=== PATIENT | male | born 1945 | race Caucasian/White ===

== ENCOUNTER 2016-05-09 10:42 | Emergency (ER) | payer MEDICARE, OTHER ==
[~2016-05-09] VITALS: Ht 170.2 cm; Wt 56.0 kg
[~2016-05-09 10:42] MED LIST: ALBU1AER INH; ASPI81TA82 PO; DUONI NEB; LORTA5 PO; PACE200T4 PO; PROT40TA PO; SEVEL800 PO; TAZT360C2 PO
[2016-05-09 10:47] VITALS: BP 144/70; PULSE 64; RESP 20; TEMP 97.9; O2SAT 99
[2016-05-09] MEDS ORDERED: ALBU0.08 NEB (10:58)
[2016-05-09] MEDS ORDERED: PANT40TA3 PO (10:58)
[2016-05-09] MEDS ORDERED: ASPI81CH CHEW (10:58)
[2016-05-09] MEDS ORDERED: AMIO200T PO (10:58)
[2016-05-09] MEDS ORDERED: DILT120T PO (10:58)
[2016-05-09] MEDS ORDERED: SEVEL800 PO (10:58)
--- NOTE | 2016-05-09 11:50 | PD ---
HPI Chief Complaint: Neuro Symptoms/ Deficits Time Seen by Provider: 11:49 Travel History International Travel<30 days: No Contact w/Intl Traveler<30days: No Traveled to known affect area: No History of Present Illness HPI 70 year old male with PMH of COPD, ESRD on dialysis Saturday, , Saturday , A. joceline presents to the ED via EMS for evaluation of episodic tremors with accompanying shortness of breath and palpitations. Patient states that these tend to happen during times of higher anxiety and social contact. Symptoms onset gradually and resolve spontaneously. He states that he has used his pulse oximeter during these episodes with no dip in his oxygen saturation. The patient denies headaches, fevers, chills, chest pain, abdominal pain, nausea, vomiting, changes in bowel habits, melena, hematochezia, dysuria, back pain, weakness of the extremities. States that he rides his bike to the grocery store a few times a week. He estimates the total distance to be just over a mile. Patient was at a psychiatrist this morning who was concerned about his symptoms, called EMS. He endorses compliance with his medications. States that he makes very little urine. PFSH Past Medical History Hx Anticoagulant Therapy: Yes (asa 81mg) Arthritis: No Asthma: No Atrial Fibrillation: Yes Autoimmune Disease: No Anxiety: Yes Depression: No Heart Rhythm Problems: Yes (A FIB) Cancer: No Cardiovascular Problems: Yes High Cholesterol: Yes Chemotherapy: No Chest Pain: No Congestive Heart Failure: Yes COPD: Yes Cerebrovascular Accident: No Diabetes: No Dialysis: Yes (, , SAT) Diminished Hearing: Yes (BILAT HEARING AIDS) Endocrine: No Gastrointestinal Disorders: Yes (GERD, GI BLEEDING) GERD: Yes Genitourinary: Yes (RENAL FAILURE, DIALYSIS ) Headaches: Yes (FROM KIDNEY FAILURE) Hepatitis: Yes (TEENAGE) Hiatal Hernia: Yes Hypertension: Yes Immune Disorder: No Implanted Vascular Access Dvce: Yes (left arm fistula) Kidney Stones: No Medical other: Yes (PSEODOMONAS 2005) Musculoskeletal: No Neurologic: Yes (INNER EAR ISSUES) Psychiatric: Yes (CLAUSTRAPHOBIA, ANXIETY) Reproductive: No Respiratory: Yes (copd) Immunizations Current: Yes Migraines: No Pneumonia: Yes Renal Failure: Yes (ESRD) Seizures: No Sleep Apnea: No Thyroid Disease: No Ulcer: No Past Surgical History Abdominal Surgery: Yes (HERNIA X 6) AICD: No Body Medical Devices: MAY BE WIRES IN CHEST FROM HEART SURGERY,CENTRAL VENAS CATH Cardiac Surgery: Yes (SEPTAL DEFECT REPAIR 1965) Ear Surgery: No Endocrine Surgery: No Eye Surgery: No Genitourinary Surgery: Yes (PLASTIC REPAIR SCROTUM URETHRAPLASTY) Gynecologic Surgery: No Insulin Pump: No Joint Replacement: No Neurologic Surgery: No Oral Surgery: Yes (TONSILLECTOMY) Pacemaker: No Thoracic Surgery: Yes (LUNG BIOPSY) Tonsillectomy: Yes Other Surgery: Yes (A/V FISTULA LEFT ARM) Social History Alcohol Use: No (QUIT 1989) Tobacco Use: No (QUIT 1989) Substance Use: No Allergies-Medications (Allergen,Severity, Reaction): Coded Allergies: Sulfa (Verified Allergy, Severe, "difficulty breathing", 05/09/16) Penicillin (Verified Adverse Reaction, Severe, "acid taste in mouth, problems with vision", 05/09/16) DIFFICULTY BREATHING Reported Meds & Prescriptions Reported Meds & Active Scripts Active Doxycycline Hyclate 100 Mg Cap 100 Mg PO BID Vistaril (Hydroxyzine Pamoate) 25 Mg Cap 25 Mg PO Q6H PRN Reported Renvela (Sevelamer Carbonate) 800 Mg Tab 800 Mg PO DAILY Pantoprazole (Pantoprazole Sodium) 40 Mg Tab 40 Mg PO DAILY Amiodarone (Amiodarone HCl) 200 Mg Tab 200 Mg PO EVERY OTHER DAY Diltiazem (Diltiazem HCl) 120 Mg Tab 240 Mg PO DIRECTED Albuterol Neb (Albuterol Sulfate) 2.5 Mg/3 Ml Neb 2.5 Mg NEB Q6HR Aspirin 81 Mg Chew 81 Mg CHEW DAILY Review of Systems Except as stated in HPI: all other systems reviewed are Neg Physical Exam Narrative GENERAL: Well-nourished, well-developed thin, hard of hearing white male in no acute distress. SKIN: Warm and dry. Visual well-healed surgical scar transversing the chest with no signs of infection. HEAD: Normocephalic. EYES: No scleral icterus. No injection or drainage. PERRLA. EOMI. NECK: Supple, trachea midline. No JVD or lymphadenopathy. CARDIOVASCULAR: Regular rate and rhythm without murmurs, gallops, or rubs. 2+ DP and radial pulses bilaterally. RESPIRATORY: Breath sounds equal bilaterally. Rare end expiratory wheezing. No accessory muscle use. GASTROINTESTINAL: Abdomen soft, non-tender, nondistended. Active bowel sounds. MUSCULOSKELETAL: No cyanosis, or edema. Lower extremities are in constant motion during the course of the exam. Tremor of the right hand, improved by strength testing. NEUROLOGICAL: Awake and alert. Cranial nerves II through XII intact. Motor and sensory grossly within normal limits. Five out of 5 muscle strength in all muscle groups. Normal speech. BACK: Nontender without obvious deformity. No CVA tenderness. Data Data Last Documented VS Vital Signs Date Time Temp Pulse Resp B/P Pulse Ox O2 Delivery O2 Flow Rate FiO2 05/09/16 12:00 98 Room Air 05/09/16 11:50 69 20 05/09/16 10:47 97.9 144/70 Orders Electrocardiogram (05/09/16 12:06) Complete Blood Count With Diff (05/09/16 12:06) Comprehensive Metabolic Panel (05/09/16 12:06) Magnesium (Mg) (05/09/16 12:06) Ckmb (Isoenzyme) Profile (05/09/16 12:06) Troponin I (05/09/16 12:06) Act Partial Throm Time (Ptt) (05/09/16 12:06) Prothrombin Time / Inr (Pt) (05/09/16 12:06) Urinalysis - C+S If Indicated (05/09/16 12:06) Chest, Single Ap (05/09/16 12:06) Ecg Monitoring (05/09/16 12:06) Iv Access Insert/Monitor (05/09/16 12:06) Oximetry (05/09/16 12:06) Sodium Chloride 0.9% Flush (Ns Flush) (05/09/16 12:15) Ct Brain W/O Iv Contrast(Rout) (05/09/16 12:10) Lorazepam Inj (Ativan Inj) (05/09/16 13:15) Doxycycline (Vibramycin) (05/09/16 15:00) Labs Laboratory Tests Test 05/09/16 12:30 White Blood Count 3.3 TH/MM3 Red Blood Count 2.94 MIL/MM3 Hemoglobin 9.3 GM/DL Hematocrit 28.1 % Mean Corpuscular Volume 95.7 FL Mean Corpuscular Hemoglobin 31.6 PG Mean Corpuscular Hemoglobin 33.1 % Concent Red Cell Distribution Width 15.0 % Platelet Count 161 TH/MM3 Mean Platelet Volume 7.8 FL Neutrophils (%) (Auto) 67.2 % Lymphocytes (%) (Auto) 19.1 % Monocytes (%) (Auto) 10.6 % Eosinophils (%) (Auto) 2.3 % Basophils (%) (Auto) 0.8 % Neutrophils # (Auto) 2.2 TH/MM3 Lymphocytes # (Auto) 0.6 TH/MM3 Monocytes # (Auto) 0.3 TH/MM3 Eosinophils # (Auto) 0.1 TH/MM3 Basophils # (Auto) 0.0 TH/MM3 CBC Comment DIFF FINAL Differential Comment Prothrombin Time 12.3 SEC Prothromb Time International 1.1 RATIO Ratio Activated Partial 30.3 SEC Thromboplast Time Sodium Level 138 MEQ/L Potassium Level 5.0 MEQ/L Chloride Level 102 MEQ/L Carbon Dioxide Level 28.1 MEQ/L Anion Gap 8 MEQ/L Blood Urea Nitrogen 32 MG/DL Creatinine 4.48 MG/DL Estimat Glomerular Filtration 13 ML/MIN Rate Random Glucose 82 MG/DL Calcium Level 8.4 MG/DL Magnesium Level 1.9 MG/DL Total Bilirubin 0.5 MG/DL Aspartate Amino Transf 14 U/L (AST/SGOT) Alanine Aminotransferase 19 U/L (ALT/SGPT) Alkaline Phosphatase 132 U/L Total Creatine Kinase 47 U/L Troponin I LESS THAN 0.02 NG/ML Total Protein 6.9 GM/DL Albumin 3.4 GM/DL MDM Medical Decision Making Medical Screen Exam Complete: Yes Emergency Medical Condition: Yes Differential Diagnosis Anxiety versus electrolyte abnormality versus dehydration versus less likely ICH versus like likely ACS versus other Narrative Course 70 year old male with PMH of COPD, ESRD on dialysis Saturday, , Saturday , A. fib presents to the ED via EMS for evaluation of episodic tremors with accompanying shortness of breath and palpitations. Patient states that these tend to happen during times of higher anxiety and social contact. Symptoms onset gradually and resolve spontaneously. He has a pulse oximeter at home and states that his O2 stats do not decrease during these episodes. The patient denies headaches, fevers, chills, chest pain, abdominal pain, nausea, vomiting, changes in bowel habits, melena, hematochezia, dysuria, back pain, weakness of the extremities. States that he rides his bike to the grocery store (1mile +) a few times a week. He was with his psychiatrist this morning who called EMS. Vitals reviewed. Physical exam reveals a pleasant, hard of hearing, nontoxic- appearing white male in no acute distress. There is rare end expiratory wheeze of the chest. Abdomen soft nontender. Equal pulses in the extremities, no edema in the lower extremities. IV was established. Patient was administered 1 mg Ativan. CBC: WBC 3.3. Hemoglobin 9.3. CMP: BUN 32, creatinine 4.48. Calcium 8.4 INR: 1.1. Cardiac enzymes negative EKG: Rate 59, first-degree AV block, LAD, nonspecific ST abnormalities, similar to previous EKGs. Reviewed by Dr. Kohli. Chest x-ray: Cardiomegaly. Small bilateral effusions. There is bibasilar patchiness consistent with atelectasis or infiltrates. 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 CT of the brain: Mild ventriculomegaly, central cerebral atrophy versus hydrocephalus. No acute infarct, hemorrhage, mass effect, extra-axial fluid collection per radiology read. The patient, workup, plan of care was discussed with Dr. Kohli who is agreeable. On recheck the patient is sitting calmly in bed, no motion of the arms and legs. I discussed the results of the workup with the patient. I informed him that he had an early, patchy pneumonia. Prescribed azithromycin, first dose administered in the ED. I also provided a prescription for #10 25 mg Vistaril. I instructed the patient to take antibiotics as prescribed, follow up with his primary care provider. I explained to him the Vistaril could cause drowsiness, take with caution. Recommended that he take a dose 20-30 minutes prior to anxiety causing situations. The patient indicated understanding of the instructions. He is amenable with the plan of care. He is stable and discharged home. Diagnosis Primary Impression: Anxiety Additional Impressions: Tremor of left hand Pneumonia Qualified Code: J18.9 - Pneumonia of both lungs due to infectious organism, unspecified part of lung Referrals: Primary Care Physician Psychiatrist Patient Instructions: Anxiety (ED), Community Acquired Pneumonia (ED), General Instructions, Tremors (ED) Additional Instructions: Rest, hydrate. Resume all home medications. Take antibiotics as prescribed. Take Vistaril as needed for anxiety, as discussed. Follow up with your primary care provider and psychiatrist this week. Return to the ED for any urgent or emergent medical condition. Med/Other Pt SpecificInfo: Prescription(s) given Scripts Doxycycline Hyclate 100 Mg [id number] Mg PO BID #20 CAP Ref 0 Prov:Dilma Kohli DO 05/09/16 Hydroxyzine Pamoate (Vistaril)25 Mg Cap25 Mg PO Q6H PRN (ANXIETY AND/OR AGITATION) #10 CAP Ref 0 Prov:Dilma Kohli DO 05/09/16 Disposition: 01 DISCHARGE HOME Condition: Stable Lynn Bryant May 09, 2016 11:49
[2016-05-09 12:00] VITALS: O2SAT 98
[2016-05-09] MEDS ORDERED: SODIUM CHLORIDE 0.9% FLUSH 5 ML FLUSH IVF PRN (12:15)
[2016-05-09] MEDS ORDERED: LORazepam 2 MG/ML VIAL IM ONE (12:15)
[2016-05-09 12:47] LABS: AUTOMATED NEUTROPHIL # 2.2 TH/MM3 (1.8-7.7); BASOPHIL % 0.8 % (0.0-2.0); EOSINOPHIL # 0.1 TH/MM3 (0-0.4); EOSINOPHIL % 2.3 % (0.0-4.0); HEMATOCRIT 28.1 % (39.0-51.0); HEMO FLAGS DIFF FINAL; LYMPH % 19.1 % (9.0-44.0); LYMPHOCYTE # 0.6 TH/MM3 (1.0-4.8); MEAN CELL VOLUME 95.7 FL (80.0-100.0); MEAN CORPUSCULAR HEMOGLOBIN 31.6 PG (27.0-34.0); MEAN CORPUSCULAR HGB CONC 33.1 % (32.0-36.0); MONO % 10.6 % (0.0-8.0); NEUT % 67.2 % (16.0-70.0); PLATELET COUNT 161 TH/MM3 (150-450); RED BLOOD COUNT 2.94 MIL/MM3 (4.50-5.90); WHITE BLOOD COUNT 3.3 TH/MM3 (4.0-11.0)
[2016-05-09 12:56] LABS: APTT (PATIENT) 30.3 SEC (24.3-30.1); INTERNATIONAL NORMALIZED RATIO 1.1 RATIO; PROTHROMBIN TIME - PATIENT 12.3 SEC (9.8-11.6)
[2016-05-09] MEDS ORDERED: LORazepam 2 MG/ML VIAL IV PUSH ONE (13:15)
--- NOTE | 2016-05-09 13:18 | RADRPT ---
EXAM DATE/TIME: 05/09/2016 12:59 [facility] COMPARISON: No previous studies available for comparison. INDICATIONS : General weakness, right side. RADIATION DOSE: 38.54 CTDIvol (mGy) MEDICAL HISTORY : Cardiovascular disease. Gastroesophageal reflux disease. Renal failure, chronic .Dialysis SURGICAL HISTORY : None. ENCOUNTER: Initial ACUITY: 1 day PAIN SCALE: 5/10 LOCATION: cranial TECHNIQUE: Multiple contiguous axial images were obtained of the head. Using automated exposure control and adjustment of the mA and/or kV according to patient size, radiation dose was kept as low as reasonably achievable to obtain optimal diagnostic quality images. FINDINGS: CEREBRUM: There is mild ventriculomegaly suggesting central cerebral atrophy versus hydrocephalus . Clinical correlation is recommended. No evidence of midline shift, mass lesion, hemorrhage or acute infarction. No extra-axial fluid collections are seen. POSTERIOR FOSSA: The cerebellum and brainstem are intact. The 4th ventricle is midline. The cer ebellopontine angle is unremarkable. EXTRACRANIAL: The visualized portion of the orbits is intact. SKULL: The calvaria is intact. No evidence of skull fracture. CONCLUSION: 1. Mild ventriculomegaly suggesting central cerebral atrophy versus hydrocephalus. Clinical correlati on is recommended. 2. No acute infarct, acute hemorrhage, mass effect or extra-axial fluid collections. Claude Oneill MD on May 09, 2016 at 13:14 Board Certified Radiologist. This report was verified electronically.
[2016-05-09 13:34] LABS: ALKALINE PHOSPHATASE 132 U/L (45-117); BLOOD UREA NITROGEN 32 MG/DL (7-18); GLOMERULAR FILTRATION RATE 13 ML/MIN (>89); MAGNESIUM 1.9 MG/DL (1.5-2.5)
[2016-05-09 13:35] LABS: ALT (GPT) 19 U/L (12-78); ANION GAP 8 MEQ/L (5-15); AST (GOT) 14 U/L (15-37); BICARBONATE 28.1 MEQ/L (21.0-32.0); CHLORIDE 102 MEQ/L (98-107); CREATINE KINASE 47 U/L (39-308); SODIUM (NA) 138 MEQ/L (136-145); TOTAL BILIRUBIN ADULT 0.5 MG/DL (0.2-1.0)
--- NOTE | 2016-05-09 14:32 | RADRPT ---
EXAM DATE/TIME: 05/09/2016 12:13 [facility] COMPARISON: CHEST SINGLE AP, October 05, 2015, 12:50. INDICATIONS : Short of breath. MEDICAL HISTORY : Cardiovascular disease. SURGICAL HISTORY : Stents placed in s ENCOUNTER: Initial ACUITY: 1 day PAIN SCORE: 4/10 LOCATION: Bilateral chest FINDINGS: The heart is enlarged. Small bilateral pleural effusions are noted. Calcified pleural plaques are n oted on the right and are stable. Superimposed scattered bibasilar patchiness is noted consistent wi th atelectasis and/or infiltrates. CONCLUSION: 1. Cardiomegaly. 2. Small bilateral pleural effusions. 3. Bibasilar patchiness consistent with atelectasis and/or infiltrates. 4. 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 Claude Oneill MD on May 09, 2016 at 14:12 Board Certified Radiologist. This report was verified electronically.
[2016-05-09] MEDS ORDERED: VIST25CA PO (14:49)
[2016-05-09] MEDS ORDERED: DOXY100C PO (14:54)
[2016-05-09] MEDS ORDERED: DOXYCYCLINE HYCLATE 100 MG CAP PO ONE (15:00)
[2016-05-09] MEDS ORDERED: AZITHROMYCIN 250 MG TAB PO ONE (15:00)
--- NOTE | 2016-05-09 17:50 | EKG ---
Date Performed: 05/09/2016 Time Performed: 14:57:56 PTAGE: 70 years EKG: BASELINE ARTIFACT PRESENT. SINUS BRADYCARDIA WITH FIRST DEGREE AV BLOCK MARKED LEFT AXIS DE VIATION LOW QRS VOLTAGE IN EXTREMITY LEADS MODERATE INTRAVENTRICULAR CONDUCTION DELAY NONSPECIFIC ST & T-WAVE ABNORMALITY ABNORMAL ECG NO SIGNIFICANT CHANGE FROM PRIOR ELECTROCARDIOGRAM. PREVIOUS TRACING : 10/05/2015 12.33 DOCTOR: Erick Wren Interpretating Date/Time 05/09/2016 17:49:01
== END 2016-05-09 15:47 | disposition home or self-care (01) ==
LOC: NEPE 10:42
DX: F41.9 Anxiety disorder, unspecified (principal); R25.1 Tremor, unspecified; J18.9 Pneumonia, unspecified organism; R94.31 Abnormal electrocardiogram [ECG] [EKG]; I12.0 Hypertensive chronic kidney disease with stage 5 chronic kidney disease or end stage renal disease; I48.91 Unspecified atrial fibrillation; H91.93 Unspecified hearing loss, bilateral; N18.6 End stage renal disease; E78.00 Pure hypercholesterolemia, unspecified; Z99.2 Dependence on renal dialysis; Z86.79 Personal history of other diseases of the circulatory system; Z79.82 Long term (current) use of aspirin; Z87.09 Personal history of other diseases of the respiratory system; Z87.19 Personal history of other diseases of the digestive system; Z86.69 Personal history of other diseases of the nervous system and sense organs; Z86.59 Personal history of other mental and behavioral disorders
CPT/HCPCS: 70450; 71010; 80053; 82550; 83735; 84484; 85025; 85610; 85730; 93005; 96374; 99285; J2060

== ENCOUNTER 2016-05-12 16:15 | Inpatient (IN) | payer MEDICARE, OTHER ==
[~2016-05-12] VITALS: Ht 170.2 cm; Wt 57.9 kg
[~2016-05-12 16:15] MED LIST changes: +ALBU0.08 NEB; -ALBU1AER INH; +AMIO200T PO; +ASPI81CH CHEW; -ASPI81TA82 PO; +DILT120T PO; +DOXY100C PO; -DUONI NEB; -LORTA5 PO; -PACE200T4 PO; +PANT40TA3 PO; -PROT40TA PO; -TAZT360C2 PO; +VIST25CA PO
[2016-05-12 16:24] VITALS: BP 140/70; PULSE 123; RESP 22; O2SAT 93
[2016-05-12 16:34] VITALS: TEMP 101.2
[2016-05-12] MEDS ORDERED: AZITHROMYCIN INJ 500 MG in SODIUM CHLOR 0.9% 250 ML INJ 250 ML IV STA (16:48)
[2016-05-12] MEDS ORDERED: AZTREONAM INJ 2,000 MG in SODIUM CHLORIDE 0.9% INJ 100 ML IV STA (16:48)
[2016-05-12] MEDS ORDERED: DILTIAZEM HCL 25 MG/5 ML VIAL IV ONE ×2 (17:00→18:30)
[2016-05-12] MEDS ORDERED: methylPREDNISolone SOD SUCC 40 MG/1 ML VIAL IV ONE (17:00)
[2016-05-12] MEDS ORDERED: ACETAMINOPHEN 325 MG TAB PO ONE (17:00)
--- NOTE | 2016-05-12 17:05 | PD ---
HPI Chief Complaint: generalized weakness Time Seen by Provider: 16:32 Travel History International Travel<30 days: No (unknown) Contact w/Intl Traveler<30days: No (unknown) History of Present Illness HPI 70yo M with PMH of COPD, ESRD on HD /, Afib on diltiazem and amiodarone presents to the ED with c/o generalized weakness after hemodialysis today. Pt states he was trying to get up from his chair after hemodialysis but felt too weak. He had bilateral buttocks pain at the time but denies any pain right now. Pt complains of increasing productive cough. +Chills. Denies any fever at home, chest pain, n/v, abdominal pain. Pt was seen at [facility] on 05/09/16 and CXR at the time showed bibasilar patching atelectasis or infiltrate and pt was discharged with doxycycline and vistaril because he also had anxiety. PFSH Past Medical History Hx Anticoagulant Therapy: Yes (asa 81mg) Arthritis: No Asthma: No Atrial Fibrillation: Yes Autoimmune Disease: No Anxiety: Yes Depression: No Heart Rhythm Problems: Yes (A FIB) Cancer: No Cardiovascular Problems: Yes High Cholesterol: Yes Chemotherapy: No Chest Pain: No Congestive Heart Failure: Yes COPD: Yes Cerebrovascular Accident: No Diabetes: No Dialysis: Yes (, , SAT) Diminished Hearing: Yes (BILAT HEARING AIDS) Endocrine: No Gastrointestinal Disorders: Yes (GERD, GI BLEEDING) GERD: Yes Genitourinary: Yes (RENAL FAILURE, DIALYSIS -) Headaches: Yes (FROM KIDNEY FAILURE) Hepatitis: Yes (TEENAGE) Hiatal Hernia: Yes Hypertension: Yes Immune Disorder: No Implanted Vascular Access Dvce: Yes (left arm fistula) Kidney Stones: No Musculoskeletal: No Neurologic: Yes (INNER EAR ISSUES) Psychiatric: Yes (CLAUSTRAPHOBIA, ANXIETY) Reproductive: No Respiratory: Yes (copd) Immunizations Current: Yes Migraines: No Pneumonia: Yes Renal Failure: Yes (ESRD) Seizures: No Sleep Apnea: No Thyroid Disease: No Ulcer: No Past Surgical History Abdominal Surgery: Yes (HERNIA X 6) AICD: No Body Medical Devices: MAY BE WIRES IN CHEST FROM HEART SURGERY,CENTRAL VENAS CATH Cardiac Surgery: Yes (SEPTAL DEFECT REPAIR 1965) Ear Surgery: No Endocrine Surgery: No Eye Surgery: No Genitourinary Surgery: Yes (PLASTIC REPAIR SCROTUM URETHRAPLASTY) Gynecologic Surgery: No Insulin Pump: No Joint Replacement: No Neurologic Surgery: No Oral Surgery: Yes (TONSILLECTOMY) Pacemaker: No Thoracic Surgery: Yes (LUNG BIOPSY) Tonsillectomy: Yes Other Surgery: Yes (A/V FISTULA LEFT ARM) Social History Alcohol Use: No (QUIT 1989) Tobacco Use: No (QUIT 1989) Substance Use: No Allergies-Medications (Allergen,Severity, Reaction): Coded Allergies: Sulfa (Verified Allergy, Severe, "difficulty breathing", 05/12/16) Penicillin (Verified Adverse Reaction, Severe, "acid taste in mouth, problems with vision", 05/12/16) DIFFICULTY BREATHING Reported Meds & Prescriptions Reported Meds & Active Scripts Active Doxycycline Hyclate 100 Mg Cap 100 Mg PO BID Vistaril (Hydroxyzine Pamoate) 25 Mg Cap 25 Mg PO Q6H PRN Reported Renvela (Sevelamer Carbonate) 800 Mg Tab 800 Mg PO DAILY Pantoprazole (Pantoprazole Sodium) 40 Mg Tab 40 Mg PO DAILY Amiodarone (Amiodarone HCl) 200 Mg Tab 200 Mg PO EVERY OTHER DAY Diltiazem (Diltiazem HCl) 120 Mg Tab 240 Mg PO DIRECTED Albuterol Neb (Albuterol Sulfate) 2.5 Mg/3 Ml Neb 2.5 Mg NEB Q6HR Aspirin 81 Mg Chew 81 Mg CHEW DAILY Review of Systems Except as stated in HPI: all other systems reviewed are Neg Physical Exam Narrative GENERAL: 70yo M not in distress. SKIN: Warm and dry. HEAD: Atraumatic. Normocephalic. EYES: Pupils equal and round. No scleral icterus. No injection or drainage. ENT: No nasal bleeding or discharge. Mucous membranes pink and moist. NECK: Trachea midline. No JVD. CARDIOVASCULAR: Irregular heart rate [id number]. RESPIRATORY: Decreased breath sound right lower lobe. +Crackle left lower lobe. GASTROINTESTINAL: Abdomen soft, non-tender, nondistended. No rebound tenderness or guarding. : No ulcer or wound in bilateral ischium. Not ttp on my exam. MUSCULOSKELETAL: No obvious deformities. No clubbing. No cyanosis. No edema. NEUROLOGICAL: Awake and alert. No obvious cranial nerve deficits. Motor grossly within normal limits. Normal speech. Involuntary movement of jaw, appears to be extrapyrimidal. PSYCHIATRIC: Appropriate mood and affect; insight and judgment normal. Data Data Last Documented VS Vital Signs Date Time Temp Pulse Resp B/P Pulse Ox O2 Delivery O2 Flow Rate FiO2 05/12/16 16:34 101.2 05/12/16 16:24 123 22 140/70 93 Room Air Orders Complete Blood Count With Diff (05/12/16 16:48) Comprehensive Metabolic Panel (05/12/16 16:48) Prothrombin Time / Inr (Pt) (05/12/16 16:48) Act Partial Throm Time (Ptt) (05/12/16 16:48) Lactic Acid Sepsis Protocol (05/12/16 16:48) Magnesium (Mg) (05/12/16 16:48) Ckmb (Isoenzyme) Profile (05/12/16 16:48) Troponin I (05/12/16 16:48) Urinalysis - C+S If Indicated (05/12/16 16:48) Blood Culture (05/12/16 16:48) Chest, Single Ap (05/12/16 16:48) Blood Glucose (05/12/16 16:48) Ecg Monitoring (05/12/16 16:48) Iv Access Insert/Monitor (05/12/16 16:48) Oximetry (05/12/16 16:48) Oxygen Administration (05/12/16 16:48) Aztreonam Inj (Azactam Inj) (05/12/16 16:48) Azithromycin Inj (Zithromax Inj) (05/12/16 16:48) Albuterol-Ipratropium Neb (Duoneb Neb) (05/12/16 17:00) Methylprednisolone So Succ Inj (Solumedr (05/12/16 17:00) Acetaminophen (Tylenol) (05/12/16 17:00) Diltiazem Inj (Cardizem Inj) (05/12/16 17:00) Diltiazem Inj (Cardizem Inj) (05/12/16 18:30) Admit Order (Ed Use Only) (05/12/16 18:40) Labs Laboratory Tests Test 05/12/16 05/12/16 05/12/16 16:50 17:10 18:35 White Blood Count 2.9 TH/MM3 Red Blood Count 3.30 MIL/MM3 Hemoglobin 10.7 GM/DL Hematocrit 31.3 % Mean Corpuscular Volume 94.9 FL Mean Corpuscular Hemoglobin 32.6 PG Mean Corpuscular Hemoglobin 34.3 % Concent Red Cell Distribution Width 14.7 % Platelet Count 175 TH/MM3 Mean Platelet Volume 8.2 FL Neutrophils (%) (Auto) 75.3 % Lymphocytes (%) (Auto) 8.0 % Monocytes (%) (Auto) 14.7 % Eosinophils (%) (Auto) 1.0 % Basophils (%) (Auto) 1.0 % Neutrophils # (Auto) 2.2 TH/MM3 Lymphocytes # (Auto) 0.2 TH/MM3 Monocytes # (Auto) 0.4 TH/MM3 Eosinophils # (Auto) 0.0 TH/MM3 Basophils # (Auto) 0.0 TH/MM3 CBC Comment DIFF FINAL Differential Comment Prothrombin Time 12.2 SEC Prothromb Time International 1.1 RATIO Ratio Activated Partial 29.0 SEC Thromboplast Time Sodium Level 135 MEQ/L Potassium Level 4.6 MEQ/L Chloride Level 98 MEQ/L Carbon Dioxide Level 29.7 MEQ/L Anion Gap 7 MEQ/L Blood Urea Nitrogen 14 MG/DL Creatinine 2.33 MG/DL Estimat Glomerular Filtration 28 ML/MIN Rate Random Glucose 96 MG/DL Calcium Level 9.0 MG/DL Magnesium Level 1.8 MG/DL Total Bilirubin 0.6 MG/DL Aspartate Amino Transf 33 U/L (AST/SGOT) Alanine Aminotransferase 34 U/L (ALT/SGPT) Alkaline Phosphatase 150 U/L Total Creatine Kinase 56 U/L Troponin I 0.03 NG/ML Total Protein 7.3 GM/DL Albumin 3.5 GM/DL Lactic Acid Level 1.0 mmol/L Urine Color YELLOW Urine Turbidity HAZY Urine pH 8.5 Urine Specific [place] 1.010 Urine Protein 100 mg/dL Urine Glucose (UA) NEG mg/dL Urine Ketones NEG mg/dL Urine Occult Blood NEG Urine Nitrite NEG Urine Bilirubin NEG Urine Urobilinogen LESS THAN 2.0 MG/DL Urine Leukocyte Esterase SMALL Urine RBC 1 /hpf Urine WBC 9 /hpf Urine Squamous Epithelial 5 /hpf Cells Urine Bacteria RARE /hpf Microscopic Urinalysis Comment CATH-CULTURE IND MDM Medical Decision Making Medical Screen Exam Complete: Yes Emergency Medical Condition: Yes Interpretation(s) EKG: Afib at 117. LBBB. LAD. New from prior. Differential Diagnosis Sepsis secondary to pneumonia vs. UTI vs. electrolyte abnormality Narrative Course 70yo M with productive cough, fever, and sob. Impression is HCAP. Labs reviewed, WBC low at 2.9. H/H at baseline. Creatinine 2.33, better than baseline. Lactic acid 1.0. Troponin 0.03. K: 4.6. Pt is febrile with temp of 101.2, tachycardic and tachypneic here. Pt given aztreonam and azithromycin empirically. Since pt has COPD, given duonebs x3 and methylprednisolone. Pt states he does feel better. CXR showed stable basilar airspace disease with chronic pleural thickening and fluid and pleural calcifications. 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 Pt has new EKG changes but no chest pain. Pt is afib RVR in the low 120s. Pt given cardizem 15mg IV initially but HR did not improved. Pt given cardizem 20mg IV and HR improved to 100bpm. HR has been in the low 100s up to 110, will place pt on cardizem drip and titrate as needed. BP stable. Pt initially admitted to resident physician but later found out that his PCP admits to [facility]. Pt is now admitted to Dr. Alas after speaking to Chuck HERNANDEZ. Critical Care Narrative Aggregate critical care time was 50 minutes. Time to perform other separately billable procedures was not included in the critical care time. My time did not include minutes spent treating any other patients simultaneously or on activities that did not directly contribute to the patient's treatment. The services I provided to this patient were to treat and/or prevent clinically significant deterioration that could result in: cardiovascular collapse or . I provided critical care services requiring my management, as noted below: Chart data review, documentation time, medication orders and management, vital sign assessments/reviewing monitor data, ordering and reviewing lab tests, ordering and interpreting/reviewing x-rays and diagnostic studies, care of the patient and discussion of the patient with the admitting physicians. Diagnosis Primary Impression: Atrial fibrillation with rapid ventricular response Additional Impression: Sepsis Qualified Code: A41.9 - Sepsis, due to unspecified organism Admitting Information Admitting Physician Requests: Fariha Raymundo DO May 12, 2016 17:05
[2016-05-12] MEDS: RESP: ALBUTEROL 2.5 MG/IPRATROPIUM 0.5 MG NEB (SCH) INH ×2 (17:25→17:26)
[2016-05-12 17:31] LABS: AUTOMATED NEUTROPHIL # 2.2 TH/MM3 (1.8-7.7); HEMATOCRIT 31.3 % (39.0-51.0); HEMO FLAGS DIFF FINAL; LYMPHOCYTE # 0.2 TH/MM3 (1.0-4.8); MEAN CELL VOLUME 94.9 FL (80.0-100.0); MEAN CORPUSCULAR HEMOGLOBIN 32.6 PG (27.0-34.0); MEAN CORPUSCULAR HGB CONC 34.3 % (32.0-36.0); MONO % 14.7 % (0.0-8.0); NEUT % 75.3 % (16.0-70.0); PLATELET COUNT 175 TH/MM3 (150-450); RED CELL DISTRIBUTION WIDTH 14.7 % (11.6-17.2); WHITE BLOOD COUNT 2.9 TH/MM3 (4.0-11.0)
[2016-05-12 17:43] LABS: INTERNATIONAL NORMALIZED RATIO 1.1 RATIO; PROTHROMBIN TIME - PATIENT 12.2 SEC (9.8-11.6)
--- NOTE | 2016-05-12 17:47 | RADRPT ---
EXAM DATE/TIME: 05/12/2016 17:00 [place] COMPARISON: CHEST SINGLE AP, May 09, 2016, 12:13. CT THORAX W/O CONTRAST, April 22, 2015, 20:19. INDICATIONS : Short of breath. MEDICAL HISTORY : None. SURGICAL HISTORY : None. ENCOUNTER: Initial ACUITY: 1 day PAIN SCORE: 6/10 LOCATION: Bilateral chest FINDINGS: Cardiomegaly present with basilar airspace disease and small effusion similar to May 09. Pleural calcifications noted on the right. No pneumothorax. CONCLUSION: 1. Stable basilar airspace disease with chronic pleural thickening and fluid and pleural calcificatio ns. Rashel Aguilera MD on May 12, 2016 at 17:44 Board Certified Radiologist. This report was verified electronically.
[2016-05-12 18:04] LABS: ANION GAP 7 MEQ/L (5-15); AST (GOT) 33 U/L (15-37); BICARBONATE 29.7 MEQ/L (21.0-32.0); BLOOD UREA NITROGEN 14 MG/DL (7-18); CHLORIDE 98 MEQ/L (98-107); GLOMERULAR FILTRATION RATE 28 ML/MIN (>89); MAGNESIUM 1.8 MG/DL (1.5-2.5); POTASSIUM 4.6 MEQ/L (3.5-5.1); SODIUM (NA) 135 MEQ/L (136-145)
[2016-05-12 18:09] LABS: ALKALINE PHOSPHATASE 150 U/L (45-117); ALT (GPT) 34 U/L (12-78); TOTAL BILIRUBIN ADULT 0.6 MG/DL (0.2-1.0)
[2016-05-12 18:14] LABS: CREATINE KINASE 56 U/L (39-308)
[2016-05-12 18:45] VITALS: BP 119/56; PULSE 124; RESP 24; O2SAT 100
[2016-05-12 18:54] LABS: BACTERIA, URINE RARE /hpf; BLOOD, URINE NEG (NEG); GLUCOSE,URINE NEG (NEG); KETONE, URINE NEG (NEG); NITRITE,URINE NEG (NEG); PH, URINE 8.5 (5.0-8.5); SQUAMOUS EPITHELIAL CELL URINE 5 /hpf (0-5); URINE COLOR YELLOW (YELLW/STRAW)
[2016-05-12 18:56] LABS: COMMENT (UR) CATH-CULTURE IND; CULTURE IF INDICATED CATH CULTURE IND
[2016-05-12 19:52] VITALS: BP_SYST 118; BP_SYST 18; BP_DIAS 58; PULSE 100; RESP 26; O2SAT 96
[2016-05-12] MEDS ORDERED: ACETAMINOPHEN 325 MG TAB PO PRN (20:00)
[2016-05-12] MEDS ORDERED: NALOXONE HCL 0.4 MG/ML AMP IV PRN (20:00)
[2016-05-12] MEDS ORDERED: DILTIAZEM INJ 125 MG in SODIUM CHLORIDE 0.9% INJ 100 ML IV SCH ×4 (20:00)
[2016-05-12] MEDS ORDERED: ONDANSETRON HCL 4 MG/2 ML VIAL IVP PRN (20:00)
[2016-05-12] MEDS: SODIUM CHLORIDE 0.9% FLUSH 5 ML FLUSH FLUSH PRN (21:24)
[2016-05-12] MEDS: HEPARIN SODIUM - SQ 10,000 UNITS/ML VIAL SQ SCH (21:24)
[2016-05-12] MEDS: SODIUM CHLORIDE 0.9% FLUSH 5 ML FLUSH FLUSH SCH (21:24)
[2016-05-12 22:00] VITALS: BP 141/63; PULSE 62; RESP 20; O2SAT 100
[2016-05-12 23:00] VITALS: BP 144/65; PULSE 64; RESP 18; O2SAT 99
[2016-05-13] VITALS (29 sets, daily range): BP systolic 109–153; BP diastolic 58–76; PULSE 60–98; RESP 16–20; TEMP 96.6–98.5; O2SAT 96–100
[2016-05-13] MEDS: PANTOPRAZOLE SOD 40 MG DELAYED RELEASE TAB PO SCH ×2 (01:15→09:27)
[2016-05-13] MEDS: methylPREDNISolone SOD SUCC 125 MG/2 ML VIAL IVP SCH ×4 (01:15→18:15)
--- NOTE | 2016-05-13 06:30 | MH ---
cc: CRISTINA KAISER M.D.EMELYN,CELINE DATE OF ADMISSION: 05/12/[address] Kaiser. CHIEF COMPLAINT Weakness, fever. HISTORY OF PRESENT ILLNESS This is a pleasant 70-year-old male who was in his normal state of health today after his dialysis session which he does three times a week. He became very cold during his dialysis session. He became weak. He had some discomfort in his hips when he tried to stand. He developed palpitations. He developed a cough with clear mucous. He felt very cold and clammy and ended up coming to the hospital because he became so weak that he could not even stand up. He was seen in the emergency room. He was found to be febrile, being in A-fib with RVR. He was started on Cardizem drip. His heart rate was brought under control. He was given nebulizer, steroids and antibiotics. He is feeling much better with his heart rate under control. He is breathing easier and he feels much stronger at this point. He had no nausea, vomiting or diarrhea. He was not having any chest pain or pressure. He did have the palpitations, though. MEDICATIONS ON ADMISSION: Please see chart. ALLERGIES: PENICILLIN SULFA PAST MEDICAL HISTORY: 1. A-fib. 2. Hypercholesterolemia. 3. Congestive heart failure. 4. End-stage renal disease on hemodialysis. 5. Hypertension. 6. Hiatal hernia 7. COPD. Currently not on oxygen. 8. Gout. 9. Hyperparathyroidism. 10. Anxiety. 11. History of DVT. 12. GI bleed secondary to Coumadin for which he is currently not taking any anticoagulants because of the GI bleed history. PAST SURGICAL HISTORY: 1. Several hernia repairs. 2. Septal defect of the heart repaired. 3. Scrotum surgery. 4. Tonsillectomy. 5. Lung biopsy. 6. Left brachial A-V fistula. SOCIAL HISTORY: He is not , lives alone. Tobacco, quit 1989. Alcohol quite 1989. FAMILY HISTORY: Noncontributory REVIEW OF SYSTEMS: The patient states over the last several weeks he developed what he feels is like a restless leg type syndrome mainly with dialysis. His doctors ordered him Vistaril for which he took the first dose today and it did not seem to help the tremors in his legs. Weight has been stable over the last couple of weeks though he has lost some weight over the last several years since starting dialysis about three years ago. It has leveled off recently. He was short of breath about a week ago and came to the emergency room. He was not admitted and states his breathing has been okay until today. A 12 points review of systems noted, no other pertinent findings. PHYSICAL EXAMINATION: VITAL SIGNS: T-max is 101.2, heart rate currently is 69, maximum heart rate was 124. Blood pressure is 118/58. GENERAL: This is a 70 year-old male who was resting comfortably in the emergency room in no acute distress. HEENT: Mucous membranes are moist. No jaundice. NECK: Supple. CARDIOVASCULAR: Regular rate and rhythm. Grade 3/6 systolic ejection murmur is heard. LUNGS: Few expiratory wheezes. Few basilar crackles. GASTROINTESTINAL: Bowel sounds present. No tenderness, no rebound. GENITOURINARY: No CVA tenderness. No suprapubic tenderness. MUSCULOSKELETAL: No edema. Homans' sign negative. NEUROLOGIC: Awake, alert, oriented x4. EXTREMITIES: Moving all extremities symmetrically and freely. INVESTIGATIONS: White count is 2.9, hemoglobin 10.7, platelet count 175, INR is 1.1. Sodium 135, potassium 4.6, BUN 14, creatinine 2.23, lactic acid is 1, magnesium is 1.8, LFTs are normal other than an alk phos of 150. CPK is normal. Troponin-I is 0.03. Albumin is 3.5. Urinalysis hazy, protein 100, leukocyte esterase small. WBC 9, culture indicated. Chest x-ray shows stable basilar air space disease with chronic pleural thickening and fluid, and pleural calcifications. IMPRESSION: 1. A-fib with RVR. 2. Sepsis on admission. 3. End-stage renal disease on hemodialysis. 4. Hyponatremia. 5. Leukopenia. 6. Anemia. 7. Questionable urinary tract infection. 8. COPD. 9. Pleural thickening and calcifications. 10. Anxiety. 11. History of GI bleed secondary to Coumadin. DISCUSSION: The patient is admitted to Dr. Alas's service. The patient meets inpatient criteria due to the severity of his multiple medical problems including sepsis on admission as well as the lazara with RVR without which hospitalization he would be at a high-risk of developing multiorgan system failure, strokes, etc. During his hospital stay he will be seen in consultation by cardiology. He has been started on IV antibiotics including Zithromax and aztreonam. He is currently in sinus rhythm with a rate of about 70. He is being given oxygen and steroids for his COPD. Serial cardiac enzymes will be monitored. 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 This may need to be repeated during his hospital stay. We will provide him with DVT prophylaxis as well as GI prophylaxis. Will make further recommendations as his case progresses. Anticipated length of stay is three days. Anticipated discharge is home. Dictated by: Constantine Dean PA-C Celine Alas MD JP/MORGAN /12:01 AM /5:33 AM Pt seen and examined as above on day of admission ( face to face time spent with pt ) chart was reviewd labs and rad data reviewed meds reviewed notes reviewed dw pt rain rn TRAVIS
[2016-05-13] MEDS: HEPARIN SODIUM - SQ 10,000 UNITS/ML VIAL SQ SCH ×2 (08:25→20:00)
[2016-05-13] MEDS: AZTREONAM INJ 1,000 MG in SODIUM CHLORIDE 0.9% INJ 100 ML IV SCH ×2 (08:26→21:07)
[2016-05-13] MEDS: RESP: ALBUTEROL 2.5 MG/IPRATROPIUM 0.5 MG NEB (SCH) INH ×3 (08:53→21:20)
--- NOTE | 2016-05-13 09:00 | MB ---
cc: THEO CORLEY MD DATE OF CONSULTATION: 05/13/2016 REASON FOR CONSULTATION: Atrial fibrillation. HISTORY OF PRESENT ILLNESS The patient is a pleasant 70-year-old gentleman with a history of paroxysmal atrial fibrillation but not on Coumadin due to a GI bleed, as well as congestive heart failure, end-stage renal disease on hemodialysis who was at hemodialysis and following his treatment was very weak, could not ambulate and thus was brought to the emergency department. There he was apparently in atrial fibrillation to the 130s, was started a Cardizem drip and admitted. Sometime between starting the Cardizem drip and being transferred to [facility], he apparently converted to sinus rhythm where he remains currently. He is coughing and says that he has pneumonia but denies any chest pain, shortness of breath, lightheadedness or dizziness at this point. PAST MEDICAL HISTORY: 1. Paroxysmal atrial fibrillation, no longer on Coumadin due to GI bleeding. 2. Hypercholesterolemia. 3. Congestive heart failure. 4. ESRD on hemodialysis. 5. Hypertension. 6. Hyperlipidemia. 7. COPD. 8. Gout. 9. Anxiety. 10. Hyperparathyroidism. 11. Tremors. CURRENT MEDICATIONS: 1. Azithromycin. 2. Albuterol nebulizer. 3. Aztreonam. 4. Solu-Medrol 5. Protonix. 6. Cardizem drip. (Discontinued). ALLERGIES PENICILLIN. SULFA. PHYSICAL EXAMINATION: Afebrile, pulse 54, respiratory rate 16, BP 117/69 sating 100%. GENERAL: A pleasant thin gentleman with significant tremor in no distress. Neck: No JVD. Lungs: Clear auscultation bilaterally. Cardiovascular: Regular rate and rhythm. No murmurs appreciated. Abdomen is benign. Extremities: No edema. LABORATORY DATA White count 2.9, hematocrit 31.3, platelets 175. Sodium 135, potassium 4.6, chloride 98, bicarb 29.5, BUN 14, creatinine 2.33, glucose 96, troponin 0.03, 0.38. EKG showed probable atrial fibrillation at a rate of 117, with left bundle-branch block, though the rate is fairly regular and he has a known long first-degree AV block, so sinus rhythm with ectopy is not out of the question, however, the chart does indicate that he was in atrial fibrillation in the emergency department. Current telemetry shows sinus rhythm with a long first-degree AV block. Chest x-ray shows stable basilar air space disease, chronic pleural thickening, fluid and pleural calcifications. IMPRESSION A-fib. The patient has known paroxysmal atrial fibrillation. It is currently being treated for pneumonia. If he does have a pneumonia, certainly this could trigger an episode of atrial fibrillation. He tells me he is not a Coumadin candidate due to prior GI bleeding. This could be reevaluated with his primary buffing machine operator semiautomatic as an outpatient. Elevated troponin. The patient likely has this mildly elevation troponin due to his rapid atrial fibrillation, perhaps mild congestive heart failure and his renal dysfunction. My notes from last year when I saw the patient indicated that he had a cardiac catheterization at [facility] which showed stable coronary artery disease. It may be reasonable to have him undergo a nuclear stress test tomorrow, once his clinical condition stabilizes to ensure no progression of his coronary artery disease. Generalized weakness. This likely was due to hemodynamic changes during dialysis. I will have physical therapy see him today. Thank you again for the opportunity to participate in this patient's care. MD YADIRA Cherry/MORGAN /8:26 AM /8:44 AM
[2016-05-13] MEDS: SODIUM CHLORIDE 0.9% FLUSH 5 ML FLUSH FLUSH SCH ×2 (09:27→21:07)
[2016-05-13] MEDS ORDERED: PANTOPRAZOLE SOD 40 MG DELAYED RELEASE TAB PO SCH (10:45)
[2016-05-13 11:01] LABS: AUTOMATED NEUTROPHIL # 1.8 TH/MM3 (1.8-7.7); BASOPHIL % 0.1 % (0.0-2.0); HEMATOCRIT 27.8 % (39.0-51.0); HEMO FLAGS DIFF FINAL; LYMPH % 6.4 % (9.0-44.0); LYMPHOCYTE # 0.1 TH/MM3 (1.0-4.8); MEAN CELL VOLUME 95.3 FL (80.0-100.0); MEAN CORPUSCULAR HGB CONC 33.6 % (32.0-36.0); MONO % 1.6 % (0.0-8.0); NEUT % 91.9 % (16.0-70.0); PLATELET COUNT 143 TH/MM3 (150-450); RED BLOOD COUNT 2.92 MIL/MM3 (4.50-5.90)
[2016-05-13] MEDS: DILTIAZEM-CD 240 MG CAP ER PO SCH (11:42)
[2016-05-13] MEDS: SEVELAMER CARBONATE 800 MG TAB PO SCH (11:42)
--- NOTE | 2016-05-13 13:10 | EKG ---
Date Performed: 05/12/2016 Time Performed: 16:30:49 PTAGE: 70 years EKG: ATRIAL FIBRILLATION WITH RAPID VENTRICULAR RESPONSE MARKED LEFT AXIS DEVIATION LEFT BUNDLE BRANCH BLOCK Compared to previous tracing, Left bundle branch block is new, there appears to be atria l fibrillation, although he has a known first degree AV block seen on his prior EKGs, so Sinus rhythm with ectopy and also reccommend a repeat EKG when his heart rate is slower. Clinical correlation is recommended for new Left bundle branch block ABNORMAL ECG PREVIOUS TRACING : 05/09/2016 14.57 DOCTOR: hCavez Alexis Interpretating Date/Time 05/13/2016 13:08:16
[2016-05-13] MEDS: AZITHROMYCIN INJ 500 MG in SODIUM CHLOR 0.9% 250 ML INJ 250 ML IV SCH (18:16)
[2016-05-14] VITALS (25 sets, daily range): BP systolic 124–146; BP diastolic 53–77; PULSE 53–86; RESP 16–20; TEMP 97.4–98.2; O2SAT 95–97
[2016-05-14] MEDS: methylPREDNISolone SOD SUCC 125 MG/2 ML VIAL IVP SCH ×5 (03:34→23:57)
[2016-05-14 07:11] LABS: HEMATOCRIT 27.5 % (39.0-51.0); MEAN CELL VOLUME 95.6 FL (80.0-100.0); MEAN CORPUSCULAR HEMOGLOBIN 31.6 PG (27.0-34.0); PLATELET COUNT 167 TH/MM3 (150-450); RED BLOOD COUNT 2.87 MIL/MM3 (4.50-5.90); RED CELL DISTRIBUTION WIDTH 15.2 % (11.6-17.2); REVIEW FLAG FINAL
[2016-05-14 07:26] LABS: POTASSIUM 5.3 MEQ/L (3.5-5.1)
[2016-05-14] MEDS: RESP: ALBUTEROL 2.5 MG/IPRATROPIUM 0.5 MG NEB (SCH) INH ×3 (07:47→20:33)
[2016-05-14] MEDS: hydrOXYzine PAMOATE 25 MG CAP PO PRN (07:50)
[2016-05-14] MEDS: AZTREONAM INJ 1,000 MG in SODIUM CHLORIDE 0.9% INJ 100 ML IV SCH ×2 (08:00→20:22)
[2016-05-14] MEDS: SODIUM CHLORIDE 0.9% FLUSH 5 ML FLUSH FLUSH SCH ×2 (09:00→20:23)
[2016-05-14] MEDS: ASPIRIN 81 MG CHEW TAB CHEW SCH (09:00)
--- NOTE | 2016-05-14 09:15 | PD.CARD.PN ---
Subjective Subjective Remarks No chest pain Objective Medications Administered Medications Medications (Trade) Dose Ordered Sig/Bharti Route PRN Reason Start Time Stop Time Status Last Admin Dose Admin Diltiazem HCl/ Sodium Chloride (Cardizem Inj/NS Inj) 125 ml @ 0 mls/hr TITRATE IV 05/12/16 20:00 05/12/16 21:23 IV Flush (NS Flush) 2 ml UNSCH PRN FLUSH FLUSH AFTER USING IV ACCESS 05/12/16 20:00 05/12/16 21:24 IV Flush (NS Flush) 2 ml BID FLUSH 05/12/16 21:00 05/13/16 21:07 Heparin Sodium (Porcine) 5000 units 5,000 units Q12H SQ 05/12/16 20:00 05/13/16 08:25 Azithromycin 500 mg/Sodium Chloride 250 ml @ 250 mls/hr Q24H IV 05/13/16 18:00 05/13/16 18:16 Aztreonam/Sodium Chloride (Azactam Inj/NS Inj) 100 ml @ 200 mls/hr Q12H IV 05/13/16 08:00 05/13/16 21:07 Methylprednisolone Sodium Succinate (SoluMEDROL INJ) 40 mg Q6HR IVP 05/13/16 00:00 05/14/16 07:50 Pantoprazole Sodium (Protonix) 40 mg DAILY PO 05/13/16 00:00 05/13/16 09:27 Hydroxyzine Pamoate (Vistaril) 25 mg Q6H PRN PO ANXIETY AND/OR AGITATION 05/13/16 10:45 05/14/16 07:50 Sevelamer Carbonate (Renvela) 800 mg DAILY PO 05/13/16 11:00 05/13/16 11:42 Diltiazem HCl (Cardizem Cd) 240 mg DAILY PO 05/13/16 12:00 05/13/16 11:42 Vital Signs / I&O Vital Signs Date Time Temp Pulse Resp B/P Pulse Ox O2 Delivery O2 Flow Rate FiO2 05/14/16 07:49 95 Nasal Cannula 21 05/14/16 04:01 98.1 84 16 146/77 97 05/14/16 04:00 68 05/14/16 03:00 68 05/14/16 02:00 66 05/14/16 01:00 70 05/14/16 00:00 72 05/13/16 23:00 70 05/13/16 23:00 96.7 70 16 147/76 96 05/13/16 22:00 76 05/13/16 21:00 70 05/13/16 20:00 68 05/13/16 20:00 96.7 98 16 109/64 96 05/13/16 19:00 70 05/13/16 18:00 66 05/13/16 17:00 68 05/13/16 16:04 74 05/13/16 16:00 98.2 63 16 138/63 96 05/13/16 15:00 76 05/13/16 14:00 80 05/13/16 13:00 80 05/13/16 12:00 98.2 73 16 140/63 96 05/13/16 12:00 72 05/13/16 11:00 72 05/13/16 10:00 72 05/13/16 09:14 96 21 I/O 05/13/16 05/13/16 05/13/16 05/14/16 05/14/16 05/14/16 07:00 15:00 23:00 07:00 15:00 23:00 Intake Total 600 ml 240 ml Balance 600 ml 240 ml Intake Oral 400 ml 240 ml IV Total 200 ml # Voids 1 2 # Bowel Movements 1 1 Physical Exam GENERAL: This is a well-nourished, well-developed patient, in no apparent distress. CARDIOVASCULAR: Regular rate and rhythm without murmurs, gallops, or rubs. RESPIRATORY: Clear to auscultation. Breath sounds equal bilaterally. No wheezes , rales, or rhonchi. GASTROINTESTINAL: Abdomen soft, non-tender, nondistended. Normal active bowel sounds MUSCULOSKELETAL: Extremities without clubbing, cyanosis, or edema. NEURO: Alert & Oriented x4 to person, place, time, situation. Moves all ext x4 Laboratory Laboratory Tests Test 05/13/16 05/14/16 09:51 06:28 White Blood Count 2.0 TH/MM3 6.0 TH/MM3 Red Blood Count 2.92 MIL/MM3 2.87 MIL/MM3 Hemoglobin 9.3 GM/DL 9.1 GM/DL Hematocrit 27.8 % 27.5 % Mean Corpuscular Volume 95.3 FL 95.6 FL Mean Corpuscular Hemoglobin 32.0 PG 31.6 PG Mean Corpuscular Hemoglobin 33.6 % 33.0 % Concent Red Cell Distribution Width 15.0 % 15.2 % Platelet Count 143 TH/MM3 167 TH/MM3 Mean Platelet Volume 8.2 FL 8.3 FL Neutrophils (%) (Auto) 91.9 % Lymphocytes (%) (Auto) 6.4 % Monocytes (%) (Auto) 1.6 % Eosinophils (%) (Auto) 0.0 % Basophils (%) (Auto) 0.1 % Neutrophils # (Auto) 1.8 TH/MM3 Lymphocytes # (Auto) 0.1 TH/MM3 Monocytes # (Auto) 0.0 TH/MM3 Eosinophils # (Auto) 0.0 TH/MM3 Basophils # (Auto) 0.0 TH/MM3 CBC Comment DIFF FINAL Differential Comment Troponin I 0.64 NG/ML Sodium Level 135 MEQ/L Potassium Level 5.3 MEQ/L Chloride Level 99 MEQ/L Carbon Dioxide Level 24.0 MEQ/L Anion Gap 12 MEQ/L Blood Urea Nitrogen 60 MG/DL Creatinine 5.02 MG/DL Estimat Glomerular Filtration 12 ML/MIN Rate Random Glucose 129 MG/DL Calcium Level 8.6 MG/DL Imaging Last Impressions Chest X-Ray 05/12/16 1648 Signed Impressions: Service Date/Time: Thursday, May 12, 2016 17:00 - CONCLUSION: 1. Stable basilar airspace disease with chronic pleural thickening and fluid and pleural calcifications. Rashel Aguilera MD Assessment and Plan Problem List: (1) Elevated troponin Assessment and Plan: Likely due to RVR but w/ CAD will plan for a nuclear stress ; will opt to wait until after HD so his K+ is back WNL. (2) Atrial fibrillation with rapid ventricular response Assessment and Plan: currently NSR; pt says not an anticoagulation candidate due to GI bleeding; can be re-evaluated by his primary military equipment specialist as outpatient. (3) CAD (coronary artery disease) (4) ESRD (end stage renal disease) Chavez Alexis MD May 14, 2016 09:14
[2016-05-14] MEDS: PANTOPRAZOLE SOD 40 MG DELAYED RELEASE TAB PO SCH (10:02)
[2016-05-14] MEDS: DILTIAZEM-CD 240 MG CAP ER PO SCH (10:02)
[2016-05-14] MEDS: SEVELAMER CARBONATE 800 MG TAB PO SCH (10:03)
[2016-05-14] MEDS: HEPARIN SODIUM - SQ 10,000 UNITS/ML VIAL SQ SCH ×2 (10:03→20:22)
[2016-05-14] MEDS ORDERED: SODIUM POLYSTYRENE SULFONATE SUSP 15 GM/60 ML CUP PO ONE (10:15)
[2016-05-14] MEDS ORDERED: SODIUM CHLOR 0.9% 1000 ML INJ 1,000 ML IV PRN ×3 (10:27)
--- NOTE | 2016-05-14 10:27 | PD.CONS ---
HPI Service Nephrology Consult Requested By Dr. Alas Reason for Consult End-stage renal disease management Primary Care Physician Chuck Kaiser MD History of Present Illness 70-year-old male with a history of end-stage renal disease, COPD, history of obstructive uropathy, who presented to with the atrial fibrillation and rapid ventricular response, he was admitted the patient is a hemodialysis patient and goes to hemodialysis on Saturday, and Saturday, his last dialysis was on Saturday. He states his heart rate is better. Review of Systems Constitutional: COMPLAINS OF: Fatigue Cardiovascular: COMPLAINS OF: Palpitations, Dyspnea on Exertion Psychiatric: COMPLAINS OF: Anxiety Past Family Social History Allergies: Coded Allergies: Sulfa (Verified Allergy, Severe, "difficulty breathing", 05/12/16) Penicillin (Verified Adverse Reaction, Severe, "acid taste in mouth, problems with vision", 05/12/16) DIFFICULTY BREATHING Past Medical History End-stage renal disease Hypertension Atrial fibrillation Anemia Secondary Hyperparathyroidism History of obstructive uropathy GERD History of GI bleed Past Surgical History Septal defect repair in 1966 History of surgery Suprapubic catheter Hernia repairs 6 AV fistula left Reported Medications Reported Meds & Active Scripts Active Doxycycline Hyclate 100 Mg Cap 100 Mg PO BID Vistaril (Hydroxyzine Pamoate) 25 Mg Cap 25 Mg PO Q6H PRN Reported Renvela (Sevelamer Carbonate) 800 Mg Tab 800 Mg PO DAILY Pantoprazole (Pantoprazole Sodium) 40 Mg Tab 40 Mg PO DAILY Amiodarone (Amiodarone HCl) 200 Mg Tab 200 Mg PO EVERY OTHER DAY Diltiazem (Diltiazem HCl) 120 Mg Tab 240 Mg PO DIRECTED Albuterol Neb (Albuterol Sulfate) 2.5 Mg/3 Ml Neb 2.5 Mg NEB Q6HR Aspirin 81 Mg Chew 81 Mg CHEW DAILY Active Ordered Medications Current Medications Medications (Trade) Dose Ordered Sig/Bharti Route Start Time Stop Time Status Last Admin (Cardizem Inj/NS Inj) 125 ml @ 0 mls/hr TITRATE IV 05/12/16 20:00 05/12/16 21:23 (NS Flush) 2 ml UNSCH PRN FLUSH 05/12/16 20:00 05/12/16 21:24 (NS Flush) 2 ml BID FLUSH 05/12/16 21:00 05/13/16 21:07 (Tylenol) 650 mg Q4H PRN PO 05/12/16 20:00 (Zofran Inj) 4 mg Q6H PRN IVP 05/12/16 20:00 (Senokot) 17.2 mg Q12H PRN PO 05/12/16 20:00 (Heparin Inj) 5,000 units Q12H SQ 05/12/16 20:00 05/14/16 10:03 Naloxone HCl 0.4 mg 0.4 mg UNSCH PRN IV 05/12/16 20:00 Azithromycin 500 mg/Sodium Chloride 250 ml @ 250 mls/hr Q24H IV 05/13/16 18:00 05/13/16 18:16 (Azactam Inj/NS Inj) 100 ml @ 200 mls/hr Q12H IV 05/13/16 08:00 05/13/16 21:07 (SoluMEDROL INJ) 40 mg Q6HR IVP 05/13/16 00:00 05/14/16 07:50 (Protonix) 40 mg DAILY PO 05/13/16 00:00 05/14/16 10:02 (Aspirin Chew) 81 mg DAILY CHEW 05/14/16 09:00 05/14/16 09:00 (Vistaril) 25 mg Q6H PRN PO 05/13/16 10:45 05/14/16 07:50 (Renvela) 800 mg DAILY PO 05/13/16 11:00 05/14/16 10:03 (Cardizem Cd) 240 mg DAILY PO 05/13/16 12:00 05/14/16 10:02 Family History Noncontributory Social History There is history of smoking and alcohol use in the past Physical Exam Vital Signs Vital Signs Date Time Temp Pulse Resp B/P Pulse Ox O2 Delivery O2 Flow Rate FiO2 05/14/16 09:00 98.1 72 16 124/74 96 05/14/16 07:49 95 Nasal Cannula 21 05/14/16 04:01 98.1 84 16 146/77 97 05/14/16 04:00 68 05/14/16 03:00 68 05/14/16 02:00 66 05/14/16 01:00 70 05/14/16 00:00 72 05/13/16 23:00 70 05/13/16 23:00 96.7 70 16 147/76 96 05/13/16 22:00 76 05/13/16 21:00 70 05/13/16 20:00 68 05/13/16 20:00 96.7 98 16 109/64 96 05/13/16 19:00 70 05/13/16 18:00 66 05/13/16 17:00 68 05/13/16 16:04 74 05/13/16 16:00 98.2 63 16 138/63 96 05/13/16 15:00 76 05/13/16 14:00 80 05/13/16 13:00 80 05/13/16 12:00 98.2 73 16 140/63 96 05/13/16 12:00 72 05/13/16 11:00 72 Physical Exam GENERAL: Well-nourished, well-developed patient. SKIN: Warm and dry. HEAD: Normocephalic. Hard of hearing use hearing aid EYES: No scleral icterus. No injection or drainage. NECK: Supple, trachea midline. No JVD or lymphadenopathy. CARDIOVASCULAR: Regular rate and rhythm without murmurs, gallops, or rubs. RESPIRATORY: Breath sounds diminished at bases GASTROINTESTINAL: Abdomen soft, non-tender, nondistended. EXTREMITIES: No cyanosis, or edema. NEUROLOGICAL: Awake, alert, and oriented x 3. Non-focal. Laboratory Laboratory Tests Test 05/14/16 06:28 White Blood Count 6.0 Red Blood Count 2.87 Hemoglobin 9.1 Hematocrit 27.5 Mean Corpuscular Volume 95.6 Mean Corpuscular Hemoglobin 31.6 Mean Corpuscular Hemoglobin 33.0 Concent Red Cell Distribution Width 15.2 Platelet Count 167 Mean Platelet Volume 8.3 Sodium Level 135 Potassium Level 5.3 Chloride Level 99 Carbon Dioxide Level 24.0 Anion Gap 12 Blood Urea Nitrogen 60 Creatinine 5.02 Estimat Glomerular Filtration 12 Rate Random Glucose 129 Calcium Level 8.6 Date/Time Procedure Status Source Growth 05/12/16 18:35 Urine Culture - Preliminary Resulted Urine Catheterized Urine IMMATURE GROWTH - REINCUBATE 05/12/16 17:10 Aerobic Blood Culture - Preliminary Resulted Blood Peripheral NO GROWTH IN 1 DAY 05/12/16 17:10 Anaerobic Blood Culture - Preliminary Resulted Blood Peripheral NO GROWTH IN 1 DAY Result Diagram: 05/14/1662705/14/16 0628 Imaging Last Impressions Chest X-Ray 05/12/16 1648 Signed Impressions: Service Date/Time: Thursday, May 12, 2016 17:00 - CONCLUSION: 1. Stable basilar airspace disease with chronic pleural thickening and fluid and pleural calcifications. Rashel Aguilera MD Assessment and Plan Problem List: (1) ESRD (end stage renal disease) Plan: Patient is a Saturday and Saturday dialysis patient he has mild hyperkalemia and this can be treated with Kayexalate and continue to monitor potassium He can have his stress tests as potassium levels are mildly elevated and treated with Kayexalate (2) Atrial fibrillation with rapid ventricular response Plan: Patient is being followed by cardiology (3) Elevated troponin Plan: Stress test scheduled (4) CAD (coronary artery disease) Plan: Continue to monitor (5) Pneumonia Plan: Treated with Zithromax and Azactam Marta Rivera MD May 14, 2016 10:27
[2016-05-14] MEDS ORDERED: NITROGLYCERIN 0.4 MG SL 25 TABS/BTL SL PRN (10:30)
[2016-05-14] MEDS ORDERED: ACETAMINOPHEN 325 MG TAB PO PRN (10:30)
[2016-05-14] MEDS ORDERED: ALBUMIN HUMAN 25% 25 GM/100 ML BAGP IV PRN (10:30)
[2016-05-14] MEDS ORDERED: ONDANSETRON HCL 4 MG/2 ML VIAL IV PRN (10:30)
[2016-05-14] MEDS ORDERED: GENTAMICIN SULFATE (DIALYSIS USE ONLY) 20 MG/2 ML VIAL IV PRN (10:30)
[2016-05-14] MEDS ORDERED: HEPARIN SODIUM - IV 10,000 UNITS/10 ML VIAL PRN (10:30)
[2016-05-14] MEDS ORDERED: diphenhydrAMINE HCL 25 MG CAP PO PRN (10:30)
[2016-05-14] MEDS ORDERED: MANNITOL 12.5 GM/50 ML VIAL IV PRN (10:30)
[2016-05-14] MEDS ORDERED: SODIUM CHLORIDE 0.9% FLUSH 5 ML FLUSH IVF PRN (10:30)
[2016-05-14] MEDS ORDERED: HEPARIN SODIUM - IV 10,000 UNITS/10 ML VIAL IVF PRN (10:30)
[2016-05-14] MEDS ORDERED: cloNIDine HCL 0.1 MG TAB PO PRN (10:30)
--- NOTE | 2016-05-14 11:14 | HHI.PR ---
Subjective Remarks She still has some shortness of breath with wheezing Single has some cough with yellowish sputum No chest pain today No abdominal pain No nausea vomiting Appetite is okay Review of system for 10 point system otherwise unremarkable Objective Objective Results - Vital Signs Date Time Temp Pulse Resp B/P Pulse Ox O2 Delivery O2 Flow Rate FiO2 05/14/16 09:00 98.1 72 16 124/74 96 05/14/16 07:49 95 Nasal Cannula 21 05/14/16 04:01 98.1 84 16 146/77 97 05/14/16 04:00 68 05/14/16 03:00 68 05/14/16 02:00 66 05/14/16 01:00 70 05/14/16 00:00 72 05/13/16 23:00 70 05/13/16 23:00 96.7 70 16 147/76 96 05/13/16 22:00 76 05/13/16 21:00 70 05/13/16 20:00 68 05/13/16 20:00 96.7 98 16 109/64 96 05/13/16 19:00 70 05/13/16 18:00 66 05/13/16 17:00 68 05/13/16 16:04 74 05/13/16 16:00 98.2 63 16 138/63 96 05/13/16 15:00 76 05/13/16 14:00 80 05/13/16 13:00 80 05/13/16 12:00 98.2 73 16 140/63 96 05/13/16 12:00 72 I/O 05/13/16 05/13/16 05/13/16 05/14/16 05/14/16 05/14/16 07:00 15:00 23:00 07:00 15:00 23:00 Intake Total 600 ml 240 ml Balance 600 ml 240 ml Intake Oral 400 ml 240 ml IV Total 200 ml # Voids 1 2 # Bowel Movements 1 1 Result Diagram: 05/14/1662705/14/16627 Other Results Laboratory Tests Test 05/14/16 06:28 White Blood Count 6.0 Red Blood Count 2.87 Hemoglobin 9.1 Hematocrit 27.5 Mean Corpuscular Volume 95.6 Mean Corpuscular Hemoglobin 31.6 Mean Corpuscular Hemoglobin 33.0 Concent Red Cell Distribution Width 15.2 Platelet Count 167 Mean Platelet Volume 8.3 Sodium Level 135 Potassium Level 5.3 Chloride Level 99 Carbon Dioxide Level 24.0 Anion Gap 12 Blood Urea Nitrogen 60 Creatinine 5.02 Estimat Glomerular Filtration 12 Rate Random Glucose 129 Calcium Level 8.6 Date/Time Procedure Status Source Growth 05/12/16 18:35 Urine Culture - Preliminary Resulted Urine Catheterized Urine IMMATURE GROWTH - REINCUBATE 05/12/16 17:10 Aerobic Blood Culture - Preliminary Resulted Blood Peripheral NO GROWTH IN 1 DAY 05/12/16 17:10 Anaerobic Blood Culture - Preliminary Resulted Blood Peripheral NO GROWTH IN 1 DAY Physical Exam Physical Exam VITAL SIGNS: Reviewed GENERAL: This is a 70 year-old male who was resting comfortably in the emergency room in no acute distress. HEENT: Mucous membranes are moist. No jaundice. NECK: Supple. CARDIOVASCULAR: Regular rate and rhythm. Grade 3/6 systolic ejection murmur is heard. LUNGS: Few expiratory wheezes. Few basilar crackles. Coarse breathing GASTROINTESTINAL: Bowel sounds present. No tenderness, no rebound. GENITOURINARY: No CVA tenderness. No suprapubic tenderness. MUSCULOSKELETAL: No edema. Homans' sign negative. NEUROLOGIC: Awake, alert, oriented x4. EXTREMITIES: Moving all extremities symmetrically and freely. A/P Assessment and Plan 1. A-fib with RVR. 2. Sepsis on admission. 3. End-stage renal disease on hemodialysis. 4. Hyponatremia. 5. Leukopenia. 6. Anemia. 7. Questionable urinary tract infection. 8. COPD. 9. Pleural thickening and calcifications. 10. Anxiety. 11. History of GI bleed secondary to Coumadin. DISCUSSION: Appreciate consultation by cardiology. For a stress test tomorrow, secondary to increase troponin Appreciate nephrology input Labs reviewed Kayexalate for high potassium Dialysis per axle polisher Stable H&H Better WBC count Continue IV antibiotic for sepsis questionable source likely urine/lungs Monitor heart rate controlled now Continue oxygen on a when necessary basis The patient had an echocardiogram in July 2014 which showed an EF of 40 to 45%, unclear if he has had another one with his employee development specialist. Heparin DVT prophylaxis and Protonix for GI prophylaxis. further to follow recommendations as as per patient progresse. Discussed with patient Discussed with Kt Harrison MD May 14, 2016 11:14
[2016-05-14] MEDS: AZITHROMYCIN INJ 500 MG in SODIUM CHLOR 0.9% 250 ML INJ 250 ML IV SCH (17:45)
[2016-05-15] VITALS (16 sets, daily range): BP systolic 114–152; BP diastolic 48–78; PULSE 74–88; RESP 18–22; TEMP 98–98.4; O2SAT 79–98
[2016-05-15] MEDS: RESP: ALBUTEROL 2.5 MG/3 ML NEB (PRN) INH (03:10)
[2016-05-15] MEDS: methylPREDNISolone SOD SUCC 125 MG/2 ML VIAL IVP SCH ×3 (04:36→23:50)
[2016-05-15 05:53] LABS: HEMATOCRIT 24.1 % (39.0-51.0); MEAN CELL VOLUME 94.6 FL (80.0-100.0); MEAN CORPUSCULAR HEMOGLOBIN 31.9 PG (27.0-34.0); MEAN CORPUSCULAR HGB CONC 33.7 % (32.0-36.0); PLATELET COUNT 171 TH/MM3 (150-450); RED BLOOD COUNT 2.54 MIL/MM3 (4.50-5.90); REVIEW FLAG FINAL; WHITE BLOOD COUNT 4.9 TH/MM3 (4.0-11.0)
[2016-05-15 06:23] LABS: BICARBONATE 23.5 MEQ/L (21.0-32.0); POTASSIUM 4.8 MEQ/L (3.5-5.1)
[2016-05-15] MEDS: RESP: ALBUTEROL 2.5 MG/IPRATROPIUM 0.5 MG NEB (SCH) INH ×3 (07:42→19:08)
[2016-05-15] MEDS: ASPIRIN 81 MG CHEW TAB CHEW SCH (09:00)
[2016-05-15] MEDS: SEVELAMER CARBONATE 800 MG TAB PO SCH (09:00)
--- NOTE | 2016-05-15 09:00 | HHI.NPPN ---
Subjective History of Present Illness 70 year old male with ESRD A fib Review of Systems Respiratory Lungs: SOB Objective Data Data 05/14/16 05/15/16 19:00 07:00 Intake Total 940 ml 240 ml Output Total 400 ml Balance 940 ml -160 ml Intake Oral 940 ml 240 ml Output Urine Total 400 ml # Voids 4 # Bowel Movements 2 Vital Signs Date Time Temp Pulse Resp B/P Pulse Ox O2 Delivery O2 Flow Rate FiO2 05/15/16 07:44 97 21 05/15/16 06:00 76 05/15/16 05:00 80 05/15/16 04:00 85 05/15/16 04:00 98.2 83 18 152/78 96 05/15/16 03:00 83 05/15/16 02:00 77 05/15/16 01:00 78 05/15/16 00:00 98.0 79 18 150/68 96 05/15/16 00:00 82 05/14/16 23:00 78 05/14/16 22:00 82 05/14/16 21:00 86 05/14/16 20:34 95 05/14/16 20:00 75 05/14/16 20:00 98.2 84 18 136/72 95 05/14/16 19:00 74 05/14/16 18:00 72 05/14/16 17:00 74 05/14/16 16:00 72 05/14/16 15:45 97.4 75 20 131/59 95 05/14/16 15:00 73 05/14/16 13:00 72 05/14/16 12:00 74 05/14/16 12:00 98.2 74 16 142/53 97 05/14/16 11:00 72 05/14/16 10:00 70 05/14/16 09:00 68 05/14/16 09:00 98.1 72 16 124/74 96 -: 05/15/16 0509 05/15/16 0509 Physical Exam General Appearance: Well Developed Neck Neck Exam: Neck Supple Pulmonary Resp Exam: Decreased Bases Cardiology CV Exam: Arrhythmia Gastrointestinal/Abdomen GI Exam: Soft, Non-Tender, Bowel Sounds Present Extremeties Extremities Exam: No Edema Neurologic Neuro Exam: Alert, Awake Assessment/Plan Problem List: (1) ESRD (end stage renal disease) Plan: Patient is a Saturday and Saturday dialysis patient he is seen during hemodialysis tolerating it well UF 2.5 L continue with stress test post dialysis (2) Atrial fibrillation with rapid ventricular response Plan: Patient is being followed by cardiology (3) Elevated troponin Plan: Stress test scheduled (4) CAD (coronary artery disease) Plan: Continue to monitor (5) Pneumonia Plan: Treated with Zithromax and Azactam Marta Rivera MD May 15, 2016 09:00
[2016-05-15] MEDS: EPOETIN ALFA 10,000 UNITS/ML VIAL IV PRN (11:25)
[2016-05-15] MEDS ORDERED: REGADENOSON INJ 0.4 MG/5 ML SYR ONE (13:35)
--- NOTE | 2016-05-15 14:53 | HHI.PR ---
Subjective Remarks No chest pain SOB with activity coarse rhonchi, some wheezing Up in rm. Appetite good. Objective Objective Results - Vital Signs Date Time Temp Pulse Resp B/P Pulse Ox O2 Delivery O2 Flow Rate FiO2 05/15/16 08:00 98.4 79 20 145/73 79 05/15/16 07:44 97 21 05/15/16 06:00 76 05/15/16 05:00 80 05/15/16 04:00 85 05/15/16 04:00 98.2 83 18 152/78 96 05/15/16 03:00 83 05/15/16 02:00 77 05/15/16 01:00 78 05/15/16 00:00 98.0 79 18 150/68 96 05/15/16 00:00 82 05/14/16 23:00 78 05/14/16 22:00 82 05/14/16 21:00 86 05/14/16 20:34 95 05/14/16 20:00 75 05/14/16 20:00 98.2 84 18 136/72 95 05/14/16 19:00 74 05/14/16 18:00 72 05/14/16 17:00 74 05/14/16 16:00 72 05/14/16 15:45 97.4 75 20 131/59 95 05/14/16 15:00 73 I/O 05/14/16 05/14/16 05/14/16 05/15/16 05/15/16 05/15/16 07:00 15:00 23:00 07:00 15:00 23:00 Intake Total 240 ml 700 ml 240 ml Output Total 400 ml 2500 ml Balance 240 ml 700 ml -160 ml -2500 ml Intake Oral 240 ml 700 ml 240 ml Output Urine Total 400 ml Hemodialysis 2500 ml # Voids 2 2 # Bowel Movements 1 1 Result Diagram: 05/15/16 0509 05/15/16 0509 ROS General: Weakness (generalized), Other (10 Pt. ROS done, Positives noted, otherwise unremarkable) Pulmonary: Cough, SOB, Wheezing (continues) /INDUSTRIAL INSULATOR: Other (dialysis today) Neuro/MS: Other (anxiety disorder) Physical Exam Physical Exam PHYSICAL EXAMINATION GENERAL: This is a thin, male who appears to be in no acute distress at rest . He is alert and awake, . HEAD: Normocephalic without any lesion or mass noted. Facial features appear symmetric., facial tick noted,. OROPHARYNGEAL: Oropharynx without erythema or edema. NECK: Supple. No nuchal rigidity or lymphadenopathy. Trachea midline without deviation. CARDIAC: Regular rhythm, regular rate, S1 and S2 are heard. No Murmur ; no gallops or rubs. LUNGS: . Few wheezes anterior, positive rhonchi, cant cough up. Mild use of accessory muscles on inspiration or expiration. ABDOMEN: Soft, nontender, no organomegaly or masses. Bowel sounds are heard in all four quadrants. No rebound. No guarding. EXTREMITIES: No edema. Pulses equal bilateral. No cyanosis. NEUROLOGICAL: Patient mood and affect appropriate. Facial and hand tick noted. SKIN:Warm and moist,dry Objective Remarks I get anxious sometimes, but ok for now. A/P Assessment and Plan 1. A-fib with RVR. 2. Sepsis on admission. 3. End-stage renal disease on hemodialysis., Dialysis today 4. Hyponatremia. 5. Leukopenia. 6. Anemia. 7. Questionable urinary tract infection. 8. COPD. 9. Pleural thickening and calcifications. 10. Anxiety. 11. History of GI bleed secondary to Coumadin. DISCUSSION Appreciate nephrology input Dialysis per water project engineer, done today Stable H&H Better WBC count, stable Continue IV antibiotic for sepsis questionable source likely urine/lungs, urine culture pending Monitor heart rate, on telemetry, HR 80s Continue oxygen on a when necessary basis Echo on July 2014 which showed an EF of 40 to 45%,now EF shows 46% Stress test today appreciate cardiology input, , nuclear stress, No reversible defect. Old [place] . Heparin DVT prophylaxis and Protonix for GI prophylaxis. Will eval will pulm. needs Discussed With: Family (patient), Other (Dr. Alas, pt. seen on his behalf.) Vee Rosales May 15, 2016 14:53
[2016-05-15] MEDS: PANTOPRAZOLE SOD 40 MG DELAYED RELEASE TAB PO SCH (14:54)
--- NOTE | 2016-05-15 14:54 | RADRPT ---
EXAM DATE/TIME: 05/15/2016 12:40 [facility] COMPARISON: No previous studies available for comparison. INDICATIONS : Elevated troponins. Atrial fibrillation. Congestive heart failure. DOSE: 26.1 mCi Tc99m Myoview at stress. 8.1 mCi Tc99m Myoview at rest. 0.4 mg Lexiscan STRESS SYMPTOMS: Dyspnea. EJECTION FRACTION: 46% MEDICAL HISTORY : Hypertension. Hypercholesterolemia. Renal disease, end stage. COPD. SURGICAL HISTORY : Inguinal hernia repair. A/V fistula in left arm. ENCOUNTER: Initial ACUITY: 1 day PAIN SCALE: 3/10 LOCATION: Bilateral chest TECHNIQUE: The patient underwent pharmacologic stress with infusion of prescribed dose. Continuous ECG tracing was monitored during stress. Gated SPECT imaging was performed after stress and conventional SPECT i maging was performed at rest. The examination was performed on a SPECT/CT scanner, both attenuation and non-corrected datasets were reviewed. FINDINGS: DISTRIBUTION: The maximum perfused segment at stress is in the anterolateral wall. PERFUSION STUDY: There is a large in size, severe, fixed perfusion defect involving the inferior wall. No reversible p erfusion defect is identified. GATED STUDY: There is intact wall motion and thickening without hypokinetic or dyskinetic segments. CONCLUSION: 1. 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 2. Ejection fraction is somewhat low at 46%. 3. No reversible perfusion defect is identified. RISK CATEGORY: Intermediate (1-3% Annual Mortality Rate) Alex Tolbert MD on May 15, 2016 at 14:50 Board Certified Radiologist. This report was verified electronically.
[2016-05-15] MEDS: AMIODARONE 200 MG TAB PO SCH (14:55)
[2016-05-15] MEDS: HEPARIN SODIUM - SQ 10,000 UNITS/ML VIAL SQ SCH ×2 (14:55→21:00)
[2016-05-15] MEDS: DILTIAZEM-CD 240 MG CAP ER PO SCH (14:55)
[2016-05-15] MEDS: SODIUM CHLORIDE 0.9% FLUSH 5 ML FLUSH FLUSH SCH ×2 (14:58→20:56)
[2016-05-15] MEDS: AZTREONAM INJ 1,000 MG in SODIUM CHLORIDE 0.9% INJ 100 ML IV SCH (16:04)
[2016-05-15] MEDS: AZITHROMYCIN INJ 500 MG in SODIUM CHLOR 0.9% 250 ML INJ 250 ML IV SCH (17:02)
[2016-05-16] VITALS (30 sets, daily range): BP systolic 113–150; BP diastolic 60–85; PULSE 67–106; RESP 19–26; TEMP 97.3–98.9; O2SAT 92–99
[2016-05-16] MEDS: CIPROFLOXACIN 400 MG PREMIX 200 ML IV SCH ×2 (01:33→23:47)
[2016-05-16] MEDS: AZTREONAM INJ 1,000 MG in SODIUM CHLORIDE 0.9% INJ 100 ML IV SCH ×2 (01:33→17:04)
[2016-05-16] MEDS: methylPREDNISolone SOD SUCC 125 MG/2 ML VIAL IVP SCH ×4 (04:37→20:48)
[2016-05-16] MEDS: RESP: ALBUTEROL 2.5 MG/IPRATROPIUM 0.5 MG NEB (SCH) INH ×3 (07:28→19:39)
[2016-05-16] MEDS: PANTOPRAZOLE SOD 40 MG DELAYED RELEASE TAB PO SCH (09:10)
[2016-05-16] MEDS: SEVELAMER CARBONATE 800 MG TAB PO SCH (09:10)
[2016-05-16] MEDS: DILTIAZEM-CD 240 MG CAP ER PO SCH (09:11)
[2016-05-16] MEDS: ASPIRIN 81 MG CHEW TAB CHEW SCH (09:11)
[2016-05-16] MEDS: HEPARIN SODIUM - SQ 10,000 UNITS/ML VIAL SQ SCH ×2 (09:12→20:48)
[2016-05-16] MEDS: SODIUM CHLORIDE 0.9% FLUSH 5 ML FLUSH FLUSH SCH ×2 (09:13→20:48)
[2016-05-16] MEDS: SODIUM CHLORIDE 0.9% FLUSH 5 ML FLUSH FLUSH PRN (09:13)
--- NOTE | 2016-05-16 12:19 | HHI.NPPN ---
Subjective History of Present Illness 70 year old male with ESRD A fib Review of Systems Respiratory Lungs: SOB Objective Data Data 05/15/16 05/16/16 19:00 07:00 Intake Total 440 ml Output Total 2500 ml Balance -2500 ml 440 ml Intake Oral 240 ml IV Total 200 ml Hemodialysis 2500 ml # Voids 2 # Bowel Movements 0 Vital Signs Date Time Temp Pulse Resp B/P Pulse Ox O2 Delivery O2 Flow Rate FiO2 05/16/16 10:06 72 05/16/16 09:26 75 05/16/16 08:00 78 05/16/16 07:28 94 21 05/16/16 07:25 74 05/16/16 07:25 98.1 74 19 150/85 97 05/16/16 07:00 74 05/16/16 06:00 67 05/16/16 05:00 69 05/16/16 03:49 98.3 67 24 135/72 97 05/16/16 03:00 67 05/16/16 02:00 70 05/16/16 01:00 74 05/16/16 00:00 80 05/15/16 23:48 98.4 74 22 114/48 97 05/15/16 23:00 80 05/15/16 22:00 88 05/15/16 21:00 78 05/15/16 20:00 98.2 82 22 131/68 98 05/15/16 20:00 80 05/15/16 15:00 82 05/15/16 14:52 98.1 85 20 147/66 96 -: 05/15/16 0509 05/15/16 0509 Physical Exam General Appearance: Well Developed Neck Neck Exam: Neck Supple Pulmonary Resp Exam: Decreased Bases Cardiology CV Exam: Arrhythmia Gastrointestinal/Abdomen GI Exam: Soft, Non-Tender, Bowel Sounds Present Extremeties Extremities Exam: No Edema Neurologic Neuro Exam: Alert, Awake Assessment/Plan Problem List: (1) ESRD (end stage renal disease) Plan: Patient is a Saturday and Saturday dialysis patient HD done yesterday doing well stress test EF 46% Fixed defect (2) Atrial fibrillation with rapid ventricular response Plan: Patient is being followed by cardiology (3) Elevated troponin Plan: Stress test as above (4) CAD (coronary artery disease) Plan: Continue to monitor (5) Pneumonia Plan: Treated with cipro and Azactam (6) Urinary tract infection Plan: on Marta Culver MD May 16, 2016 12:19
--- NOTE | 2016-05-16 13:44 | HHI.PR ---
Subjective Remarks No chest pain SOB with activity coarse rhonchi, productive cough Up in rm. Appetite good. (Vee Rosales) Objective Objective Results - Vital Signs Date Time Temp Pulse Resp B/P Pulse Ox O2 Delivery O2 Flow Rate FiO2 05/16/16 11:17 76 05/16/16 10:06 72 05/16/16 10:06 73 05/16/16 09:26 75 05/16/16 09:11 75 05/16/16 08:47 78 05/16/16 08:00 78 05/16/16 07:28 94 21 05/16/16 07:25 74 05/16/16 07:25 98.1 74 19 150/85 97 05/16/16 07:00 74 05/16/16 06:00 67 05/16/16 05:00 69 05/16/16 03:49 98.3 67 24 135/72 97 05/16/16 03:00 67 05/16/16 02:00 70 05/16/16 01:00 74 05/16/16 00:00 80 05/15/16 23:48 98.4 74 22 114/48 97 05/15/16 23:00 80 05/15/16 22:00 88 05/15/16 21:00 78 05/15/16 20:00 98.2 82 22 131/68 98 05/15/16 20:00 80 05/15/16 15:00 82 05/15/16 14:52 98.1 85 20 147/66 96 I/O 05/15/16 05/15/16 05/15/16 05/16/16 05/16/16 05/16/16 07:00 15:00 23:00 07:00 15:00 23:00 Intake Total 240 ml 440 ml Output Total 400 ml 2500 ml Balance -160 ml -2500 ml 440 ml Intake Oral 240 ml 240 ml IV Total 200 ml Output Urine Total 400 ml Hemodialysis 2500 ml # Voids 2 # Bowel Movements 0 (Vee Rosales) Result Diagram: 05/15/16 0509 05/15/16 0509 ROS General: Fatigue (mild), Other (10 point ROS. Positives include productive cough thick white sputum, muchoid, exertional SOB other systems negative are unremarkable) Pulmonary: Cough, SOB, Other (dual neb treatments) (Vee Rosales) Physical Exam Physical Exam PHYSICAL EXAMINATION GENERAL: This is a thin, male who appears to be mild distress. He is alert and awake, currently getting DuoNeb treatment. HEAD: Normocephalic without any lesion or mass noted. Facial features appear symmetric. OROPHARYNGEAL: Oropharynx without erythema or edema. NECK: Supple. No nuchal rigidity or lymphadenopathy. Trachea midline without deviation. CARDIAC: Regular rhythm, regular rate, S1 and S2 are heard. Murmur ; no gallops or rubs. LUNGS: Decreased to auscultation bilaterally. expiratory wheeze, positive for rhonchi . Mild use of accessory muscles on inspiration or expiration. ABDOMEN: Soft, nontender, no organomegaly or masses. Bowel sounds are heard in all four quadrants. No rebound. No guarding. EXTREMITIES: No edema. Pulses equal bilateral. NEUROLOGICAL: Patient mood and affect appropriate. No focal deficit SKIN:Warm and moist, dry Objective Remarks I'm coughing and getting that fixed sputum up. Dual nebs helped (Vee Rosales) A/P Assessment and Plan 1. A-fib with RVR. 2. Sepsis on admission. 3. End-stage renal disease on hemodialysis., 4. Hyponatremia. 5. Leukopenia. 6. Anemia. 7. Questionable urinary tract infection. 8. COPD. 9. Pleural thickening and calcifications. 10. Anxiety. 11. History of GI bleed secondary to Coumadin. DISCUSSION Appreciate nephrology input Dialysis per file conversion operator, done today Stable H&H Better WBC count, stable Into new dialysis. No acute issues seen Continue IV antibiotic , astreonam, Cipro, Gentamycin Monitor heart rate, on telemetry, HR stable 70s and 80s Continue oxygen on a when necessary basis, prn Echo on July 2014 which showed an EF of 40 to 45%,now EF shows 46% Stress test today appreciate cardiology input, , nuclear stress, No reversible defect. Old [place] . Explained to patient per cardiology Heparin DVT prophylaxis and Protonix for GI prophylaxis. Will eval rhonchi, pulm. needs , dual nebs every 4. Spoke to respiratory therapist recommended AYAKA varma for use. Planned discharge for a.m. respiratory status improved, and continue dual nebs and treatment plan Discharge Planning Probable home in a.m. Discussed With: Family (patient), Other (Dr. Alas, pt. seen on his behalf.) ( Vee Rosales) Assessment and Plan Patient seen and examined visible Discussed with patient Labs reviewed Medications reviewed Plan of care discussed with EDUCATION REP (Kt Alas MD) Vee Rosales May 16, 2016 13:44 Kt Alas MD May 16, 2016 15:57
[2016-05-16] MEDS: AZITHROMYCIN INJ 500 MG in SODIUM CHLOR 0.9% 250 ML INJ 250 ML IV SCH (18:30)
[2016-05-16] MEDS: hydrOXYzine PAMOATE 25 MG CAP PO PRN (20:49)
[2016-05-17] VITALS (28 sets, daily range): BP systolic 126–154; BP diastolic 58–75; PULSE 69–97; RESP 20–25; TEMP 97.1–98.8; O2SAT 93–99
[2016-05-17] MEDS: RESP: ALBUTEROL 2.5 MG/3 ML NEB (PRN) INH ×4 (02:39→20:40)
[2016-05-17] MEDS: methylPREDNISolone SOD SUCC 125 MG/2 ML VIAL IVP SCH ×4 (03:16→22:59)
[2016-05-17] MEDS: AZTREONAM INJ 1,000 MG in SODIUM CHLORIDE 0.9% INJ 100 ML IV SCH (03:16)
[2016-05-17] MEDS: RESP: ALBUTEROL 2.5 MG/IPRATROPIUM 0.5 MG NEB (SCH) INH (07:20)
[2016-05-17] MEDS: EPOETIN ALFA 10,000 UNITS/ML VIAL IV PRN (08:56)
[2016-05-17] MEDS: GELATIN 12 MM/7 MM FOAM TOP PRN (08:57)
--- NOTE | 2016-05-17 08:59 | HHI.NPPN ---
Subjective History of Present Illness 70 year old male with ESRD A fib Review of Systems Respiratory Lungs: SOB Objective Data Data 05/16/16 05/17/16 19:00 07:00 Intake Total 700 ml 780 ml Output Total 300 ml 200 ml Balance 400 ml 580 ml Intake Oral 600 ml 480 ml IV Total 100 ml 300 ml Output Urine Total 300 ml 200 ml Vital Signs Date Time Temp Pulse Resp B/P Pulse Ox O2 Delivery O2 Flow Rate FiO2 05/17/16 08:47 74 05/17/16 07:47 98.0 81 20 153/75 95 05/17/16 07:36 79 05/17/16 07:20 98 Nasal Cannula 2.50 05/17/16 06:00 72 05/17/16 05:00 71 05/17/16 04:00 78 05/17/16 03:00 97.7 75 25 134/58 99 05/17/16 03:00 72 05/17/16 02:42 96 Nasal Cannula 3.00 05/17/16 02:00 69 05/17/16 01:00 70 05/17/16 00:00 72 05/16/16 23:00 98.9 75 23 139/71 99 05/16/16 23:00 75 05/16/16 22:00 77 05/16/16 21:00 80 05/16/16 20:00 82 05/16/16 19:40 92 05/16/16 19:00 77 05/16/16 19:00 98.3 82 26 139/60 98 05/16/16 18:00 78 05/16/16 17:00 76 05/16/16 16:00 78 05/16/16 15:00 97.3 82 24 116/71 96 05/16/16 15:00 79 05/16/16 14:00 106 05/16/16 13:00 76 05/16/16 12:00 74 05/16/16 11:17 76 05/16/16 11:00 74 05/16/16 10:06 72 05/16/16 10:06 73 05/16/16 09:26 75 05/16/16 09:11 75 -: 05/15/16 0509 05/15/16 0509 Physical Exam General Appearance: Well Developed Neck Neck Exam: Neck Supple Pulmonary Resp Exam: Decreased Bases Cardiology CV Exam: Arrhythmia Gastrointestinal/Abdomen GI Exam: Soft, Non-Tender, Bowel Sounds Present Extremeties Extremities Exam: No Edema Neurologic Neuro Exam: Alert, Awake Assessment/Plan Problem List: (1) ESRD (end stage renal disease) Plan: Patient is a Saturday and Saturday dialysis patient HD progress noted UF 3 L as tolerated UTI/pneumonia treated stress test EF 46% Fixed defect (2) Atrial fibrillation with rapid ventricular response Plan: Patient is being followed by cardiology (3) Elevated troponin Plan: Stress test as above (4) CAD (coronary artery disease) Plan: Continue to monitor (5) Pneumonia Plan: Treated with cipro and Azactam (6) Urinary tract infection Plan: on nahedro Marta Rivera MD May 17, 2016 08:59
[2016-05-17] MEDS: SEVELAMER CARBONATE 800 MG TAB PO SCH (12:41)
[2016-05-17] MEDS: DILTIAZEM-CD 240 MG CAP ER PO SCH (12:42)
[2016-05-17] MEDS: AMIODARONE 200 MG TAB PO SCH (12:42)
[2016-05-17] MEDS: PANTOPRAZOLE SOD 40 MG DELAYED RELEASE TAB PO SCH (12:42)
[2016-05-17] MEDS: SODIUM CHLORIDE 0.9% FLUSH 5 ML FLUSH FLUSH SCH ×2 (12:43→20:29)
[2016-05-17] MEDS: HEPARIN SODIUM - SQ 10,000 UNITS/ML VIAL SQ SCH ×2 (12:45→20:29)
[2016-05-17] MEDS: ASPIRIN 81 MG CHEW TAB CHEW SCH (12:45)
--- NOTE | 2016-05-17 14:27 | HHI.PR ---
Subjective Interval History No chest pain SOB is significantly better Still some cough Up in rm. Walking around Appetite good. As the patient he has a nebulizer at home he will use it. As per RN oxygen saturation is good on room air. Review of system for 10 point system otherwise unremarkable Vitals/Results Intake & Output 05/16/16 05/16/16 05/17/16 15:00 23:00 07:00 Intake Total 700 ml 780 ml Output Total 300 ml 200 ml Balance 400 ml 580 ml Intake Oral 600 ml 480 ml IV Total 100 ml 300 ml Output Urine Total 300 ml 200 ml Vital Signs Vital Signs Date Time Temp Pulse Resp B/P Pulse Ox O2 Delivery O2 Flow Rate FiO2 05/17/16 14:09 85 05/17/16 13:42 79 05/17/16 12:31 79 05/17/16 11:47 97.1 79 20 126/62 95 05/17/16 10:00 70 05/17/16 09:00 72 05/17/16 08:47 74 05/17/16 07:47 98.0 81 20 153/75 95 05/17/16 07:36 79 05/17/16 07:20 98 Nasal Cannula 2.50 05/17/16 06:00 72 05/17/16 05:00 71 05/17/16 04:00 78 05/17/16 03:00 97.7 75 25 134/58 99 05/17/16 03:00 72 05/17/16 02:42 96 Nasal Cannula 3.00 05/17/16 02:00 69 05/17/16 01:00 70 05/17/16 00:00 72 05/16/16 23:00 98.9 75 23 139/71 99 05/16/16 23:00 75 05/16/16 22:00 77 05/16/16 21:00 80 05/16/16 20:00 82 05/16/16 19:40 92 05/16/16 19:00 77 05/16/16 19:00 98.3 82 26 139/60 98 05/16/16 18:00 78 05/16/16 17:00 76 05/16/16 16:00 78 05/16/16 15:00 97.3 82 24 116/71 96 05/16/16 15:00 79 CBC/BMP: 05/15/16 0509 05/15/16 0509 Physical Exam General General Appearance: Well Developed Neck Neck Exam: Neck Supple Pulmonary Resp Exam: Decreased Bases Resp Remarks Decrease breath sounds bibasally. With occasional wheezing bibasally Cardiology CV Exam: Arrhythmia Gastrointestinal/Abdomen GI Exam: Soft, Non-Tender, Bowel Sounds Present Extremeties Extremities Exam: No Edema Neurologic Neuro Exam: Alert, Awake, Oriented, Moving All Extremities Assessment/Plan Assessment/Plan 1. A-fib with RVR. 2. Sepsis on admission. 3. End-stage renal disease on hemodialysis., 4. Hyponatremia. 5. Leukopenia. 6. Anemia. 7. Questionable urinary tract infection. 8. COPD. 9. Pleural thickening and calcifications. 10. Anxiety. 11. History of GI bleed secondary to Coumadin. DISCUSSION Appreciate nephrology input Dialysis per shading painter Stable H&H Better WBC count, stable antibiotic Is stable heart rate in sinus rhythm Continue oxygen on a when necessary basis, prn Echo on July 2014 which showed an EF of 40 to 45%,now EF shows 46% Stress test today appreciate cardiology input, , nuclear stress, No reversible defect. Old [place] . Explained to patient per cardiology Heparin DVT prophylaxis and Protonix for GI prophylaxis. Patient wants to go home. The plan to discharge him home to be followed by his primary care doctor and cartilages outpatient.Overall in stable condition for discharge. Discussed with drywall contractor Planning Probable home in Kt Negro MD May 17, 2016 14:27
[2016-05-17] MEDS ORDERED: DOXY100C PO (14:35)
[2016-05-17] MEDS ORDERED: PRED10PA2 PO (14:35)
[2016-05-17] MEDS: hydrOXYzine PAMOATE 25 MG CAP PO PRN (17:04)
[2016-05-17] MEDS: SODIUM CHLORIDE 0.9% FLUSH 5 ML FLUSH FLUSH PRN (17:05)
[2016-05-17] MEDS: LINEZOLID 600 MG PREMIX 300 ML IV SCH (18:44)
[2016-05-17] MEDS: DOXYCYCLINE INJ 100 MG in SODIUM CHLORIDE 0.9% INJ 100 ML IV SCH (20:29)
[2016-05-17] MEDS: SENNOSIDES 8.6 MG TAB PO PRN (20:30)
[2016-05-18] VITALS (28 sets, daily range): BP systolic 134–151; BP diastolic 72–81; PULSE 70–115; RESP 18–23; TEMP 97.4–98.6; O2SAT 93–96
[2016-05-18] MEDS: methylPREDNISolone SOD SUCC 125 MG/2 ML VIAL IVP SCH ×4 (04:00→21:14)
[2016-05-18] MEDS: LINEZOLID 600 MG PREMIX 300 ML IV SCH ×2 (04:01→16:42)
[2016-05-18] MEDS: RESP: ALBUTEROL 2.5 MG/3 ML NEB (PRN) INH ×2 (04:02→22:35)
[2016-05-18] MEDS: DOXYCYCLINE INJ 100 MG in SODIUM CHLORIDE 0.9% INJ 100 ML IV SCH ×2 (06:44→16:42)
[2016-05-18] MEDS: SEVELAMER CARBONATE 800 MG TAB PO SCH (08:36)
[2016-05-18] MEDS: ASPIRIN 81 MG CHEW TAB CHEW SCH (08:36)
[2016-05-18] MEDS: DILTIAZEM-CD 240 MG CAP ER PO SCH (08:36)
[2016-05-18] MEDS: HEPARIN SODIUM - SQ 10,000 UNITS/ML VIAL SQ SCH ×2 (08:37→21:14)
[2016-05-18] MEDS: PANTOPRAZOLE SOD 40 MG DELAYED RELEASE TAB PO SCH (08:37)
[2016-05-18] MEDS: SODIUM CHLORIDE 0.9% FLUSH 5 ML FLUSH FLUSH SCH ×2 (08:37→21:14)
--- NOTE | 2016-05-18 11:00 | HHI.NPPN ---
Subjective History of Present Illness 70 year old male with ESRD A fib Review of Systems Respiratory Lungs: SOB Objective Data Data 05/17/16 05/18/16 19:00 07:00 Intake Total 690 ml 670 ml Output Total 3120 ml 150 ml Balance -2430 ml 520 ml Intake Oral 690 ml 480 ml IV Total 190 ml Output Urine Total 120 ml 150 ml Hemodialysis 3000 ml # Bowel Movements 1 Vital Signs Date Time Temp Pulse Resp B/P Pulse Ox O2 Delivery O2 Flow Rate FiO2 05/18/16 10:08 74 05/18/16 09:44 74 05/18/16 08:45 97.5 115 20 143/79 93 05/18/16 08:45 78 05/18/16 08:15 Nasal Cannula 05/18/16 06:00 75 05/18/16 05:00 74 05/18/16 04:03 93 Nasal Cannula 05/18/16 04:00 72 05/18/16 03:00 70 05/18/16 03:00 98.4 76 23 137/72 93 05/18/16 02:00 71 05/18/16 01:00 74 05/18/16 00:00 74 05/17/16 23:00 78 05/17/16 23:00 98.2 77 25 137/66 94 05/17/16 22:00 78 05/17/16 21:00 80 05/17/16 20:00 78 05/17/16 19:00 84 05/17/16 19:00 98.0 80 22 148/72 95 05/17/16 18:16 82 05/17/16 17:06 82 05/17/16 16:54 98.8 97 20 154/70 93 05/17/16 16:17 82 05/17/16 15:38 82 05/17/16 14:09 85 05/17/16 13:42 79 05/17/16 12:31 79 05/17/16 11:47 97.1 79 20 126/62 95 -: 05/15/16 0509 05/15/16 0509 Physical Exam General Appearance: Well Developed Neck Neck Exam: Neck Supple Pulmonary Resp Exam: Decreased Bases Cardiology CV Exam: Arrhythmia Gastrointestinal/Abdomen GI Exam: Soft, Non-Tender, Bowel Sounds Present Extremeties Extremities Exam: No Edema Neurologic Neuro Exam: Alert, Awake, Oriented, Moving All Extremities Assessment/Plan Problem List: (1) ESRD (end stage renal disease) Plan: Patient is a Saturday and Saturday dialysis patient HD done yesterday 3 L UF UTI/pneumonia treated on Doxycycline/Zyvox stress test EF 46% Fixed defect (2) Atrial fibrillation with rapid ventricular response Plan: Patient is being followed by cardiology (3) Elevated troponin Plan: Stress test as above (4) CAD (coronary artery disease) Plan: Continue to monitor (5) Pneumonia Plan: Treated with Doxycycline/Zyvox (6) Urinary tract infection Plan: on Zyvox/Doxy Staph Warneri/Enterococcus Avium Marta Rivera MD May 18, 2016 11:00
--- NOTE | 2016-05-18 12:59 | HHI.PR ---
Subjective Interval History Patient breathing is improving less wheezing Less coughing but bringing out some phlegm no known the color of phlegm No fever or chills No other complaint Review of system for 10 point system unremarkable Vitals/Results Intake & Output 05/17/16 05/17/16 05/18/16 15:00 23:00 07:00 Intake Total 690 ml 670 ml Output Total 3000 ml 120 ml 150 ml Balance -3000 ml 570 ml 520 ml Intake Oral 690 ml 480 ml IV Total 190 ml Output Urine Total 120 ml 150 ml Hemodialysis 3000 ml # Bowel Movements 1 Vital Signs Vital Signs Date Time Temp Pulse Resp B/P Pulse Ox O2 Delivery O2 Flow Rate FiO2 05/18/16 12:01 72 05/18/16 11:32 97.7 74 20 137/74 94 05/18/16 11:32 76 05/18/16 10:08 74 05/18/16 09:44 74 05/18/16 08:45 97.5 115 20 143/79 93 05/18/16 08:45 78 05/18/16 08:15 94 Nasal Cannula 21 05/18/16 06:00 75 05/18/16 05:00 74 05/18/16 04:03 93 Nasal Cannula 05/18/16 04:00 72 05/18/16 03:00 70 05/18/16 03:00 98.4 76 23 137/72 93 05/18/16 02:00 71 05/18/16 01:00 74 05/18/16 00:00 74 05/17/16 23:00 78 05/17/16 23:00 98.2 77 25 137/66 94 05/17/16 22:00 78 05/17/16 21:00 80 05/17/16 20:00 78 05/17/16 19:00 84 05/17/16 19:00 98.0 80 22 148/72 95 05/17/16 18:16 82 05/17/16 17:06 82 05/17/16 16:54 98.8 97 20 154/70 93 05/17/16 16:17 82 05/17/16 15:38 82 05/17/16 14:09 85 05/17/16 13:42 79 CBC/BMP: 05/15/16 0509 05/15/16 0509 Physical Exam General General Appearance: Well Developed Neck Neck Exam: Neck Supple Pulmonary Resp Exam: Decreased Bases Resp Remarks Decrease breath sounds bibasally. With occasional wheezing bibasally. Occasional crackling in the bases Cardiology CV Exam: Arrhythmia Gastrointestinal/Abdomen GI Exam: Soft, Non-Tender, Bowel Sounds Present Extremeties Extremities Exam: No Edema Neurologic Neuro Exam: Alert, Awake, Oriented, Moving All Extremities Assessment/Plan Assessment/Plan 1. A-fib with RVR. 2. Sepsis on admission. 3. End-stage renal disease on hemodialysis., 4. Hyponatremia. 5. Leukopenia. 6. Anemia. 7. Questionable urinary tract infection. 8. COPD. 9. Pleural thickening and calcifications. 10. Anxiety. 11. History of GI bleed secondary to Coumadin. DISCUSSION Appreciate nephrology input Dialysis per funeral home assistant Stable H&H Better WBC count antibiotic change according to culture report. Awaiting ID consult Is stable heart rate in sinus rhythm Continue oxygen on a when necessary basis, prn Echo on July 2014 which showed an EF of 40 to 45%,now EF shows 46% Stress test showing, No reversible defect. Old [place] . Explained to patient per cardiology Heparin DVT prophylaxis and Protonix for GI prophylaxis. Discussed with patient Discharge Planning [place]able [email or web address] Kt Alas MD May 18, 2016 12:59
--- NOTE | 2016-05-18 20:22 | PD.ID.CON ---
History of Present Illness Service ID Consult Requested By Dr Alas Reason for Consult positive cultures, blood and urine Primary Care Physician Chuck Kaiser MD Diagnoses: History of Present Illness 70 yo male with multiple med problems including COPD, ESRD on HD T//Sat, Afib on diltiazem and amiodarone presented 2 days ago with after hemodialysis today with generalyzed weak, SOB and productive cough. He has Chills. No fever at home, chest pain, n/v, abdominal pain. Denies urinary complaints, he still makes reduced amount of urine Pt was seen at [facility] on 05/09/16 and CXR at the time showed bibasilar patching atelectasis or infiltrate and pt was discharged with doxycycline and vistaril because he also had anxiety. One of his blood clx was positive for coag negative stgaph (Staph epi) and urine has 9 WNC and clx grew <10K of Staph warnerii and Enterococcus avium He is still coughing He was found to have RVR Afib and is followed by ice seller Review of Systems Except as stated in HPI: all other systems reviewed are Neg Past Family Social History Allergies: Coded Allergies: Sulfa (Verified Allergy, Severe, "difficulty breathing", 05/12/16) Penicillin (Verified Adverse Reaction, Severe, "acid taste in mouth, problems with vision", 05/12/16) DIFFICULTY BREATHING Past Medical History 1. A-fib. 2. Hypercholesterolemia. 3. Congestive heart failure. 4. End-stage renal disease on hemodialysis. 5. Hypertension. 6. Hiatal hernia 7. COPD. Currently not on oxygen. 8. Gout. 9. Hyperparathyroidism. 10. Anxiety. 11. History of DVT. 12. GI bleed secondary to Coumadin for which he is currently not taking any anticoagulants because of the GI bleed history. Past Surgical History 1. Several hernia repairs. 2. Septal defect of the heart repaired. 3. Scrotum surgery. 4. Tonsillectomy. 5. Lung biopsy. 6. Left brachial A-V fistula. Active Ordered Medications Medications where reviewed in EMR Antibiotics Include: zyvox doxycyline Family History Noncontributory Social History He is not , lives alone. Tobacco, quit 1989. Alcohol quite 1989. Physical Exam Vital Signs Vital Signs Date Time Temp Pulse Resp B/P Pulse Ox O2 Delivery O2 Flow Rate FiO2 05/18/16 18:24 72 05/18/16 17:07 74 05/18/16 16:02 72 05/18/16 15:41 95 21 05/18/16 15:35 97.6 77 22 134/77 94 05/18/16 15:35 75 05/18/16 14:32 71 05/18/16 13:03 74 05/18/16 12:01 72 05/18/16 11:32 97.7 74 20 137/74 94 05/18/16 11:32 76 05/18/16 10:08 74 05/18/16 09:44 74 05/18/16 08:45 97.5 115 20 143/79 93 05/18/16 08:45 78 05/18/16 08:15 94 Nasal Cannula 21 05/18/16 06:00 75 05/18/16 05:00 74 05/18/16 04:03 93 Nasal Cannula 05/18/16 04:00 72 05/18/16 03:00 70 05/18/16 03:00 98.4 76 23 137/72 93 05/18/16 02:00 71 05/18/16 01:00 74 05/18/16 00:00 74 05/17/16 23:00 78 05/17/16 23:00 98.2 77 25 137/66 94 05/17/16 22:00 78 05/17/16 21:00 80 Physical Exam CONSTITUTIONAL/GENERAL: This is a thin elderly male patient, in mild resp distress. + tremor TUBES/LINES/DRAINS: SKIN: No jaundice, rashes, or lesions. Ecchymoses on upper extremities. No wounds seen anteriorly. Skin temperature appropriate. Not diaphoretic. HEAD: Atraumatic. Normocephalic. EYES: Pupils equal and round and reactive. Extraocular motions intact. No scleral icterus. No injection or drainage. Fundi not examined. ENT: Hearing markedly decresed at b/l. Nose without bleeding or purulent drainage. Throat without visible erythema, exudates, masses, or lesions. Edentulous NECK: Trachea midline. Supple, nontender. No palpable thyroid enlargement or nodularity. CARDIOVASCULAR: irregular rate and rhythm without murmurs, gallops, or rubs. No JVD. Peripheral pulses symmetric. RESPIRATORY/CHEST: Symmetric, unlabored respirations. Breath sounds equal bilaterally. Diffuse rhonchi and scattered wheezes GASTROINTESTINAL: Abdomen soft, non-tender, nondistended. No hepato-splenomegaly , or palpable masses. No guarding. Bowel sounds present. GENITOURINARY: Without palpable bladder distension. MUSCULOSKELETAL: Extremities without clubbing, cyanosis, or edema. No joint tenderness or effusion noted. No calf tenderness. No mottling or clubbing. LYMPHATICS: No palpable cervical or supraclavicular adenopathy. NEUROLOGICAL: Awake and alert. Motor and sensory grossly within normal limits. Follows commands. Normal speech . Moves all extremities. PSYCHIATRIC: somewhat anxous Result Diagram: 05/15/16 0509 05/15/16 0509 Imaging Last Impressions Myocardial Perfusion Scan Nuc Med 05/15/16 1500 Signed Impressions: Service Date/Time: Sunday, May 15, 2016 12:40 - CONCLUSION: 1. 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 2. Ejection fraction is somewhat low at 46%%. 3. No reversible perfusion defect is identified. RISK CATEGORY: Intermediate (1-3%% Annual Mortality Rate) Alex Tolbert MD Chest X-Ray 05/12/16 1648 Signed Impressions: Service Date/Time: Thursday, May 12, 2016 17:00 - CONCLUSION: 1. Stable basilar airspace disease with chronic pleural thickening and fluid and pleural calcifications. Rashel Aguilera MD Assessment and Plan Assessment and Plan PNA Low grade St epi bacteremia, doubt clin significance Bacteriuria , Staph warneri (skin contam) and evnterococcus avium with < 10 K CFU, UTI is unlikely ESRD High grade PCN and sulfa allergoies (anaphilaxis, angioedema) and contraindication for levaquine (amiodarone) - obtain sputum clx - cont currnet abx for now - monitor clinically - repeat CXR Daniela Mcintyre MD May 18, 2016 20:22
[2016-05-18] MEDS: hydrOXYzine PAMOATE 25 MG CAP PO PRN (21:14)
[2016-05-19] VITALS (25 sets, daily range): BP systolic 128–158; BP diastolic 63–84; PULSE 68–81; RESP 20–24; TEMP 97.1–98.2; O2SAT 94–96
[2016-05-19] MEDS: methylPREDNISolone SOD SUCC 125 MG/2 ML VIAL IVP SCH ×4 (03:20→22:29)
[2016-05-19] MEDS: SENNOSIDES 8.6 MG TAB PO PRN (03:24)
--- NOTE | 2016-05-19 04:22 | RADRPT ---
EXAM DATE/TIME: 05/19/2016 03:30 [facility] COMPARISON: CHEST PA & LAT, April 22, 2015, 18:04. CHEST SINGLE AP, May 12, 2016, 17:00. INDICATIONS : Shortness of breath, possible pulmonary disease. MEDICAL HISTORY : None. SURGICAL HISTORY : None. ENCOUNTER: Subsequent ACUITY: 2 days PAIN SCORE: 5/10 LOCATION: Bilateral chest FINDINGS: The cardiac silhouette is enlarged in transverse diameter. There is improving left basilar atelectasi s. Extensive pleural disease in the right hemithorax is unchanged. A small left sided effusion is pre sent. CONCLUSION: 1. Cardiomegaly. Resolving left basilar atelectasis versus pneumonia 2. Small left effusion Christiano Babin MD on May 19, 2016 at 4:19 Board Certified Radiologist. This report was verified electronically.
[2016-05-19] MEDS: LINEZOLID 600 MG PREMIX 300 ML IV SCH (04:34)
[2016-05-19] MEDS: RESP: ALBUTEROL 2.5 MG/3 ML NEB (PRN) INH (05:06)
[2016-05-19] MEDS: DOXYCYCLINE INJ 100 MG in SODIUM CHLORIDE 0.9% INJ 100 ML IV SCH (06:02)
[2016-05-19] MEDS: GELATIN 12 MM/7 MM FOAM TOP PRN (10:19)
[2016-05-19] MEDS: EPOETIN ALFA 10,000 UNITS/ML VIAL IV PRN (10:19)
--- NOTE | 2016-05-19 10:38 | HHI.PR ---
Subjective Interval History Patient has some shortness of breath and occasional wheezing. He still has some cough No other complaint Review of systems a 10 point system otherwise unremarkable Vitals/Results Intake & Output 05/18/16 05/18/16 05/19/16 15:00 23:00 07:00 Intake Total 640 ml 540 ml Output Total 300 ml 625 ml Balance 340 ml -85 ml Intake Oral 240 ml 240 ml IV Total 400 ml 300 ml Output Urine Total 300 ml 625 ml # Bowel Movements 0 2 Vital Signs Vital Signs Date Time Temp Pulse Resp B/P Pulse Ox O2 Delivery O2 Flow Rate FiO2 05/19/16 07:30 97.8 79 22 155/84 96 05/19/16 07:00 79 05/19/16 06:00 76 05/19/16 05:00 74 05/19/16 04:00 76 05/19/16 03:00 97.9 68 22 140/78 95 05/19/16 03:00 68 05/19/16 02:52 69 05/19/16 02:00 70 05/19/16 01:00 70 05/19/16 00:00 72 05/18/16 23:00 97.4 76 22 144/73 95 05/18/16 22:38 76 05/18/16 22:36 96 Nasal Cannula 2.00 05/18/16 22:01 21 05/18/16 22:00 72 05/18/16 21:00 74 05/18/16 20:00 78 05/18/16 19:00 98.6 77 18 151/81 93 05/18/16 19:00 72 05/18/16 18:24 72 05/18/16 17:07 74 05/18/16 16:02 72 05/18/16 15:41 95 21 05/18/16 15:35 97.6 77 22 134/77 94 05/18/16 15:35 75 05/18/16 14:32 71 05/18/16 13:03 74 05/18/16 12:01 72 05/18/16 11:32 97.7 74 20 137/74 94 05/18/16 11:32 76 CBC/BMP: 05/15/16 0509 05/15/16 0509 Microbiology Microbiology Physical Exam General General Appearance: Well Developed Neck Neck Exam: Neck Supple Pulmonary Resp Exam: Decreased Bases Resp Remarks Decrease breath sounds bibasally. With occasional wheezing bibasally. Occasional crackling in the bases Cardiology CV Exam: Arrhythmia Gastrointestinal/Abdomen GI Exam: Soft, Non-Tender, Bowel Sounds Present Extremeties Extremities Exam: No Edema Neurologic Neuro Exam: Alert, Awake, Oriented, Moving All Extremities Assessment/Plan Assessment/Plan 1. A-fib with RVR. 2. Sepsis on admission. 3. End-stage renal disease on hemodialysis., 4. Hyponatremia. 5. Leukopenia. 6. Anemia. 7. Questionable urinary tract infection. 8. COPD. 9. Pleural thickening and calcifications. 10. Anxiety. 11. History of GI bleed secondary to Coumadin. DISCUSSION Appreciate nephrology input Dialysis per integration technician Stable H&H Better WBC count antibiotic change according to culture report. Appreciate ID consult Will follow sputum culture Chest x-ray report reviewed Is stable heart rate in sinus rhythm Continue oxygen on a when necessary basis, prn Echo on July 2014 which showed an EF of 40 to 45%,now EF shows 46% Stress test showing, No reversible defect. Old [place] . Explained to patient per cardiology Heparin DVT prophylaxis and Protonix for GI prophylaxis. Discussed with patient Kt Alas MD May 19, 2016 10:38
--- NOTE | 2016-05-19 11:07 | HHI.NPPN ---
Subjective History of Present Illness 70 year old male with ESRD A fib Review of Systems Respiratory Lungs: SOB Objective Data Data 05/18/16 05/19/16 19:00 07:00 Intake Total 640 ml 540 ml Output Total 300 ml 625 ml Balance 340 ml -85 ml Intake Oral 240 ml 240 ml IV Total 400 ml 300 ml Output Urine Total 300 ml 625 ml # Bowel Movements 0 2 Vital Signs Date Time Temp Pulse Resp B/P Pulse Ox O2 Delivery O2 Flow Rate FiO2 05/19/16 07:30 97.8 79 22 155/84 96 05/19/16 07:00 79 05/19/16 06:00 76 05/19/16 05:00 74 05/19/16 04:00 76 05/19/16 03:00 97.9 68 22 140/78 95 05/19/16 03:00 68 05/19/16 02:52 69 05/19/16 02:00 70 05/19/16 01:00 70 05/19/16 00:00 72 05/18/16 23:00 97.4 76 22 144/73 95 05/18/16 22:38 76 05/18/16 22:36 96 Nasal Cannula 2.00 05/18/16 22:01 21 05/18/16 22:00 72 05/18/16 21:00 74 05/18/16 20:00 78 05/18/16 19:00 98.6 77 18 151/81 93 05/18/16 19:00 72 05/18/16 18:24 72 05/18/16 17:07 74 05/18/16 16:02 72 05/18/16 15:41 95 21 05/18/16 15:35 97.6 77 22 134/77 94 05/18/16 15:35 75 05/18/16 14:32 71 05/18/16 13:03 74 05/18/16 12:01 72 05/18/16 11:32 97.7 74 20 137/74 94 05/18/16 11:32 76 -: 05/15/16 0509 05/15/16 0509 Microbiology Physical Exam General Appearance: Well Developed Neck Neck Exam: Neck Supple Pulmonary Resp Exam: Decreased Bases Cardiology CV Exam: Arrhythmia Gastrointestinal/Abdomen GI Exam: Soft, Non-Tender, Bowel Sounds Present Extremeties Extremities Exam: No Edema Neurologic Neuro Exam: Alert, Awake, Oriented, Moving All Extremities Assessment/Plan Problem List: (1) ESRD (end stage renal disease) Plan: Patient is a Saturday and Saturday dialysis patient HD done Seen 3 L UF UTI/pneumonia treated on Doxycycline/Zyvox stress test EF 46% Fixed defect (2) Atrial fibrillation with rapid ventricular response Plan: Patient is being followed by cardiology (3) Elevated troponin Plan: Stress test as above (4) CAD (coronary artery disease) Plan: Continue to monitor (5) Pneumonia Plan: Treated with Doxycycline/Zyvox (6) Urinary tract infection Plan: on Zyvox/Doxy Staph Warneri/Enterococcus Avium Marta Rivera MD May 19, 2016 11:07
[2016-05-19] MEDS: DILTIAZEM-CD 240 MG CAP ER PO SCH (11:19)
[2016-05-19] MEDS: AMIODARONE 200 MG TAB PO SCH (11:19)
[2016-05-19] MEDS: HEPARIN SODIUM - SQ 10,000 UNITS/ML VIAL SQ SCH ×2 (11:19→20:12)
[2016-05-19] MEDS: SODIUM CHLORIDE 0.9% FLUSH 5 ML FLUSH FLUSH SCH ×2 (11:19→20:11)
[2016-05-19] MEDS: ASPIRIN 81 MG CHEW TAB CHEW SCH (11:19)
[2016-05-19] MEDS: PANTOPRAZOLE SOD 40 MG DELAYED RELEASE TAB PO SCH (11:19)
[2016-05-19] MEDS: SEVELAMER CARBONATE 800 MG TAB PO SCH (11:20)
--- NOTE | 2016-05-19 15:55 | HHI.PR ---
Addendum to Inpatient Note Addendum Reason: Additional Documentation Additional Information Upon review of pt's past med records it was noted that pt received uneventfully cefepime in July 2015 for 4-5 days No adverse reactions were documented related to the Rx Therefore will change zyvox to clindamycin, ceftin 500 mg q 48 and azithromycin for PNA meanwhile will change the Rx to azithro and rocephine Rx can be siplified if sputum clx obtained repeat UA, C+S dw Daniela Jack MD May 19, 2016 15:55
[2016-05-19] MEDS ORDERED: AZITHROMYCIN INJ 500 MG in SODIUM CHLOR 0.9% 250 ML INJ 250 ML IV SCH (16:00)
[2016-05-19] MEDS ORDERED: cefTRIAXone INJ 2,000 MG in SODIUM CHLORIDE 0.9% INJ 100 ML IV SCH (17:00)
[2016-05-20] VITALS (19 sets, daily range): BP systolic 124–143; BP diastolic 69–85; PULSE 68–78; RESP 20–26; TEMP 97.5–98.4; O2SAT 97–98
[2016-05-20] MEDS: methylPREDNISolone SOD SUCC 125 MG/2 ML VIAL IVP SCH ×2 (04:00→10:14)
[2016-05-20 07:11] LABS: HEMATOCRIT 32.6 % (39.0-51.0); MEAN CELL VOLUME 95.5 FL (80.0-100.0); MEAN CORPUSCULAR HEMOGLOBIN 31.8 PG (27.0-34.0); MEAN CORPUSCULAR HGB CONC 33.3 % (32.0-36.0); PLATELET COUNT 188 TH/MM3 (150-450); RED BLOOD COUNT 3.41 MIL/MM3 (4.50-5.90); RED CELL DISTRIBUTION WIDTH 15.5 % (11.6-17.2); WHITE BLOOD COUNT 6.3 TH/MM3 (4.0-11.0)
[2016-05-20 07:12] LABS: REVIEW FLAG FINAL
[2016-05-20 07:16] LABS: BICARBONATE 27.5 MEQ/L (21.0-32.0); POTASSIUM 4.6 MEQ/L (3.5-5.1)
[2016-05-20] MEDS: RESP: ALBUTEROL 2.5 MG/3 ML NEB (PRN) INH (07:53)
[2016-05-20] MEDS: ASPIRIN 81 MG CHEW TAB CHEW SCH (10:13)
[2016-05-20] MEDS: SEVELAMER CARBONATE 800 MG TAB PO SCH (10:13)
[2016-05-20] MEDS: DILTIAZEM-CD 240 MG CAP ER PO SCH (10:13)
[2016-05-20] MEDS: PANTOPRAZOLE SOD 40 MG DELAYED RELEASE TAB PO SCH (10:13)
[2016-05-20] MEDS: SODIUM CHLORIDE 0.9% FLUSH 5 ML FLUSH FLUSH SCH (10:14)
[2016-05-20] MEDS: HEPARIN SODIUM - SQ 10,000 UNITS/ML VIAL SQ SCH (10:15)
--- NOTE | 2016-05-20 14:47 | HHI.PR ---
Subjective Subjective Remarks Weakness fatigue, increased over last few days Appetite fair Alert, responds to verbal stimuli Exertional SOB (Vee Rosales) Review of Systems Constitutional Constitutional: Fatigue, Weakness (generalized, increasing per patient) Constitutional Remarks 10 point ROS done. Positives noted fatigue weakness, decreased coughing and sputum. Other systems negative or unremarkable (Vee Rosales) Pulmonary Respiratory: Coughing, Shortness of Breath (exertional and at rest, acute on chronic) (Vee Rosales) Psychiatric Psychiatric: Normal Mood, Anxiety (mild) (Vee Rosales) Vitals/Results Intake & Output 05/19/16 05/19/16 05/20/16 15:00 23:00 07:00 Intake Total 734 ml 240 ml Output Total 3000 ml 250 ml 900 ml Balance -3000 ml 484 ml -660 ml Intake Oral 480 ml 240 ml IV Total 254 ml Output Urine Total 250 ml 900 ml Hemodialysis 3000 ml # Voids 2 # Bowel Movements 1 1 Vital Signs Vital Signs Date Time Temp Pulse Resp B/P Pulse Ox O2 Delivery O2 Flow Rate FiO2 05/20/16 14:13 77 05/20/16 13:11 75 05/20/16 12:15 73 05/20/16 11:51 98.4 74 20 124/69 98 05/20/16 11:51 98 Nasal Cannula 2.00 05/20/16 11:21 76 05/20/16 10:21 75 05/20/16 10:06 97 Nasal Cannula 3.00 05/20/16 09:37 72 05/20/16 08:21 74 05/20/16 07:57 98 Nasal Cannula 3.00 05/20/16 07:54 97.9 74 26 143/85 98 05/20/16 07:24 72 05/20/16 06:01 71 05/20/16 05:01 68 05/20/16 04:01 70 05/20/16 03:01 72 05/20/16 03:01 97.5 70 20 129/73 98 05/20/16 02:01 70 05/20/16 01:00 72 05/20/16 00:00 72 05/19/16 23:01 97.7 74 20 143/77 96 05/19/16 23:01 72 05/19/16 22:01 72 05/19/16 21:01 74 05/19/16 20:30 98.2 74 24 140/77 94 05/19/16 20:00 74 05/19/16 19:00 77 05/19/16 18:04 79 05/19/16 17:00 78 05/19/16 16:02 77 05/19/16 15:33 98.2 72 22 128/63 95 05/19/16 15:03 77 (Vee Rosales) CBC/BMP: 05/20/16 0637 05/20/16 0637 Lab Results Laboratory Tests Test 05/20/16 06:37 White Blood Count 6.3 TH/MM3 Red Blood Count 3.41 MIL/MM3 Hemoglobin 10.9 GM/DL Hematocrit 32.6 % Mean Corpuscular Volume 95.5 FL Mean Corpuscular Hemoglobin 31.8 PG Mean Corpuscular Hemoglobin 33.3 % Concent Red Cell Distribution Width 15.5 % Platelet Count 188 TH/MM3 Mean Platelet Volume 8.2 FL Hematology Comments Sodium Level 140 MEQ/L Potassium Level 4.6 MEQ/L Chloride Level 100 MEQ/L Carbon Dioxide Level 27.5 MEQ/L Anion Gap 13 MEQ/L Blood Urea Nitrogen 69 MG/DL Creatinine 3.84 MG/DL Estimat Glomerular Filtration 16 ML/MIN Rate Random Glucose 135 MG/DL Calcium Level 7.9 MG/DL Imaging Remarks Last Impressions Chest X-Ray 05/19/16 0600 Signed Impressions: Service Date/Time: Thursday, May 19, 2016 03:30 - CONCLUSION: 1. Cardiomegaly. Resolving left basilar atelectasis versus pneumonia 2. Small left effusion Christiano Babin MD Myocardial Perfusion Scan Nuc Med 05/15/16 1500 Signed Impressions: Service Date/Time: Sunday, May 15, 2016 12:40 - CONCLUSION: 1. 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 2. Ejection fraction is somewhat low at 46%%. 3. No reversible perfusion defect is identified. RISK CATEGORY: Intermediate (1-3%% Annual Mortality Rate) Alex Tolbert MD Current Medications Active Medications Azithromycin/ Sodium Chloride (Zithromax Inj/ NS 250 ml Inj) 250 ml @ 250 mls/ hr Q24H IV Last administered on 05/19/16 16:12; Admin Dose 250 MLS/HR; Start at 16:00 Ceftriaxone Sodium 2000 mg/ Sodium Chloride 100 ml @ 200 mls/hr Q24H IV Last administered on 05/19/16 17:11; Admin Dose 200 MLS/HR; Start 05/19/16 at 17:00 (Vee Rosales. [employer]) Physical Exam General General Appearance: Well Developed, Pale Appearance Remarks Slim (Vee Rosales. [employer]) Eyes Eye Exam: Pupils Equal, Pupils Reactive (Vee Rosales M. [employer]) Ears & Nose Ears & Nose Exam: Tympanic Membranes Normal, Auditory Canals Normal, Nasal Mucosa [place] (pale mucous membranes) ([place],Susan M. [employer]LECT[employer]IAN [employer]) Throat Throat Exam: Oral Mucosa [place] & Moist (Bobby,Susan M. [employer]) Neck Neck Exam: Neck Supple, Trachea Midline ([place],Vee M. [employer]) Pulmonary Resp Exam: Rhonchi (clears with cough), Sputum (thick), Decreased Bases, Diminished Breath Sounds, Poor Inspiratory Effort (Lady Rosalesan M. [employer]) Cardiology CV Exam: Regular, Arrhythmia (Bobby,Vee M. [employer]) Gastrointestinal/Abdomen GI Exam: Soft, Non-Tender, Bowel Sounds Present (Vee Rosales M. [employer]) Musculoskeletal MS Exam: Joints Intact MS Remarks ,thin muscular wasting (BobbyLady warrenan M. [employer]) Integumentary Skin Exam: Clear, Warm, Dry, Intact (thin turgor) (Vee Rosales M. [employer]) Extremeties Extremities Exam: No Edema (Lady Rosalesan M. [employer]) Neurologic Neuro Exam: Alert, Awake, Oriented, Moving All Extremities ([place],Vee M. [employer]) VTE Prophylaxis VTE Prophylaxis Meds: Heparin ([place],Vee M. [employer]) Assessment/Plan Assessment/Plan 1. A-fib with RVR. 2. Sepsis on admission. 3. End-stage renal disease on hemodialysis., 4. Hyponatremia. 5. Leukopenia. 6. Anemia. 7. Questionable urinary tract infection. 8. COPD. 9. Pleural thickening and calcifications. 10. Anxiety. 11. History of GI bleed secondary to Coumadin. DISCUSSION Appreciate nephrology input Dialysis per cable tender Stable H&H, 10.9 No leukocytosis, labs monitored antibiotic change according to culture report., Appreciate ID input Appreciate ID consult, antibiotic changes reviewed with Dr. Alas, 2-18, currently on Rocephin and azithromycin Will follow sputum not completed. Pt. has not been able to get a good sample yet Is stable heart rate in sinus rhythm Continue oxygen on a when necessary basis, prn Echo on July 2014 which showed an EF of 40 to 45%,now EF shows 46% Stress test showing, No reversible defect. Old [place] . Explained to patient per cardiology Heparin DVT prophylaxis and Protonix for GI prophylaxis. Discharge pending, medical management needs. Patient seen for Dr. Alas, reviewing discharge options Discussed Condition with: Patient (Vee Rosales) Assessment/Plan Patient seen and examined as above [id number] time spent with patient discussed with ID yesterday in detail will discharge patient on by mouth Keflex and doxycycline Labs reviewed Medications reviewed Discussed with patient in detail about discharge planning Plan of care discussed with [employer] Total time spent more than 45 minutes and DC planning on this patient. (Kt Alas MD) Vee Rosales May 20, 2016 14:47 Kt Alas MD May 20, 2016 15:07
--- NOTE | 2016-05-20 14:55 | HHI.NPPN ---
Subjective History of Present Illness 70 year old male with ESRD A fib Review of Systems Respiratory Lungs: SOB Objective Data Data 05/19/16 05/20/16 19:00 07:00 Intake Total 734 ml 240 ml Output Total 3250 ml 900 ml Balance -2516 ml -660 ml Intake Oral 480 ml 240 ml IV Total 254 ml Output Urine Total 250 ml 900 ml Hemodialysis 3000 ml # Voids 2 # Bowel Movements 1 1 Vital Signs Date Time Temp Pulse Resp B/P Pulse Ox O2 Delivery O2 Flow Rate FiO2 05/20/16 14:13 77 05/20/16 13:11 75 05/20/16 12:15 73 05/20/16 11:51 98.4 74 20 124/69 98 05/20/16 11:51 98 Nasal Cannula 2.00 05/20/16 11:21 76 05/20/16 10:21 75 05/20/16 10:06 97 Nasal Cannula 3.00 05/20/16 09:37 72 05/20/16 08:21 74 05/20/16 07:57 98 Nasal Cannula 3.00 05/20/16 07:54 97.9 74 26 143/85 98 05/20/16 07:24 72 05/20/16 06:01 71 05/20/16 05:01 68 05/20/16 04:01 70 05/20/16 03:01 72 05/20/16 03:01 97.5 70 20 129/73 98 05/20/16 02:01 70 05/20/16 01:00 72 05/20/16 00:00 72 05/19/16 23:01 97.7 74 20 143/77 96 05/19/16 23:01 72 05/19/16 22:01 72 05/19/16 21:01 74 05/19/16 20:30 98.2 74 24 140/77 94 05/19/16 20:00 74 05/19/16 19:00 77 05/19/16 18:04 79 05/19/16 17:00 78 05/19/16 16:02 77 05/19/16 15:33 98.2 72 22 128/63 95 05/19/16 15:03 77 -: 05/20/16 0637 05/20/16 0637 Physical Exam General Appearance: Well Developed, Pale Eyes Eye Exam: Pupils Equal, Pupils Reactive Ears & Nose Ears & Nose Exam: Tympanic Membranes Normal, Auditory Canals Normal, Nasal Mucosa [place] (pale mucous membranes) Throat Throat Exam: Oral Mucosa [place] & Moist Neck Neck Exam: Neck Supple, Trachea Midline Pulmonary Resp Exam: Rhonchi (clears with cough), Sputum (thick), Decreased Bases, Diminished Breath Sounds, Poor Inspiratory Effort Cardiology CV Exam: Regular, Arrhythmia Gastrointestinal/Abdomen GI Exam: Soft, Non-Tender, Bowel Sounds Present Musculoskeletal MS Exam: Joints Intact Integumentary Skin Exam: Clear, Warm, Dry, Intact (thin turgor) Extremeties Extremities Exam: No Edema Neurologic Neuro Exam: Alert, Awake, Oriented, Moving All Extremities Assessment/Plan Problem List: (1) ESRD (end stage renal disease) Plan: Patient is a Saturday and Saturday dialysis patient HD yesterday 3 L UF UTI/pneumonia treated stress test EF 46% Fixed defect (2) Atrial fibrillation with rapid ventricular response Plan: Patient is being followed by cardiology (3) Elevated troponin Plan: Stress test as above (4) CAD (coronary artery disease) Plan: Continue to monitor (5) Pneumonia Plan: Treated with Azithromycin/Ceftriaxone (6) Urinary tract infection Plan: on Azithromycin/Ceftriaxone Staph Warneri/Enterococcus Avium Marta Rivera MD May 20, 2016 14:55
[2016-05-20] MEDS ORDERED: CEFT500T3 PO (15:08)
--- NOTE | 2016-05-20 18:02 | HHI.DS ---
Discharge Summary Admission Date May 12, 2016 at 18:42 Discharge Date: May 20, 2016 Admitting Diagnosis Afib RVR, sepsis Brief History This was a pleasant 70-year-old male who was in his normal state of health day of admission, after his dialysis session which he does three times a week. He became very cold during his dialysis session. He became weak. He had some discomfort in his hips when he tried to stand. He developed palpitations. He developed a cough with clear mucous. He felt very cold and clammy and ended up coming to the hospital because he became so weak that he could not even stand up. CBC/BMP: 05/20/16 0637 05/20/16 0637 Significant Findings Laboratory Tests Test 05/20/16 06:37 Red Blood Count 3.41 MIL/MM3 (4.50-5.90) Hemoglobin 10.9 GM/DL (13.0-17.0) Hematocrit 32.6 % (39.0-51.0) Blood Urea Nitrogen 69 MG/DL (7-18) Creatinine 3.84 MG/DL (0.60-1.30) Estimat Glomerular Filtration 16 ML/MIN (>89) Rate Random Glucose 135 MG/DL (74-106) Calcium Level 7.9 MG/DL (8.5-10.1) Imaging Last Impressions Chest X-Ray 05/19/16 0600 Signed Impressions: Service Date/Time: Thursday, May 19, 2016 03:30 - CONCLUSION: 1. Cardiomegaly. Resolving left basilar atelectasis versus pneumonia 2. Small left effusion Christiano Babin MD Myocardial Perfusion Scan Nuc Med 05/15/16 1500 Signed Impressions: Service Date/Time: Sunday, May 15, 2016 12:40 - CONCLUSION: 1. 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 2. Ejection fraction is somewhat low at 46%%. 3. No reversible perfusion defect is identified. RISK CATEGORY: Intermediate (1-3%% Annual Mortality Rate) Alex Tolbert MD PE at Discharge General Appearance: Well Developed, Pale Slim Eye Exam: Pupils Equal, Pupils Reactive Ears & Nose Exam: Tympanic Membranes Normal, Auditory Canals Normal, Nasal Mucosa Emerald (pale mucous membranes) Throat Exam: Oral Mucosa Emerald & Moist Neck Exam: Neck Supple, Trachea Midline Resp Exam: Rhonchi (clears with cough), Sputum (thick), Decreased Bases, Diminished Breath Sounds, Poor Inspiratory Effort CV Exam: Regular, Arrhythmia GI Exam: Soft, Non-Tender, Bowel Sounds Present MS Exam: Joints Intact MS Remarks ,thin muscular wastin Skin Exam: Clear, Warm, Dry, Intact (thin turgor) Extremities Exam: No Edema Neuro Exam: Alert, Awake, Oriented, Moving All Extremities Hospital Course He was seen in the emergency room. He was also found to be febrile. Rhythm was A-fib with RVR. and symptomatic. He was started on Cardizem drip which brought his HR and BP under control. He was given nebulizer, steroids and antibiotics which helped him to feel better. He was then breathing easier and he felt much stronger at this point. He had no nausea, vomiting or diarrhea. He was not having any chest pain or pressure. He did have the palpitations. These diagnosis were made from the symptoms of the patient. Plan of care was initiated. 1. A-fib with RVR. 2. Sepsis on admission. 3. End-stage renal disease on hemodialysis., 4. Hyponatremia. 5. Leukopenia. 6. Anemia. 7. Questionable urinary tract infection. 8. COPD. 9. Pleural thickening and calcifications. 10. Anxiety. 11. History of GI bleed secondary to Coumadin. 12. Pneumonia DISCUSSION, Plan of care Appreciate nephrology input and consult. Managed dialysis and assisted in monitoring labs. Stable H&H, 10.9 No leukocytosis, labs monitored Appreciate the ID consult, antibiotic changes reviewed with Dr. Alas, 2-18, currently on Rocephin and azithromycin day of discharge. sinus rhythm, stable. Monitored. No dysrhythmias treated. oxygen was used throughout hospital stay. Echo on July 2014 which showed an EF of 40 to 45%,repeated this stay, now EF shows 46%, currently stable. Cardiology consult done due to adnormal labs. Stress test showing, No reversible defect. Old NE , but no new damage. Explained to patient per cardiology. Currently will need no further cardiac testing. Medical management. Heparin DVT prophylaxis and Protonix for GI prophylaxis during hospital stay. Patient required extensive antibiotics through complete stay, and further treatment for SOB. CXR showed possible pneumonia, treated with IV antibiotics. Patient seen and examined as above per Dr. Alas day of discharge. [id number] time spent with patient discussed with ID yesterday in detail will discharge patient on by mouth Keflex and doxycycline Labs reviewed Medications reviewed Discussed with patient in detail about discharge planning Plan of care discussed with Vee PHAN, Total time spent more than 45 minutes and DC planning on this patient. Patient was stable at time of pm discharge. Pt Condition on Discharge: Fair Discharge Disposition: Discharge Home Discharge Instructions DIET: Follow Instructions for: Heart Healthy Diet Activities you can perform: Weight Bearing as Angie Follow up Referrals: PCP Follow-up - 1 Week Pulmonology - 1 Week New Medications: Cefuroxime (Ceftin) 500 Mg Tab 500 MG PO BID Infection #14 Ref 0 TAB Prednisone (48) 10 mg tab Dose Pack (Prednisone (48) 10 mg tab Dose Pack) 10 Mg Dspk 10 MG PO DIRECTED Inflammation #1 Ref 0 DSPK Continued Medications: Albuterol Neb (Albuterol Neb) 2.5 Mg/3 Ml Neb 2.5 MG NEB Q6HR Shortness Of Breath Ref 0 NEBULE Amiodarone (Amiodarone) 200 Mg Tab 200 MG PO EVERY OTHER DAY Regulate Heart Beat Ref 0 TAB Aspirin (Aspirin) 81 Mg Chew 81 MG CHEW DAILY Ref 0 TAB Diltiazem (Diltiazem) 120 Mg Tab 240 MG PO DIRECTED Ref 0 TAB Doxycycline Hyclate (Doxycycline Hyclate) 100 Mg Cap 100 MG PO BID Infection #15 Ref 0 CAP (This prescription has been renewed) Hydroxyzine Pamoate (Vistaril) 25 Mg Cap 25 MG PO Q6H PRN ANXIETY AND/OR AGITATION #10 Ref 0 CAP Pantoprazole (Pantoprazole) 40 Mg Tab 40 MG PO DAILY Reflux Ref 0 TAB Sevelamer Carbonate (Renvela) 800 Mg Tab 800 MG PO DAILY Control phosphorous levels Ref 0 TAB Vee Rosales May 20, 2016 18:02
== END 2016-05-20 17:05 | disposition home or self-care (01) | DRG 871 ==
LOC: NEPA 16:15 → NEDA 18:42 → NEDH 05-13 00:06 → HCIN 05-13 01:37
PROVIDERS: ADMIT Specialist; ATTEND Specialist
DX: A41.9 Sepsis, unspecified organism (principal); J18.9 Pneumonia, unspecified organism; I13.2 Hypertensive heart and chronic kidney disease with heart failure and with stage 5 chronic kidney disease, or end stage renal disease; N18.6 End stage renal disease; J44.0 Chronic obstructive pulmonary disease with (acute) lower respiratory infection; K92.2 Gastrointestinal hemorrhage, unspecified; I48.0 Paroxysmal atrial fibrillation; I50.9 Heart failure, unspecified; E87.1 Hypo-osmolality and hyponatremia; N39.0 Urinary tract infection, site not specified; Z99.2 Dependence on renal dialysis; D72.819 Decreased white blood cell count, unspecified; D64.9 Anemia, unspecified; T45.515A Adverse effect of anticoagulants, initial encounter; I25.2 Old myocardial infarction; E78.5 Hyperlipidemia, unspecified; K44.9 Diaphragmatic hernia without obstruction or gangrene; M10.9 Gout, unspecified; Z86.718 Personal history of other venous thrombosis and embolism; F41.9 Anxiety disorder, unspecified; Z87.891 Personal history of nicotine dependence; I25.10 Atherosclerotic heart disease of native coronary artery without angina pectoris; E87.5 Hyperkalemia; K21.9 Gastro-esophageal reflux disease without esophagitis; Y95 Nosocomial condition; H91.90 Unspecified hearing loss, unspecified ear; Z79.82 Long term (current) use of aspirin; R25.1 Tremor, unspecified; E78.00 Pure hypercholesterolemia, unspecified; H91.93 Unspecified hearing loss, bilateral
CPT/HCPCS: 70450; 71010; 76937; 78452; 80048; 80053; 81001; 82550; 83605; 83735; 84132; 84484; 85025; 85027; 85610; 85730; 87040; 87077; 87086; 87186; 87205; 90935; 93005; 93017; 94640; 94664; 94667; 94668; 96374; 96375; A9502; J0456; J0696; J0744; J1644; J2020; J2060; J2785; J2920; J2930; J7030; J7050; J7613; Q0177; Q4081

== ENCOUNTER 2016-05-28 18:39 | Inpatient (IN) | payer MEDICARE, OTHER ==
[~2016-05-28] VITALS: Ht 170.2 cm; Wt 56.0 kg
[~2016-05-28 18:39] MED LIST changes: +CEFT500T3 PO; +PRED10PA2 PO
[2016-05-28 18:44] VITALS: BP 175/77; PULSE 91; RESP 18; TEMP 98.3; O2SAT 97
--- NOTE | 2016-05-28 19:27 | PD ---
HPI Chief Complaint: Respiratory Distress Time Seen by Provider: 18:57 Travel History International Travel<30 days: No Contact w/Intl Traveler<30days: No Traveled to known affect area: No History of Present Illness HPI 70-year-old male with history of ESRD on HD, last dialyzed 2 days ago, [facility], recent admission on 05/12/16 for [facility] car with RVR, pneumonia, discharged on , lives alone, brought in by ambulance for evaluation of generalized weakness and shortness of breath. Patient reports that he has not felt better since he was discharged home. He has a cough productive of greenish sputum. He has not noted any fevers. No chest pain. Jaundice of breath is at rest. He is unable to exert himself because of shortness of breath, and states that he is unable to get out of his chair at home even go to the restroom because of his weakness. PFSH Past Medical History Hx Anticoagulant Therapy: Yes (asa 81mg) Arthritis: No Asthma: No Atrial Fibrillation: Yes Autoimmune Disease: No Anxiety: Yes Depression: No Heart Rhythm Problems: Yes (Tavia FIB) Cancer: No Cardiovascular Problems: Yes High Cholesterol: Yes Chemotherapy: No Chest Pain: No Congestive Heart Failure: Yes COPD: Yes Cerebrovascular Accident: No Diabetes: No Dialysis: Yes (, , SAT) Diminished Hearing: Yes (BILAT HEARING AIDS) Endocrine: No Gastrointestinal Disorders: Yes (GERD, GI BLEEDING) GERD: Yes Genitourinary: Yes (RENAL FAILURE, DIALYSIS -) Headaches: Yes (FROM KIDNEY FAILURE) Hepatitis: Yes (TEENAGE) Hiatal Hernia: Yes Hypertension: Yes Immune Disorder: No Implanted Vascular Access Dvce: Yes (left arm fistula) Kidney Stones: No Medical other: No Musculoskeletal: No Neurologic: Yes (INNER EAR ISSUES) Psychiatric: Yes (CLAUSTRAPHOBIA, ANXIETY) Reproductive: No Respiratory: Yes (copd) Immunizations Current: Yes Migraines: No Pneumonia: Yes Renal Failure: Yes (ESRD) Seizures: No Sleep Apnea: No Thyroid Disease: No Ulcer: No ?: Not Past Surgical History Abdominal Surgery: Yes (HERNIA X 6) AICD: No Body Medical Devices: MAY BE WIRES IN CHEST FROM HEART SURGERY,CENTRAL VENAS CATH Cardiac Surgery: Yes (SEPTAL DEFECT REPAIR 1965) Ear Surgery: No Endocrine Surgery: No Eye Surgery: No Genitourinary Surgery: Yes (PLASTIC REPAIR SCROTUM URETHRAPLASTY) Gynecologic Surgery: No Insulin Pump: No Joint Replacement: No Neurologic Surgery: No Oral Surgery: Yes (TONSILLECTOMY) Pacemaker: No Thoracic Surgery: Yes (LUNG BIOPSY) Tonsillectomy: Yes Other Surgery: Yes (A/V FISTULA LEFT ARM) Social History Alcohol Use: No (QUIT 1989) Tobacco Use: No (QUIT 1989) Substance Use: No Allergies-Medications (Allergen,Severity, Reaction): Coded Allergies: Sulfa (Verified Allergy, Severe, "difficulty breathing", 05/28/16) Penicillin (Verified Adverse Reaction, Severe, "acid taste in mouth, problems with vision", 05/28/16) DIFFICULTY BREATHING Reported Meds & Prescriptions Reported Meds & Active Scripts Active Vistaril (Hydroxyzine Pamoate) 25 Mg Cap 25 Mg PO Q6H PRN Reported Renvela (Sevelamer Carbonate) 800 Mg Tab 800 Mg PO DAILY Pantoprazole (Pantoprazole Sodium) 40 Mg Tab 40 Mg PO DAILY Amiodarone (Amiodarone HCl) 200 Mg Tab 200 Mg PO EVERY OTHER DAY Diltiazem (Diltiazem HCl) 120 Mg Tab 240 Mg PO DIRECTED Albuterol Neb (Albuterol Sulfate) 2.5 Mg/3 Ml Neb 2.5 Mg NEB Q6HR Aspirin 81 Mg Chew 81 Mg CHEW DAILY Review of Systems Except as stated in HPI: all other systems reviewed are Neg Physical Exam Narrative GENERAL: Well-developed, thin, elderly-appearing male, moderate respiratory distress, speaking a few words at a time. SKIN: Warm and dry. HEAD: Atraumatic. Normocephalic. EYES: Pupils equal and round. No scleral icterus. No injection or drainage. ENT: Mucous membranes pink and moist. NECK: Trachea midline. No JVD. CARDIOVASCULAR: Irregularly irregular. Left arm dialysis fistula with thrill. RESPIRATORY: Moderate respiratory distress. Speaking a few words at a time. Coarse breath sounds bilaterally. GASTROINTESTINAL: Abdomen soft, nondistended. Small umbilical hernia that is easily reducible. Nontender. Lower abdominal ecchymosis from heparin injections from previous admission. MUSCULOSKELETAL: No obvious deformities. No clubbing. No cyanosis. No edema. NEUROLOGICAL: Awake and alert. No obvious cranial nerve deficits. Motor grossly within normal limits. Normal speech. PSYCHIATRIC: Appropriate mood and affect; insight and judgment normal. Data Data Last Documented VS Vital Signs Date Time Temp Pulse Resp B/P Pulse Ox O2 Delivery O2 Flow Rate FiO2 05/28/16 19:31 98 Nasal Cannula 2 05/28/16 18:47 79 25 05/28/16 18:44 98.3 175/77 Orders Complete Blood Count With Diff (05/28/16 19:21) Comprehensive Metabolic Panel (05/28/16 19:21) B-Type Natriuretic Peptide (05/28/16 19:21) Act Partial Throm Time (Ptt) (05/28/16 19:21) Prothrombin Time / Inr (Pt) (05/28/16 19:21) Ckmb (Isoenzyme) Profile (05/28/16 19:21) Troponin I (05/28/16 19:21) Influenzae A/B Antigen (05/28/16 19:21) Blood Culture (05/28/16 19:21) Iv Access Insert/Monitor (05/28/16 19:21) Electrocardiogram (05/28/16 19:21) Ecg Monitoring (05/28/16 19:21) Oximetry (05/28/16 19:21) Oxygen Administration (05/28/16 19:21) Chest, Single Ap (05/28/16 19:21) Sodium Chloride 0.9% Flush (Ns Flush) (05/28/16 19:30) Methylprednisolone So Succ Inj (Solumedr (05/28/16 19:30) Albuterol-Ipratropium Neb (Duoneb Neb) (05/28/16 19:30) Oseltamivir (Tamiflu) (05/28/16 20:30) Labs Laboratory Tests Test 05/28/16 19:40 White Blood Count 6.8 TH/MM3 Red Blood Count 3.18 MIL/MM3 Hemoglobin 10.4 GM/DL Hematocrit 31.0 % Mean Corpuscular Volume 97.5 FL Mean Corpuscular Hemoglobin 32.6 PG Mean Corpuscular Hemoglobin 33.5 % Concent Red Cell Distribution Width 19.2 % Platelet Count 125 TH/MM3 Mean Platelet Volume 8.7 FL Neutrophils (%) (Auto) 94.6 % Lymphocytes (%) (Auto) 2.9 % Monocytes (%) (Auto) 1.9 % Eosinophils (%) (Auto) 0.3 % Basophils (%) (Auto) 0.3 % Neutrophils # (Auto) 6.4 TH/MM3 Lymphocytes # (Auto) 0.2 TH/MM3 Monocytes # (Auto) 0.1 TH/MM3 Eosinophils # (Auto) 0.0 TH/MM3 Basophils # (Auto) 0.0 TH/MM3 CBC Comment DIFF FINAL Differential Comment Prothrombin Time 12.7 SEC Prothromb Time International 1.1 RATIO Ratio Activated Partial 30.6 SEC Thromboplast Time Sodium Level 141 MEQ/L Potassium Level 4.4 MEQ/L Chloride Level 105 MEQ/L Carbon Dioxide Level 24.4 MEQ/L Anion Gap 12 MEQ/L Blood Urea Nitrogen 60 MG/DL Creatinine 4.64 MG/DL Estimat Glomerular Filtration 13 ML/MIN Rate Random Glucose 110 MG/DL Calcium Level 7.1 MG/DL Protein Corrected Calcium 7.8 MG/DL Total Bilirubin 0.4 MG/DL Aspartate Amino Transf 19 U/L (AST/SGOT) Alanine Aminotransferase 24 U/L (ALT/SGPT) Alkaline Phosphatase 77 U/L Total Creatine Kinase 61 U/L Troponin I 0.05 NG/ML B-Type Natriuretic Peptide 518 PG/ML Total Protein 5.8 GM/DL Albumin 2.5 GM/DL [facility] Medical Decision Making Medical Screen Exam Complete: Yes Emergency Medical Condition: Yes Medical Record Reviewed: Yes Differential Diagnosis Pneumonia, pulmonary edema, pulmonary effusion, ACS, pneumothorax, metabolic abnormality, failure to thrive Narrative Course Initial vital signs show heart rate 91, blood pressure 175/77, pulse ox 97% on 2 L nasal cannula, oral temp of 98.3F. CBC shows WBC 6.8, hemoglobin 10.4, hematocrit 31, platelets 125, neutrophils 94.6%. CMP is remarkable for BUN 60, creatinine 4.64, GFR 13, protein cracked a calcium 7.8 Cardiac enzymes show troponin of 0.05. Influenza A+. The patient was started on Tamiflu. Chest x-ray: CONCLUSION: Chronic pleural parenchymal disease with moderate cardiomegaly. Acute underlying pulmonary congestion may be present. The patient was made aware of all findings. His respiratory status has significantly improved after receiving 3 DuoNeb treatments and IV Solu-Medrol. Given his significant comorbidities, generalized weakness, and inability to care for himself at home, he will be admitted for further treatment and evaluation of influenza A. Case discussed with [facility] hospitalist DAVID Dean. The patient will be admitted to their service under Dr. Brown. Diagnosis Primary Impression: Influenza A Additional Impressions: Generalized weakness Dyspnea Qualified Code: R06.02 - Shortness of breath Admitting Information Admitting Physician Requests: Admit Josafat Alexandra MD May 28, 2016 19:27
[2016-05-28] MEDS ORDERED: SODIUM CHLORIDE 0.9% FLUSH 5 ML FLUSH IVF PRN (19:30)
[2016-05-28] MEDS ORDERED: methylPREDNISolone SOD SUCC 125 MG/2 ML VIAL IVP ONE (19:30)
[2016-05-28 19:31] VITALS: O2SAT 98
[2016-05-28] MEDS: RESP: ALBUTEROL 2.5 MG/IPRATROPIUM 0.5 MG NEB (SCH) INH ×2 (19:37→19:38)
--- NOTE | 2016-05-28 19:58 | RADRPT ---
EXAM DATE/TIME: 05/28/2016 19:33 [facility] COMPARISON: CHEST SINGLE AP, May 19, 2016, 3:30. INDICATIONS : Shortness of breath. MEDICAL HISTORY : Hypertension. Hypercholesterolemia. Renal disease, end stage. COPD. SURGICAL HISTORY : Inguinal hernia repair. A/V fistula in left arm. ENCOUNTER: Initial ACUITY: 1 day PAIN SCORE: 0/10 LOCATI A: Bilateral chest FINDINGS: Moderate cardiomegaly is again noted. Significant pleural-parenchymal disease is again identified. There are calcified pleural plaques on t he right and coarse interstitial disease in both lung bases. Small effusions are noted. CONCLUSION: Chronic pleural parenchymal disease with moderate cardiomegaly. Acute underlying pulmonary congestion may be present. David Mcdaniel MD on May 28, 2016 at 19:55 Board Certified Radiologist. This report was verified electronically.
[2016-05-28 20:08] LABS: AUTOMATED NEUTROPHIL # 6.4 TH/MM3 (1.8-7.7); BASOPHIL % 0.3 % (0.0-2.0); EOSINOPHIL % 0.3 % (0.0-4.0); HEMO FLAGS DIFF FINAL; LYMPH % 2.9 % (9.0-44.0); LYMPHOCYTE # 0.2 TH/MM3 (1.0-4.8); MEAN CELL VOLUME 97.5 FL (80.0-100.0); MEAN CORPUSCULAR HEMOGLOBIN 32.6 PG (27.0-34.0); MEAN CORPUSCULAR HGB CONC 33.5 % (32.0-36.0); MONO % 1.9 % (0.0-8.0); NEUT % 94.6 % (16.0-70.0); PLATELET COUNT 125 TH/MM3 (150-450); RED BLOOD COUNT 3.18 MIL/MM3 (4.50-5.90); RED CELL DISTRIBUTION WIDTH 19.2 % (11.6-17.2); WHITE BLOOD COUNT 6.8 TH/MM3 (4.0-11.0)
[2016-05-28 20:14] LABS: APTT (PATIENT) 30.6 SEC (24.3-30.1); INTERNATIONAL NORMALIZED RATIO 1.1 RATIO; PROTHROMBIN TIME - PATIENT 12.7 SEC (9.8-11.6)
[2016-05-28 20:28] LABS: BICARBONATE 24.4 MEQ/L (21.0-32.0); CALCIUM-PROTEIN CORRECTED 7.8 MG/DL (8.5-10.1); POTASSIUM 4.4 MEQ/L (3.5-5.1); TOTAL BILIRUBIN ADULT 0.4 MG/DL (0.2-1.0)
[2016-05-28] MEDS ORDERED: OSELTAMIVIR PHOSPHATE 75 MG CAP PO ONE (20:30)
[2016-05-29] VITALS (8 sets, daily range): BP systolic 115–182; BP diastolic 53–87; PULSE 84–93; RESP 17–36; TEMP 97.4–98.1; O2SAT 94–99
[2016-05-29] MEDS ORDERED: SENNOSIDES 8.6 MG TAB PO PRN (00:15)
[2016-05-29] MEDS ORDERED: ONDANSETRON HCL 4 MG/2 ML VIAL IVP PRN (00:15)
[2016-05-29] MEDS ORDERED: NALOXONE HCL 0.4 MG/ML AMP IV PRN (00:15)
[2016-05-29] MEDS ORDERED: SODIUM CHLORIDE 0.9% FLUSH 5 ML FLUSH FLUSH PRN (00:15)
[2016-05-29] MEDS ORDERED: ACETAMINOPHEN 325 MG TAB PO PRN ×2 (00:15→10:15)
[2016-05-29] MEDS: RESP: ALBUTEROL 2.5 MG/IPRATROPIUM 0.5 MG NEB (PRN) NEB ×3 (01:15→11:54)
[2016-05-29] MEDS: cefTRIAXone INJ 1,000 MG in SODIUM CHLORIDE 0.9% INJ 100 ML IV SCH (09:59)
[2016-05-29] MEDS: ASPIRIN 81 MG CHEW TAB CHEW SCH (10:00)
[2016-05-29] MEDS: SODIUM CHLORIDE 0.9% FLUSH 5 ML FLUSH FLUSH SCH ×2 (10:00→21:22)
[2016-05-29] MEDS: PANTOPRAZOLE SOD 40 MG DELAYED RELEASE TAB PO SCH (10:00)
[2016-05-29] MEDS: AMIODARONE 200 MG TAB PO SCH (10:01)
[2016-05-29] MEDS: SEVELAMER CARBONATE 800 MG TAB PO SCH (10:01)
[2016-05-29] MEDS: OSELTAMIVIR PHOSPHATE 75 MG CAP PO SCH ×2 (10:01→21:22)
[2016-05-29] MEDS: DILTIAZEM-CD 240 MG CAP ER PO SCH (10:01)
[2016-05-29] MEDS: HEPARIN SODIUM - SQ 10,000 UNITS/ML VIAL SQ SCH ×2 (10:03→21:23)
[2016-05-29] MEDS: methylPREDNISolone SOD SUCC 40 MG/1 ML VIAL IV PUSH SCH ×2 (10:03→21:22)
[2016-05-29] MEDS: hydrOXYzine PAMOATE 25 MG CAP PO PRN ×2 (10:05→21:44)
[2016-05-29] MEDS: AZITHROMYCIN INJ 500 MG in SODIUM CHLOR 0.9% 250 ML INJ 250 ML IV SCH (10:07)
[2016-05-29] MEDS ORDERED: SODIUM CHLOR 0.9% 1000 ML INJ 1,000 ML IV PRN ×3 (10:13)
--- NOTE | 2016-05-29 10:13 | PD.CONS ---
HPI Service Nephrology Consult Requested By Dr. Brown Reason for Consult ESRD Primary Care Physician Chuck Kaiser MD History of Present Illness Patient is a 70-year-old white male with history of end-stage renal disease, COPD, pneumonia with recent discharge from the hospital he came back with increasing shortness of breath requiring screening for flu and he is influenza A positive, he described with shortness of breath increased cough congestion and is feeling tired with increasing dyspnea. He goes to dialysis on Saturday, and Saturdays. Review of Systems Constitutional: COMPLAINS OF: Fatigue Respiratory: COMPLAINS OF: Cough, Wheezing, Shortness of breath Cardiovascular: COMPLAINS OF: Dyspnea on Exertion, PND Psychiatric: COMPLAINS OF: Anxiety Past Family Social History Allergies: Coded Allergies: Sulfa (Verified Allergy, Severe, "difficulty breathing", 05/28/16) Penicillin (Verified Adverse Reaction, Severe, "acid taste in mouth, problems with vision", 05/28/16) DIFFICULTY BREATHING Past Medical History Atrial fibrillation Congestive heart failure Hypertension UTIs Suprapubic catheter. COPD GERD GI bleed Past Surgical History Suprapubic catheter and removal Urethra and scrotal repair Hernia surgeries multiple Tonsillectomy Cardiac valve repair Endoscopy AV fistula Reported Medications Reported Meds & Active Scripts Active Vistaril (Hydroxyzine Pamoate) 25 Mg Cap 25 Mg PO Q6H PRN Reported Renvela (Sevelamer Carbonate) 800 Mg Tab 800 Mg PO DAILY Pantoprazole (Pantoprazole Sodium) 40 Mg Tab 40 Mg PO DAILY Amiodarone (Amiodarone HCl) 200 Mg Tab 200 Mg PO EVERY OTHER DAY Diltiazem (Diltiazem HCl) 120 Mg Tab 240 Mg PO DIRECTED Aspirin 81 Mg Chew 81 Mg CHEW DAILY Active Ordered Medications Current Medications Medications (Trade) Dose Ordered Sig/Bharti Route Start Time Stop Time Status Last Admin (NS Flush) 2 ml UNSCH PRN IVF 05/28/16 19:30 05/28/16 21:38 (NS Flush) 2 ml UNSCH PRN FLUSH 05/29/16 00:15 (NS Flush) 2 ml BID FLUSH 05/29/16 09:00 (Tylenol) 650 mg Q4H PRN PO 05/29/16 00:15 (Zofran Inj) 4 mg Q6H PRN IVP 05/29/16 00:15 (Senokot) 17.2 mg Q12H PRN PO 05/29/16 00:15 (Heparin Inj) 5,000 units Q12HR SQ 05/29/16 09:00 (Narcan Inj) 0.4 mg UNSCH PRN IV 05/29/16 00:15 (Tamiflu) 75 mg BID PO 05/29/16 09:00 Methylprednisolone Sodium Succinate 40 mg 40 mg Q8H IV PUSH 05/29/16 09:00 Azithromycin 500 mg/Sodium Chloride 250 ml @ 250 mls/hr Q24H IV 05/29/16 10:00 (Rocephin Inj/NS Inj) 100 ml @ 200 mls/hr Q24H IV 05/29/16 09:00 (Aspirin Chew) 81 mg DAILY CHEW 05/29/16 09:00 (Vistaril) 25 mg Q6H PRN PO 05/29/16 08:30 (Protonix) 40 mg DAILY PO 05/29/16 09:00 (Renvela) 800 mg DAILY PO 05/29/16 09:00 (Cardizem Cd) 240 mg DAILY PO 05/29/16 09:00 Family History Noncontributory Social History He used to smoke in the past and denies alcohol use Physical Exam Vital Signs Vital Signs Date Time Temp Pulse Resp B/P Pulse Ox O2 Delivery O2 Flow Rate FiO2 05/29/16 07:50 97.4 88 17 182/87 98 05/29/16 07:42 94 Nasal Cannula 4.00 05/29/16 02:44 98.1 85 18 166/71 95 05/29/16 02:04 86 18 150/67 95 Nasal Cannula 3 05/28/16 19:31 98 Nasal Cannula 2.00 05/28/16 19:31 98 Nasal Cannula 2 05/28/16 18:47 79 25 97 Nasal Cannula 2 05/28/16 18:44 98.3 91 18 175/77 97 Physical Exam GENERAL: Well-nourished, well-developed patient. SKIN: Warm and dry. HEAD: Normocephalic. EYES: No scleral icterus. No injection or drainage. NECK: Supple, trachea midline. No JVD or lymphadenopathy. CARDIOVASCULAR: Irregularly irregular tachycardic RESPIRATORY: Breath sounds diminished and bilateral rhonchi and Rales present GASTROINTESTINAL: Abdomen soft, non-tender, nondistended. EXTREMITIES: No cyanosis, or edema. AV fistula left upper arm NEUROLOGICAL: Awake, alert, and oriented x 3. Non-focal. Laboratory Laboratory Tests Test 05/28/16 19:40 White Blood Count 6.8 Red Blood Count 3.18 Hemoglobin 10.4 Hematocrit 31.0 Mean Corpuscular Volume 97.5 Mean Corpuscular Hemoglobin 32.6 Mean Corpuscular Hemoglobin 33.5 Concent Red Cell Distribution Width 19.2 Platelet Count 125 Mean Platelet Volume 8.7 Neutrophils (%) (Auto) 94.6 Lymphocytes (%) (Auto) 2.9 Monocytes (%) (Auto) 1.9 Eosinophils (%) (Auto) 0.3 Basophils (%) (Auto) 0.3 Neutrophils # (Auto) 6.4 Lymphocytes # (Auto) 0.2 Monocytes # (Auto) 0.1 Eosinophils # (Auto) 0.0 Basophils # (Auto) 0.0 CBC Comment DIFF FINAL Differential Comment Prothrombin Time 12.7 Prothromb Time International 1.1 Ratio Activated Partial 30.6 Thromboplast Time Sodium Level 141 Potassium Level 4.4 Chloride Level 105 Carbon Dioxide Level 24.4 Anion Gap 12 Blood Urea Nitrogen 60 Creatinine 4.64 Estimat Glomerular Filtration 13 Rate Random Glucose 110 Calcium Level 7.1 Protein Corrected Calcium 7.8 Total Bilirubin 0.4 Aspartate Amino Transf 19 (AST/SGOT) Alanine Aminotransferase 24 (ALT/SGPT) Alkaline Phosphatase 77 Total Creatine Kinase 61 Troponin I 0.05 B-Type Natriuretic Peptide 518 Total Protein 5.8 Albumin 2.5 Date/Time Procedure Status Source Growth 05/28/16 19:45 Influenza Types A,B Antigen (FREDO) - Final Complete Nasal Washing Positive For Flu A Antigen 05/28/16 19:45 Aerobic Blood Culture Received Blood Peripheral Pending 05/28/16 19:45 Anaerobic Blood Culture Received Blood Peripheral Pending Result Diagram: 05/28/16193905/28/161939 Imaging Last Impressions Chest X-Ray 05/28/161920 Signed Impressions: Service Date/Time: Saturday, May 28, 2016 19:33 - CONCLUSION: Chronic pleural parenchymal disease with moderate cardiomegaly. Acute underlying pulmonary congestion may be present. David Mcdaniel MD Assessment and Plan Problem List: (1) ESRD (end stage renal disease) Plan: Hemodialysis will be arranged for today in the afternoon continue supportive care he will be on Saturday, and Saturday shift monitor labs periodically (2) Atrial fibrillation with rapid ventricular response Plan: Patient is on amiodarone (3) Pneumonia Plan: Has been treated recently with antibiotics (4) Influenza A Plan: Patient may need Tamiflu Marta Rivera MD May 29, 2016 10:13
[2016-05-29] MEDS ORDERED: ONDANSETRON HCL 4 MG/2 ML VIAL IV PRN (10:15)
[2016-05-29] MEDS ORDERED: HEPARIN SODIUM - IV 10,000 UNITS/10 ML VIAL IVF PRN (10:15)
[2016-05-29] MEDS ORDERED: GELATIN 12 MM/7 MM FOAM TOP PRN (10:15)
[2016-05-29] MEDS ORDERED: ALBUMIN HUMAN 25% 25 GM/100 ML BAGP IV PRN (10:15)
[2016-05-29] MEDS ORDERED: MANNITOL 12.5 GM/50 ML VIAL IV PRN (10:15)
[2016-05-29] MEDS ORDERED: cloNIDine HCL 0.1 MG TAB PO PRN (10:15)
[2016-05-29] MEDS ORDERED: NITROGLYCERIN 0.4 MG SL 25 TABS/BTL SL PRN (10:15)
[2016-05-29] MEDS ORDERED: diphenhydrAMINE HCL 25 MG CAP PO PRN (10:15)
[2016-05-29] MEDS ORDERED: SODIUM CHLORIDE 0.9% FLUSH 5 ML FLUSH IVF PRN (10:15)
--- NOTE | 2016-05-29 10:54 | MH ---
cc: RICHMOND MARTINS MD DATE OF ADMISSION: 05/28/2016 DATE OF 1945 CHIEF COMPLAINT Shortness of breath. Debility. Decreased appetite. TRAVEL IN THE LAST 30 DAYS None. HISTORY OF PRESENT ILLNESS This is a pleasant 70-year-old white male with a significant history of end-stage renal disease, atrial fib, cardiovascular disease and COPD. The patient was just discharged from the hospital approximately a week ago from a episode of pneumonia with COPD exacerbation. He was stabilized for discharge but due to his multiple medical comorbidities and his debility he states that he has been struggling for the past week. This admission he has also tested positive for flu A. The patient denies any chest pain. He is actively short of breath with wheezes, moderately anxious. He does state he has a productive sputum which is thick and greenish in color. He denies any fever, denies any headache. He is positive for decreased appetite and some weight loss, unknown amount. The patient was brought into the emergency room per EMS and was given a dose of IV steroids and given gentle hydration. The patient is a dialysis patient and his usual schedule is Saturday, and Saturday. PAST MEDICAL HISTORY 1. COPD. 2. Anxiety disorder. 3. Atrial fib. 4. Cardiovascular problems with A-fib. 5. Congestive heart failure. 6. Bilateral hearing aids. The patient is hard of hearing. 7. Gastroesophageal reflux disease. 8. GI bleeding. 9. Hepatitis as a teenager. 10. Hiatal hernia. 11. Hypertension. 12. Inner ear issues. 13. Claustrophobia. 14. Recent pneumonia. PAST SURGICAL HISTORY This information is according to the record. The patient is short of breath and unable to give a lot of this information again. 1. Hernia x 6. 2. Scrotal repair. 3. Urethroplasty. 4. Tonsillectomy. 5. Lung biopsy. 6. A-V fistula in the left arm. 7. Septal defect repair in 1965. ALLERGIES PENICILLIN. SULFA. MEDICATIONS REPORTED 1. Vistaril. 2. Renvela. 3. Pantoprazole. 4. Amiodarone. 5. Diltiazem. 6. Albuterol nebs. 7. Aspirin. SOCIAL HISTORY The patient lives alone. He is not . He stopped smoking and quit alcohol in 1989; no illicit drugs. FAMILY HISTORY Noncontributory. REVIEW OF SYSTEMS A 12-point review was obtained. Positives noted in the H&P which include shortness of breath, wheezing, increased anxiety, decreased appetite and he is positive for flu A. All other systems are negative or unremarkable. PHYSICAL EXAMINATION VITAL SIGNS: The temperature is 97.4, has been as high as 98.1 axillary, pulse 88, respirations 18-25. I have observed respirations up in the 30s, blood pressure 182/87, has been as low as 150/67. O2 sat 94-98, 02 on 4 liters nasal cannula. GENERAL: This is a thin, frail, 70-year-old male, looks older than his stated age, actively short of breath, in mild to moderate distress. SKIN: Pale, warm and dry, thin turgor. HEENT: Atraumatic, normocephalic. PERRLA at 2. Mucous membranes are pale and dry. NECK: Thin but supple. Trachea is midline. CARDIOVASCULAR: S1, S2. Distant heart sounds secondary to the wheezing and rhonchi. He has no edema. His pulses are intact. He does have a systolic murmur grade 3/6 at the lower left sternal border. PULMONARY: Rhonchi and wheezing throughout his anterior and posterior lung cullen, decreased breath sounds at his bases. ABDOMEN: Flat, soft, nontender, nondistended. Active bowel sounds. : Deferred. MUSCULOSKELETAL: He can move his extremities with purpose. No edema. NEUROLOGIC: He is alert, awake and very hard of hearing, mild to moderate anxiety. DIAGNOSTIC DATA WBC count 6.8, RBC 3.18, hemoglobin 10.4, hematocrit 31, platelet count 125, neutrophil percentage auto 94.6, lymphocyte 2.9. PT/INR 1.1. Chemistry - Sodium 141, potassium 4.4, chloride 105, carbon dioxide 24.4, amnion gap 12, BUN 60, creatinine 4.64, GFR 13, random glucose 110, calcium 7.8, bilirubin 0.4, AST 19, ALT 24, alkaline phos 77. Troponin 0.05. BNP 518, albumin 2.5, total protein 5.8. IMAGING STUDIES Chest x-ray shows chronic pleural disease with moderate cardiomegaly, acute underlying pulmonary congestion may be present. ASSESSMENT 1. COPD exacerbation. 2. Influenza A. 3. Dyspnea, acute on chronic. 4. Hypertension. 5. History of A-fib. 6. Anxiety disorder. 7. Hyperlipidemia. 8. End-stage renal disease. PLAN 1. Monitor his vital signs q. 4 and more often if need be. 2. Start him on Tamiflu as well as DuoNebs continuous. 3. He will also be started on azithromycin IV secondary to his pulmonary status. 4. We will also rule out any type of infectious event with pneumonia. 5. Aspirin and heparin subcu for DVT prophylaxis with caution secondary to history of GI bleed. 6. Reconcile the patient's medications. 7. Place him on Protonix for PUD prophylaxis. 8. Due to the patient's comorbidities of COPD exacerbation, kidney failure, asthma, recent pneumonia, we will go ahead and do an inpatient admit status. I anticipate this patient will need greater than two days of hospital stay. 9. We will consult Nephrology to manage his end-stage renal disease. 10. Currently the patient is on bedrest but can get out of bed for bathroom privileges if he has some assistance. 11. Renal/heart healthy diet. 12. Gentle hydration. 13. Bowel regimen. 14. We will consult PT to evaluate and treat for patient's debility. 15. Lab work will be reviewed. 16. We will monitor for any fever, changes in heart rate, closely monitor his respiratory status and blood pressure. This information has been discussed with Dr. Martins and we will follow. Dictated by: EMILIE Lopez MD ANNALISA Taylor/LUIS DANIEL /8:38 AM /10:54 AM
[2016-05-29] MEDS: RESP: ALBUTEROL 2.5 MG/IPRATROPIUM 0.5 MG NEB (SCH) NEB ×2 (11:54→20:15)
[2016-05-29] MEDS: ALPRAZolam 0.5 MG TAB PO PRN (12:28)
[2016-05-29] MEDS ORDERED: FUROSEMIDE 40 MG/4 ML VIAL IV PUSH ONE (12:30)
--- NOTE | 2016-05-29 18:39 | MB ---
cc: SUSIE RICHARDS DATE OF CONSULTATION 05/29/16 REASON FOR CONSULTATION COPD exacerbation. HISTORY OF PRESENT ILLNESS Mr. Downey is a 70-year-old male with known history of end-stage renal disease on maintenance hemodialysis, atrial fibrillation, COPD, recently discharged with COPD exacerbation, pneumonia. Comes to the emergency room complaining of increasing shortness of breath. Chest x-ray with congestive change. Presently receiving dialysis at time of interview. He has a cough expectoration of yellowish greenish mucoid sputum. Denies history of fever, chills, hemoptysis, TB or previous industrial exposure. PAST MEDICAL HISTORY 1. His past medical history is that of end-stage renal disease on maintenance hemodialysis. 2. COPD. 3. Atrial fibrillation. 4. Congestive heart failure. 5. Acid reflux disease. 6. Hypertension. 7. Had a lung biopsy in the past. 8. T&A as a child. 9. Hernia repair. 10. Has an AV fistula in his left upper extremity. ALLERGIES SULFA DRUGS, PENICILLIN. MEDICATIONS Medications at home include: 1. Albuterol nebulizer. 2. Pantoprazole. 3. Vistaril. 4. Renvela. 5. Diltiazem. 6. Aspirin. Dialysis three times a week. SOCIAL HISTORY Long smoking history, however, has not smoked since 1989. Does not use drugs. Does not drink alcohol. FAMILY HISTORY Noncontributory. REVIEW OF SYSTEMS A 12-point review of systems as per HPI and past history, otherwise negative. PHYSICAL EXAMINATION VITAL SIGNS: On exam temperature 98 degrees Fahrenheit, pulse 90, respirations 18, blood pressure 150/80. HEENT: Exam unremarkable. Eyes without icterus. NECK: Without adenopathy. Thyroid enlargement. Central trachea. CHEST: Few rales at both lung bases. CARDIAC: Cardiac exam PMI distant. S1-S2 audible. 2/6 ejection systolic murmur left sternal border. ABDOMEN: Lax, bowel sounds audible. EXTREMITIES: Trace edema. LABORATORY DATA White count 6.8, hemoglobin 10, hematocrit 31, platelets 125,000, sodium 141, potassium 4.4, BUN 60, creatinine 4.6, BNP 518. IMAGING STUDIES Chest x-ray congestive change, cardiomegaly. IMPRESSION 1. COPD exacerbation. 2. Congestive heart failure, fluid overload. 3. End-stage renal disease on maintenance hemodialysis. 4. Atrial fibrillation. 5. Hyperlipidemia. PLAN The patient will be maintained on oxygen therapy as needed. Bronchodilator therapy has been started and appropriately so as well as antibiotic therapy. Dialysis has been initiated. We will follow the patient's course along with you and depending on progress proceed further. I do thank you for asking me to partake in Mr. Downey's care. Susie Richards MD WWW/EO /6:21 PM /6:30 PM
[2016-05-29] MEDS: EPOETIN ALFA 10,000 UNITS/ML VIAL IV PRN (19:17)
[2016-05-30 03:15] VITALS: BP 132/63; PULSE 86; RESP 20; TEMP 98.1; O2SAT 98
[2016-05-30] MEDS: methylPREDNISolone SOD SUCC 40 MG/1 ML VIAL IV PUSH SCH ×3 (03:41→17:35)
[2016-05-30] MEDS: RESP: ALBUTEROL 2.5 MG/IPRATROPIUM 0.5 MG NEB (SCH) NEB ×3 (07:37→19:33)
[2016-05-30 08:05] VITALS: BP 147/78; PULSE 82; RESP 20; TEMP 95.2; O2SAT 91
--- NOTE | 2016-05-30 08:46 | HHI.PR ---
Subjective Interval History awake alert and oriented feeling better breathing improved complaining of back pain had HD yesterday Vitals/Results Intake & Output 05/29/16 05/29/16 05/30/16 15:00 23:00 07:00 Intake Total 240 ml Output Total 300 ml 2000 ml Balance -60 ml -2000 ml Intake Oral 240 ml Output Urine Total 300 ml Hemodialysis 2000 ml Vital Signs Vital Signs Date Time Temp Pulse Resp B/P Pulse Ox O2 Delivery O2 Flow Rate FiO2 05/30/16 07:40 Nasal Cannula 3.00 05/30/16 03:15 98.1 86 20 132/63 98 05/29/16 23:37 97.9 84 18 115/53 94 05/29/16 20:20 98 Nasal Cannula 3.00 05/29/16 19:55 97.9 93 18 133/62 98 05/29/16 12:08 90 36 123/75 99 CBC/BMP: 05/28/16193905/28/161939 Physical Exam General General Appearance: Comfortable, Malnourished Eyes Eye Exam: Pupils Equal, Pupils Reactive Throat Throat Exam: Oral Mucosa [place] & Moist Pulmonary Resp Remarks b/l wheezing Cardiology CV Exam: Irregular Gastrointestinal/Abdomen GI Exam: Soft, Non-Tender, Bowel Sounds Present Genitourinary Exam: Clear Urine Musculoskeletal MS Exam: Joints Intact Integumentary Skin Exam: Clear, Warm, Dry, Intact Extremeties Extremities Exam: No Edema Neurologic Neuro Exam: Alert, Awake, Moving All Extremities Psychiatric Psych Exam: Appropriate Responses Assessment/Plan Assessment/Plan ASSESSMENT 1. COPD exacerbation. 2. Influenza A. 3. Dyspnea, acute on chronic. 4. Hypertension. 5. History of A-fib. 6. Anxiety disorder. 7. Hyperlipidemia. 8. End-stage renal disease. PLAN On tamilflu continue Azithromycin, rocephin, methylprednisolone and duonebs appreciate Pulm input appreciate Nephrology input HD per schedule, received treatment yesterday resume home meds DVT prophylaxis GI prophylaxis PT eval labs noted discussed with patient Cailin Brown MD May 30, 2016 08:46
[2016-05-30] MEDS: DILTIAZEM-CD 240 MG CAP ER PO SCH (09:20)
[2016-05-30] MEDS: ASPIRIN 81 MG CHEW TAB CHEW SCH (09:20)
[2016-05-30] MEDS: PANTOPRAZOLE SOD 40 MG DELAYED RELEASE TAB PO SCH (09:20)
[2016-05-30] MEDS: OSELTAMIVIR PHOSPHATE 75 MG CAP PO SCH ×2 (09:20→23:13)
[2016-05-30] MEDS: SEVELAMER CARBONATE 800 MG TAB PO SCH (09:20)
[2016-05-30] MEDS: cefTRIAXone INJ 1,000 MG in SODIUM CHLORIDE 0.9% INJ 100 ML IV SCH (09:22)
[2016-05-30] MEDS: SODIUM CHLORIDE 0.9% FLUSH 5 ML FLUSH FLUSH SCH ×2 (09:22→23:13)
[2016-05-30] MEDS: oxyCODONE/ACETAMINOPHEN 5 MG/325 MG TAB PO PRN (09:22)
[2016-05-30] MEDS: HEPARIN SODIUM - SQ 10,000 UNITS/ML VIAL SQ SCH ×2 (09:22→23:13)
[2016-05-30] MEDS: AZITHROMYCIN INJ 500 MG in SODIUM CHLOR 0.9% 250 ML INJ 250 ML IV SCH (10:20)
--- NOTE | 2016-05-30 11:07 | HHI.NPPN ---
Review of Systems General Constitutional: Fatigue Objective Data Data 05/29/16 05/30/16 19:00 07:00 Intake Total 240 ml Output Total 300 ml 2000 ml Balance -60 ml -2000 ml Intake Oral 240 ml Output Urine Total 300 ml Hemodialysis 2000 ml Vital Signs Date Time Temp Pulse Resp B/P Pulse Ox O2 Delivery O2 Flow Rate FiO2 05/30/16 08:05 95.2 82 20 147/78 91 05/30/16 07:40 Nasal Cannula 3.00 05/30/16 03:15 98.1 86 20 132/63 98 05/29/16 23:37 97.9 84 18 115/53 94 05/29/16 20:20 98 Nasal Cannula 3.00 05/29/16 19:55 97.9 93 18 133/62 98 05/29/16 12:08 90 36 123/75 99 -: 05/28/16193905/28/161939 Physical Exam General Appearance: Comfortable, Malnourished Eyes Eye Exam: Pupils Equal, Pupils Reactive Throat Throat Exam: Oral Mucosa [place] & Moist Cardiology CV Exam: Irregular Gastrointestinal/Abdomen GI Exam: Soft, Non-Tender, Bowel Sounds Present Genitourinary Exam: Clear Urine Musculoskeletal MS Exam: Joints Intact Integumentary Skin Exam: Clear, Warm, Dry, Intact Extremeties Extremities Exam: No Edema Neurologic Neuro Exam: Alert, Awake, Moving All Extremities Psychiatric Psych Exam: Appropriate Responses Assessment/Plan Problem List: (1) ESRD (end stage renal disease) Plan: Hemodialysis Saturday, and Saturday shift done yesterday UF 2 L (2) Atrial fibrillation with rapid ventricular response Plan: Patient is on amiodarone (3) Pneumonia Plan: Has been treated recently with antibiotics (4) Influenza A Plan: Patient on Tamiflu Marta Rivera MD May 30, 2016 11:07
--- NOTE | 2016-05-30 11:48 | EKG ---
Date Performed: 05/28/2016 Time Performed: 19:37:43 PTAGE: 70 years EKG: Sinus rhythm FIRST DEGREE AV BLOCK MARKED LEFT AXIS DEVIATION MODERATE INTRAVENTRICULAR CONDUCTION DELAY MODERATE VOLTAGE CRITERIA FOR LVH, CONSIDER NORMAL VARIANT NONSPECIFIC ST & T-WAVE ABNORMALITY ABNORMAL ECG PREVIOUS TRACING : 05/12/2016 16.30 DOCTOR: Davis Haskins Interpretating Date/Time 05/30/2016 11:47:40
[2016-05-30 12:02] VITALS: BP 111/72; PULSE 76; RESP 20; TEMP 96.6; O2SAT 92
[2016-05-30 15:52] VITALS: BP 125/70; PULSE 78; RESP 20; TEMP 97.1; O2SAT 92
--- NOTE | 2016-05-30 17:16 | HHI.PR ---
Subjective Remarks Alert , less sob post dialysis no fever occ cough no expectoration Objective Vital Signs Date Time Temp Pulse Resp B/P Pulse Ox O2 Delivery O2 Flow Rate FiO2 05/30/16 15:52 97.1 78 20 125/70 92 05/30/16 12:02 96.6 76 20 111/72 92 05/30/16 08:05 95.2 82 20 147/78 91 05/30/16 07:40 Nasal Cannula 3.00 05/30/16 03:15 98.1 86 20 132/63 98 05/29/16 23:37 97.9 84 18 115/53 94 05/29/16 20:20 98 Nasal Cannula 3.00 05/29/16 19:55 97.9 93 18 133/62 98 I/O 05/29/16 05/29/16 05/29/16 05/30/16 05/30/16 05/30/16 07:00 15:00 23:00 07:00 15:00 23:00 Intake Total 240 ml Output Total 300 ml 2000 ml Balance -60 ml -2000 ml Intake Oral 240 ml Output Urine Total 300 ml Hemodialysis 2000 ml # Voids 2 Result Diagram: 05/28/16193905/28/161939 Medications and IVs GENERAL: SKIN: Warm and dry. HEAD: Atraumatic. Normocephalic. EYES: Pupils equal and round. No scleral icterus. No injection or drainage. ENT: No nasal bleeding or discharge. Mucous membranes pink and moist. NECK: Trachea midline. No JVD. CARDIOVASCULAR: Regular rate and rhythm. RESPIRATORY: No accessory muscle use. Clear to auscultation. Breath sounds equal bilaterally. GASTROINTESTINAL: Abdomen soft, non-tender, nondistended. Hepatic and splenic margins not palpable. MUSCULOSKELETAL: Extremities without clubbing, cyanosis, or edema. No obvious deformities. NEUROLOGICAL: Awake and alert. No obvious cranial nerve deficits. Motor grossly within normal limits. Five out of 5 muscle strength in the arms and legs. Normal speech. PSYCHIATRIC: Appropriate mood and affect; insight and judgment normal. Assessment and Plan Assessment and Plan copd, improved fluid overload , bettert post dialysis FLEX 02 NEEDED BRONCHODILATOR THERAPY INCREASE ACTIVITY Discharge Planning Last Impressions Chest X-Ray 05/28/161920 Signed Impressions: Service Date/Time: Saturday, May 28, 2016 19:33 - CONCLUSION: Chronic pleural parenchymal disease with moderate cardiomegaly. Acute underlying pulmonary congestion may be present. MD Susie Pizano,Susie Olson MD May 30, 2016 17:16
[2016-05-30 19:33] VITALS: O2SAT 92
[2016-05-30 20:36] VITALS: BP 124/72; PULSE 68; RESP 18; TEMP 98.4; O2SAT 98
[2016-05-31] VITALS (7 sets, daily range): BP systolic 119–137; BP diastolic 60–72; PULSE 69–104; RESP 18–22; TEMP 97.8–98.3; O2SAT 90–96
[2016-05-31] MEDS: methylPREDNISolone SOD SUCC 40 MG/1 ML VIAL IV PUSH SCH ×3 (00:53→18:52)
[2016-05-31] MEDS: RESP: ALBUTEROL 2.5 MG/IPRATROPIUM 0.5 MG NEB (SCH) NEB ×3 (07:21→19:05)
[2016-05-31 07:37] LABS: BASOPHIL % 0.2 % (0.0-2.0); HEMATOCRIT 32.5 % (39.0-51.0); LYMPH % 0.6 % (9.0-44.0); MEAN CELL VOLUME 99.4 FL (80.0-100.0); MEAN CORPUSCULAR HGB CONC 32.2 % (32.0-36.0); MONO % 1.3 % (0.0-8.0); NEUT % 97.9 % (16.0-70.0); PLATELET COUNT 77 TH/MM3 (150-450); RED BLOOD COUNT 3.27 MIL/MM3 (4.50-5.90); WHITE BLOOD COUNT 8.2 TH/MM3 (4.0-11.0)
[2016-05-31 07:49] LABS: BICARBONATE 26.6 MEQ/L (21.0-32.0); POTASSIUM 5.7 MEQ/L (3.5-5.1)
[2016-05-31] MEDS: PANTOPRAZOLE SOD 40 MG DELAYED RELEASE TAB PO SCH (08:01)
[2016-05-31] MEDS: HEPARIN SODIUM - SQ 10,000 UNITS/ML VIAL SQ SCH ×2 (08:01→22:47)
[2016-05-31] MEDS: DILTIAZEM-CD 240 MG CAP ER PO SCH (08:01)
[2016-05-31] MEDS: AMIODARONE 200 MG TAB PO SCH (08:01)
[2016-05-31] MEDS: OSELTAMIVIR PHOSPHATE 75 MG CAP PO SCH ×2 (08:01→22:41)
[2016-05-31] MEDS: SEVELAMER CARBONATE 800 MG TAB PO SCH (08:01)
[2016-05-31] MEDS: ASPIRIN 81 MG CHEW TAB CHEW SCH (08:01)
[2016-05-31] MEDS: hydrOXYzine PAMOATE 25 MG CAP PO PRN ×2 (08:01→22:40)
[2016-05-31] MEDS: SODIUM CHLORIDE 0.9% FLUSH 5 ML FLUSH FLUSH SCH ×2 (08:02→21:00)
--- NOTE | 2016-05-31 08:17 | HHI.PR ---
Subjective Subjective Remarks Less shortness of breath at rest Alert Anxious mild, Appetite fair No chest pain Pain management, chronic Review of Systems Constitutional Constitutional: Fatigue, Weakness (generalized) Constitutional Remarks 10 point ROS done positives noted are generalized general weakness, exertional SOB, mild anxiety. Other systems unremarkable Pulmonary Respiratory: Coughing (course), Shortness of Breath Psychiatric Psychiatric: Normal Mood, Anxiety Vitals/Results Vital Signs Vital Signs Date Time Temp Pulse Resp B/P Pulse Ox O2 Delivery O2 Flow Rate FiO2 05/31/16 07:22 96 Nasal Cannula 3.00 05/31/16 04:00 98.0 77 21 121/66 95 05/31/16 00:00 97.8 84 20 119/68 95 05/30/16 20:36 98.4 68 18 124/72 98 05/30/16 19:33 92 Nasal Cannula 3.00 05/30/16 15:52 97.1 78 20 125/70 92 05/30/16 12:02 96.6 76 20 111/72 92 CBC/BMP: 05/28/16 1940 05/31/16 0609 Lab Results Laboratory Tests Test 05/31/16 06:09 Sodium Level 138 MEQ/L Potassium Level 5.7 MEQ/L Chloride Level 99 MEQ/L Carbon Dioxide Level 26.6 MEQ/L Anion Gap 12 MEQ/L Blood Urea Nitrogen 91 MG/DL Creatinine 5.46 MG/DL Estimat Glomerular Filtration 10 ML/MIN Rate Random Glucose 133 MG/DL Calcium Level 6.7 MG/DL Current Medications Active Medications Oxycodone/ Acetaminophen (Percocet 5-325 Mg) 1 tab Q6H PRN PO Last administered on 05/30/16t 09:22; Admin Dose 1 TAB; Start 05/30/16 at 08:30 Physical Exam General General Appearance: Comfortable, Malnourished Eyes Eye Exam: Pupils Equal, Pupils Reactive Throat Throat Exam: Oral Mucosa [place] & Moist Neck Neck Exam: Neck Supple Cardiology CV Exam: Irregular, Dyspnea on Exertion Gastrointestinal/Abdomen GI Exam: Soft, Non-Tender, Bowel Sounds Present Genitourinary Exam: Clear Urine Musculoskeletal MS Exam: Joints Intact, Atrophy (muscular) Integumentary Skin Exam: Clear, Warm, Dry, Intact Extremeties Extremities Exam: No Edema Neurologic Neuro Exam: Alert, Awake, Moving All Extremities Psychiatric Psych Exam: Appropriate Responses Assessment/Plan Assessment/Plan ASSESSMENT 1. COPD exacerbation. 2. Influenza A. 3. Dyspnea, acute on chronic. 4. Hypertension. 5. History of A-fib. 6. Anxiety disorder. 7. Hyperlipidemia. 8. End-stage renal disease. PLAN On tamilflu continue Azithromycin, rocephin, methylprednisolone and duonebs appreciate Pulm input ECG monitor appreciate Nephrology input Less shortness of breath, patient is resting better, medical management resumed home meds DVT prophylaxis GI prophylaxis PT eval, needs increased activity for evaluation of tolerance of his COPD and shortness of breath labs pending and vital signs reviewed Dialysis today. Mild chronic anxiety noted. Meds when necessary discussed with patient, requesting to go to a significant rehabilitation if possible Discussed with Dr. Pedro, she was seen on his behalf Discussed with nurse Vee Rosales May 31, 2016 08:17
[2016-05-31 08:26] LABS: CALCIUM-PROTEIN CORRECTED 7.4 MG/DL (8.5-10.1)
[2016-05-31] MEDS: EPOETIN ALFA 10,000 UNITS/ML VIAL IV PRN (08:36)
[2016-05-31 08:45] LABS: HEMO FLAGS AUTO DIFF
--- NOTE | 2016-05-31 08:48 | HHI.NPPN ---
Subjective History of Present Illness 70 Year old with flu/Pneumonia Review of Systems General Constitutional: Fatigue Respiratory Lungs: Cough Objective Data Data Vital Signs Date Time Temp Pulse Resp B/P Pulse Ox O2 Delivery O2 Flow Rate FiO2 05/31/16 08:11 97.8 72 18 137/60 95 05/31/16 07:22 96 Nasal Cannula 3.00 05/31/16 04:00 98.0 77 21 121/66 95 05/31/16 00:00 97.8 84 20 119/68 95 05/30/16 20:36 98.4 68 18 124/72 98 05/30/16 19:33 92 Nasal Cannula 3.00 05/30/16 15:52 97.1 78 20 125/70 92 05/30/16 12:02 96.6 76 20 111/72 92 -: 05/31/16 0609 05/31/16 0609 Physical Exam General Appearance: Comfortable, Malnourished Eyes Eye Exam: Pupils Equal, Pupils Reactive Throat Throat Exam: Oral Mucosa [place] & Moist Neck Neck Exam: Neck Supple Pulmonary Resp Exam: Decreased Bases Cardiology CV Exam: Irregular, Dyspnea on Exertion Gastrointestinal/Abdomen GI Exam: Soft, Non-Tender, Bowel Sounds Present Genitourinary Exam: Clear Urine Musculoskeletal MS Exam: Joints Intact, Atrophy (muscular) Integumentary Skin Exam: Clear, Warm, Dry, Intact Extremeties Extremities Exam: No Edema Neurologic Neuro Exam: Alert, Awake, Moving All Extremities Psychiatric Psych Exam: Appropriate Responses Assessment/Plan Problem List: (1) ESRD (end stage renal disease) Plan: Hemodialysis Saturday, and Saturday shift proceedings noted UF 2 L on 1` K/HCO3 Limit K in diet (2) Atrial fibrillation with rapid ventricular response Plan: Patient is on amiodarone (3) Pneumonia Plan: Has been treated recently with antibiotics (4) Influenza A Plan: Patient on Tamiflu Marta Rivera MD May 31, 2016 08:48
[2016-05-31 08:49] LABS: OVALOCYTES 1+ (NORMAL); PLATELET ESTIMATE SMEAR LOW (NORMAL); PLATELET MORPHOLOGY NORMAL (NORMAL); SCAN/DIFF AUTO DIFF CONFIRMED
[2016-05-31] MEDS: AZITHROMYCIN INJ 500 MG in SODIUM CHLOR 0.9% 250 ML INJ 250 ML IV SCH (12:30)
[2016-05-31] MEDS: cefTRIAXone INJ 1,000 MG in SODIUM CHLORIDE 0.9% INJ 100 ML IV SCH (12:30)
--- NOTE | 2016-05-31 17:04 | HHI.PR ---
Subjective Remarks Alert , less sob post dialysis no fever occ cough no expectoration Objective Vital Signs Date Time Temp Pulse Resp B/P Pulse Ox O2 Delivery O2 Flow Rate FiO2 05/31/16 16:00 97.9 69 22 90 05/31/16 11:44 98.3 104 18 125/72 94 05/31/16 08:11 97.8 72 18 137/60 95 05/31/16 07:22 96 Nasal Cannula 3.00 05/31/16 04:00 98.0 77 21 121/66 95 05/31/16 00:00 97.8 84 20 119/68 95 05/30/16 20:36 98.4 68 18 124/72 98 05/30/16 19:33 92 Nasal Cannula 3.00 I/O 05/30/16 05/30/16 05/30/16 05/31/16 05/31/16 05/31/16 07:00 15:00 23:00 07:00 15:00 23:00 Intake Total 360 ml Output Total 2000 ml Balance -1640 ml Intake Oral 360 ml Hemodialysis 2000 ml Result Diagram: 05/31/16 0609 05/31/16 0609 Objective Remarks GENERAL: SKIN: Warm and dry. HEAD: Atraumatic. Normocephalic. EYES: Pupils equal and round. No scleral icterus. No injection or drainage. ENT: No nasal bleeding or discharge. Mucous membranes pink and moist. NECK: Trachea midline. No JVD. CARDIOVASCULAR: Regular rate and rhythm. RESPIRATORY: No accessory muscle use.scattered ronchi to auscultation. Breath sounds equal bilaterally. GASTROINTESTINAL: Abdomen soft, non-tender, nondistended. Hepatic and splenic margins not palpable. MUSCULOSKELETAL: Extremities without clubbing, cyanosis, or edema. No obvious deformities. NEUROLOGICAL: Awake and alert. No obvious cranial nerve deficits. Motor grossly within normal limits. Five out of 5 muscle strength in the arms and legs. Normal speech. PSYCHIATRIC: Appropriate mood and affect; insight and judgment normal. Assessment and Plan Assessment and Plan copd, improved fluid overload , bettert post dialysis FLEX 02 NEEDED BRONCHODILATOR THERAPY INCREASE ACTIVITY f/u Susie Villegas MD May 31, 2016 17:04
--- NOTE | 2016-05-31 19:17 | RADRPT ---
EXAM DATE/TIME: 05/31/2016 18:29 [facility] COMPARISON: CHEST SINGLE AP, May 28, 2016, 19:33. INDICATIONS : Chest congestion. MEDICAL HISTORY : Hypertension. Hypercholesterolemia. Renal disease, end stage. COPD. SURGICAL HISTORY : Inguinal hernia repair. A/V fistula in left arm. ENCOUNTER: Initial ACUITY: 3 weeks PAIN SCORE: 0/10 LOCATION: Bilateral chest FINDINGS: Small bilateral pleural effusions and cardiomegaly have not changed. Interstitial process is present representing pulmonary edema. CONCLUSION: Volume overload not significantly changed. Javier Son MD on May 31, 2016 at 19:15 Board Certified Radiologist. This report was verified electronically.
[2016-06-01 01:25] VITALS: BP 104/61; PULSE 82; RESP 16; TEMP 98.8; O2SAT 91
[2016-06-01] MEDS: methylPREDNISolone SOD SUCC 40 MG/1 ML VIAL IV PUSH SCH ×3 (01:45→16:54)
[2016-06-01 06:10] VITALS: BP 101/58; PULSE 68; RESP 18; TEMP 98; O2SAT 92
[2016-06-01] MEDS: RESP: ALBUTEROL 2.5 MG/IPRATROPIUM 0.5 MG NEB (SCH) NEB ×2 (07:53→13:13)
[2016-06-01 07:54] VITALS: O2SAT 96
--- NOTE | 2016-06-01 08:05 | HHI.PR ---
Subjective Subjective Remarks Less shortness of breath at rest in the early a.m. Alert, very hard of hearing Anxious mild to moderate Appetite fair No chest pain Pain management, chronic Review of Systems Constitutional Constitutional: Fatigue, Weakness (generalized) Constitutional Remarks 10 point ROS done positives noted are generalized general weakness, exertional SOB, mild anxiety. Other systems unremarkable Pulmonary Respiratory: Coughing (course), Shortness of Breath Psychiatric Psychiatric: Normal Mood, Anxiety Vitals/Results Intake & Output 05/31/16 05/31/16 06/01/16 15:00 23:00 07:00 Intake Total 360 ml 240 ml 0 ml Output Total 2000 ml Balance -1640 ml 240 ml 0 ml Intake Oral 360 ml 240 ml 0 ml Hemodialysis 2000 ml # Voids 1 0 # Bowel Movements 0 0 Vital Signs Vital Signs Date Time Temp Pulse Resp B/P Pulse Ox O2 Delivery O2 Flow Rate FiO2 06/01/16 07:54 96 Nasal Cannula 4.00 06/01/16 06:10 98.0 68 18 101/58 92 06/01/16 01:25 98.8 82 16 104/61 91 05/31/16 19:05 93 Nasal Cannula 4.00 05/31/16 16:00 97.9 69 22 90 05/31/16 11:44 98.3 104 18 125/72 94 05/31/16 08:11 97.8 72 18 137/60 95 CBC/BMP: 05/31/16 0609 05/31/16 0609 Physical Exam General General Appearance: Comfortable, Anxious, Malnourished Eyes Eye Exam: Pupils Equal, Pupils Reactive Ears & Nose Ears & Nose Exam: Nasal Mucosa Regan Throat Throat Remarks Pale Neck Neck Exam: Neck Supple Pulmonary Resp Exam: Rhonchi, Decreased Bases, Diminished Breath Sounds, Poor Inspiratory Effort Cardiology CV Exam: Irregular, Dyspnea on Exertion Gastrointestinal/Abdomen GI Exam: Soft, Non-Tender, Bowel Sounds Present Genitourinary Exam: Clear Urine Musculoskeletal MS Exam: Joints Intact, Atrophy (muscular) Integumentary Skin Exam: Clear, Warm, Dry, Intact Extremeties Extremities Exam: No Edema Neurologic Neuro Exam: Alert, Awake, Moving All Extremities Psychiatric Psych Exam: Appropriate Responses Assessment/Plan Assessment/Plan ASSESSMENT 1. COPD exacerbation. 2. Influenza A. 3. Dyspnea, acute on chronic. 4. Hypertension. 5. History of A-fib. 6. Anxiety disorder. 7. Hyperlipidemia. 8. End-stage renal disease. PLAN On tamilflu continue Azithromycin, rocephin, methylprednisolone and duonebs appreciate Pulm input, to continue bronchodilators, O2 ECG monitor appreciate Nephrology input, dialysis Saturday. Decreased potassium in diet today per nephrology note. Less shortness of breath this a.m. but does tend to have episodes of increased shortness of breath, medical management resumed home meds DVT prophylaxis GI prophylaxis PT chaitanya, needs increased activity for evaluation of tolerance of his COPD and shortness of breath. Encouraged to continue to try to sit up even in bed. Generalized weakness and shortness of breath with exertion tends to affect his activity. labs and vital signs reviewed, no acute changes Mild chronic anxiety noted. Meds when necessary discussed with patient, requesting to go to a significant rehabilitation if possible. Looking at [place] with nurses and respiratory Patient discussed with nurse last night and myself his wishes for goals of care. Patient does not want ventilator support, wants medication for comfort, and does not want to struggle to breathe. We'll discuss this with Dr. Pedro., Bed available for [facility]. Ok'd for discharge with Dr. Pedro Discussed with Dr. Pedro, she was seen on his behalf Discussed with nurse Vee Rosales Jun 01, 2016 08:05
[2016-06-01] MEDS: ASPIRIN 81 MG CHEW TAB CHEW SCH (08:29)
[2016-06-01] MEDS: DILTIAZEM-CD 240 MG CAP ER PO SCH (08:29)
[2016-06-01] MEDS: OSELTAMIVIR PHOSPHATE 75 MG CAP PO SCH (08:29)
[2016-06-01] MEDS: PANTOPRAZOLE SOD 40 MG DELAYED RELEASE TAB PO SCH (08:29)
[2016-06-01] MEDS: HEPARIN SODIUM - SQ 10,000 UNITS/ML VIAL SQ SCH (08:30)
[2016-06-01] MEDS: SEVELAMER CARBONATE 800 MG TAB PO SCH (08:30)
[2016-06-01] MEDS: ALPRAZolam 0.5 MG TAB PO PRN (08:30)
[2016-06-01] MEDS: oxyCODONE/ACETAMINOPHEN 5 MG/325 MG TAB PO PRN ×2 (08:30→16:55)
[2016-06-01] MEDS: SODIUM CHLORIDE 0.9% FLUSH 5 ML FLUSH FLUSH SCH (08:31)
[2016-06-01] MEDS: cefTRIAXone INJ 1,000 MG in SODIUM CHLORIDE 0.9% INJ 100 ML IV SCH (08:31)
[2016-06-01 08:47] VITALS: BP 128/64; PULSE 80; RESP 18; TEMP 97.6; O2SAT 91
[2016-06-01] MEDS: AZITHROMYCIN INJ 500 MG in SODIUM CHLOR 0.9% 250 ML INJ 250 ML IV SCH (11:23)
[2016-06-01 11:29] LABS: AUTOMATED NEUTROPHIL # 7.5 TH/MM3 (1.8-7.7); BASOPHIL % 0.3 % (0.0-2.0); HEMATOCRIT 32.4 % (39.0-51.0); LYMPH % 0.5 % (9.0-44.0); MEAN CELL VOLUME 97.5 FL (80.0-100.0); MEAN CORPUSCULAR HEMOGLOBIN 32.3 PG (27.0-34.0); MEAN CORPUSCULAR HGB CONC 33.1 % (32.0-36.0); MONO % 0.8 % (0.0-8.0); NEUT % 98.4 % (16.0-70.0); PLATELET COUNT 71 TH/MM3 (150-450); RED BLOOD COUNT 3.33 MIL/MM3 (4.50-5.90); RED CELL DISTRIBUTION WIDTH 18.8 % (11.6-17.2); WHITE BLOOD COUNT 7.6 TH/MM3 (4.0-11.0)
[2016-06-01 11:31] LABS: HEMO FLAGS AUTO DIFF
[2016-06-01 11:52] LABS: BICARBONATE 28.6 MEQ/L (21.0-32.0); MAGNESIUM 1.9 MG/DL (1.5-2.5); POTASSIUM 4.8 MEQ/L (3.5-5.1)
[2016-06-01 12:16] LABS: CALCIUM-PROTEIN CORRECTED 7.4 MG/DL (8.5-10.1)
[2016-06-01 12:18] VITALS: BP 103/61; PULSE 77; RESP 22; TEMP 97.4; O2SAT 91
[2016-06-01 12:39] LABS: OVALOCYTES 1+ (NORMAL); PLATELET ESTIMATE SMEAR LOW (NORMAL); PLATELET MORPHOLOGY NORMAL (NORMAL); SCAN/DIFF AUTO DIFF CONFIRMED
[2016-06-01 15:37] VITALS: BP 137/61; PULSE 71; RESP 22; TEMP 97.6; O2SAT 91
--- NOTE | 2016-08-12 16:39 | HHI.DS ---
Discharge Summary Admission Date May 29, 2016 at 08:34 Discharge Date: Jun 01, 2016 Admitting Diagnosis influenza A, dyspnea, generalized weakness, ESRD (1) COPD exacerbation (2) Shortness of breath dyspnea (3) Fluid overload (4) CHF (congestive heart failure) (5) Atrial fibrillation (6) Influenza A (7) ESRD (end stage renal disease) Imaging Last Impressions Chest X-Ray 05/31/16 0000 Signed Impressions: Service Date/Time: May 18:29 - CONCLUSION: Volume overload not significantly changed. Javier Son MD Hospital Course This is a pleasant 70-year-old white male with a significant history of end-stage renal disease, atrial fib, cardiovascular disease and COPD. The patient was just discharged from the hospital approximately a week ago from a episode of pneumonia with COPD exacerbation. He was stabilized for discharge but due to his multiple medical comorbidities and his debility he stated that he had been struggling for the past week. The patient denied any chest pain. He was actively short of breath with wheezes, moderately anxious. He did state he hasd a productive sputum which was thick and greenish in color. He denied any fever, denied any headache. He was positive for decreased appetite and some weight loss, unknown amount. The patient was brought into the emergency room per EMS and was given a dose of IV steroids and given gentle hydration. The patient is a dialysis patient and his usual schedule is Saturday, and Saturday. DIAGNOSTIC DATA WBC count 6.8, RBC 3.18, hemoglobin 10.4, hematocrit 31, platelet count 125, neutrophil percentage auto 94.6, lymphocyte 2.9. PT/INR 1.1. Chemistry - Sodium 141, potassium 4.4, chloride 105, carbon dioxide 24.4, amnion gap 12, BUN 60, creatinine 4.64, GFR 13, random glucose 110, calcium 7.8, bilirubin 0.4, AST 19, ALT 24, alkaline phos 77. Troponin 0.05. BNP 518, albumin 2.5, total protein 5.8. Tested positive for Influenza A IMAGING STUDIES Chest x-ray shows chronic pleural disease with moderate cardiomegaly, acute underlying pulmonary congestion may be present. Pt was admitted for: 1. COPD exacerbation. 2. Influenza A. 3. Dyspnea, acute on chronic. 4. Hypertension. 5. History of A-fib. 6. Anxiety disorder. 7. Hyperlipidemia. 8. End-stage renal disease. During the course of the hospitalization, the following took place: Put on monitoring manager, pulm and nephrology consulted. Abx continued, put on Tamiflu as well as DuoNebs. Solumedrol was also given. Cultures followed. Heparin subcu for DVT prophylaxis with caution secondary to history of GI bleed. Reconcile the patient's medications. Placed him on Protonix for PUD prophylaxis. PT eval and treatment ordered. Pt. weaned down off IV steroids. Pt. remained weak, likely to need rehab, he was agreeable. He continued to have HD per schedule. Labs were monitored. Pt. stabilized, cleared for dc Pt. discharged to SNF in stable condition. Pt Condition on Discharge: Stable Discharge Disposition: Discharge to SNF Discharge Instructions DIET: Follow Instructions for: Soft Diet Activities you can perform: Regular-No Restrictions Continued Medications: Amiodarone (Amiodarone) 200 Mg Tab 200 MG PO EVERY OTHER DAY Regulate Heart Beat Ref 0 TAB Aspirin (Aspirin) 81 Mg Chew 81 MG CHEW DAILY Ref 0 TAB Diltiazem (Diltiazem) 120 Mg Tab 240 MG PO DIRECTED Ref 0 TAB Hydroxyzine Pamoate (Vistaril) 25 Mg Cap 25 MG PO Q6H PRN ANXIETY AND/OR AGITATION #10 Ref 0 CAP Pantoprazole (Pantoprazole) 40 Mg Tab 40 MG PO DAILY Reflux Ref 0 TAB Sevelamer Carbonate (Renvela) 800 Mg Tab 800 MG PO DAILY Control phosphorous levels Ref 0 TAB Becki Tavarez August 12, 2016 16:39
== END 2016-06-01 18:08 | disposition home or self-care (01) | DRG 193 ==
LOC: NEPE 18:39 → NEDA 21:45 → NEPHCDU 05-29 02:23 → OBSVTOIN 05-29 08:34
PROVIDERS: ADMIT Internal Medicine; ATTEND Internal Medicine
PROC: 5A1D60Z (ICD-10-PCS; principal; 2016-05-29)
DX: J10.1 Influenza due to other identified influenza virus with other respiratory manifestations (principal); N18.6 End stage renal disease; I13.2 Hypertensive heart and chronic kidney disease with heart failure and with stage 5 chronic kidney disease, or end stage renal disease; I48.91 Unspecified atrial fibrillation; J44.1 Chronic obstructive pulmonary disease with (acute) exacerbation; E78.5 Hyperlipidemia, unspecified; K21.9 Gastro-esophageal reflux disease without esophagitis; F41.9 Anxiety disorder, unspecified; H91.90 Unspecified hearing loss, unspecified ear; I50.9 Heart failure, unspecified; Z99.2 Dependence on renal dialysis; Z87.891 Personal history of nicotine dependence
CPT/HCPCS: 71010; 71020; 76937; 80048; 80053; 82550; 83735; 83880; 84100; 84155; 84484; 85025; 85610; 85730; 87040; 87804; 90935; 93005; 94640; 94664; 96374; G0378; J0456; J0696; J1644; J1940; J2920; J2930; J7030; J7050; Q0177; Q4081

== ENCOUNTER 2016-06-02 11:24 | Inpatient (IN) | payer MEDICARE, OTHER ==
[~2016-06-02] VITALS: Ht 170.2 cm; Wt 56.1 kg
[2016-06-02] VITALS (17 sets, daily range): BP systolic 99–151; BP diastolic 52–71; PULSE 58–97; RESP 12–20; TEMP 94–98.9; O2SAT 94–100
[~2016-06-02 11:24] MED LIST changes: -ALBU0.08 NEB; -CEFT500T3 PO; -DOXY100C PO; -PRED10PA2 PO
[2016-06-02] MEDS ORDERED: ETOMIDATE 20 MG/10 ML VIAL ONE (11:30)
[2016-06-02] MEDS ORDERED: CALCIUM CHLORIDE 10% SOLN 1 GRAM/10 ML SYR ONE (11:34)
[2016-06-02] MEDS ORDERED: ETOMIDATE 20 MG/10 ML VIAL IVP ONE (11:45)
[2016-06-02] MEDS ORDERED: SODIUM CHLORIDE 0.9% FLUSH 5 ML FLUSH IVF PRN ×2 (11:45→15:45)
[2016-06-02] MEDS ORDERED: CALCIUM CHLORIDE INJ 2 GM in DEXTROSE 5% IN WATER 100ML INJ 100 ML IV ONE ×2 (12:00)
[2016-06-02] MEDS ORDERED: CALCIUM CHLORIDE 10% SOLN 1 GRAM/10 ML SYR IV PUSH ONE (12:00)
[2016-06-02] MEDS ORDERED: ROCURONIUM INJ 50 MG/5 ML VIAL ONE (12:04)
--- NOTE | 2016-06-02 12:11 | PD ---
HPI Chief Complaint: Respiratory Distress Time Seen by Provider: 11:40 Travel History International Travel<30 days: No Contact w/Intl Traveler<30days: No Traveled to known affect area: No History of Present Illness HPI This 70 year-old man, multiple chronic medical conditions including end-stage renal disease on HD, A. fib, COPD, recent admission for COPD exacerbation with influenza A positive, discharge from the hospital yesterday to [facility]. He apparently presented to the [facility] nursing tests for dialysis, and then slumped over and was minimally responsive. EMS describes agonal, and affect show respirations requiring bag valve mask assist. No other history is readily available. History Past Medical History Narrative Medical End-stage renal disease on hemodialysis Saturday, AV fistula left upper extremity COPD A. fib CHF Acid reflux Hypertension History of lung biopsy Suprapubic catheter History of GI bleed Social History Alcohol Use: No (QUIT 1989) Tobacco Use: No (QUIT 1989) Allergies-Medications (Allergen,Severity, Reaction): Coded Allergies: Sulfa (Verified Allergy, Severe, "difficulty breathing", 06/02/16) Penicillin (Verified Adverse Reaction, Severe, "acid taste in mouth, problems with vision", 06/02/16) DIFFICULTY BREATHING Reported Meds & Prescriptions Reported Meds & Active Scripts Active Vistaril (Hydroxyzine Pamoate) 25 Mg Cap 25 Mg PO Q6H PRN Reported Renvela (Sevelamer Carbonate) 800 Mg Tab 800 Mg PO DAILY Pantoprazole (Pantoprazole Sodium) 40 Mg Tab 40 Mg PO DAILY Amiodarone (Amiodarone HCl) 200 Mg Tab 200 Mg PO EVERY OTHER DAY Diltiazem (Diltiazem HCl) 120 Mg Tab 240 Mg PO DIRECTED Aspirin 81 Mg Chew 81 Mg CHEW DAILY Review of Systems ROS Limitations: Clinical Condition Physical Exam Narrative GENERAL: Thin 70 year-old man, chronically ill-appearing, gasping/agonal breathing. Being actively assisted with a bag valve mask. SKIN: Warm and dry. HEAD: Atraumatic. Normocephalic. EYES: Pupils equal and round. No scleral icterus. No injection or drainage. ENT: No nasal bleeding or discharge. Mucous membranes pink and moist. NECK: Trachea midline. No JVD. CARDIOVASCULAR: Regular rate and rhythm. No murmur appreciated. Right AV fistula palpable thrill. RESPIRATORY: Decreased breath sounds bilaterally with some coarse breath sounds in the posterior/lateral lung cullen. GASTROINTESTINAL: Abdomen scaphoid and flat. Soft. MUSCULOSKELETAL: No obvious deformities. No edema. NEUROLOGICAL: Obtunded. No response to noxious stimuli. Data Data Last Documented VS Vital Signs Date Time Temp Pulse Resp B/P Pulse Ox O2 Delivery O2 Flow Rate FiO2 06/02/16 14:00 100 50 06/02/16 13:42 58 16 140/70 Ventilator 06/02/16 11:28 94.0 Orders Etomidate Inj (Amidate Inj) (06/02/16 11:30) Calcium Chloride Inj (Calcium Chloride I (06/02/16 11:34) Complete Blood Count With Diff (06/02/16 11:39) Comprehensive Metabolic Panel (06/02/16 11:39) B-Type Natriuretic Peptide (06/02/16 11:39) Act Partial Throm Time (Ptt) (06/02/16 11:39) Prothrombin Time / Inr (Pt) (06/02/16 11:39) Magnesium (Mg) (06/02/16 11:39) Ckmb (Isoenzyme) Profile (06/02/16 11:39) Troponin I (06/02/16 11:39) Blood Culture (06/02/16 11:39) Iv Access Insert/Monitor (06/02/16 11:39) Ecg Monitoring (06/02/16 11:39) Oximetry (06/02/16 11:39) Chest, Single Ap (06/02/16 11:39) Sodium Chloride 0.9% Flush (Ns Flush) (06/02/16 11:45) Arterial Blood Gas (Abg) (06/02/16 11:41) Ng Gastric Tube Insert/Monitor (06/02/16 11:41) Urinary Catheter Insert/Apply (06/02/16 11:41) Etomidate Inj (Amidate Inj) (06/02/16 11:45) Restraints Non-Violent SOUTH.Q3H (06/02/16 11:41) Calcium Chloride Inj (Calcium Chloride I (06/02/16 12:00) Calcium Chloride Inj (Calcium Chloride I (06/02/16 12:00) Rocuronium Inj (Zemuron Inj) (06/02/16 12:04) Vancomycin Inj (Vancomycin Inj) (06/02/16 12:15) Cefepime Inj (Maxipime Inj) (06/02/16 12:15) Lorazepam Inj (Ativan Inj) (06/02/16 13:00) Admit Order (Ed Use Only) (06/02/16 ) Labs Laboratory Tests Test 06/02/16 06/02/16 12:18 12:57 Blood Gas Puncture Site LT BRACHIAL Blood Gas Patient Temperature 98.6 Blood Gas HCO3 24 mmol/L Blood Gas Base Excess -2.9 mmol/L Blood Gas Oxygen Saturation 97 % Arterial Blood pH 7.23 Arterial Blood Partial 59 mmHg Pressure CO2 Arterial Blood Partial 378 mmHG Pressure O2 Arterial Blood Oxygen Content 16.3 Vol % Arterial Blood 1.8 % Carboxyhemoglobin Arterial Blood Methemoglobin 1.5 % Blood Gas Hemoglobin 11.3 G/DL Oxygen Delivery Device VENTILATOR Blood Gas Ventilator Setting AC/16/500/+5 Blood Gas Inspired Oxygen 100 % White Blood Count 7.7 TH/MM3 Red Blood Count 3.40 MIL/MM3 Hemoglobin 11.1 GM/DL Hematocrit 33.5 % Mean Corpuscular Volume 98.4 FL Mean Corpuscular Hemoglobin 32.7 PG Mean Corpuscular Hemoglobin 33.2 % Concent Red Cell Distribution Width 18.0 % Platelet Count 72 TH/MM3 Mean Platelet Volume 10.8 FL Neutrophils (%) (Auto) 98.6 % Lymphocytes (%) (Auto) 0.5 % Monocytes (%) (Auto) 0.2 % Eosinophils (%) (Auto) 0.0 % Basophils (%) (Auto) 0.7 % Neutrophils # (Auto) 7.6 TH/MM3 Lymphocytes # (Auto) 0.0 TH/MM3 Monocytes # (Auto) 0.0 TH/MM3 Eosinophils # (Auto) 0.0 TH/MM3 Basophils # (Auto) 0.1 TH/MM3 CBC Comment AUTO DIFF Differential Comment AUTO DIFF CONFIRMED Platelet Estimate LOW Platelet Morphology Comment NORMAL Ovalocytes 1+ Helmet Cells OCC Acanthocytes OCC Keratocytes OCC Prothrombin Time 11.9 SEC Prothromb Time International 1.1 RATIO Ratio Activated Partial 23.6 SEC Thromboplast Time Sodium Level 138 MEQ/L Potassium Level 6.1 MEQ/L Chloride Level 96 MEQ/L Carbon Dioxide Level 25.7 MEQ/L Anion Gap 16 MEQ/L Blood Urea Nitrogen 108 MG/DL Creatinine 6.53 MG/DL Estimat Glomerular Filtration 8 ML/MIN Rate Random Glucose 142 MG/DL Calcium Level 8.1 MG/DL Magnesium Level 2.2 MG/DL Total Bilirubin 0.4 MG/DL Aspartate Amino Transf 14 U/L (AST/SGOT) Alanine Aminotransferase 40 U/L (ALT/SGPT) Alkaline Phosphatase 122 U/L Total Creatine Kinase 79 U/L Troponin I 0.04 NG/ML B-Type Natriuretic Peptide 402 PG/ML Total Protein 5.6 GM/DL Albumin 2.3 GM/DL MDM Medical Decision Making Medical Screen Exam Complete: Yes Emergency Medical Condition: Yes Interpretation(s) Review of EKG: A. fib, rate of 84, wide complex nearly sine wave wave pattern a rate of 84, possible left bundle block versus hyperkalemia, patient has history of left bundle-branch block. Markedly large anterior precordial T waves. LABS: CBC remarkable for anemia. Also remarkable for nearly absent lymphocyte count. CMP remarkable for elevated BUN and creatinine BNP 402 ABG 7.23/59/378/24, base excess -2.9 Chest x-ray: Endotracheal tube tip 6.8 cm from the jean. NG tube terminates in the distal esophagus and should be advanced. Stable pleural calcification the right hemithorax and stable airspace consolidation bilaterally with small effusions. Differential Diagnosis Pneumonia, COPD, volume overload, hyperkalemia, other Narrative Course Medical decision making 70-year-old man presents emergent department in respiratory failure with near respiratory arrest, being actively assisted by [id number]. Is on dialysis. Per to been dialyzed in the hospital. EKG shows left bundle branch block with a very wide QRS complexes large T waves, possible hyperkalemia. He is empirically treated with 2 g of calcium chloride. He was intubated with rock year-old woman succinylcholine. We'll obtain labs, x-ray, reassess. Critical Care Narrative Aggregate critical care time was 40 minutes. Time to perform other separately billable procedures was not included in the critical care time. My time did not include minutes spent treating any other patients simultaneously or on activities that did not directly contribute to the patient's treatment. The services I provided to this patient were to treat and/or prevent clinically significant deterioration that could result in: , disability, unrecognized infection, worsening respiratory decompensation. I provided critical care services requiring my management, as noted below: Chart data review, documentation time, medication orders and management, vital sign assessments/reviewing monitor data, ordering and reviewing lab tests, ordering and interpreting/reviewing x-rays and diagnostic studies, care of the patient and discussion of the patient with the admitting physicians. Procedures Procedure Narrative Peripheral IV: Nursing staff unable to establish IV access with emergent need for intubation. I placed a 20-gauge IV in his left EJ. 2 attempts were required. Patient tolerated well. INTUBATION: The patient was put in optimal position for the procedure. Rapid sequence intubation was initiated by me using 20 milligrams of etomidate IV and 70 milligrams of rocuronium IV. The patient was intubated with a 8.0 cuffed endotracheal tube. Tube placement was confirmed by visualization of the tube and balloon passing through the cords, capnometry and subsequent chest x-ray. Breath sounds were equal and well aerated bilaterally postintubation. No breath sounds over stomach. Patient tolerated procedure well. Diagnosis Primary Impression: Respiratory failure Qualified Code: J96.01 - Acute respiratory failure with hypoxia Additional Impressions: Pneumonia Qualified Code: J18.9 - Pneumonia due to infectious organism, unspecified laterality, unspecified part of lung Lymphopenia Admitting Information Admitting Physician Requests: Admit Davis Cardenas MD Jun 02, 2016 12:11
[2016-06-02] MEDS ORDERED: CEFEPIME INJ 2,000 MG in SODIUM CHLORIDE 0.9% INJ 100 ML IV ONE (12:15)
[2016-06-02] MEDS ORDERED: VANCOMYCIN INJ 1,000 MG in SODIUM CHLOR 0.9% 250 ML INJ 250 ML IV ONE (12:15)
[2016-06-02 12:17] LABS: APTT (PATIENT) 23.6 SEC (24.3-30.1); INTERNATIONAL NORMALIZED RATIO 1.1 RATIO; PROTHROMBIN TIME - PATIENT 11.9 SEC (9.8-11.6)
--- NOTE | 2016-06-02 12:24 | RADRPT ---
EXAM DATE/TIME: 06/02/2016 12:08 [place] COMPARISON: CHEST PA & LAT, May 31, 2016, 18:29. CHEST SINGLE AP, May 28, 2016, 19:33. INDICATIONS : Post intubation MEDICAL HISTORY : Hypertension. Hypercholesterolemia. Renal disease, end stage. COPD. SURGICAL HISTORY : Inguinal hernia repair. A/V fistula in left arm. ENCOUNTER: Initial ACUITY: 1 day PAIN SCORE: Non-responsive. LOCATION: Bilateral chest FINDINGS: 2 AP views of the chest demonstrate stable enlargement of the cardiac silhouette. Endotracheal tube t ip is at the clavicular head level measuring 6.8 cm and the jean. Nasogastric tube distal tip is in the distal esophagus. No pneumothorax is visualized. There is pleural-based calcification on the rig ht with stable bilateral airspace opacity and small pleural-based opacities bilaterally. CONCLUSION: 1. Endotracheal tube tip measures 6.8 cm from the jean. 2. Nasogastric tube tip terminates in the distal esophagus and should be advanced into the stomach. 3. Stable pleural calcification in the right hemithorax and stable airspace consolidation bilaterally with small pleural effusions. Chuck Cadet MD on June 02, 2016 at 12:21 Board Certified Radiologist. This report was verified electronically.
[2016-06-02 12:30] LABS: BLOOD GAS BASE EXCESS -2.9 mmol/L (-2-2); BLOOD GAS CARBOXYHEMOGLOBIN 1.8 % (0-4); BLOOD GAS HCO3 24 mmol/L (22-26); BLOOD GAS METHEMOGLOBIN 1.5 % (0-2); BLOOD GAS O2 HGB SATURATION 97 % (90-100); BLOOD GAS OXYGEN CONTENT 16.3 Vol % (12.0-20.0); BLOOD GAS PCO2 59 mmHg (38-42); BLOOD GAS PO2 378 mmHG (61-120); BLOOD GAS TOTAL HGB 11.3 G/DL (12.0-16.0); TEMP CORR TO 98.6
[2016-06-02 12:31] LABS: CRITICAL VALUE YES
[2016-06-02 12:32] LABS: DRAW SITE LT BRACHIAL; FIO2 100 %; NUMBER OF ARTERIAL PUNCTURES 1; OXYGEN DEVICE VENTILATOR; STAT YES; VENT SETTINGS AC/16/500/+5
[2016-06-02] MEDS ORDERED: LORazepam 2 MG/ML VIAL IV PUSH ONE (13:00)
[2016-06-02 13:14] LABS: AUTOMATED NEUTROPHIL # 7.6 TH/MM3 (1.8-7.7); BASOPHIL # 0.1 TH/MM3 (0-0.2); BASOPHIL % 0.7 % (0.0-2.0); HEMATOCRIT 33.5 % (39.0-51.0); LYMPH % 0.5 % (9.0-44.0); MEAN CELL VOLUME 98.4 FL (80.0-100.0); MEAN CORPUSCULAR HEMOGLOBIN 32.7 PG (27.0-34.0); MEAN CORPUSCULAR HGB CONC 33.2 % (32.0-36.0); MONO % 0.2 % (0.0-8.0); NEUT % 98.6 % (16.0-70.0); PLATELET COUNT 72 TH/MM3 (150-450); WHITE BLOOD COUNT 7.7 TH/MM3 (4.0-11.0)
[2016-06-02 13:17] LABS: HEMO FLAGS AUTO DIFF
[2016-06-02 13:30] LABS: ANION GAP 16 MEQ/L (5-15); AST (GOT) 14 U/L (15-37); BICARBONATE 25.7 MEQ/L (21.0-32.0); BLOOD UREA NITROGEN 108 MG/DL (7-18); CHLORIDE 96 MEQ/L (98-107); GLOMERULAR FILTRATION RATE 8 ML/MIN (>89); MAGNESIUM 2.2 MG/DL (1.5-2.5); POTASSIUM 6.1 MEQ/L (3.5-5.1); SODIUM (NA) 138 MEQ/L (136-145)
[2016-06-02 13:34] LABS: ALKALINE PHOSPHATASE 122 U/L (45-117); ALT (GPT) 40 U/L (12-78); TOTAL BILIRUBIN ADULT 0.4 MG/DL (0.2-1.0)
[2016-06-02 13:36] LABS: CREATINE KINASE 79 U/L (39-308)
[2016-06-02 13:47] LABS: ACANTHOCYTES OCC (NORMAL)
[2016-06-02 13:48] LABS: HELMET CELLS OCC (NORMAL); KERATOCYTES OCC (NORMAL); OVALOCYTES 1+ (NORMAL); PLATELET ESTIMATE SMEAR LOW (NORMAL); PLATELET MORPHOLOGY NORMAL (NORMAL); SCAN/DIFF AUTO DIFF CONFIRMED
[2016-06-02] MEDS ORDERED: SODIUM CHLORIDE 0.9% FLUSH 5 ML FLUSH IV FLUSH PRN (14:30)
[2016-06-02] MEDS ORDERED: SENNOSIDES 8.6 MG TAB PO PRN (14:30)
[2016-06-02] MEDS ORDERED: DEXTROSE 50% IN WATER 50 ML VIAL(D50) IV PUSH PRN (14:30)
[2016-06-02] MEDS ORDERED: RESP: ALBUTEROL 2.5 MG/IPRATROPIUM 0.5 MG NEB (PRN) INH (14:30)
[2016-06-02] MEDS ORDERED: MISCELLANEOUS NURSING INFORMATION XX SCH (14:30)
[2016-06-02] MEDS ORDERED: GLUCAGON 1 MG/ML VIAL OTHER PRN (14:30)
[2016-06-02] MEDS ORDERED: CHLORHEXIDINE GLUCONATE 2 % 1 PACK (2 CLOTHS) TOP PRN (14:30)
[2016-06-02] MEDS: SODIUM CHLOR 0.9% 1000 ML INJ 1,000 ML IV SCH ×2 (15:27→21:16)
[2016-06-02] MEDS ORDERED: SODIUM CHLOR 0.9% 1000 ML INJ 1,000 ML IV ONE (15:30)
[2016-06-02] MEDS ORDERED: SODIUM CHLOR 0.9% 1000 ML INJ 1,000 ML IV PRN (15:36)
[2016-06-02] MEDS ORDERED: INSULIN HUMAN REGULAR 1,000 UNITS/10 ML VIAL IV PUSH ONE (15:45)
[2016-06-02] MEDS ORDERED: diphenhydrAMINE HCL 25 MG CAP PO PRN (15:45)
[2016-06-02] MEDS ORDERED: HEPARIN SODIUM - IV 10,000 UNITS/10 ML VIAL IVF PRN (15:45)
[2016-06-02] MEDS ORDERED: ONDANSETRON HCL 4 MG/2 ML VIAL IV PRN (15:45)
[2016-06-02] MEDS ORDERED: cloNIDine HCL 0.1 MG TAB PO PRN (15:45)
[2016-06-02] MEDS ORDERED: PROPOFOL 1000 MG/100 ML INJ 100 ML IV SCH (15:45)
[2016-06-02] MEDS ORDERED: ACETAMINOPHEN 325 MG TAB PO PRN (15:45)
[2016-06-02] MEDS ORDERED: NITROGLYCERIN 0.4 MG SL 25 TABS/BTL SL PRN (15:45)
[2016-06-02] MEDS ORDERED: DEXTROSE 50% IN WATER 50 ML VIAL(D50) IV PUSH ONE (15:45)
[2016-06-02] MEDS ORDERED: SODIUM POLYSTYRENE SULFONATE SUSP 15 GM/60 ML CUP PO ONE (15:45)
[2016-06-02] MEDS: INSULIN NovoLIN REGULAR SUPPLEMENTAL SCALE SQ SCH ×2 (16:00→21:00)
[2016-06-02 16:17] LABS: BLOOD GAS BASE EXCESS -2.5 mmol/L (-2-2); BLOOD GAS CARBOXYHEMOGLOBIN 2.3 % (0-4); BLOOD GAS HCO3 23 mmol/L (22-26); BLOOD GAS METHEMOGLOBIN 1.8 % (0-2); BLOOD GAS O2 HGB SATURATION 92 % (90-100); BLOOD GAS OXYGEN CONTENT 13.3 Vol % (12.0-20.0); BLOOD GAS PCO2 45 mmHg (38-42); BLOOD GAS PO2 86 mmHG (61-120); BLOOD GAS TOTAL HGB 10.2 G/DL (12.0-16.0); TEMP CORR TO 98.6
[2016-06-02 16:18] LABS: CRITICAL VALUE NO; OXYGEN DEVICE VENTILATOR
[2016-06-02 16:19] LABS: DRAW SITE RT RADIAL; FIO2 50 %; NUMBER OF ARTERIAL PUNCTURES 1; STAT NO; ULNAR PULSE PRESENT; VENT SETTINGS AC/20/500/PEEP5
[2016-06-02 16:38] LABS: BASOPHIL % 0.1 % (0.0-2.0); EOSINOPHIL % 0.1 % (0.0-4.0); HEMATOCRIT 31.8 % (39.0-51.0); LYMPH % 0.9 % (9.0-44.0); LYMPHOCYTE # 0.1 TH/MM3 (1.0-4.8); MEAN CELL VOLUME 99.6 FL (80.0-100.0); MEAN CORPUSCULAR HEMOGLOBIN 31.6 PG (27.0-34.0); MEAN CORPUSCULAR HGB CONC 31.8 % (32.0-36.0); MONO % 1.1 % (0.0-8.0); NEUT % 97.8 % (16.0-70.0); RED CELL DISTRIBUTION WIDTH 18.5 % (11.6-17.2); WHITE BLOOD COUNT 6.2 TH/MM3 (4.0-11.0)
[2016-06-02 16:39] LABS: HEMO FLAGS AUTO DIFF
--- NOTE | 2016-06-02 16:40 | HHI.HP ---
HPI Service Critical Care Medicine Primary Care Physician Chuck Kaiser MD Admission Diagnosis respiratory failure Diagnosis: Travel History International Travel<30 Days: No Contact w/Intl Traveler <30 Da: No Traveled to Known Affected Are: No History of Present Illness This 70 year-old man, multiple chronic medical conditions including end-stage renal disease on HD, A. fib, COPD, recent admission for COPD exacerbation with influenza A positive, discharge from [facility] yesterday to [facility]. He apparently presented to the [facility] nursing desk for dialysis, and then slumped over and was minimally responsive. EMS describes agonal, and affect show respirations requiring bag valve mask assist. In the ED, the patient was noted to be severely hypothermic 94 F, hypoxic and was intubated utilizing etomidate and rocuronium. Imaging and lab studies were performed, revealing a potassium level of 6.1. The patient received in ED 2 g of calcium chloride 2 doses, blood cultures were obtained. Critical care medicine was consult today for treatment and management of respiratory failure, encephalopathy and presumed sepsis. History (Limited) History Past Medical History Narrative Medical End-stage renal disease on hemodialysis Saturday, AV fistula left upper extremity COPD A. fib CHF Acid reflux Hypertension History of lung biopsy Suprapubic catheter History of GI bleed Social History Alcohol Use: No (QUIT 1989) Tobacco Use: No (QUIT 1989) Allergies-Medications Allergies-Medications (Allergen,Severity, Reaction): Coded Allergies: Sulfa (Verified Allergy, Severe, "difficulty breathing", 06/02/16) Penicillin (Verified Adverse Reaction, Severe, "acid taste in mouth, problems with vision", 06/02/16) DIFFICULTY BREATHING Reported Meds & Prescriptions Reported Meds & Active Scripts Active Vistaril (Hydroxyzine Pamoate) 25 Mg Cap 25 Mg PO Q6H PRN Reported Renvela (Sevelamer Carbonate) 800 Mg Tab 800 Mg PO DAILY Pantoprazole (Pantoprazole Sodium) 40 Mg Tab 40 Mg PO DAILY Amiodarone (Amiodarone HCl) 200 Mg Tab 200 Mg PO EVERY OTHER DAY Diltiazem (Diltiazem HCl) 120 Mg Tab 240 Mg PO DIRECTED Aspirin 81 Mg Chew 81 Mg CHEW DAILY ROS Review of Systems ROS Limitations: Clinical Condition Physical Exam Vital Signs Vital Signs Date Time Temp Pulse Resp B/P Pulse Ox O2 Delivery O2 Flow Rate FiO2 06/02/16 14:44 66 16 99/57 94 06/02/16 14:00 100 50 06/02/16 13:42 58 16 140/70 100 Ventilator 06/02/16 12:34 100 70 06/02/16 11:41 100 Ventilator 100 06/02/16 11:38 100 06/02/16 11:28 94.0 65 12 119/57 98 Physical Exam GENERAL: Critically ill appearing gentleman, spontaneous eye opening intubated, not following my commands SKIN: Cool and dry. HEAD: Atraumatic. Normocephalic. EYES: Pupils equal and round. No scleral icterus. No injection or drainage. ENT: No nasal bleeding or discharge. Mucous membranes pink and moist. NECK: Trachea midline. No JVD. CARDIOVASCULAR: Normal rate, regular rhythm. RESPIRATORY: Mild expiratory wheezing noted. Breath sounds equal bilaterally. GASTROINTESTINAL: Abdomen soft, non-tender, nondistended. No guarding. MUSCULOSKELETAL: Extremities without clubbing, cyanosis, or edema. No obvious deformities. Left upper arm AV fistula with good bruit and thrill NEUROLOGICAL: Awake and alert. RASS 0. Laboratory Laboratory Tests Test 06/02/16 06/02/16 12:18 12:57 Blood Gas Puncture Site LT BRACHIAL Blood Gas Patient Temperature 98.6 Blood Gas HCO3 24 Blood Gas Base Excess -2.9 Blood Gas Oxygen Saturation 97 Arterial Blood pH 7.23 Arterial Blood Partial 59 Pressure CO2 Arterial Blood Partial 378 Pressure O2 Arterial Blood Oxygen Content 16.3 Arterial Blood 1.8 Carboxyhemoglobin Arterial Blood Methemoglobin 1.5 Blood Gas Hemoglobin 11.3 Oxygen Delivery Device VENTILATOR Blood Gas Ventilator Setting AC/16/500/+5 Blood Gas Inspired Oxygen 100 White Blood Count 7.7 Red Blood Count 3.40 Hemoglobin 11.1 Hematocrit 33.5 Mean Corpuscular Volume 98.4 Mean Corpuscular Hemoglobin 32.7 Mean Corpuscular Hemoglobin 33.2 Concent Red Cell Distribution Width 18.0 Platelet Count 72 Mean Platelet Volume 10.8 Neutrophils (%) (Auto) 98.6 Lymphocytes (%) (Auto) 0.5 Monocytes (%) (Auto) 0.2 Eosinophils (%) (Auto) 0.0 Basophils (%) (Auto) 0.7 Neutrophils # (Auto) 7.6 Lymphocytes # (Auto) 0.0 Monocytes # (Auto) 0.0 Eosinophils # (Auto) 0.0 Basophils # (Auto) 0.1 CBC Comment AUTO DIFF Differential Comment AUTO DIFF CONFIRMED Platelet Estimate LOW Platelet Morphology Comment NORMAL Ovalocytes 1+ Helmet Cells OCC Acanthocytes OCC Keratocytes OCC Prothrombin Time 11.9 Prothromb Time International 1.1 Ratio Activated Partial 23.6 Thromboplast Time Sodium Level 138 Potassium Level 6.1 Chloride Level 96 Carbon Dioxide Level 25.7 Anion Gap 16 Blood Urea Nitrogen 108 Creatinine 6.53 Estimat Glomerular Filtration 8 Rate Random Glucose 142 Calcium Level 8.1 Magnesium Level 2.2 Total Bilirubin 0.4 Aspartate Amino Transf 14 (AST/SGOT) Alanine Aminotransferase 40 (ALT/SGPT) Alkaline Phosphatase 122 Total Creatine Kinase 79 Troponin I 0.04 B-Type Natriuretic Peptide 402 Total Protein 5.6 Albumin 2.3 Date/Time Procedure Status Source Growth 06/02/16 11:45 Aerobic Blood Culture Received Blood Peripheral Pending 06/02/16 11:45 Anaerobic Blood Culture Received Blood Peripheral Pending Result Diagram: 06/02/16 1257 06/02/16 1257 Imaging Last Impressions Chest X-Ray 06/02/16 1139 Signed Impressions: Service Date/Time: Thursday, June 02, 2016 12:08 - CONCLUSION: 1. Endotracheal tube tip measures 6.8 cm from the jean. 2. Nasogastric tube tip terminates in the distal esophagus and should be advanced into the stomach. 3. Stable pleural calcification in the right hemithorax and stable airspace consolidation bilaterally with small pleural effusions. Chuck Cadet MD Septic Shock Reassessment Peripheral Pulses: Bounding Right Radial Bounding Left Radial Bounding Right Dorsalis Pedis Bounding Left Dorsalis Pedis Capillary Refill: Brisk Assessment and Plan Assessment and Plan Plan by systems: Neurologic: Metabolic Encephalopathy Hypothermia Apply warming device/blanket, maintain temperature 37 Obtain ammonia level Neurochecks per ICU protocol Tylenol 650 mg every 6 hours when necessary for pain Sedation vacation Propofol infusion for sedation for ventilator synchrony Respiratory: COPD Exacerbation Acute hypoxic respiratory failure Maintain O2 sat greater than 90% Advanced ETT 2 cm Solu-Medrol 40 mg every 8 hours Begin CPAP trials in a.m. Pulmonary consult-Dr. Grigsby appreciate recommendations Cardiovascular: Hypercholesterolemia Hypertension Cardiomegaly H/O A. fib RVR H/O CHF Obtain BNP Follow up EKG Obtain previous Echo report from 05/2016 admission Maintain MAP > 65mmHg, currently normotensive Continue aspirin 81 mg daily Continue amiodarone 200 mg every other day Renal: End-stage renal disease Nephrology consulted-Dr. Espinal, contacted him,made aware of patient's readmission ,potassium level and current intervention Hemodialysis-Saturday Left upper arm AV graft-positive bruit and thrill -- Strict I/Os FEN/GI: Hyperkalemia Hiatal hernia Potassium 6.1 today, upon hospital discharge 05/31 5.7, the patient received 2GM calcium chloride x 2 doses in the ED Insulin 10 units with D5W 50meq IV now Advanced NGT Kayexalate PO now Repeat BMP post therapy Protonix-home medication Heme/ID: Anemia of chronic disease History of multilobar pneumonia influenza A Recent diagnosis Multilobar PNA (Influenza A) discharged 05/31 Probable sepsis Obtain lactate levels Obtain Procalcitonin level Obtained pneumococcal, Legionella, influenza A and B cultures-patient received Tamiflu 05/28 Obtain urine and sputum cultures Bolus 1 L normal saline Last admission 2 days ago-patient was on azithromycin, Rocephin ID consult to appreciate recommendations Endocrine: Thyromegaly Obtain TSH level, and T4 level Obtain random cortisol -- SSI Prophylaxis: GI Prophylaxis Protonix 40 mg/daily (home medication) DVT Prophylaxis -- SCDs Heparin 5000 SQ BID Lines: Peripheral IVs 2. Central line if indicated Dispo: This patient remains critically ill with one or more organ systems which are or may become a threat to life. I have spent in excess of 60 minutes discontinuously in the care and management of this patient. This time is exclusive of procedures, and includes, but is not limited to, evaluation of the patient, review of the medical record, discussions with family, consultants, nursing staff, or respiratory therapy, and documentation in the medical record. Code Status Full Discussed Condition With MACHINE [employer] MAKER at bedside, and Dr. Espinal. Gillian Sen MD Jun 02, 2016 16:40
[2016-06-02] MEDS: RESP: ALBUTEROL 2.5 MG/IPRATROPIUM 0.5 MG NEB (SCH) INH ×2 (16:59→19:23)
--- NOTE | 2016-06-02 17:02 | MB ---
cc: ANGELA MILLER M.D., R. STEVEN M.D. DATE OF CONSULTATION: 06/02/2016. REASON FOR CONSULTATION: HISTORY OF PRESENT ILLNESS: Mr. Downey is a 70-year-old white male with several chronic comorbidities including COPD, congestive heart failure, chronic atrial fibrillation and chronic renal disease on hemodialysis. He was just discharged from the hospital yesterday after a recent exacerbation complicated by heart failure. He was sent to [facility] and apparently was found this morning with agonal respirations and was brought by EMS to the emergency room, resuscitated, intubated and is now mechanically ventilated. He is easily arousable and seems to move all four extremities, although he has a little agitated. That is all the history of the current events. PAST MEDICAL HISTORY: He has an extensive prior history includin. End-stage renal disease on hemodialysis. 2. COPD. 3. Atrial fibrillation. 4. Congestive heart failure. 5. Chronic reflux disease. 6. Hypertension. 7. A suprapubic catheter. 8. A history of a GI bleed. PAST SURGICAL HISTORY: 1. He has had previous hernia repair. 2. THE AV fistula for his dialysis. ALLERGIES: 1. SULFA. 2. PENICILLIN. On recent admissions, he was positive for influenza A antigen. His blood cultures were negative at that time. Chest x-ray on May 31 continued to reveal some volume overload. The chest x-ray today post intubation and mechanical ventilation is actually somewhat clearer. He also has stable pleural calcifications and hyperinflation. MEDICATIONS Reviewed in the electronic medical record. SOCIAL HISTORY: Social history is unknown to me other than he was a former smoker. Apparently he does not utilize alcohol. PHYSICAL EXAMINATION: GENERAL: This is a chronically ill-appearing very thin white male. He does respond to voice. He is a little bit agitated but appropriate. VITAL SIGNS: Temperature was 94 on presentation on 50%. His saturation is 100%. His pulse is 70-80. His respirations are currently comfortable at 14-18, blood pressure 120/70. HEAD, EYES, EARS, NOSE, THROAT: His sclerae are pale, anicteric. NECK: Neck veins are not distended. He is orotracheally intubated. CHEST: Reveals scattered congestion. No wheezing. HEART: Soft systolic murmur. No audible S3. ABDOMEN: Abdomen is soft. EXTREMITIES: He has no edema of the legs. Nail beds are pink. LABORATORY DATA: White count 7700, hemoglobin is 11. Arterial blood gases on mechanical ventilatory support: assist control rate of 20, FIO2 of 50%, pO2 was 86, pH 7.3, pCO2 45. BNP is 400. BUN is 108, creatinine is 6.5. DISCUSSION: Mr. Downey presented with apparently agonal respirations when EMS found him unresponsive at the nursing facility. He is now responsive on mechanical ventilatory support. Critical care consulted pulmonary to follow. I will defer management in the intensive care unit to critical care and we can follow him out of the unit to help manage his pulmonary problems. Further diagnostic and/or therapeutic recommendations will depend on his ongoing clinical course. R. MD NIC Sanchez/WIN /4:38 PM /4:54 PM
[2016-06-02 17:07] LABS: PLATELET COUNT 57 TH/MM3 (150-450); SCAN/DIFF AUTO DIFF CONFIRMED
--- NOTE | 2016-06-02 17:18 | PD.CONS ---
HPI Service Nephrology Consult Requested By Dr. Sen Reason for Consult ESRD Primary Care Physician Chuck Kaiser MD History of Present Illness Patient is a 70-year-old male with end-stage renal disease on hemodialysis COPD, recent flu, recurrent hospitalized for admissions with pneumonia, atrial fibrillation who was supposed to go for his hemodialysis but the past out and was brought to the emergency patient has hyperkalemia K at 6.1 and this was treated the, he has to be intubated because of respiratory distress he is responsive on vent. Review of Systems ROS Limitations: Clinical Condition Past Family Social History Allergies: Coded Allergies: Sulfa (Verified Allergy, Severe, "difficulty breathing", 06/02/16) Penicillin (Verified Adverse Reaction, Severe, "acid taste in mouth, problems with vision", 06/02/16) DIFFICULTY BREATHING Past Medical History Atrial fibrillation ESRD Hypertension Anemia Suprapubic catheter Reflux disease UTIs COPD Past Surgical History He has a heart surgery in Suprapubic catheter AV fistula left Ureter and scrotal repair Tonsillectomy Reported Medications Reported Meds & Active Scripts Active Vistaril (Hydroxyzine Pamoate) 25 Mg Cap 25 Mg PO Q6H PRN Reported Renvela (Sevelamer Carbonate) 800 Mg Tab 800 Mg PO DAILY Pantoprazole (Pantoprazole Sodium) 40 Mg Tab 40 Mg PO DAILY Amiodarone (Amiodarone HCl) 200 Mg Tab 200 Mg PO EVERY OTHER DAY Diltiazem (Diltiazem HCl) 120 Mg Tab 240 Mg PO DIRECTED Aspirin 81 Mg Chew 81 Mg CHEW DAILY Active Ordered Medications Current Medications Medications (Trade) Dose Ordered Sig/Bharti Route Start Time Stop Time Status Last Admin (NS 1000 ml Inj) 1,000 ml @ 42 mls/hr [id number] IV 06/02/16 14:28 06/02/16 15:27 (NS Flush) 2 ml UNSCH PRN IV FLUSH 06/02/16 14:30 (NS Flush) 2 ml BID IV FLUSH 06/02/16 21:00 (Tylenol) 650 mg Q6H PRN PO 06/02/16 14:30 (Protonix Inj) 40 mg DAILY IV 06/03/16 09:00 (Zofran Inj) 4 mg Q6H PRN IV 06/02/16 14:30 (Colace Liq) 100 mg Q12H G-TUBE 06/02/16 14:30 (Senokot) 17.2 mg Q12H PRN PO 06/02/16 14:30 Miscellaneous Information 1 [id number] XX 06/02/16 14:30 (Chlorhexidine 2% Cloth) 3 pack Taper DAILY@04 TOP 06/03/16 04:00 05/30/17 03:59 (Chlorhexidine 2% Cloth) 3 pack UNSCH PRN TOP 06/02/16 14:30 (Peridex 0.12% Liq) 15 ml BID@08,20 MT 06/02/16 20:00 (Glucagon Inj) 1 mg UNSCH PRN OTHER 06/02/16 14:30 Methylprednisolone Sodium Succinate 40 mg 40 mg Q8HR IV PUSH 06/02/16 22:00 (NS 1000 ml Inj) 1,000 ml @ 0 mls/hr Q0M PRN IV 06/02/16 15:36 Heparin Sodium (Porcine) 8000 units 8,000 units UNSCH PRN IVF 06/02/16 15:45 Sodium Chloride 1,000 ml @ 200 mls/hr Q5H PRN IV 06/02/16 15:36 (NS 1000 ml Inj) 1,000 ml @ 0 mls/hr Q0M PRN IV 06/02/16 15:36 (Mannitol Inj) 12.5 gm UNSCH PRN IV 06/02/16 15:45 (Albumin 25% Inj) 25 gm UNSCH PRN IV 06/02/16 15:45 (NS Flush) 5 ml UNSCH PRN IVF 06/02/16 15:45 (Zofran Inj) 4 mg UNSCH PRN IV 06/02/16 15:45 (Tylenol) 650 mg UNSCH PRN PO 06/02/16 15:45 (Benadryl) 25 mg UNSCH PRN PO 06/02/16 15:45 (Nitrostat Sl) 0.4 mg UNSCH PRN SL 06/02/16 15:45 (Catapres) 0.1 mg UNSCH PRN PO 06/02/16 15:45 (Epogen Inj) 5,000 units UNSCH PRN IV 06/02/16 15:45 (Gelfoam 12 Mm/7 Mm Top) 1 foam UNSCH PRN TOP 06/02/16 15:45 Heparin Sodium (Porcine) 5000 units 5,000 units Q12HR SQ 06/02/16 21:00 (Diprivan 1000 Mg/100ml Inj) 100 ml @ 0 mls/hr TITRATE IV 06/02/16 15:45 (Aspirin Chew) 81 mg DAILY CHEW 06/03/16 09:00 Family History Noncontributory Social History Denies history of alcohol use, history of smoking in the past Physical Exam Vital Signs Vital Signs Date Time Temp Pulse Resp B/P Pulse Ox O2 Delivery O2 Flow Rate FiO2 06/02/16 16:31 76 16 128/71 100 06/02/16 14:44 66 16 99/57 94 06/02/16 14:00 100 50 06/02/16 13:42 58 16 140/70 100 Ventilator 06/02/16 12:34 100 70 06/02/16 11:41 100 Ventilator 100 06/02/16 11:38 100 06/02/16 11:28 94.0 65 12 119/57 98 Physical Exam GENERAL: Well-nourished, well-developed patient. Intubated SKIN: Warm and dry. HEAD: Normocephalic. EYES: No scleral icterus. No injection or drainage. NECK: Supple, trachea midline. No JVD or lymphadenopathy. CARDIOVASCULAR: Irregular RESPIRATORY: Breath sounds equal bilaterally. No accessory muscle use. GASTROINTESTINAL: Abdomen soft, non-tender, nondistended. EXTREMITIES: No cyanosis, or edema. NEUROLOGICAL: Sedated Laboratory Laboratory Tests Test 06/02/16 06/02/16 06/02/16 06/02/16 12:18 12:57 15:15 15:50 Blood Gas Puncture Site LT BRACHIAL Blood Gas Patient Temperature 98.6 Blood Gas HCO3 24 Blood Gas Base Excess -2.9 Blood Gas Oxygen Saturation 97 Arterial Blood pH 7.23 Arterial Blood Partial 59 Pressure CO2 Arterial Blood Partial 378 Pressure O2 Arterial Blood Oxygen Content 16.3 Arterial Blood 1.8 Carboxyhemoglobin Arterial Blood Methemoglobin 1.5 Blood Gas Hemoglobin 11.3 Oxygen Delivery Device VENTILATOR Blood Gas Ventilator Setting AC/16/500/+5 Blood Gas Inspired Oxygen 100 White Blood Count 7.7 6.2 Red Blood Count 3.40 3.20 Hemoglobin 11.1 10.1 Hematocrit 33.5 31.8 Mean Corpuscular Volume 98.4 99.6 Mean Corpuscular Hemoglobin 32.7 31.6 Mean Corpuscular Hemoglobin 33.2 31.8 Concent Red Cell Distribution Width 18.0 18.5 Platelet Count 72 57 Mean Platelet Volume 10.8 9.8 Neutrophils (%) (Auto) 98.6 97.8 Lymphocytes (%) (Auto) 0.5 0.9 Monocytes (%) (Auto) 0.2 1.1 Eosinophils (%) (Auto) 0.0 0.1 Basophils (%) (Auto) 0.7 0.1 Neutrophils # (Auto) 7.6 6.0 Lymphocytes # (Auto) 0.0 0.1 Monocytes # (Auto) 0.0 0.1 Eosinophils # (Auto) 0.0 0.0 Basophils # (Auto) 0.1 0.0 CBC Comment AUTO DIFF AUTO DIFF Differential Comment AUTO DIFF AUTO DIFF CONFIRMED CONFIRMED Platelet Estimate LOW Platelet Morphology Comment NORMAL Ovalocytes 1+ Helmet Cells OCC Acanthocytes OCC Keratocytes OCC Prothrombin Time 11.9 Prothromb Time International 1.1 Ratio Activated Partial 23.6 Thromboplast Time Sodium Level 138 Potassium Level 6.1 Chloride Level 96 Carbon Dioxide Level 25.7 Anion Gap 16 Blood Urea Nitrogen 108 Creatinine 6.53 Estimat Glomerular Filtration 8 Rate Random Glucose 142 Calcium Level 8.1 Magnesium Level 2.2 Total Bilirubin 0.4 Aspartate Amino Transf 14 (AST/SGOT) Alanine Aminotransferase 40 (ALT/SGPT) Alkaline Phosphatase 122 Total Creatine Kinase 79 Troponin I 0.04 B-Type Natriuretic Peptide 402 Total Protein 5.6 Albumin 2.3 Ammonia 26 Lactic Acid Level 1.3 Thyroid Stimulating Hormone 0.933 3rd Gen Test 06/02/16 16:05 Blood Gas Puncture Site RT RADIAL Blood Gas Patient Temperature 98.6 Blood Gas HCO3 23 Blood Gas Base Excess -2.5 Blood Gas Oxygen Saturation 92 Arterial Blood pH 7.32 Arterial Blood Partial 45 Pressure CO2 Arterial Blood Partial 86 Pressure O2 Arterial Blood Oxygen Content 13.3 Arterial Blood 2.3 Carboxyhemoglobin Arterial Blood Methemoglobin 1.8 Blood Gas Hemoglobin 10.2 Oxygen Delivery Device VENTILATOR Blood Gas Ventilator Setting AC/20/500/PEEP5 Blood Gas Inspired Oxygen 50 Date/Time Procedure Status Source Growth 06/02/16 15:55 Influenza Types A,B Antigen (FREDO) - Final Complete Nasal Washing NEGATIVE FOR FLU A AND B ANTIGEN.... 06/02/16 15:10 Urine Culture Received Urine Catheterized Urine Pending 06/02/16 11:45 Aerobic Blood Culture Received Blood Peripheral Pending 06/02/16 11:45 Anaerobic Blood Culture Received Blood Peripheral Pending Result Diagram: 06/02/16 1550 06/02/16 1257 Imaging Last Impressions Chest X-Ray 06/02/16 1139 Signed Impressions: Service Date/Time: Thursday, June 02, 2016 12:08 - CONCLUSION: 1. Endotracheal tube tip measures 6.8 cm from the jean. 2. Nasogastric tube tip terminates in the distal esophagus and should be advanced into the stomach. 3. Stable pleural calcification in the right hemithorax and stable airspace consolidation bilaterally with small pleural effusions. Chuck Cadet MD Assessment and Plan Problem List: (1) ESRD (end stage renal disease) Plan: Patient is seen during hemodialysis he will get the treatment for today and we have shorten it as he was unstable and now on ventilator and we will continue to monitor his progress I will get potassium rechecked in the morning he was seen during dialysis again trying to get K lowered, tolerating it (2) Atrial fibrillation with rapid ventricular response Plan: Patient heart rate is controlled (3) Pneumonia Plan: He is being treated with antibiotics pulmonary is following Vancomycin and cefepime was given (4) Hyperkalemia Plan: Treated with D50 insulin and now getting hemodialysis Problem Qualifiers (1) Pneumonia: Qualified Code: J18.9 - Pneumonia due to infectious organism, unspecified laterality, unspecified part of lung Marta Rivera MD Jun 02, 2016 17:18
[2016-06-02] MEDS: AZITHROMYCIN INJ 500 MG in SODIUM CHLOR 0.9% 250 ML INJ 250 ML IV SCH (18:41)
[2016-06-02 19:35] LABS: ANION GAP 15 MEQ/L (5-15); AST (GOT) 16 U/L (15-37); BLOOD UREA NITROGEN 115 MG/DL (7-18); CHLORIDE 99 MEQ/L (98-107); GLOMERULAR FILTRATION RATE 8 ML/MIN (>89); POTASSIUM 6.2 MEQ/L (3.5-5.1); SODIUM (NA) 139 MEQ/L (136-145)
[2016-06-02 19:39] LABS: ALKALINE PHOSPHATASE 111 U/L (45-117); ALT (GPT) 39 U/L (12-78); TOTAL BILIRUBIN ADULT 0.4 MG/DL (0.2-1.0)
[2016-06-02] MEDS: SODIUM CHLORIDE 0.9% FLUSH 5 ML FLUSH IV FLUSH SCH (21:17)
[2016-06-02] MEDS: CHLORHEXIDINE 0.12% (ORAL KIT) 15 ML CUP MT SCH (21:17)
[2016-06-02] MEDS: AZTREONAM INJ 2,000 MG in SODIUM CHLORIDE 0.9% INJ 100 ML IV SCH (21:17)
[2016-06-02] MEDS: HEPARIN SODIUM - SQ 10,000 UNITS/ML VIAL SQ SCH (21:17)
[2016-06-02] MEDS: methylPREDNISolone SOD SUCC 40 MG/1 ML VIAL IV PUSH SCH (21:18)
--- NOTE | 2016-06-02 22:47 | PD.ID.CON ---
History of Present Illness Service ID Consult Requested By Dr Sen Reason for Consult PNA Primary Care Physician Chuck Kaiser MD Diagnoses: History of Present Illness Pt is known to me He is unable to provide history History obtained from the chart 70 yo male with multiple med problems, recent hospitalisation (2 weeks ago) for pneumonai and 6 days ago was diagnosed with influenza A (confirmed by test) and presened today with resp distress and MS change required intubation Mental status change resolved He is afebrile Off pressors Repeat flu antigen est from today is negative CXR showed airspace consolidation bilaterally with small pleural effusions Not much secretions Pt was treated with tamilflu Azithromycin, rocephin, methylprednisolone and duonebs for Influenza and COPD exacerbation druing his last admission Review of Systems ROS Limitations: Clinical Condition, Intubated Past Family Social History Allergies: Coded Allergies: Sulfa (Verified Allergy, Severe, "difficulty breathing", 06/02/16) Penicillin (Verified Adverse Reaction, Severe, "acid taste in mouth, problems with vision", 06/02/16) DIFFICULTY BREATHING Past Medical History 1. A-fib. 2. Hypercholesterolemia. 3. Congestive heart failure. 4. End-stage renal disease on hemodialysis. 5. Hypertension. 6. Hiatal hernia 7. COPD. Currently not on oxygen. 8. Gout. 9. Hyperparathyroidism. 10. Anxiety. 11. History of DVT. 12. GI bleed secondary to Coumadin for which he is currently not taking any anticoagulants because of the GI bleed history. Past Surgical History 1. Several hernia repairs. 2. Septal defect of the heart repaired. 3. Scrotum surgery. 4. Tonsillectomy. 5. Lung biopsy. 6. Left brachial A-V fistula. Active Ordered Medications Active Ordered Medications Medications where reviewed in EMR Antibiotics Include: aztreonam, vanco c HD azithro Family History Noncontributory Social History He is not , lives alone. Tobacco, quit 1989. Alcohol quite 1989. Physical Exam Vital Signs Vital Signs Date Time Temp Pulse Resp B/P Pulse Ox O2 Delivery O2 Flow Rate FiO2 06/02/16 18:00 84 20 128/61 95 06/02/16 18:00 84 06/02/16 17:00 98.9 81 20 151/63 94 06/02/16 17:00 81 06/02/16 16:31 76 16 128/71 100 06/02/16 14:44 66 16 99/57 94 06/02/16 14:00 100 50 06/02/16 13:42 58 16 140/70 100 Ventilator 06/02/16 12:34 100 70 06/02/16 11:41 100 Ventilator 100 06/02/16 11:38 100 06/02/16 11:28 94.0 65 12 119/57 98 Physical Exam CONSTITUTIONAL/GENERAL: This is a thin elderly male patient, sedated intubated on [facility] ventilationm + tremor TUBES/LINES/DRAINS: SKIN: No jaundice, rashes, or lesions. Ecchymoses on upper extremities. No wounds seen anteriorly. Skin temperature appropriate. Not diaphoretic. HEAD: Atraumatic. Normocephalic. EYES: Pupils equal and round and reactive. Extraocular motions intact. No scleral icterus. No injection or drainage. Fundi not examined. ENT: Hearing markedly decresed at b/l. Nose without bleeding or purulent drainage. Throat without visible erythema, exudates, masses, or lesions. Edentulous NECK: Trachea midline. Supple, nontender. No palpable thyroid enlargement or nodularity. CARDIOVASCULAR: irregular rate and rhythm without murmurs, gallops, or rubs. No JVD. Peripheral pulses symmetric. AV fistula in place looks OK LUE RESPIRATORY/CHEST: Symmetric, unlabored respirations. Breath sounds equal bilaterally. clear to auscultation GASTROINTESTINAL: Abdomen soft, non-tender, nondistended. No hepato-splenomegaly , or palpable masses. No guarding. Bowel sounds present. GENITOURINARY: Without palpable bladder distension. MUSCULOSKELETAL: Extremities without clubbing, cyanosis, or edema. No joint tenderness or effusion noted. No calf tenderness. No mottling or clubbing. LYMPHATICS: No palpable cervical or supraclavicular adenopathy. NEUROLOGICAL: Arousable Follows commands. Moves all extremities. PSYCHIATRIC: calm Laboratory Laboratory Tests Test 06/02/16 06/02/16 06/02/16 06/02/16 12:18 12:57 15:05 15:15 Blood Gas Puncture Site LT BRACHIAL Blood Gas Patient Temperature 98.6 Blood Gas HCO3 24 Blood Gas Base Excess -2.9 Blood Gas Oxygen Saturation 97 Arterial Blood pH 7.23 Arterial Blood Partial 59 Pressure CO2 Arterial Blood Partial 378 Pressure O2 Arterial Blood Oxygen Content 16.3 Arterial Blood 1.8 Carboxyhemoglobin Arterial Blood Methemoglobin 1.5 Blood Gas Hemoglobin 11.3 Oxygen Delivery Device VENTILATOR Blood Gas Ventilator Setting AC/16/500/+5 Blood Gas Inspired Oxygen 100 White Blood Count 7.7 Red Blood Count 3.40 Hemoglobin 11.1 Hematocrit 33.5 Mean Corpuscular Volume 98.4 Mean Corpuscular Hemoglobin 32.7 Mean Corpuscular Hemoglobin 33.2 Concent Red Cell Distribution Width 18.0 Platelet Count 72 Mean Platelet Volume 10.8 Neutrophils (%) (Auto) 98.6 Lymphocytes (%) (Auto) 0.5 Monocytes (%) (Auto) 0.2 Eosinophils (%) (Auto) 0.0 Basophils (%) (Auto) 0.7 Neutrophils # (Auto) 7.6 Lymphocytes # (Auto) 0.0 Monocytes # (Auto) 0.0 Eosinophils # (Auto) 0.0 Basophils # (Auto) 0.1 CBC Comment AUTO DIFF Differential Comment AUTO DIFF CONFIRMED Platelet Estimate LOW Platelet Morphology Comment NORMAL Ovalocytes 1+ Helmet Cells OCC Acanthocytes OCC Keratocytes OCC Prothrombin Time 11.9 Prothromb Time International 1.1 Ratio Activated Partial 23.6 Thromboplast Time Sodium Level 138 Potassium Level 6.1 Chloride Level 96 Carbon Dioxide Level 25.7 Anion Gap 16 Blood Urea Nitrogen 108 Creatinine 6.53 Estimat Glomerular Filtration 8 Rate Random Glucose 142 Calcium Level 8.1 Magnesium Level 2.2 Total Bilirubin 0.4 Aspartate Amino Transf 14 (AST/SGOT) Alanine Aminotransferase 40 (ALT/SGPT) Alkaline Phosphatase 122 Total Creatine Kinase 79 Troponin I 0.04 B-Type Natriuretic Peptide 402 Total Protein 5.6 Albumin 2.3 HIV (1&2) Antibody NEGATIVE Ammonia 26 Test 06/02/16 06/02/16 15:50 16:05 White Blood Count 6.2 Red Blood Count 3.20 Hemoglobin 10.1 Hematocrit 31.8 Mean Corpuscular Volume 99.6 Mean Corpuscular Hemoglobin 31.6 Mean Corpuscular Hemoglobin 31.8 Concent Red Cell Distribution Width 18.5 Platelet Count 57 Mean Platelet Volume 9.8 Neutrophils (%) (Auto) 97.8 Lymphocytes (%) (Auto) 0.9 Monocytes (%) (Auto) 1.1 Eosinophils (%) (Auto) 0.1 Basophils (%) (Auto) 0.1 Neutrophils # (Auto) 6.0 Lymphocytes # (Auto) 0.1 Monocytes # (Auto) 0.1 Eosinophils # (Auto) 0.0 Basophils # (Auto) 0.0 CBC Comment AUTO DIFF Differential Comment AUTO DIFF CONFIRMED Sodium Level 139 Potassium Level 6.2 Chloride Level 99 Carbon Dioxide Level 25.0 Anion Gap 15 Blood Urea Nitrogen 115 Creatinine 6.62 Estimat Glomerular Filtration 8 Rate Random Glucose 121 Lactic Acid Level 1.3 Calcium Level 8.2 Total Bilirubin 0.4 Aspartate Amino Transf 16 (AST/SGOT) Alanine Aminotransferase 39 (ALT/SGPT) Alkaline Phosphatase 111 Troponin I 0.03 Total Protein 5.2 Albumin 2.2 Thyroid Stimulating Hormone 0.933 3rd Gen Blood Gas Puncture Site RT RADIAL Blood Gas Patient Temperature 98.6 Blood Gas HCO3 23 Blood Gas Base Excess -2.5 Blood Gas Oxygen Saturation 92 Arterial Blood pH 7.32 Arterial Blood Partial 45 Pressure CO2 Arterial Blood Partial 86 Pressure O2 Arterial Blood Oxygen Content 13.3 Arterial Blood 2.3 Carboxyhemoglobin Arterial Blood Methemoglobin 1.8 Blood Gas Hemoglobin 10.2 Oxygen Delivery Device VENTILATOR Blood Gas Ventilator Setting AC/20/500/PEEP5 Blood Gas Inspired Oxygen 50 Date/Time Procedure Status Source Growth 06/02/16 15:55 Influenza Types A,B Antigen (FREDO) - Final Complete Nasal Washing NEGATIVE FOR FLU A AND B ANTIGEN.... 06/02/16 15:10 Urine Culture Received Urine Catheterized Urine Pending 06/02/16 15:10 Legionella Antigen Received Urine Catheterized Urine Pending 06/02/16 15:10 Streptococcus pneumoniae Antigen (M Received Urine Catheterized Urine Pending 06/02/16 11:45 Aerobic Blood Culture Received Blood Peripheral Pending 06/02/16 11:45 Anaerobic Blood Culture Received Blood Peripheral Pending Result Diagram: 06/02/16 1550 06/02/16 1550 Imaging Last Impressions Chest X-Ray 06/02/16 1139 Signed Impressions: Service Date/Time: Thursday, June 02, 2016 12:08 - CONCLUSION: 1. Endotracheal tube tip measures 6.8 cm from the jean. 2. Nasogastric tube tip terminates in the distal esophagus and should be advanced into the stomach. 3. Stable pleural calcification in the right hemithorax and stable airspace consolidation bilaterally with small pleural effusions. Chuck Cadet MD Assessment and Plan Assessment and Plan Recurrent PNA Recent flu Acute VDRF Recent hospitalization - con current abx -fu blood and sputum clx Discussed Condition With Daniela Patrick MD Jun 02, 2016 22:47
[2016-06-02 22:48] LABS: FREE T4 0.91 NG/DL (0.76-1.46)
[2016-06-03] VITALS (22 sets, daily range): BP systolic 101–190; BP diastolic 38–76; PULSE 53–89; RESP 20–24; TEMP 97.9–99.1; O2SAT 93–99
[2016-06-03] MEDS: AZTREONAM INJ 2,000 MG in SODIUM CHLORIDE 0.9% INJ 100 ML IV SCH (03:22)
[2016-06-03] MEDS: DOCUSATE SODIUM 100 MG/10 ML UDC G-TUBE SCH ×2 (03:22→14:40)
[2016-06-03] MEDS: CHLORHEXIDINE GLUCONATE 2 % 1 PACK (2 CLOTHS) TOP SCH (03:22)
[2016-06-03] MEDS: RESP: ALBUTEROL 2.5 MG/IPRATROPIUM 0.5 MG NEB (SCH) INH ×4 (03:41→19:25)
[2016-06-03 04:59] LABS: CALCIUM-PROTEIN CORRECTED 7.8 MG/DL (8.5-10.1); MAGNESIUM 1.8 MG/DL (1.5-2.5); POTASSIUM 5.3 MEQ/L (3.5-5.1); TOTAL BILIRUBIN ADULT 0.4 MG/DL (0.2-1.0)
--- NOTE | 2016-06-03 05:06 | RADRPT ---
EXAM DATE/TIME: 06/03/2016 03:41 [place] COMPARISON: CHEST SINGLE AP, June 02, 2016, 12:08. INDICATIONS : Shortness of breath, possible pulmonary disease. MEDICAL HISTORY : Hypertension. Hypercholesterolemia. Renal disease, end stage. COPD SURGICAL HISTORY : Inguinal hernia repair. ENCOUNTER: Subsequent ACUITY: 2 days PAIN SCORE: Non-responsive. LOCATION: Bilateral chest FINDINGS: Endotracheal tube and nasogastric tube are present in satisfactory position. Stable pleural calcifica tions are present on the right. Left perihilar and basilar consolidation and small effusion are again noted. Cardiac silhouette is enlarged. CONCLUSION: Satisfactory support line and tube positioning. No significant changes in aeration. Chuck Mejia MD on June 03, 2016 at 5:03 Board Certified Radiologist. This report was verified electronically.
[2016-06-03] MEDS: INSULIN NovoLIN REGULAR SUPPLEMENTAL SCALE SQ SCH ×4 (06:01→21:00)
[2016-06-03] MEDS: methylPREDNISolone SOD SUCC 40 MG/1 ML VIAL IV PUSH SCH (06:01)
[2016-06-03] MEDS: CHLORHEXIDINE 0.12% (ORAL KIT) 15 ML CUP MT SCH ×3 (07:43→22:38)
[2016-06-03] MEDS: ASPIRIN 81 MG CHEW TAB CHEW SCH (07:55)
[2016-06-03] MEDS: PANTOPRAZOLE SODIUM 40 MG VIAL IV SCH (07:55)
[2016-06-03] MEDS: SODIUM CHLORIDE 0.9% FLUSH 5 ML FLUSH IV FLUSH SCH ×2 (07:56→22:37)
[2016-06-03] MEDS: HEPARIN SODIUM - SQ 10,000 UNITS/ML VIAL SQ SCH ×2 (07:56→21:00)
[2016-06-03] MEDS ORDERED: CALCIUM GLUCONATE INJ 2 GM in DEXTROSE 5% IN WATER 100ML INJ 100 ML IV ONE ×2 (09:00)
--- NOTE | 2016-06-03 09:02 | HHI.CCPN ---
Subjective Remarks/Hospital Course This 70 year-old man, multiple chronic medical conditions including end-stage renal disease on HD, A. fib, COPD, recent admission for COPD exacerbation with influenza A positive, discharge from [facility] yesterday to [facility]. He apparently presented to the [facility] nursing desk for dialysis, and then slumped over and was minimally responsive. EMS describes agonal, and affect show respirations requiring bag valve mask assist. In the ED, the patient was noted to be severely hypothermic 94 F, hypoxic and was intubated utilizing etomidate and rocuronium. Imaging and lab studies were performed, revealing a potassium level of 6.1. The patient received in ED 2 g of calcium chloride 2 doses, blood cultures were obtained. Critical care medicine was consult today for treatment and management of respiratory failure, encephalopathy and presumed sepsis. Subjective: 06/03: Afebrile. The patient was dialyzed last evening, 1.5 liters removed with initial potassium level 6.2., currently level 5.3. The patient is awake and alert, CPAP trials are in process, with plans to extubate today. Cultures are in process and the patient continues on empiric antibiotics. Objective Vital Signs Date Time Temp Pulse Resp B/P Pulse Ox O2 Delivery O2 Flow Rate FiO2 06/03/16 08:16 40 06/03/16 08:13 99 06/03/16 06:00 76 06/03/16 06:00 98.2 20 132/60 06/02/16 13:42 Ventilator Intake and Output 06/02/16 06/02/16 06/03/16 08:00 16:00 00:00 Intake Total 467 ml Output Total 360 ml Balance 107 ml Result Diagram: 06/02/16 1550 06/03/16 0412 Other Results Microbiology Date/Time Procedure Status Source Growth 06/02/16 15:55 Influenza Types A,B Antigen (FREDO) - Final Complete Nasal Washing NEGATIVE FOR FLU A AND B ANTIGEN.... Laboratory Tests Test 06/02/16 06/02/16 12:18 16:05 Blood Gas Puncture Site LT BRACHIAL RT RADIAL Blood Gas Patient Temperature 98.6 98.6 Blood Gas HCO3 24 mmol/L 23 mmol/L (22-26) (22-26) Blood Gas Base Excess -2.9 mmol/L -2.5 mmol/L (-2-2) (-2-2) Blood Gas Oxygen Saturation 97 % (90-100) 92 % (90-100) Arterial Blood pH 7.23 7.32 (7.380-7.420) (7.380-7.420) Arterial Blood Partial 59 mmHg (38-42) 45 mmHg (38-42) Pressure CO2 Arterial Blood Partial 378 mmHG 86 mmHG Pressure O2 (61-120) (61-120) Arterial Blood Oxygen Content 16.3 Vol % 13.3 Vol % (12.0-20.0) (12.0-20.0) Arterial Blood 1.8 % (0-4) 2.3 % (0-4) Carboxyhemoglobin Arterial Blood Methemoglobin 1.5 % (0-2) 1.8 % (0-2) Blood Gas Hemoglobin 11.3 G/DL 10.2 G/DL (12.0-16.0) (12.0-16.0) Oxygen Delivery Device VENTILATOR VENTILATOR Blood Gas Ventilator Setting AC/16/500/+5 AC/20/500/PEEP5 Blood Gas Inspired Oxygen 100 % 50 % Imaging Last Impressions Chest X-Ray 06/02/16 1139 Signed Impressions: Service Date/Time: Thursday, June 02, 2016 12:08 - CONCLUSION: 1. Endotracheal tube tip measures 6.8 cm from the jean. 2. Nasogastric tube tip terminates in the distal esophagus and should be advanced into the stomach. 3. Stable pleural calcification in the right hemithorax and stable airspace consolidation bilaterally with small pleural effusions. Chuck Cadet MD Objective Remarks GENERAL: Elderly gentleman, awake and alert ,intubated following my commands SKIN: Cool and dry. HEAD: Atraumatic. Normocephalic. EYES: Pupils equal and round. No scleral icterus. No injection or drainage. ENT: No nasal bleeding or discharge. Mucous membranes pink and moist. NECK: Trachea midline. No JVD. CARDIOVASCULAR: Normal rate, regular rhythm. RESPIRATORY: Clear to auscultation bilaterally.. Breath sounds equal bilaterally. GASTROINTESTINAL: Abdomen soft, non-tender, nondistended. No guarding. MUSCULOSKELETAL: Extremities without clubbing, cyanosis, or edema. No obvious deformities. Left upper arm AV fistula with good bruit and thrill NEUROLOGICAL: Awake and alert. RASS 0. Urinary Catheter: Yes Ferrara insert reason: Measure Accurate Output Date of Insertion: Jun 02, 2016 Vascular Central Line Catheter: No A/P Assessment and Plan Plan by systems: Neurologic: Metabolic Encephalopathy Hypothermia-resolved Normothermic-98F Ammonia level-26 Neurochecks per ICU protocol Tylenol 650 mg every 6 hours when necessary for pain Off Sedation plans for Cpap trials and extubation Respiratory: COPD Exacerbation Acute hypoxic respiratory failure Maintain O2 sat greater than 90% Solu-Medrol 40 mg every 8 hours CPAP trials with SBT parameters Pulmonary consult-Dr. Grigsby appreciate recommendations Duonebs q 6hrs scheduled, q 2 hrs PRN Ventilator bundle Maintain HOB 30 degrees Cardiovascular: Hypercholesterolemia Hypertension Cardiomegaly H/O A. fib RVR H/O CHF BNP-341 06/02Troponin-neg EKG-Atrial fibrillation Obtain previous Echo report from 05/2016 admission Maintain MAP > 65mmHg, currently normotensive Continue aspirin 81 mg daily Continue amiodarone 200 mg every other day Renal: End-stage renal disease Nephrology following-Dr. Espinal Hemodialysis-Saturday Left upper arm AV graft-positive bruit and thrill Hemodialysis 06/02 -- Strict I/Os FEN/GI: Hyperkalemia Hiatal hernia Potassium level 5.3 Will begin tubefeeds if extubation attempt unsuccessful Protonix-home medication NS @ 42cc/hr- will discontinue Heme/ID: Anemia of chronic disease History of multilobar pneumonia influenza A Recent diagnosis Multilobar PNA (Influenza A) discharged 05/31 Probable sepsis Obtain lactate levels Obtain Procalcitonin level Obtained pneumococcal, Legionella, influenza A and B cultures-patient received Tamiflu 05/28 Obtain urine and sputum cultures Bolus 1 L normal saline Last admission 2 days ago-patient was on azithromycin, Rocephin ID consult to appreciate recommendations Endocrine: Thyromegaly Obtain TSH level, and T4 level Obtain random cortisol -- SSI Prophylaxis: GI Prophylaxis Protonix 40 mg/daily (home medication) DVT Prophylaxis -- SCDs Heparin 5000 SQ BID Lines: Peripheral IVs 2. Central line if indicated Dispo: This patient remains critically ill with one or more organ systems which are or may become a threat to life. I have spent in excess of 47 minutes discontinuously in the care and management of this patient. This time is exclusive of procedures, and includes, but is not limited to, evaluation of the patient, review of the medical record, discussions with family, consultants, nursing staff, or respiratory therapy, and documentation in the medical record. Physician Gillian Mathias MD Jun 03, 2016 09:02
[2016-06-03] MEDS ORDERED: METOPROLOL TARTRATE 5 MG/5 ML VIAL ONE (10:01)
--- NOTE | 2016-06-03 13:42 | HHI.NPPN ---
Subjective History of Present Illness 70 year old male with COPD, ESRD, A fib Review of Systems General Constitutional: Fatigue Objective Data Data 06/02/16 06/03/16 19:00 07:00 Intake Total 678 ml Output Total 300 ml 80 ml Balance -300 ml 598 ml Intake IV Total 678 ml Output Urine Total 300 ml 80 ml # Bowel Movements 0 Vital Signs Date Time Temp Pulse Resp B/P Pulse Ox O2 Delivery O2 Flow Rate FiO2 06/03/16 12:00 88 06/03/16 12:00 98.2 88 23 190/76 93 06/03/16 10:00 89 06/03/16 09:23 94 Nasal Cannula 4 06/03/16 09:23 94 Nasal Cannula 4.00 06/03/16 08:16 40 06/03/16 08:13 99 40 06/03/16 08:00 99.1 82 20 159/68 94 06/03/16 08:00 82 06/03/16 06:00 76 06/03/16 06:00 98.2 76 20 132/60 94 06/03/16 05:00 98.2 80 20 134/58 94 06/03/16 04:00 79 06/03/16 04:00 50 06/03/16 04:00 98.2 79 20 133/60 94 06/03/16 03:00 98.8 80 20 133/53 94 06/03/16 02:00 78 06/03/16 02:00 98.8 78 20 127/60 95 06/03/16 01:00 98.7 80 20 127/60 94 06/03/16 00:00 50 06/03/16 00:00 79 06/03/16 00:00 98.8 79 20 138/62 94 06/02/16 23:50 94 40 06/02/16 23:00 98.9 79 20 123/52 94 06/02/16 22:00 98.8 81 20 139/62 95 06/02/16 22:00 81 06/02/16 21:00 98.8 84 20 138/58 94 06/02/16 20:00 98.9 82 20 123/54 95 06/02/16 20:00 82 06/02/16 20:00 50 06/02/16 19:22 97 40 06/02/16 19:00 98.9 97 20 131/57 97 06/02/16 18:00 84 20 128/61 95 06/02/16 18:00 84 06/02/16 17:00 98.9 81 20 151/63 94 06/02/16 17:00 81 06/02/16 16:31 76 16 128/71 100 06/02/16 14:44 66 16 99/57 94 06/02/16 14:00 100 50 06/02/16 13:42 58 16 140/70 100 Ventilator -: 06/02/16 1550 06/03/16 0412 Microbiology 06/02/16 Urine Culture - Preliminary, Resulted NO GROWTH IN 24 HOURS. 06/02/16 Legionella Antigen - Final, Complete PRESUMPTIVE NEGATIVE FOR LEGIONELLA P... 06/02/16 Streptococcus pneumoniae Antigen (M - Final, Complete PRESUMPTIVE NEGATIVE FOR STREPTOCOCCU... 06/02/16 Influenza Types A,B Antigen (FREDO) - Final, Complete NEGATIVE FOR FLU A AND B ANTIGEN.... Physical Exam General Appearance: Well Developed Neck Neck Exam: Neck Supple Pulmonary Resp Exam: Decreased Bases Cardiology CV Exam: Arrhythmia Gastrointestinal/Abdomen GI Exam: Soft, Non-Tender, Bowel Sounds Present Extremeties Extremities Exam: No Edema Assessment/Plan Problem List: (1) ESRD (end stage renal disease) Plan: had dialysis 1.5 L OFF k 5.3 follow BMP may need further dialysis in am continue supportive care extubated EF 45% in 2014 will repeat Echo (2) Atrial fibrillation with rapid ventricular response Plan: Patient heart rate is controlled (3) Pneumonia Plan: He is being treated with antibiotics pulmonary is following Vancomycin and cefepime was given (4) Hyperkalemia Plan: k 5.3 Problem Qualifiers (1) Pneumonia: Qualified Code: J18.9 - Pneumonia due to infectious organism, unspecified laterality, unspecified part of lung Marta Rivera MD Jun 03, 2016 13:42
[2016-06-03] MEDS: AZTREONAM 1,000 MG/NS 100 ML IV SCH ×4 (14:40→22:36)
[2016-06-03] MEDS: AZITHROMYCIN INJ 500 MG in SODIUM CHLOR 0.9% 250 ML INJ 250 ML IV SCH (17:40)
[2016-06-03] MEDS ORDERED: ETOMIDATE 20 MG/10 ML VIAL IV PUSH ONE (18:15)
[2016-06-03] MEDS ORDERED: ROCURONIUM INJ 50 MG/5 ML VIAL IV ONE (18:15)
[2016-06-03] MEDS ORDERED: ROCURONIUM INJ 50 MG/5 ML VIAL ONE (18:17)
[2016-06-03] MEDS ORDERED: ETOMIDATE 40 MG/20 ML VIAL ONE (18:17)
[2016-06-03] MEDS ORDERED: PROPOFOL 500 MG/50 ML INJ 50 ML ONE (18:23)
--- NOTE | 2016-06-03 18:30 | PD.PROCEDR ---
Procedure Note Procedure After the risks and benefits were discussed the following procedure was performed: INTUBATION: The patient was put in optimal position for the procedure. Rapid sequence intubation was initiated by me using 20 milligrams of etomidate IV and 50 milligrams of Rocuronium IV. DL with Mac 4 blade Grade 1 view single attempt. (RT Francisco had attempted intubation which resulted in esophageal intubation. This tube was removed and I endotracheally intubated the patient) The patient was intubated with a 8.0 cuffed endotracheal tube. Tube placement was confirmed by visualization of the tube and balloon passing through the cords , capnometry and subsequent chest x-ray. Breath sounds were equal and well aerated bilaterally postintubation. No breath sounds over stomach. Patient tolerated procedure well. Sera Woods MD Jun 03, 2016 18:30
--- NOTE | 2016-06-03 18:54 | RADRPT ---
EXAM DATE/TIME: 06/03/2016 18:27 [place] COMPARISON: CHEST SINGLE AP, June 03, 2016, 3:41. INDICATIONS : Evaluate intubation MEDICAL HISTORY : Hypertension. Hypercholesterolemia. Renal disease, end stage. COPD SURGICAL HISTORY : Inguinal hernia repair. ENCOUNTER: Subsequent ACUITY: 3 days PAIN SCORE: Non-responsive. LOCATION: Bilateral chest FINDINGS: Endotracheal tube is noted in the distal tip terminates 3.5 cm above the jean at the inferior kraig n of the clavicles. NG tube has been removed. There is patchy airspace consolidation bilaterally and bilateral effusions which are stable. EKG leads overlie the chest. CONCLUSION: Endotracheal tube placement as above. Nelson Franklin MD on June 03, 2016 at 18:52 Board Certified Radiologist. This report was verified electronically.
[2016-06-03 19:22] LABS: BLOOD GAS BASE EXCESS -5.9 mmol/L (-2-2); BLOOD GAS CARBOXYHEMOGLOBIN 1.3 % (0-4); BLOOD GAS HCO3 22 mmol/L (22-26); BLOOD GAS METHEMOGLOBIN 1.2 % (0-2); BLOOD GAS O2 HGB SATURATION 97 % (90-100); BLOOD GAS OXYGEN CONTENT 14.5 Vol % (12.0-20.0); BLOOD GAS PCO2 69 mmHg (38-42); BLOOD GAS PO2 368 mmHg (61-120); BLOOD GAS TOTAL HGB 9.9 G/DL (12.0-16.0); TEMP CORR TO 98.6
[2016-06-03 19:23] LABS: CRITICAL VALUE YES; DRAW SITE RT FEMORAL; FIO2 100 %; NUMBER OF ARTERIAL PUNCTURES 1; OXYGEN DEVICE VENTILATOR; STAT NO; VENT SETTINGS AC 16/500/5PEEP
[2016-06-03] MEDS ORDERED: SODIUM CHLORID 0.9% 500 ML INJ 500 ML IV ONE (19:30)
[2016-06-03] MEDS ORDERED: NOREPINEPHRINE-DEXTROSE DRIP 250 ML IV SCH (19:45)
[2016-06-03] MEDS ORDERED: TERBUTALINE INJ 1 MG/ML AMP SQ PRN (19:45)
[2016-06-03 22:02] LABS: BLOOD GAS BASE EXCESS -6.7 mmol/L (-2-2); BLOOD GAS CARBOXYHEMOGLOBIN 1.4 % (0-4); BLOOD GAS HCO3 21 mmol/L (22-26); BLOOD GAS METHEMOGLOBIN 1.3 % (0-2); BLOOD GAS O2 HGB SATURATION 94 % (90-100); BLOOD GAS OXYGEN CONTENT 13.5 Vol % (12.0-20.0); BLOOD GAS PCO2 62 mmHg (38-42); BLOOD GAS PO2 105 mmHg (61-120); BLOOD GAS TOTAL HGB 10.1 G/DL (12.0-16.0); OXYGEN DEVICE VENTILATOR; TEMP CORR TO 98.6
[2016-06-03 22:03] LABS: CRITICAL VALUE YES; DRAW SITE RT FEMORAL; FIO2 50 %; NUMBER OF ARTERIAL PUNCTURES 1; VENT SETTINGS AC 18/500/PEEP5
[2016-06-03 22:04] LABS: STAT NO
[2016-06-03] MEDS ORDERED: SODIUM BICARBONATE 8.4% INJ 50 MEQ/50 ML SYR IV PUSH ONE (22:15)
[2016-06-03] MEDS ORDERED: SODIUM BICARBONATE 8.4% INJ 50 ML ONE (22:30)
[2016-06-04] VITALS (18 sets, daily range): BP systolic 99–174; BP diastolic 56–77; PULSE 90–140; RESP 20–22; TEMP 98.1–99.5; O2SAT 93–100
[2016-06-04 00:12] LABS: BLOOD GAS BASE EXCESS -3.7 mmol/L (-2-2); BLOOD GAS CARBOXYHEMOGLOBIN 1.9 % (0-4); BLOOD GAS HCO3 22 mmol/L (22-26); BLOOD GAS METHEMOGLOBIN 1.1 % (0-2); BLOOD GAS O2 HGB SATURATION 94 % (90-100); BLOOD GAS OXYGEN CONTENT 12.5 Vol % (12.0-20.0); BLOOD GAS PCO2 45 mmHg (38-42); BLOOD GAS PO2 95 mmHg (61-120); BLOOD GAS TOTAL HGB 9.3 G/DL (12.0-16.0); CRITICAL VALUE NO; FIO2 50 %; OXYGEN DEVICE VENTILATOR; TEMP CORR TO 98.6; VENT SETTINGS AC 20/600/PEEP8
[2016-06-04 00:13] LABS: DRAW SITE RT FEMORAL; NUMBER OF ARTERIAL PUNCTURES 1; STAT NO
[2016-06-04] MEDS: DOCUSATE SODIUM 100 MG/10 ML UDC G-TUBE SCH ×2 (02:30→14:30)
[2016-06-04] MEDS: CHLORHEXIDINE GLUCONATE 2 % 1 PACK (2 CLOTHS) TOP SCH (04:00)
[2016-06-04] MEDS: AZTREONAM 1,000 MG/NS 100 ML IV SCH ×6 (04:46→21:29)
[2016-06-04 06:45] LABS: HEMATOCRIT 28.3 % (39.0-51.0); MEAN CELL VOLUME 97.6 FL (80.0-100.0); MEAN CORPUSCULAR HEMOGLOBIN 31.9 PG (27.0-34.0); MEAN CORPUSCULAR HGB CONC 32.7 % (32.0-36.0); PLATELET COUNT 39 TH/MM3 (150-450); RED CELL DISTRIBUTION WIDTH 18.2 % (11.6-17.2)
[2016-06-04 06:52] LABS: REVIEW FLAG FINAL
[2016-06-04] MEDS: INSULIN NovoLIN REGULAR SUPPLEMENTAL SCALE SQ SCH ×4 (07:00→21:00)
[2016-06-04 07:05] LABS: BICARBONATE 25.1 MEQ/L (21.0-32.0); MAGNESIUM 2.2 MG/DL (1.5-2.5); POTASSIUM 5.5 MEQ/L (3.5-5.1)
[2016-06-04 07:39] LABS: CALCIUM-PROTEIN CORRECTED 7.6 MG/DL (8.5-10.1)
[2016-06-04] MEDS: CHLORHEXIDINE 0.12% (ORAL KIT) 15 ML CUP MT SCH ×3 (08:00→21:29)
--- NOTE | 2016-06-04 08:44 | HHI.CCPN ---
Subjective Remarks/Hospital Course This 70 year-old man, multiple chronic medical conditions including end-stage renal disease on HD, A. fib, COPD, recent admission for COPD exacerbation with influenza A positive, discharge from [facility] yesterday to [facility]. He apparently presented to the [facility] nursing desk for dialysis, and then slumped over and was minimally responsive. EMS describes agonal, and affect show respirations requiring bag valve mask assist. In the ED, the patient was noted to be severely hypothermic 94 F, hypoxic and was intubated utilizing etomidate and rocuronium. Imaging and lab studies were performed, revealing a potassium level of 6.1. The patient received in ED 2 g of calcium chloride 2 doses, blood cultures were obtained. Critical care medicine was consult today for treatment and management of respiratory failure, encephalopathy and presumed sepsis. Subjective: 06/03: Afebrile. The patient was dialyzed last evening, 1.5 liters removed with initial potassium level 6.2., currently level 5.3. The patient is awake and alert, CPAP trials are in process, with plans to extubate today. Cultures are in process and the patient continues on empiric antibiotics. 06/04 overnight patient became restless in respiratory distress hypoxic requiring reintubation Objective Vital Signs Date Time Temp Pulse Resp B/P Pulse Ox O2 Delivery O2 Flow Rate FiO2 06/04/16 07:26 97 40 06/04/16 06:00 94 06/04/16 04:00 98.1 20 119/56 06/03/16 09:23 Nasal Cannula 4 Intake and Output 06/03/16 06/03/16 06/04/16 08:00 16:00 00:00 Intake Total 211 ml 884 ml Output Total 20 ml 50 ml 10 ml Balance 191 ml -50 ml 874 ml Result Diagram: 06/04/16 0609 06/04/16 0609 Other Results Microbiology Date/Time Procedure Status Source Growth 06/02/16 15:10 Legionella Antigen - Final Complete Urine Catheterized Urine PRESUMPTIVE NEGATIVE FOR LEGIONELLA P... 06/02/16 15:10 Streptococcus pneumoniae Antigen (M - Final Complete Urine Catheterized Urine PRESUMPTIVE NEGATIVE FOR STREPTOCOCCU... 06/02/16 15:55 Influenza Types A,B Antigen (FREDO) - Final Complete Nasal Washing NEGATIVE FOR FLU A AND B ANTIGEN.... Laboratory Tests Test 06/03/16 06/03/16 06/04/16 19:08 21:51 00:00 Blood Gas Puncture Site RT FEMORAL RT FEMORAL RT FEMORAL Blood Gas Patient Temperature 98.6 98.6 98.6 Blood Gas HCO3 22 mmol/L 21 mmol/L 22 mmol/L (22-26) (22-26) (22-26) Blood Gas Base Excess -5.9 mmol/L -6.7 mmol/L -3.7 mmol/L (-2-2) (-2-2) (-2-2) Blood Gas Oxygen Saturation 97 % (90-100) 94 % (90-100) 94 % (90-100) Arterial Blood pH 7.13 7.15 7.30 (7.380-7.420) (7.380-7.420) (7.380-7.420) Arterial Blood Partial 69 mmHg (38-42) 62 mmHg (38-42) 45 mmHg (38-42) Pressure CO2 Arterial Blood Partial 368 mmHg 105 mmHg 95 mmHg Pressure O2 (61-120) (61-120) (61-120) Arterial Blood Oxygen Content 14.5 Vol % 13.5 Vol % 12.5 Vol % (12.0-20.0) (12.0-20.0) (12.0-20.0) Arterial Blood 1.3 % (0-4) 1.4 % (0-4) 1.9 % (0-4) Carboxyhemoglobin Arterial Blood Methemoglobin 1.2 % (0-2) 1.3 % (0-2) 1.1 % (0-2) Blood Gas Hemoglobin 9.9 G/DL 10.1 G/DL 9.3 G/DL (12.0-16.0) (12.0-16.0) (12.0-16.0) Oxygen Delivery Device VENTILATOR VENTILATOR VENTILATOR Blood Gas Ventilator Setting AC AC AC 16/500/5PEEP 18/500/PEEP5 20/600/PEEP8 Blood Gas Inspired Oxygen 100 % 50 % 50 % Imaging Last Impressions Chest X-Ray 06/02/16 8807 Signed Impressions: Service Date/Time: Thursday, June 02, 2016 12:08 - CONCLUSION: 1. Endotracheal tube tip measures 6.8 cm from the jean. 2. Nasogastric tube tip terminates in the distal esophagus and should be advanced into the stomach. 3. Stable pleural calcification in the right hemithorax and stable airspace consolidation bilaterally with small pleural effusions. Chuck Cadet MD Objective Remarks GENERAL: Elderly gentleman, awake and alert ,intubated following my commands SKIN: Cool and dry. HEAD: Atraumatic. Normocephalic. EYES: Pupils equal and round. No scleral icterus. No injection or drainage. ENT: No nasal bleeding or discharge. Mucous membranes pink and moist. NECK: Trachea midline. No JVD. CARDIOVASCULAR: Normal rate, regular rhythm. RESPIRATORY: Clear to auscultation bilaterally.. Breath sounds equal bilaterally. GASTROINTESTINAL: Abdomen soft, non-tender, nondistended. No guarding. MUSCULOSKELETAL: Extremities without clubbing, cyanosis, or edema. No obvious deformities. Left upper arm AV fistula with good bruit and thrill NEUROLOGICAL: Awake and alert. RASS 0. Date of Insertion: Jun 02, 2016 A/P Assessment and Plan Plan by systems: Neurologic: Metabolic Encephalopathy Hypothermia-resolved Normothermic-98F Ammonia level-26 Neurochecks per ICU protocol Tylenol 650 mg every 6 hours when necessary for pain Off Sedation plans for Cpap trials and extubation Respiratory: COPD Exacerbation Acute hypoxic respiratory failure Maintain O2 sat greater than 90% Solu-Medrol 40 mg every 8 hours Reintubated last night CPAP trials again tomorrow with SBT parameters Pulmonary consult-Dr. Grigsby appreciate recommendations Duonebs q 6hrs scheduled, q 2 hrs PRN Ventilator bundle Maintain HOB 30 degrees Cardiovascular: Hypercholesterolemia Hypertension Cardiomegaly H/O A. fib RVR H/O CHF BNP-341 06/02Troponin-neg EKG-Atrial fibrillation Obtain previous Echo report from 05/2016 admission Maintain MAP > 65mmHg, currently normotensive Continue aspirin 81 mg daily Continue amiodarone 200 mg every other day Renal: End-stage renal disease Nephrology following-Dr. Espinal Hemodialysis-Saturday Left upper arm AV graft-positive bruit and thrill Hemodialysis 06/02 -- Strict I/Os FEN/GI: Hyperkalemia Hiatal hernia Potassium level 5.3 Continue tube feeds Protonix-home medication NS @ 42cc/hr- will discontinue Heme/ID: Anemia of chronic disease History of multilobar pneumonia influenza A Recent diagnosis Multilobar PNA (Influenza A) discharged 3/2 Probable sepsis Pneumococcal, Legionella, influenza A and B cultures-patient received Tamiflu Urine and sputum cultures Bolus 1 L normal saline Last admission 2 days ago-patient was on azithromycin, Rocephin ID consult appreciated Endocrine: Thyromegaly TSH level, and T4 level Random cortisol -- SSI Prophylaxis: GI Prophylaxis Protonix 40 mg/daily (home medication) DVT Prophylaxis -- SCDs Heparin 5000 SQ BID Lines: Peripheral IVs 2. Central line if indicated Dispo: Critical Care: The total critical care time was 35 minutes. Time to perform other separately billable procedures was not included in the critical care time. Jerod Shi MD Jun 04, 2016 08:44
[2016-06-04] MEDS: AMIODARONE 200 MG TAB PO SCH (09:00)
[2016-06-04] MEDS: ASPIRIN 81 MG CHEW TAB CHEW SCH (09:00)
[2016-06-04] MEDS: HEPARIN SODIUM - SQ 10,000 UNITS/ML VIAL SQ SCH ×2 (09:00→21:00)
[2016-06-04] MEDS: methylPREDNISolone SOD SUCC 40 MG/1 ML VIAL IV PUSH SCH (09:40)
[2016-06-04] MEDS: PANTOPRAZOLE SODIUM 40 MG VIAL IV SCH (09:41)
[2016-06-04] MEDS: SODIUM CHLORIDE 0.9% FLUSH 5 ML FLUSH IV FLUSH SCH ×2 (09:42→21:00)
[2016-06-04] MEDS ORDERED: CALCIUM GLUCONATE INJ 2 GM in SODIUM CHLORIDE 0.9% INJ 100 ML IV ONE (10:00)
--- NOTE | 2016-06-04 10:12 | EKG ---
Date Performed: 06/03/2016 Time Performed: 09:50:36 PTAGE: 70 years EKG: ATRIAL FIBRILLATION MARKED LEFT AXIS DEVIATION LEFT BUNDLE BRANCH BLOCK ABNORMAL ECG Compar ed to prior tracing no significant change PREVIOUS TRACING 06/02/2016 11.44.10 DOCTOR: Christiano Padron Interpretating Date/Time 06/04/2016 10:10:49
--- NOTE | 2016-06-04 10:13 | EKG ---
Date Performed: 06/02/2016 Time Performed: 11:44:10 PTAGE: 70 years EKG: ATRIAL FIBRILLATION MARKED LEFT AXIS DEVIATION LEFT BUNDLE BRANCH BLOCK ABNORMAL ECG Since PREVIOUS TRACING , no significant change noted PREVIOUS TRACING 06/02/2016 11.32.19 DOCTOR: Christiano Padron Interpretating Date/Time 06/04/2016 10:11:18
[2016-06-04] MEDS: RESP: ALBUTEROL 2.5 MG/IPRATROPIUM 0.5 MG NEB (SCH) INH ×3 (10:37→19:20)
[2016-06-04] MEDS ORDERED: LIDOCAINE HCL 2% 100 MG/5 ML SYRINGE IV PUSH ONE (11:45)
[2016-06-04] MEDS: SODIUM CHLOR 0.9% 1000 ML INJ 1,000 ML IV PRN ×2 (12:24)
[2016-06-04] MEDS: EPOETIN ALFA 10,000 UNITS/ML VIAL IV PRN (12:26)
[2016-06-04] MEDS: GELATIN 12 MM/7 MM FOAM TOP PRN (12:27)
--- NOTE | 2016-06-04 13:00 | HHI.NPPN ---
Subjective History of Present Illness 70 year old male with COPD, ESRD, A fib Additional Remarks reintubated Review of Systems General Constitutional: Fatigue Objective Data Data 06/03/16 06/04/16 19:00 07:00 Intake Total 1042 ml Output Total 50 ml 30 ml Balance -50 ml 1012 ml Intake IV Total 1042 ml Output Urine Total 50 ml 30 ml Stool Total 0 ml # Voids 1 Vital Signs Date Time Temp Pulse Resp B/P Pulse Ox O2 Delivery O2 Flow Rate FiO2 06/04/16 12:00 98.7 98 20 139/60 99 06/04/16 12:00 98 06/04/16 11:04 98 40 06/04/16 10:00 90 06/04/16 08:00 98.8 91 20 99/68 97 06/04/16 08:00 91 06/04/16 07:26 97 40 06/04/16 06:00 94 06/04/16 04:00 98.1 103 20 119/56 93 06/04/16 04:00 103 06/04/16 04:00 97 50 06/04/16 02:00 90 06/04/16 01:23 100 40 06/04/16 00:00 98.1 90 22 136/56 98 06/04/16 00:00 90 06/03/16 22:20 96 50 06/03/16 22:00 81 06/03/16 20:39 96 50 06/03/16 20:00 78 06/03/16 20:00 97.9 78 20 121/47 96 06/03/16 19:24 99 60 06/03/16 19:00 74 23 101/38 99 06/03/16 18:23 99 100 06/03/16 18:00 53 06/03/16 18:00 53 23 102/51 96 06/03/16 16:00 89 06/03/16 16:00 98.0 89 24 187/74 93 06/03/16 14:00 84 -: 06/04/16 0609 06/04/16 0609 Physical Exam General Appearance: Well Developed Neck Neck Exam: Neck Supple Pulmonary Resp Exam: Decreased Bases Cardiology CV Exam: Arrhythmia Gastrointestinal/Abdomen GI Exam: Soft, Non-Tender, Bowel Sounds Present Extremeties Extremities Exam: No Edema Assessment/Plan Problem List: (1) ESRD (end stage renal disease) Plan: having dialysis 3 L off but BP low may back off UF reintubated k 5.5 follow BMP continue supportive care extubated EF 45% in 2015 will repeat Echo pending (2) Atrial fibrillation with rapid ventricular response Plan: Patient heart rate is controlled (3) Pneumonia Plan: He is being treated with antibiotics pulmonary is following zithromax (4) Hyperkalemia Plan: k 5.5 Problem Qualifiers (1) Pneumonia: Qualified Code: J18.9 - Pneumonia due to infectious organism, unspecified laterality, unspecified part of lung Marta Rivera MD Jun 04, 2016 13:00
[2016-06-04] MEDS: ALBUMIN HUMAN 25% 25 GM/100 ML BAGP IV PRN (13:05)
[2016-06-04] MEDS: MANNITOL 12.5 GM/50 ML VIAL IV PRN ×2 (13:05→13:06)
--- NOTE | 2016-06-04 14:49 | EC ---
Study Study Date:06/04/2016 STUDY CONCLUSIONS SUMMARY - Left ventricle: The cavity size was normal. Wall thickness was normal. Systolic function was moderately to severely reduced. The estimated ejection fraction was in the range of 30% to 35%. Hypokinesis of the anteroseptal myocardium. - Aortic valve: Valve area: 2.24cm^2 (Vmax). - Mitral valve: Mild to moderate regurgitation directed eccentrically and toward the free wall. - Left atrium: The atrium was mildly dilated. If LV function is below 40, please consider prescribing an ACEI or ARB or document rationale for non-use. PROCEDURE DATA STUDY STATUS: Elective. Procedure: Transthoracic echocardiography. Image quality was suboptimal. Scanning was performed from the parasternal, apical, and subcostal acoustic windows. Study completion: The patient tolerated the procedure well. Transthoracic echocardiography. M-mode, complete 2D, complete spectral Doppler, and color Doppler. Weight: Weight: 121.7lb. Patient status: Inpatient. CARDIAC ANATOMY LEFT VENTRICLE: The cavity size was normal. Wall thickness was normal. Systolic function was moderately to severely reduced. The estimated ejection fraction was in the range of 30% to 35%. Regional wall motion abnormalities: Hypokinesis of the anteroseptal myocardium. AORTIC VALVE: Trileaflet; normal thickness leaflets. Doppler: Transvalvular velocity was within the normal range. There was no stenosis. No regurgitation. Valve area: 2.24cm^2 (Vmax). AORTA: Aortic root: The aortic root was normal in size. MITRAL VALVE: Structurally normal valve. Doppler: Transvalvular velocity was within the normal range. There was no evidence for stenosis. Mild to moderate regurgitation directed eccentrically and toward the free wall. LEFT ATRIUM: The atrium was mildly dilated. RIGHT VENTRICLE: The cavity size was normal. Wall thickness was normal. PULMONIC VALVE: Doppler: Transvalvular velocity was within the normal range. There was no evidence for stenosis. Trace regurgitation. TRICUSPID VALVE: Structurally normal valve. Doppler: Transvalvular velocity was within the normal range. Trace regurgitation. PULMONARY ARTERY: The main pulmonary artery was normal-sized. Systolic pressure was within the normal range. RIGHT ATRIUM: The atrium was normal in size. PERICARDIUM: There was no pericardial effusion. SYSTEMIC VEINS: Inferior vena cava: The vessel was normal in size. Patient weight: 121.7lb _Ejection fraction:_ 65-75% _Fractional shortening:_ 32% up to 5Kg 5-11.5Kg 11.6-22.9Kg 23-45Kg 45-57Kg Aortic Root 7-13 <17 13-22 17-27 17-27 LA diam 6-13 <23 24-38 33-47 37-40 RVID 10-17 7-15 7-15 7-18 8-17 LVIDd 12-22 <32 24-38 33-47 37-40 LVPW 2-4 3-6 5-7 6-8 7-8 IVS 2-4 3-6 5-7 6-8 7-8 BASIC MEASUREMENTS ADULT Normal Left ventricle LV internal dimension, ED, chordal level, 48.8 mm 43-52 PLAX LV internal dimension, ES, chordal level, *43.3 mm 23-38 PLAX Fractional shortening, chordal level, PLAX *11 % >29 LV posterior wall thickness, ED 8.27 mm IVS/LVPW ratio, ED 1.05 <1.3 Ventricular septum Septal thickness, ED 8.69 mm Aortic valve Leaflet separation 23 mm 15-26 BASIC MEASUREMENTS ADULT Normal Aortic valve Leaflet separation 23 mm 15-26 Aorta Root diameter, ED 28 mm 20-37 Left atrium Anterior-posterior dimension, ES 39 mm 19-40 LA/aortic root ratio 1.39 DOPPLER MEASUREMENTS ADULT Normal Main pulmonary artery Pressure, S 24 mm Hg =30 Pressure, ED 20 mm Hg Aortic valve Peak velocity, S 122 cm/s Valve area, Vmax 2.24 cm^2 Mitral valve Maximal regurgitant velocity 309 cm/s Tricuspid valve Regurgitant peak velocity 186 cm/s Peak RV-RA gradient, S 14 mm Hg Maximal regurgitant velocity 186 cm/s Systemic veins Estimated CVP 10 mm Hg Right ventricle RV pressure, S 24 mm Hg <30 Pulmonic valve Regurgitant velocity, ED 159 cm/s LEGEND: Mean values are shown as u=mean value. Asterisk (*) carcamo values outside specified normal range. Prepared and signed by Wei Joseph [id number]
--- NOTE | 2016-06-04 16:51 | HHI.PR ---
Subjective Remarks REMAINS ON VENT SUPPORT Objective Last 48 hours Impressions Chest X-Ray 06/03/16 0600 Signed Impressions: Service Date/Time: Friday, June 03, 2016 03:41 - CONCLUSION: Satisfactory support line and tube positioning. No significant changes in aeration. Chuck Mejia MD Chest X-Ray 06/03/16 0000 Signed Impressions: Service Date/Time: Friday, June 03, 2016 18:27 - CONCLUSION: Endotracheal tube placement as above. Nelson Franklin MD Vital Signs Date Time Temp Pulse Resp B/P Pulse Ox O2 Delivery O2 Flow Rate FiO2 06/04/16 14:00 140 06/04/16 12:00 98.7 98 20 139/60 99 06/04/16 12:00 98 06/04/16 11:04 98 40 06/04/16 10:00 90 06/04/16 08:00 98.8 91 20 99/68 97 06/04/16 08:00 91 06/04/16 07:26 97 40 06/04/16 06:00 94 06/04/16 04:00 98.1 103 20 119/56 93 06/04/16 04:00 103 06/04/16 04:00 97 50 06/04/16 02:00 90 06/04/16 01:23 100 40 06/04/16 00:00 98.1 90 22 136/56 98 06/04/16 00:00 90 06/03/16 22:20 96 50 06/03/16 22:00 81 06/03/16 20:39 96 50 06/03/16 20:00 78 06/03/16 20:00 97.9 78 20 121/47 96 06/03/16 19:24 99 60 06/03/16 19:00 74 23 101/38 99 06/03/16 18:23 99 100 06/03/16 18:00 53 06/03/16 18:00 53 23 102/51 96 I/O 06/03/16 06/03/16 06/03/16 06/04/16 06/04/16 06/04/16 07:00 15:00 23:00 07:00 15:00 23:00 Intake Total 259 ml 884 ml 158 ml 286 ml Output Total 20 ml 50 ml 10 ml 20 ml 2510 ml Balance 239 ml -50 ml 874 ml 138 ml -2224 ml Intake IV Total 259 ml 884 ml 158 ml 286 ml Output Urine Total 20 ml 50 ml 10 ml 20 ml 10 ml Stool Total 0 ml Hemodialysis 2500 ml # Voids 1 # Bowel Movements 0 Result Diagram: 06/04/1660806/04/16608 Objective Remarks GENERAL: SKIN: Warm and dry. HEAD: Atraumatic. Normocephalic. EYES: Pupils equal and round. No scleral icterus. No injection or drainage. ENT: No nasal bleeding or discharge. Mucous membranes pink and moist. NECK: Trachea midline. No JVD. CARDIOVASCULAR: Regular rate and rhythm. RESPIRATORY: No accessory muscle use. [id number] RONCHI to auscultation. Breath sounds equal bilaterally. GASTROINTESTINAL: Abdomen soft, non-tender, nondistended. Hepatic and splenic margins not palpable. MUSCULOSKELETAL: Extremities without clubbing, cyanosis, or edema. No obvious deformities. NEUROLOGICAL: Awake and alert. No obvious cranial nerve deficits. Motor grossly within normal limits. Five out of 5 muscle strength in the arms and legs. Normal speech. PSYCHIATRIC: Appropriate mood and affect; insight and judgment normal. Assessment and Plan Assessment and Plan RESPIRATORY FAILURE COPD CHF AFIB ESRD ON HEMODIALYSIS PLAN WEAN OFF VENT TOLERATED BRONCHODILATOR THERAPY Susie Richards MD Jun 04, 2016 16:51
--- NOTE | 2016-06-04 17:01 | EKG ---
Date Performed: 06/02/2016 Time Performed: 11:32:19 PTAGE: 70 years EKG: Sinus rhythm WITH 2ND DEGREE AV BLOCK, MOBITZ TYPE I (WENCKEBACH) MARKED LEFT AXIS DEVIATION LEFT BUNDLE BRANCH B LOCK ABNORMAL ECG Compared to PREVIOUS TRACING , atrial fibrillation and left bundle branch block are now present. It i s not clear but the intraventricular pacemaker may be present but the pacer spikes are difficult to s ee. Clinical correlation is recommended. PREVIOUS TRACIN05/28/2016 19.37.43 DOCTOR: Christiano Padron Interpretating Date/Time 06/04/2016 16:59:34
[2016-06-04] MEDS: AZITHROMYCIN INJ 500 MG in SODIUM CHLOR 0.9% 250 ML INJ 250 ML IV SCH (17:26)
[2016-06-04] MEDS ORDERED: METOPROLOL TARTRATE 5 MG/5 ML VIAL IV PUSH PRN (18:00)
[2016-06-04] MEDS: PROPOFOL 1000 MG/100 ML INJ 100 ML IV SCH (21:38)
[2016-06-05] VITALS (15 sets, daily range): BP systolic 96–132; BP diastolic 55–70; PULSE 104–116; RESP 20–25; TEMP 97.4–99.4; O2SAT 98–100
[2016-06-05] MEDS: DOCUSATE SODIUM 100 MG/10 ML UDC G-TUBE SCH ×2 (00:35→14:23)
[2016-06-05] MEDS: CHLORHEXIDINE GLUCONATE 2 % 1 PACK (2 CLOTHS) TOP SCH (04:00)
[2016-06-05] MEDS: AZTREONAM 1,000 MG/NS 100 ML IV SCH ×6 (04:07→21:22)
[2016-06-05 05:06] LABS: BLOOD GAS BASE EXCESS 2.2 mmol/L (-2-2); BLOOD GAS CARBOXYHEMOGLOBIN 1.5 % (0-4); BLOOD GAS HCO3 26 mmol/L (22-26); BLOOD GAS METHEMOGLOBIN 1.3 % (0-2); BLOOD GAS O2 HGB SATURATION 96 % (90-100); BLOOD GAS OXYGEN CONTENT 11.7 Vol % (12.0-20.0); BLOOD GAS PCO2 39 mmHg (38-42); BLOOD GAS PO2 139 mmHg (61-120); BLOOD GAS TOTAL HGB 8.4 G/DL (12.0-16.0); CRITICAL VALUE NO; OXYGEN DEVICE VENTILATOR; TEMP CORR TO 98.6
[2016-06-05 05:07] LABS: DRAW SITE RT RADIAL; FIO2 40 %; NUMBER OF ARTERIAL PUNCTURES 1; STAT NO; ULNAR PULSE PRESENT; VENT SETTINGS AC/20/600/PEEP8
--- NOTE | 2016-06-05 06:13 | RADRPT ---
EXAM DATE/TIME: 06/05/2016 04:53 [place] COMPARISON: CHEST SINGLE AP, June 03, 2016, 18:27. INDICATIONS : Shortness of breath. MEDICAL HISTORY : Hypertension. Chronic obstructive pulmonary disease. Renal disease, end stage. SURGICAL HISTORY : None. ENCOUNTER: Subsequent ACUITY: 4 - 6 days PAIN SCORE: Non-responsive. LOCATION: Bilateral chest FINDINGS: A single view of the chest demonstrates persistent bibasilar areas of consolidation/effusion. There i s pleural-parenchymal calcification along the lateral and medial aspects of the right hemithorax with biapical capping, right greater than left. Interstitial markings are less prominent when compared to the prior suggesting some improving interstitial edema. Endotracheal tube remains appropriately posi tioned above the jean CONCLUSION: 1. Persistent bibasilar areas of consolidation/effusion. 2. However, an interstitial markings are less prominent suggesting some improving vascular congestion /mild overload. Heart size is prominent but stable. 3. Stable pleural-based calcifications in the right hemithorax with stable biapical capping, right gr eater than left. Aubrey Martinez MD on June 05, 2016 at 6:09 Board Certified Radiologist. This report was verified electronically.
[2016-06-05] MEDS: INSULIN NovoLIN REGULAR SUPPLEMENTAL SCALE SQ SCH ×4 (06:42→21:00)
[2016-06-05 07:04] LABS: AUTOMATED NEUTROPHIL # 0.8 TH/MM3 (1.8-7.7); BASOPHIL % 0.3 % (0.0-2.0); HEMATOCRIT 25.2 % (39.0-51.0); LYMPH % 8.1 % (9.0-44.0); LYMPHOCYTE # 0.1 TH/MM3 (1.0-4.8); MEAN CELL VOLUME 96.8 FL (80.0-100.0); MEAN CORPUSCULAR HEMOGLOBIN 31.8 PG (27.0-34.0); MEAN CORPUSCULAR HGB CONC 32.8 % (32.0-36.0); MONO % 3.4 % (0.0-8.0); NEUT % 88.2 % (16.0-70.0); PLATELET COUNT 41 TH/MM3 (150-450); RED CELL DISTRIBUTION WIDTH 18.1 % (11.6-17.2); WHITE BLOOD COUNT 0.9 TH/MM3 (4.0-11.0)
[2016-06-05 07:07] LABS: HEMO FLAGS AUTO DIFF
[2016-06-05] MEDS: RESP: ALBUTEROL 2.5 MG/IPRATROPIUM 0.5 MG NEB (SCH) INH ×3 (07:42→19:23)
[2016-06-05 07:49] LABS: ALKALINE PHOSPHATASE 74 U/L (45-117); ALT (GPT) 55 U/L (12-78); ANION GAP 14 MEQ/L (5-15); AST (GOT) 22 U/L (15-37); BICARBONATE 28.1 MEQ/L (21.0-32.0); BLOOD UREA NITROGEN 82 MG/DL (7-18); CHLORIDE 100 MEQ/L (98-107); GLOMERULAR FILTRATION RATE 14 ML/MIN (>89); POTASSIUM 4.9 MEQ/L (3.5-5.1); SODIUM (NA) 142 MEQ/L (136-145); TOTAL BILIRUBIN ADULT 0.5 MG/DL (0.2-1.0)
[2016-06-05 08:11] LABS: ACANTHOCYTES OCC (NORMAL); BANDS 12 % (0-6); METAMYELOCYTES 2 % (0-1); NEUTROPHIL # MANUAL DIFF 0.8 TH/MM3 (1.8-7.7); POLYS (SEG NEUTROPHILS) 74 % (16-70); WBC DIFF SAMPLE 50
[2016-06-05 08:12] LABS: HELMET CELLS OCC (NORMAL); OVALOCYTES 1+ (NORMAL); PLATELET ESTIMATE SMEAR LOW (NORMAL)
[2016-06-05 08:13] LABS: PLATELET MORPHOLOGY NORMAL (NORMAL); SCAN/DIFF FINAL DIFF MANUAL
--- NOTE | 2016-06-05 08:33 | HHI.CCPN ---
Subjective Remarks/Hospital Course This 70 year-old man, multiple chronic medical conditions including end-stage renal disease on HD, A. fib, COPD, recent admission for COPD exacerbation with influenza A positive, discharge from [facility] yesterday to [facility]. He apparently presented to the [facility] nursing desk for dialysis, and then slumped over and was minimally responsive. EMS describes agonal, and affect show respirations requiring bag valve mask assist. In the ED, the patient was noted to be severely hypothermic 94 F, hypoxic and was intubated utilizing etomidate and rocuronium. Imaging and lab studies were performed, revealing a potassium level of 6.1. The patient received in ED 2 g of calcium chloride 2 doses, blood cultures were obtained. Critical care medicine was consult today for treatment and management of respiratory failure, encephalopathy and presumed sepsis. Subjective: 06/03: Afebrile. The patient was dialyzed last evening, 1.5 liters removed with initial potassium level 6.2., currently level 5.3. The patient is awake and alert, CPAP trials are in process, with plans to extubate today. Cultures are in process and the patient continues on empiric antibiotics. 06/04 overnight patient became restless in respiratory distress hypoxic requiring reintubation 06/05 A. fib with RVR during dialysis yesterday responded to Lopressor IV push Objective Vital Signs Date Time Temp Pulse Resp B/P Pulse Ox O2 Delivery O2 Flow Rate FiO2 06/05/16 07:30 98 40 06/05/16 06:00 106 06/05/16 04:00 98.8 25 97/63 06/03/16 09:23 Nasal Cannula 4 Intake and Output 06/04/16 06/04/16 06/05/16 08:00 16:00 00:00 Intake Total 158 ml 286 ml 335 ml Output Total 20 ml 2510 ml 5 ml Balance 138 ml -2224 ml 330 ml Result Diagram: 06/05/1618 06/05/16617 Other Results Microbiology Date/Time Procedure Status Source Growth 06/02/16 15:10 Urine Culture - Final Complete Urine Catheterized Urine NO GROWTH IN 48 HOURS. 06/02/16 15:10 Legionella Antigen - Final Complete Urine Catheterized Urine PRESUMPTIVE NEGATIVE FOR LEGIONELLA P... 06/02/16 15:10 Streptococcus pneumoniae Antigen (M - Final Complete Urine Catheterized Urine PRESUMPTIVE NEGATIVE FOR STREPTOCOCCU... 06/02/16 15:55 Influenza Types A,B Antigen (FREDO) - Final Complete Nasal Washing NEGATIVE FOR FLU A AND B ANTIGEN.... Laboratory Tests Test 06/05/16 04:52 Blood Gas Puncture Site RT RADIAL Blood Gas Patient Temperature 98.6 Blood Gas HCO3 26 mmol/L (22-26) Blood Gas Base Excess 2.2 mmol/L (-2-2) Blood Gas Oxygen Saturation 96 % (90-100) Arterial Blood pH 7.44 (7.380-7.420) Arterial Blood Partial 39 mmHg (38-42) Pressure CO2 Arterial Blood Partial 139 mmHg Pressure O2 (61-120) Arterial Blood Oxygen Content 11.7 Vol % (12.0-20.0) Arterial Blood 1.5 % (0-4) Carboxyhemoglobin Arterial Blood Methemoglobin 1.3 % (0-2) Blood Gas Hemoglobin 8.4 G/DL (12.0-16.0) Oxygen Delivery Device VENTILATOR Blood Gas Ventilator Setting AC/20/600/PEEP8 Blood Gas Inspired Oxygen 40 % Imaging Last Impressions Chest X-Ray 06/02/16 1139 Signed Impressions: Service Date/Time: Thursday, June 02, 2016 12:08 - CONCLUSION: 1. Endotracheal tube tip measures 6.8 cm from the jean. 2. Nasogastric tube tip terminates in the distal esophagus and should be advanced into the stomach. 3. Stable pleural calcification in the right hemithorax and stable airspace consolidation bilaterally with small pleural effusions. Chuck Cadet MD Objective Remarks GENERAL: Elderly gentleman, awake and alert ,intubated following my commands SKIN: Cool and dry. HEAD: Atraumatic. Normocephalic. EYES: Pupils equal and round. No scleral icterus. No injection or drainage. ENT: No nasal bleeding or discharge. Mucous membranes pink and moist. NECK: Trachea midline. No JVD. CARDIOVASCULAR: Normal rate, regular rhythm. RESPIRATORY: Clear to auscultation bilaterally.. Breath sounds equal bilaterally. GASTROINTESTINAL: Abdomen soft, non-tender, nondistended. No guarding. MUSCULOSKELETAL: Extremities without clubbing, cyanosis, or edema. No obvious deformities. Left upper arm AV fistula with good bruit and thrill NEUROLOGICAL: Awake and alert. RASS 0. Date of Insertion: Jun 02, 2016 A/P Assessment and Plan Plan by systems: Neurologic: Metabolic Encephalopathy Hypothermia-resolved Remains Normothermic-98F Ammonia level-26 Neurochecks per ICU protocol Tylenol 650 mg every 6 hours when necessary for pain Off Sedation while on CPAP trials Respiratory: COPD Exacerbation Acute hypoxic respiratory failure Maintain O2 sat greater than 90% Solu-Medrol 40 mg every 8 hours Reintubated June 03, 2016 CPAP trials again today with SBT parameters Pulmonary consult-Dr. Grigsby appreciate recommendations Duonebs q 6hrs scheduled, q 2 hrs PRN Ventilator bundle Maintain HOB 30 degrees Cardiovascular: Hypercholesterolemia Hypertension Cardiomegaly H/O A. fib RVR H/O CHF BNP-341 Troponin-neg EKG-Atrial fibrillation Maintain MAP > 65mmHg, currently normotensive Continue aspirin 81 mg daily Continue amiodarone 200 mg every other day Advil Lopressor IV push as needed for heart rate of 110 Renal: End-stage renal disease Nephrology following-Dr. Espinal Hemodialysis-Saturday Left upper arm AV graft-positive bruit and thrill Hemodialysis 06/02 -- Strict I/Os FEN/GI: Hyperkalemia Hiatal hernia Continue tube feeds Protonix-home medication IV fluids at KVO Heme/ID: Anemia of chronic disease History of multilobar pneumonia influenza A Recent diagnosis Multilobar PNA (Influenza A) discharged 05/31 Probable sepsis Pneumococcal, Legionella, influenza A and B cultures-patient received Tamiflu Urine and sputum cultures Bolus 1 L normal saline Last admission 2 days ago-patient was on azithromycin, Rocephin ID consult appreciated Endocrine: Thyromegaly TSH level, and T4 level Random cortisol All within normal limits -- SSI Prophylaxis: GI Prophylaxis Protonix 40 mg/daily (home medication) DVT Prophylaxis -- SCDs Heparin 5000 SQ BID Lines: Peripheral IVs 2. Central line if indicated Dispo: Critical Care: The total critical care time was 35 minutes. Time to perform other separately billable procedures was not included in the critical care time. Jerod Shi MD Jun 05, 2016 08:33
[2016-06-05] MEDS: PANTOPRAZOLE SODIUM 40 MG VIAL IV SCH (08:49)
[2016-06-05] MEDS: methylPREDNISolone SOD SUCC 40 MG/1 ML VIAL IV PUSH SCH (08:49)
[2016-06-05] MEDS: CHLORHEXIDINE 0.12% (ORAL KIT) 15 ML CUP MT SCH ×2 (08:50→21:22)
[2016-06-05] MEDS: SODIUM CHLORIDE 0.9% FLUSH 5 ML FLUSH IV FLUSH SCH ×2 (08:50→21:00)
--- NOTE | 2016-06-05 09:08 | HHI.NPPN ---
Subjective History of Present Illness 70 year old male with COPD, ESRD, A fib Additional Remarks intubated Review of Systems General Constitutional: Fatigue Objective Data Data 06/04/16 06/05/16 19:00 07:00 Intake Total 286 ml 600 ml Output Total 2510 ml 15 ml Balance -2224 ml 585 ml Intake Oral 0 ml IV Total 286 ml 600 ml Output Urine Total 10 ml 15 ml Hemodialysis 2500 ml # Bowel Movements 0 Vital Signs Date Time Temp Pulse Resp B/P Pulse Ox O2 Delivery O2 Flow Rate FiO2 06/05/16 08:50 40 06/05/16 07:30 98 40 06/05/16 06:00 106 06/05/16 04:00 98 40 06/05/16 04:00 98.8 110 25 97/63 98 06/05/16 04:00 110 06/05/16 02:00 116 06/05/16 01:04 98 40 06/05/16 00:00 112 06/05/16 00:00 99.1 112 20 96/55 98 06/04/16 22:07 97 40 06/04/16 22:00 114 06/04/16 20:00 99.0 113 20 113/60 98 06/04/16 20:00 113 06/04/16 19:20 97 40 06/04/16 18:00 122 06/04/16 17:10 99 40 06/04/16 16:00 99.5 129 20 174/77 97 06/04/16 16:00 129 06/04/16 14:00 140 06/04/16 12:00 98.7 98 20 139/60 99 06/04/16 12:00 98 06/04/16 11:04 98 40 06/04/16 10:00 90 -: 06/05/16 0618 06/05/16 0618 Physical Exam General Appearance: Well Developed Neck Neck Exam: Neck Supple Pulmonary Resp Exam: Decreased Bases Cardiology CV Exam: Arrhythmia Gastrointestinal/Abdomen GI Exam: Soft, Non-Tender, Bowel Sounds Present Extremeties Extremities Exam: No Edema Assessment/Plan Problem List: (1) ESRD (end stage renal disease) Plan: on HD next tomorrow k better follow BMP continue supportive care extubated EF 30-35% (2) Atrial fibrillation with rapid ventricular response Plan: Patient heart rate is controlled (3) Pneumonia Plan: He is being treated with antibiotics pulmonary is following zithromax/ Azactam (4) Hyperkalemia Plan: k normal Problem Qualifiers (1) Pneumonia: Qualified Code: J18.9 - Pneumonia due to infectious organism, unspecified laterality, unspecified part of lung Marta Rivera MD Jun 05, 2016 09:08
[2016-06-05] MEDS: PROPOFOL 1000 MG/100 ML INJ 100 ML IV SCH ×2 (12:43→21:27)
--- NOTE | 2016-06-05 15:58 | HHI.PR ---
Subjective Remarks REMAINS ON VENT SUPPORT Objective Vital Signs Date Time Temp Pulse Resp B/P Pulse Ox O2 Delivery O2 Flow Rate FiO2 06/05/16 11:31 98 40 06/05/16 08:50 40 06/05/16 07:30 98 40 06/05/16 06:00 106 06/05/16 04:00 98 40 06/05/16 04:00 98.8 110 25 97/63 98 06/05/16 04:00 110 06/05/16 02:00 116 06/05/16 01:04 98 40 06/05/16 00:00 112 06/05/16 00:00 99.1 112 20 96/55 98 06/04/16 22:07 97 40 06/04/16 22:00 114 06/04/16 20:00 99.0 113 20 113/60 98 06/04/16 20:00 113 06/04/16 19:20 97 40 06/04/16 18:00 122 06/04/16 17:10 99 40 06/04/16 16:00 99.5 129 20 174/77 97 06/04/16 16:00 129 I/O 06/04/16 06/04/16 06/04/16 06/05/16 06/05/16 06/05/16 07:00 15:00 23:00 07:00 15:00 23:00 Intake Total 158 ml 286 ml 335 ml 265 ml Output Total 20 ml 2510 ml 5 ml 10 ml Balance 138 ml -2224 ml 330 ml 255 ml Intake Oral 0 ml 0 ml IV Total 158 ml 286 ml 335 ml 265 ml Output Urine Total 20 ml 10 ml 5 ml 10 ml Hemodialysis 2500 ml # Bowel Movements 0 0 Result Diagram: 06/05/1618 06/05/1618 Objective Remarks GENERAL: SKIN: Warm and dry. HEAD: Atraumatic. Normocephalic. EYES: Pupils equal and round. No scleral icterus. No injection or drainage. ENT: No nasal bleeding or discharge. Mucous membranes pink and moist. NECK: Trachea midline. No JVD. CARDIOVASCULAR: Regular rate and rhythm. RESPIRATORY: No accessory muscle use. [id number] RONCHI to auscultation. Breath sounds equal bilaterally. GASTROINTESTINAL: Abdomen soft, non-tender, nondistended. Hepatic and splenic margins not palpable. MUSCULOSKELETAL: Extremities without clubbing, cyanosis, or edema. No obvious deformities. NEUROLOGICAL: Awake and alert. No obvious cranial nerve deficits. Motor grossly within normal limits. Five out of 5 muscle strength in the arms and legs. Normal speech. PSYCHIATRIC: Appropriate mood and affect; insight and judgment normal. Assessment and Plan Assessment and Plan RESPIRATORY FAILURE COPD CHF AFIB ESRD ON HEMODIALYSIS PLAN WEAN OFF VENT TOLERATED BRONCHODILATOR THERAPY Susie Richards MD Jun 05, 2016 15:58
[2016-06-05] MEDS: NUTRISOURCE FIBER POWDER 1 PACK G-TUBE SCH (18:00)
[2016-06-05] MEDS: FILGRASTIM 300 MCG/ML VIAL SQ SCH (18:00)
[2016-06-05] MEDS: AZITHROMYCIN INJ 500 MG in SODIUM CHLOR 0.9% 250 ML INJ 250 ML IV SCH (18:01)
[2016-06-05 18:40] LABS: FERRITIN 1061 NG/ML (26-388); LDH SERUM 186 U/L (87-241); TRANSFERRIN IRON PROFILE 66 MG/DL (200-360)
--- NOTE | 2016-06-05 19:07 | MB ---
cc: HITESH LOJA M.D. DATE OF CONSULTATION 06/05/[address] Shi. REASON FOR CONSULTATION Hematology consulted to render an opinion regarding patient with pancytopenia. HISTORY OF PRESENT ILLNESS The patient is a 70-year-old male recently admitted to the hospital for COPD exacerbation and flu infection. He was discharged back to rehab. When he was going for dialysis he suddenly slumped over and become unresponsive. He was brought into the emergency room and he was found to be hypothermic and hypoxic and he was intubated. He is currently on the vent and on light sedation. History obtained from his medical record. On presentation his white count was normal. He has mild anemia with a hemoglobin around 10. He has mild thrombocytopenia. Platelet count around 70,000, however over last 2 days his white count trended down to 0.9 with a hemoglobin of 8.3 and platelet count of 41,000. There is no report of bleeding. PAST MEDICAL HISTORY 1. End stage renal disease. 2. Atrial fibrillation. 3. Chronic obstructive pulmonary disease. 4. Congestive heart failure. 5. Gastroesophageal reflux disease. 6. Hypertension. 7. GI bleed. PAST SURGICAL HISTORY 1. Lung biopsy. 2. Suprapubic catheter placement. FAMILY HISTORY Noncontributory. SOCIAL HISTORY Quit tobacco and alcohol in 1989. ALLERGIES PENICILLIN AND SULFA. CURRENT MEDICATIONS 1. Amiodarone. 2. Solu-Medrol. 3. DuoNeb. 4. Aztreonam. 5. Protonix. 6. Azithromycin. REVIEW OF SYSTEMS Not obtainable. PHYSICAL EXAMINATION VITAL SIGNS: Temperature 98.8, blood pressure 97/63. He is on the ventilator at 40% FIO2. GENERAL: He looks chronically ill and is sedated. HEENT: Atraumatic, normocephalic. Pupils equal, round, reactive to light. He will open eyes to command. ET tube. No bleeding noted. NECK: No thyromegaly. No palpable masses. LYMPHATICS: No palpable cervical, clavicular, axillary or inguinal lymph node. CARDIOVASCULAR: Irregularly irregular S1-S2. LUNGS: Diffuse rhonchi anteriorly. ABDOMEN: Soft. I could not palpate liver or spleen. EXTREMITIES: No cyanosis or clubbing or edema. SKIN: No rash or petechiae. NEUROLOGICAL: He is sedated. LABORATORY DATA Reviewed. ASSESSMENT 1. Pancytopenia which I think is due to bone marrow suppression from underlying sepsis. He has baseline anemia due to end-stage renal disease. He likely also has a consumptive process or DIC. His white blood cell count trended down significantly with neutrophil count of 800. In light of sepsis, I am going to start him on Neupogen. We will check his vitamin and iron study. We will also check a CMV and a DIC panel. 2. Respiratory failure. He possibly has a pneumonia. He is currently on the ventilator. 3. End-stage renal disease on hemodialysis. 4. Sepsis. He likely has pneumonia. He is on antibiotic per infectious disease. 5. Chronic atrial fibrillation. 6. Chronic obstructive pulmonary disease. 7. Congestive heart failure. RECOMMENDATIONS 1. Start him on Neupogen. 2. Proceed with laboratory evaluation outlined as above. 3. Monitor CBC. Thank you Dr. Shi for asking me to see this patient. MD KEVIN Blackwood/NATHANIEL /5:17 PM /6:48 PM TRAVIS
[2016-06-05 20:00] LABS: RETIC % 0.6 % (0.4-3.0)
[2016-06-05 20:08] LABS: REVIEW FLAG FINAL
[2016-06-05 20:25] LABS: APTT (PATIENT) 34.5 SEC (24.3-30.1); INTERNATIONAL NORMALIZED RATIO 1.2 RATIO; PROTHROMBIN TIME - PATIENT 12.9 SEC (9.8-11.6)
[2016-06-05] MEDS ORDERED: VANCOMYCIN INJ 1,000 MG in SODIUM CHLOR 0.9% 250 ML INJ 250 ML IV ONE (22:45)
--- NOTE | 2016-06-05 22:47 | HHI.IDPN ---
Subjective Subjective Remarks delayed entry - pt was seen earlier today around 1700 Neutropenia is noted remains on vent Antibiotics azithro azactam vancomycin Allergies: Coded Allergies: Sulfa (Verified Allergy, Severe, "difficulty breathing", 06/02/16) Penicillin (Verified Adverse Reaction, Severe, "acid taste in mouth, problems with vision", 06/02/16) DIFFICULTY BREATHING Objective . Vital Signs Date Time Temp Pulse Resp B/P Pulse Ox O2 Delivery O2 Flow Rate FiO2 06/05/16 22:17 100 35 06/05/16 22:00 109 06/05/16 20:00 97.4 104 20 130/60 99 06/05/16 20:00 104 06/05/16 19:20 99 35 06/05/16 16:00 98.6 112 20 120/68 99 06/05/16 15:57 99 40 06/05/16 12:00 99.4 116 21 116/64 98 06/05/16 11:31 98 40 06/05/16 08:50 40 06/05/16 08:00 99.4 104 20 132/70 98 06/05/16 07:30 98 40 06/05/16 06:00 106 06/05/16 04:00 98 40 06/05/16 04:00 98.8 110 25 97/63 98 06/05/16 04:00 110 06/05/16 02:00 116 06/05/16 01:04 98 40 06/05/16 00:00 112 06/05/16 00:00 99.1 112 20 96/55 98 06/04/16 06/04/16 06/05/16 14:59 22:59 06:59 Intake Total 286 ml 335 ml 265 ml Output Total 2510 ml 5 ml 10 ml Balance -2224 ml 330 ml 255 ml Intake Oral 0 ml 0 ml IV Total 286 ml 335 ml 265 ml Output Urine Total 10 ml 5 ml 10 ml Hemodialysis 2500 ml # Bowel Movements 0 0 . Laboratory Tests Test 06/04/16 06/05/16 06/05/16 06:09 06:18 19:21 White Blood Count 2.0 TH/MM3 0.9 TH/MM3 Red Blood Count 2.90 MIL/MM3 2.60 MIL/MM3 Hemoglobin 9.3 GM/DL 8.3 GM/DL Hematocrit 28.3 % 25.2 % Mean Corpuscular Volume 97.6 FL 96.8 FL Mean Corpuscular Hemoglobin 31.9 PG 31.8 PG Mean Corpuscular Hemoglobin 32.7 % 32.8 % Concent Red Cell Distribution Width 18.2 % 18.1 % Platelet Count 39 TH/MM3 41 TH/MM3 Mean Platelet Volume 9.2 FL 10.0 FL Neutrophils (%) (Auto) 88.2 % Lymphocytes (%) (Auto) 8.1 % Monocytes (%) (Auto) 3.4 % Eosinophils (%) (Auto) 0.0 % Basophils (%) (Auto) 0.3 % Neutrophils # (Auto) 0.8 TH/MM3 Lymphocytes # (Auto) 0.1 TH/MM3 Monocytes # (Auto) 0.0 TH/MM3 Eosinophils # (Auto) 0.0 TH/MM3 Basophils # (Auto) 0.0 TH/MM3 CBC Comment AUTO DIFF Differential Total Cells 50 Counted Neutrophils % (Manual) 74 % Band Neutrophils % 12 % Lymphocytes % 8 % Monocytes % 4 % Neutrophils # (Manual) 0.8 TH/MM3 Metamyelocytes 2 % Differential Comment FINAL DIFF MANUAL Platelet Estimate LOW Platelet Morphology Comment NORMAL Ovalocytes 1+ Helmet Cells OCC Acanthocytes OCC Reticulocyte Count 0.6 % Absolute Reticulocyte Count 14.6 MIL/L Laboratory Tests Test 06/04/16 06/05/16 06:09 06:18 Sodium Level 144 MEQ/L 142 MEQ/L Potassium Level 5.5 MEQ/L 4.9 MEQ/L Chloride Level 102 MEQ/L 100 MEQ/L Carbon Dioxide Level 25.1 MEQ/L 28.1 MEQ/L Anion Gap 17 MEQ/L 14 MEQ/L Blood Urea Nitrogen 131 MG/DL 82 MG/DL Creatinine 6.75 MG/DL 4.33 MG/DL Estimat Glomerular Filtration 8 ML/MIN 14 ML/MIN Rate Random Glucose 125 MG/DL 79 MG/DL Calcium Level 6.4 MG/DL 7.8 MG/DL Protein Corrected Calcium 7.6 MG/DL Phosphorus Level 8.5 MG/DL 5.2 MG/DL Magnesium Level 2.2 MG/DL 2.0 MG/DL Total Protein 4.6 GM/DL 4.9 GM/DL Iron Level 16 MCG/DL Total Iron Binding Capacity 92 MCG/DL Percent Iron Saturation 17.3 % Ferritin 1061 NG/ML Total Bilirubin 0.5 MG/DL Aspartate Amino Transf 22 U/L (AST/SGOT) Alanine Aminotransferase 55 U/L (ALT/SGPT) Alkaline Phosphatase 74 U/L Lactate Dehydrogenase 186 U/L Albumin 2.2 GM/DL Vitamin B12 Level 529 PG/ML Folate 6.4 NG/ML Imaging Last Impressions Chest X-Ray 06/05/16 0600 Signed Impressions: Service Date/Time: Sunday, June 05, 2016 04:53 - CONCLUSION: 1. Persistent bibasilar areas of consolidation/effusion. 2. However, an interstitial markings are less prominent suggesting some improving vascular congestion/mild overload. Heart size is prominent but stable. 3. Stable pleural-based calcifications in the right hemithorax with stable biapical capping, right greater than left. Aubrey Martinez MD Physical Exam CONSTITUTIONAL/GENERAL: This is a thin elderly male patient, [facility] tremor TUBES/LINES/DRAINS: SKIN: No jaundice, rashes, or lesions. Ecchymoses on upper extremities. No wounds seen anteriorly. Skin temperature appropriate. Not diaphoretic. HEAD: Atraumatic. Normocephalic. EYES: Pupils equal and round and reactive. Extraocular motions intact. No scleral icterus. No injection or drainage. Fundi not examined. CARDIOVASCULAR: irregular rate and rhythm without murmurs, gallops, or rubs. No JVD. Peripheral pulses symmetric. AV fistula in place looks OK LUE RESPIRATORY/CHEST: Symmetric, unlabored respirations. Breath sounds equal bilaterally. clear to auscultation GASTROINTESTINAL: Abdomen soft, non-tender, nondistended. No hepato-splenomegaly , or palpable masses. No guarding. Bowel sounds present. GENITOURINARY: Without palpable bladder distension. MUSCULOSKELETAL: Extremities without clubbing, cyanosis, or edema. No joint tenderness or effusion noted. No calf tenderness. No mottling or clubbing. LYMPHATICS: No palpable cervical or supraclavicular adenopathy. NEUROLOGICAL: Arousable Opens eyes to stimulation Follows commands. Moves all extremities. Assessment & Plan Remarks Recurrent PNA Recent flu Acute VDRF - improving infiltrates and oxygenation Recent hospitalization Unexplained acquired neutropenia, thrombocytopenia ? 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
[2016-06-06] VITALS (19 sets, daily range): BP systolic 99–167; BP diastolic 50–77; PULSE 98–118; RESP 20–26; TEMP 97.6–99.2; O2SAT 96–100
[2016-06-06] MEDS: DOCUSATE SODIUM 100 MG/10 ML UDC G-TUBE SCH ×2 (01:38→13:58)
[2016-06-06] MEDS: CHLORHEXIDINE GLUCONATE 2 % 1 PACK (2 CLOTHS) TOP SCH (02:11)
[2016-06-06] MEDS: AZTREONAM 1,000 MG/NS 100 ML IV SCH ×4 (02:11→11:04)
[2016-06-06 04:39] LABS: AUTOMATED NEUTROPHIL # 2.5 TH/MM3 (1.8-7.7); BASOPHIL % 0.6 % (0.0-2.0); HEMATOCRIT 25.2 % (39.0-51.0); LYMPH % 1.6 % (9.0-44.0); MEAN CELL VOLUME 96.6 FL (80.0-100.0); MEAN CORPUSCULAR HEMOGLOBIN 32.3 PG (27.0-34.0); MEAN CORPUSCULAR HGB CONC 33.5 % (32.0-36.0); MONO % 3.2 % (0.0-8.0); NEUT % 94.6 % (16.0-70.0); PLATELET COUNT 39 TH/MM3 (150-450); RED BLOOD COUNT 2.61 MIL/MM3 (4.50-5.90); RED CELL DISTRIBUTION WIDTH 17.8 % (11.6-17.2); WHITE BLOOD COUNT 2.6 TH/MM3 (4.0-11.0)
[2016-06-06] MEDS: PROPOFOL 1000 MG/100 ML INJ 100 ML IV SCH ×2 (04:40→20:03)
[2016-06-06 04:51] LABS: BLOOD GAS BASE EXCESS -1.6 mmol/L (-2-2); BLOOD GAS CARBOXYHEMOGLOBIN 1.4 % (0-4); BLOOD GAS HCO3 23 mmol/L (22-26); BLOOD GAS METHEMOGLOBIN 1.1 % (0-2); BLOOD GAS O2 HGB SATURATION 95 % (90-100); BLOOD GAS PCO2 38 mmHg (38-42); BLOOD GAS PO2 104 mmHg (61-120); BLOOD GAS TOTAL HGB 8.8 G/DL (12.0-16.0); TEMP CORR TO 98.6
[2016-06-06 04:52] LABS: CRITICAL VALUE NO; DRAW SITE RT RADIAL; FIO2 35 %; NUMBER OF ARTERIAL PUNCTURES 1; OXYGEN DEVICE VENTILATOR; STAT NO; ULNAR PULSE PRESENT; VENT SETTINGS AC 600/20/5 PEEP
[2016-06-06 05:02] LABS: HEMO FLAGS AUTO DIFF
[2016-06-06 05:10] LABS: ALKALINE PHOSPHATASE 76 U/L (45-117); ALT (GPT) 47 U/L (12-78); AST (GOT) 17 U/L (15-37); BLOOD UREA NITROGEN 118 MG/DL (7-18); CHLORIDE 100 MEQ/L (98-107); GLOMERULAR FILTRATION RATE 11 ML/MIN (>89); MAGNESIUM 2.3 MG/DL (1.5-2.5); POTASSIUM 5.3 MEQ/L (3.5-5.1); SODIUM (NA) 140 MEQ/L (136-145); TOTAL BILIRUBIN ADULT 0.4 MG/DL (0.2-1.0)
[2016-06-06 05:11] LABS: ANION GAP 14 MEQ/L (5-15)
--- NOTE | 2016-06-06 05:30 | RADRPT ---
EXAM DATE/TIME: 06/06/2016 04:26 [place] COMPARISON: CHEST SINGLE AP, June 05, 2016, 4:53. INDICATIONS : Respiratory failure. MEDICAL HISTORY : Hypertension. Hypercholesterolemia. Chronic obstructive pulmonary disease. Renal disease SURGICAL HISTORY : Inguinal hernia repair. ENCOUNTER: Subsequent ACUITY: 4 - 6 days PAIN SCORE: Non-responsive. LOCATION: Bilateral chest FINDINGS: A single view of the chest demonstrates persistent bibasilar effusion/atelectasis. Stable volume loss and pleural based calcifications in the right chest. Minimal pleural-based calcifications on the lef t. Stable interstitial prominence possibly representing some vascular congestion or volume overload. Heart size is upper limits of normal. Biapical capping, right greater than left. Interval placement o f a nasogastric tube which enters the stomach and extends off the inferior aspect of the image. Endot araceli tube remains appropriately positioned above the jean CONCLUSION: 1. Persistent bibasilar effusion/atelectasis. 2. Stable bibasilar right hemithorax. Stable pleural-based calcifications, right greater than left. 3. Interval placement of a nasogastric tube which enters the stomach. Endotracheal tube is appropriat halley positioned above the jean. Aubrey Martinez MD on June 06, 2016 at 5:25 Board Certified Radiologist. This report was verified electronically.
[2016-06-06] MEDS: INSULIN NovoLIN REGULAR SUPPLEMENTAL SCALE SQ SCH ×4 (06:00→21:00)
[2016-06-06 07:29] LABS: BANDS 27 % (0-6); CORRECTED NUCLEATED RBC 1 /100 WBC (0-0); NEUTROPHIL # MANUAL DIFF 2.5 TH/MM3 (1.8-7.7); PLATELET ESTIMATE SMEAR LOW (NORMAL); PLATELET MORPHOLOGY NORMAL (NORMAL); POLYS (SEG NEUTROPHILS) 69 % (16-70); SCAN/DIFF FINAL DIFF MANUAL; WBC DIFF SAMPLE 100
[2016-06-06 07:30] LABS: ACANTHOCYTES OCC (NORMAL); HELMET CELLS OCC (NORMAL); OVALOCYTES 1+ (NORMAL)
[2016-06-06] MEDS: RESP: ALBUTEROL 2.5 MG/IPRATROPIUM 0.5 MG NEB (SCH) INH ×3 (07:35→19:24)
[2016-06-06] MEDS: CHLORHEXIDINE 0.12% (ORAL KIT) 15 ML CUP MT SCH ×2 (08:26→20:02)
[2016-06-06] MEDS: SODIUM CHLORIDE 0.9% FLUSH 5 ML FLUSH IV FLUSH SCH ×2 (08:30→20:03)
[2016-06-06] MEDS: PANTOPRAZOLE SODIUM 40 MG VIAL IV SCH (08:30)
[2016-06-06] MEDS: methylPREDNISolone SOD SUCC 40 MG/1 ML VIAL IV PUSH SCH (08:30)
[2016-06-06] MEDS: NUTRISOURCE FIBER POWDER 1 PACK G-TUBE SCH ×3 (08:30→18:00)
[2016-06-06] MEDS: AMIODARONE 200 MG TAB PO SCH (08:30)
[2016-06-06] MEDS ORDERED: METOCLOPRAMIDE HCL 10 MG/2 ML VIAL IM SCH (10:00)
--- NOTE | 2016-06-06 10:22 | HHI.CCPN ---
Subjective Remarks/Hospital Course This 70 year-old man, multiple chronic medical conditions including end-stage renal disease on HD, A. fib, COPD, recent admission for COPD exacerbation with influenza A positive, discharge from [facility] yesterday to [facility]. He apparently [facility] nursing desk for dialysis, and then slumped over and was minimally responsive. EMS describes agonal, and affect show respirations requiring bag valve mask assist. In the ED, the patient was noted to be severely hypothermic 94 F, hypoxic and was intubated utilizing etomidate and rocuronium. Imaging and lab studies were performed, revealing a potassium level of 6.1. The patient received in ED 2 g of calcium chloride 2 doses, blood cultures were obtained. Critical care medicine was consult today for treatment and management of respiratory failure, encephalopathy and presumed sepsis. Subjective: 06/03: Afebrile. The patient was dialyzed last evening, 1.5 liters removed with initial potassium level 6.2., currently level 5.3. The patient is awake and alert, CPAP trials are in process, with plans to extubate today. Cultures are in process and the patient continues on empiric antibiotics. 06/04 overnight patient became restless in respiratory distress hypoxic requiring reintubation 06/05 A. fib with RVR during dialysis yesterday responded to Lopressor IV push 06/06 tolerating CPAP today Objective Vital Signs Date Time Temp Pulse Resp B/P Pulse Ox O2 Delivery O2 Flow Rate FiO2 06/06/16 07:50 35 06/06/16 07:50 96 06/06/16 06:00 105 06/06/16 04:00 97.7 20 167/77 06/03/16 09:23 Nasal Cannula 4 Intake and Output 06/05/16 06/05/16 06/06/16 08:00 16:00 00:00 Intake Total 265 ml 205 ml 730 ml Output Total 10 ml 10 ml 5 ml Balance 255 ml 195 ml 725 ml Result Diagram: 06/06/16 0313 06/06/16 0313 Other Results Laboratory Tests Test 06/06/16 04:38 Blood Gas Puncture Site RT RADIAL Blood Gas Patient Temperature 98.6 Blood Gas HCO3 23 mmol/L (22-26) Blood Gas Base Excess -1.6 mmol/L (-2-2) Blood Gas Oxygen Saturation 95 % (90-100) Arterial Blood pH 7.39 (7.380-7.420) Arterial Blood Partial 38 mmHg (38-42) Pressure CO2 Arterial Blood Partial 104 mmHg Pressure O2 (61-120) Arterial Blood Oxygen Content 12.0 Vol % (12.0-20.0) Arterial Blood 1.4 % (0-4) Carboxyhemoglobin Arterial Blood Methemoglobin 1.1 % (0-2) Blood Gas Hemoglobin 8.8 G/DL (12.0-16.0) Oxygen Delivery Device VENTILATOR Blood Gas Ventilator Setting AC 600/20/5 PEEP Blood Gas Inspired Oxygen 35 % Imaging Last Impressions Chest X-Ray 06/02/16 1139 Signed Impressions: Service Date/Time: Thursday, June 02, 2016 12:08 - CONCLUSION: 1. Endotracheal tube tip measures 6.8 cm from the jean. 2. Nasogastric tube tip terminates in the distal esophagus and should be advanced into the stomach. 3. Stable pleural calcification in the right hemithorax and stable airspace consolidation bilaterally with small pleural effusions. Chuck Cadet MD Objective Remarks GENERAL: Elderly gentleman, awake and alert ,intubated following my commands SKIN: Cool and dry. HEAD: Atraumatic. Normocephalic. EYES: Pupils equal and round. No scleral icterus. No injection or drainage. ENT: No nasal bleeding or discharge. Mucous membranes pink and moist. NECK: Trachea midline. No JVD. CARDIOVASCULAR: Normal rate, regular rhythm. RESPIRATORY: Clear to auscultation bilaterally.. Breath sounds equal bilaterally. GASTROINTESTINAL: Abdomen soft, non-tender, nondistended. No guarding. MUSCULOSKELETAL: Extremities without clubbing, cyanosis, or edema. No obvious deformities. Left upper arm AV fistula with good bruit and thrill NEUROLOGICAL: Awake and alert. RASS 0. Date of Insertion: Jun 02, 2016 A/P Assessment and Plan Plan by systems: Neurologic: Metabolic Encephalopathy Hypothermia-resolved Remains Normothermic-98F Ammonia level-26 Neurochecks per ICU protocol Tylenol 650 mg every 6 hours when necessary for pain Off Sedation while on CPAP trials - doing well Respiratory: COPD Exacerbation Acute hypoxic respiratory failure Maintain O2 sat greater than 90% Solu-Medrol 40 mg every 8 hours Reintubated June 03, 2016 CPAP trials again today with SBT parameters Pulmonary consult-Dr. Wahaba appreciate recommendations Duonebs q 6hrs scheduled, q 2 hrs PRN Ventilator bundle Maintain HOB 30 degrees Cardiovascular: Hypercholesterolemia Hypertension Cardiomegaly H/O A. fib RVR H/O CHF BNP-341 Troponin-neg EKG-Atrial fibrillation Maintain MAP > 65mmHg, currently normotensive Continue aspirin 81 mg daily Continue amiodarone 200 mg every other day Head labetalol when necessary for blood pressure higher than 160 Lopressor IV push as needed for heart rate above 110 Renal: End-stage renal disease Nephrology following-Dr. Espinal Hemodialysis-Saturday Left upper arm AV graft-positive bruit and thrill Hemodialysis 06/02 -- Strict I/Os FEN/GI: Hyperkalemia Hiatal hernia Continue tube feeds Protonix-home medication IV fluids at O Heme/ID: Anemia of chronic disease History of multilobar pneumonia influenza A Recent diagnosis Multilobar PNA (Influenza A) discharged 05/31 Probable sepsis Pneumococcal, Legionella, influenza A and B cultures negative patient received Tamiflu 05/28 Urine and sputum cultures ID consult appreciated Endocrine: Thyromegaly TSH level, and T4 level Random cortisol All within normal limits -- SSI Prophylaxis: GI Prophylaxis Protonix 40 mg/daily (home medication) DVT Prophylaxis -- SCDs Heparin 5000 SQ BID Lines: Peripheral IVs 2. Central line if indicated Dispo: Critical Care: The total critical care time was 35 minutes. Time to perform other separately billable procedures was not included in the critical care time. Jerod Shi MD Jun 06, 2016 10:22
[2016-06-06] MEDS: LABETALOL HCL 100 MG/20 ML VIAL IV PUSH PRN ×2 (10:46→15:47)
[2016-06-06] MEDS: FILGRASTIM 300 MCG/ML VIAL SQ SCH (10:47)
[2016-06-06] MEDS: EPOETIN ALFA 10,000 UNITS/ML VIAL IV PRN (11:27)
[2016-06-06] MEDS: SODIUM CHLOR 0.9% 1000 ML INJ 1,000 ML IV PRN ×2 (11:28)
[2016-06-06] MEDS: GELATIN 12 MM/7 MM FOAM TOP PRN (11:28)
[2016-06-06] MEDS: METOCLOPRAMIDE HCL 10 MG/2 ML VIAL IV PUSH SCH ×2 (13:00→20:03)
--- NOTE | 2016-06-06 13:06 | PD.ONC.PN ---
Subjective Subjective Remarks Afebrile overnight. Pt resting in bed currently ungergoing hemodialysis. He is intubated, currently on CPAP trials. He shakes his head no when asked about pain or SOB. Per RN, he has not been tolerating TF and sometimes the residuals are pink tinged. Objective Data Date Time Temp Pulse Resp B/P Pulse Ox O2 Delivery O2 Flow Rate FiO2 06/06/16 12:19 96 35 06/06/16 07:50 35 06/06/16 07:50 96 35 06/06/16 07:35 97 35 06/06/16 06:00 105 06/06/16 04:13 97 35 06/06/16 04:00 102 06/06/16 04:00 97.7 102 20 167/77 97 06/06/16 02:18 100 35 06/06/16 02:00 105 06/06/16 01:19 98 35 06/06/16 00:00 97.6 112 20 120/56 99 06/06/16 00:00 112 06/05/16 22:17 100 35 06/05/16 22:00 109 06/05/16 20:00 97.4 104 20 130/60 99 06/05/16 20:00 104 06/05/16 19:20 99 35 06/05/16 16:00 98.6 112 20 120/68 99 06/05/16 15:57 99 40 06/06/16 06/06/16 06/06/16 07:00 15:00 23:00 Intake Total 655 ml Output Total 10 ml Balance 645 ml Result Diagram: 06/06/163 06/06/16312 Laboratory Results Laboratory Tests Test 06/05/16 06/06/16 06/06/16 19:21 03:13 04:38 Reticulocyte Count 0.6 % Absolute Reticulocyte Count 14.6 MIL/L Prothrombin Time 12.9 SEC Prothromb Time International 1.2 RATIO Ratio Activated Partial 34.5 SEC Thromboplast Time Fibrinogen 356 mg/dL White Blood Count 2.6 TH/MM3 Red Blood Count 2.61 MIL/MM3 Hemoglobin 8.4 GM/DL Hematocrit 25.2 % Mean Corpuscular Volume 96.6 FL Mean Corpuscular Hemoglobin 32.3 PG Mean Corpuscular Hemoglobin 33.5 % Concent Red Cell Distribution Width 17.8 % Platelet Count 39 TH/MM3 Mean Platelet Volume 8.9 FL Neutrophils (%) (Auto) 94.6 % Lymphocytes (%) (Auto) 1.6 % Monocytes (%) (Auto) 3.2 % Eosinophils (%) (Auto) 0.0 % Basophils (%) (Auto) 0.6 % Neutrophils # (Auto) 2.5 TH/MM3 Lymphocytes # (Auto) 0.0 TH/MM3 Monocytes # (Auto) 0.1 TH/MM3 Eosinophils # (Auto) 0.0 TH/MM3 Basophils # (Auto) 0.0 TH/MM3 CBC Comment AUTO DIFF Differential Total Cells 100 Counted Neutrophils % (Manual) 69 % Band Neutrophils % 27 % Lymphocytes % 1 % Monocytes % 3 % Neutrophils # (Manual) 2.5 TH/MM3 Nucleated Red Blood Cells 1 /100 WBC Differential Comment FINAL DIFF MANUAL Platelet Estimate LOW Platelet Morphology Comment NORMAL Ovalocytes 1+ Helmet Cells OCC Acanthocytes OCC Sodium Level 140 MEQ/L Potassium Level 5.3 MEQ/L Chloride Level 100 MEQ/L Carbon Dioxide Level 26.0 MEQ/L Anion Gap 14 MEQ/L Blood Urea Nitrogen 118 MG/DL Creatinine 5.40 MG/DL Estimat Glomerular Filtration 11 ML/MIN Rate Random Glucose 172 MG/DL Calcium Level 7.6 MG/DL Phosphorus Level 7.0 MG/DL Magnesium Level 2.3 MG/DL Total Bilirubin 0.4 MG/DL Aspartate Amino Transf 17 U/L (AST/SGOT) Alanine Aminotransferase 47 U/L (ALT/SGPT) Alkaline Phosphatase 76 U/L Total Protein 4.9 GM/DL Albumin 2.1 GM/DL Blood Gas Puncture Site RT RADIAL Blood Gas Patient Temperature 98.6 Blood Gas HCO3 23 mmol/L Blood Gas Base Excess -1.6 mmol/L Blood Gas Oxygen Saturation 95 % Arterial Blood pH 7.39 Arterial Blood Partial 38 mmHg Pressure CO2 Arterial Blood Partial 104 mmHg Pressure O2 Arterial Blood Oxygen Content 12.0 Vol % Arterial Blood 1.4 % Carboxyhemoglobin Arterial Blood Methemoglobin 1.1 % Blood Gas Hemoglobin 8.8 G/DL Oxygen Delivery Device VENTILATOR Blood Gas Ventilator Setting AC 600/20/5 PEEP Blood Gas Inspired Oxygen 35 % Culture Results Microbiology Date/Time Procedure Status Source Growth 06/06/16 07:43 Gram Stain Received Sputum Endotracheal Pending 06/06/16 07:43 Sputum Culture Received Sputum Endotracheal Pending Imaging Studies Last 24 hours Impressions Chest X-Ray 06/06/16 0600 Signed Impressions: Service Date/Time: Monday, June 06, 2016 04:26 - CONCLUSION: 1. Persistent bibasilar effusion/atelectasis. 2. Stable bibasilar right hemithorax. Stable pleural-based calcifications, right greater than left. 3. Interval placement of a nasogastric tube which enters the stomach. Endotracheal tube is appropriately positioned above the jean. Aubrey Martinez MD Administered Medications Medications (Trade) Dose Ordered Sig/Bharti Route PRN Reason Start Time Stop Time Status Last Admin Dose Admin IV Flush (NS Flush) 2 ml BID IV FLUSH 06/02/16 21:00 06/06/16 08:30 Pantoprazole Sodium (Protonix Inj) 40 mg DAILY IV 06/03/16 09:00 06/06/16 08:30 Docusate Sodium (Colace Liq) 100 mg Q12H G-TUBE 06/02/16 14:30 06/06/16 01:38 Chlorhexidine Gluconate 3 pack 3 pack Taper DAILY@04 TOP 06/03/16 04:00 05/30/17 03:59 06/06/16 02:11 Sodium Chloride 1,000 ml @ 0 mls/hr Q0M PRN IV For Prime & Rinse Back 06/02/16 15:36 06/06/16 11:28 Sodium Chloride (NS 1000 ml Inj) 1,000 ml @ 0 mls/hr Q0M PRN IV WITH DIALYSIS 06/02/16 15:36 06/06/16 11:28 Mannitol (Mannitol Inj) 12.5 gm UNSCH PRN IV WITH DIALYSIS 06/02/16 15:45 06/04/16 13:06 Albumin Human (Albumin 25% Inj) 25 gm UNSCH PRN IV WITH DIALYSIS 06/02/16 15:45 06/04/16 13:05 Epoetin Jose Antonio (Epogen Inj) 5,000 units UNSCH PRN IV WITH DIALYSIS 06/02/16 15:45 06/06/16 11:27 Gelatin (Gelfoam 12 Mm/7 Mm Top) 1 foam UNSCH PRN TOP SEE LABEL COMMENTS 06/02/16 15:45 06/06/16 11:28 Heparin Sodium (Porcine) (Heparin Inj) 5,000 units Q12HR SQ 06/02/16 21:00 Hold 06/03/16 07:56 Aspirin 81 mg 81 mg DAILY CHEW 06/03/16 09:00 Hold 06/03/16 07:55 Azithromycin 500 mg/Sodium Chloride 250 ml @ 250 mls/hr Q24H IV 06/02/16 18:00 06/05/16 18:01 Aztreonam/Sodium Chloride (Azactam Inj/NS Inj) 100 ml @ 200 mls/hr Q8H IV 06/03/16 12:00 06/06/16 11:04 Methylprednisolone Sodium Succinate (SoluMEDROL INJ) 40 mg DAILY IV PUSH 06/04/16 09:00 06/06/16 08:30 Chlorhexidine Gluconate 15 ml 15 ml BID@08,20 MT 06/03/16 20:00 06/06/16 08:26 Propofol (Diprivan 1000 Mg/100ml Inj) 100 ml @ 0 mls/hr TITRATE IV 06/03/16 19:00 06/06/16 04:40 Guar Gum (Nutrisource Fiber Powder) 1 pack TID G-TUBE 06/05/16 18:00 06/06/16 08:30 Filgrastim (Neupogen Inj) 300 mcg DAILY SQ 06/05/16 18:00 06/06/16 10:47 Labetalol HCl (Trandate Inj) 10 mg Q4H PRN IV PUSH SBP>160, DBP>90 06/06/16 10:00 06/06/16 10:46 Objective Remarks GENERAL: Chronically ill appearing older male, lying in bed in no distress. SKIN: Warm and dry. Few bruises to abdomen. HEAD: Normocephalic. EYES: No injection or drainage. NECK: Supple, trachea midline. CARDIOVASCULAR: +S1/S2. Afib on monitor. RESPIRATORY: Occasional rhonchi. Intubated on CPAP. GASTROINTESTINAL: Abdomen soft. +Hepatomegaly. EXTREMITIES: No cyanosis, or edema. NEUROLOGICAL: Follows commands, good eye contact. Awake on the ventilator. Assessment/Plan Problem List: (1) Pancytopenia Status: Acute Plan: -- Likely due to consumption from infection -- He has received Neupogen, today's ANC 2500. -- Underlying anemia due to chronic renal disease. -- Iron studies resulted; ferritin quite elevated, but this is an acute phase reactant. -- B12 and folate normal. -- CMV pending (2) Pneumonia Status: Acute Plan: -- On Azithromycin and Aztreonam -- CXR today shows persistent bibasilar effusion/ atelectasis. -- Sputum culture pending -- ID following Assessment 70 y/o male admitted for AMS with hypoxia during hemodialysis Plan 1. Stop Neupogen 2. Elevated ferritin likely an acute phase reactant 3. No chemical DVT prophylaxis 4. Monitor blood counts, await CMV results. Attending Statement The exam, history, and the medical decision-making described in the above note were completed with the assistance of the mid-level provider. I reviewed and agree with the findings presented. I attest that I had a [id number] encounter with the patient on the same day, and personally performed and documented my assessment and findings in the medical record.Remains intubated. Neutropenia resolved with neupogen. Platelet is stable, no bleeding noted. No apparent vitamin or iron deficiency. Continue to monitor. Problem Qualifiers (1) Pneumonia: Qualified Code: J18.9 - Pneumonia due to infectious organism, unspecified laterality, unspecified part of lung Emily Neff Jun 06, 2016 13:06 Chris Roberts MD Jun 06, 2016 17:01
--- NOTE | 2016-06-06 13:53 | HHI.NPPN ---
Subjective History of Present Illness 70 year old male with COPD, ESRD, A fib Additional Remarks intubated Review of Systems General Constitutional: Fatigue Objective Data Data 06/05/16 06/06/16 18:59 06:59 Intake Total 205 ml 1385 ml Output Total 10 ml 15 ml Balance 195 ml 1370 ml Intake Oral 0 ml IV Total 205 ml 780 ml Tube Feeding 605 ml Output Urine Total 10 ml 15 ml # Bowel Movements 0 0 Vital Signs Date Time Temp Pulse Resp B/P Pulse Ox O2 Delivery O2 Flow Rate FiO2 06/06/16 12:19 96 35 06/06/16 07:50 35 06/06/16 07:50 96 35 06/06/16 07:35 97 35 06/06/16 06:00 105 06/06/16 04:13 97 35 06/06/16 04:00 102 06/06/16 04:00 97.7 102 20 167/77 97 06/06/16 02:18 100 35 06/06/16 02:00 105 06/06/16 01:19 98 35 06/06/16 00:00 97.6 112 20 120/56 99 06/06/16 00:00 112 06/05/16 22:17 100 35 06/05/16 22:00 109 06/05/16 20:00 97.4 104 20 130/60 99 06/05/16 20:00 104 06/05/16 19:20 99 35 06/05/16 16:00 98.6 112 20 120/68 99 06/05/16 15:57 99 40 -: 06/06/16 0313 06/06/16 0313 Microbiology 06/06/16 Gram Stain, Received Pending 06/06/16 Sputum Culture, Received Pending Physical Exam General Appearance: Well Developed Neck Neck Exam: Neck Supple Pulmonary Resp Exam: Decreased Bases Cardiology CV Exam: Arrhythmia Gastrointestinal/Abdomen GI Exam: Soft, Non-Tender, Bowel Sounds Present Extremeties Extremities Exam: No Edema Assessment/Plan Problem List: (1) ESRD (end stage renal disease) Plan: Patient is seen during hemodialysis UF 1.7 L A fib with RVR need Cardizem drip he was seen during dialysis again trying to get K lowered, tolerating it (2) Atrial fibrillation with rapid ventricular response Plan: Patient heart rate is high 130's start Diltiazem drip (3) Pneumonia Plan: He is being treated with antibiotics pulmonary is following Vancomycin and cefepime was given (4) Hyperkalemia Plan: hemodialysis Problem Qualifiers (1) Pneumonia: Qualified Code: J18.9 - Pneumonia due to infectious organism, unspecified laterality, unspecified part of lung Marta Rivera MD Jun 06, 2016 13:53 Marta Rivera MD Jun 06, 2016 13:53
[2016-06-06] MEDS ORDERED: DILTIAZEM INJ 125 MG in SODIUM CHLORIDE 0.9% INJ 100 ML IV SCH (15:00)
[2016-06-06] MEDS: METOPROLOL TARTRATE 5 MG/5 ML VIAL IV PUSH PRN (15:00)
--- NOTE | 2016-06-06 18:20 | HHI.PR ---
Subjective Remarks REMAINS ON VENT SUPPORT Objective Vital Signs Date Time Temp Pulse Resp B/P Pulse Ox O2 Delivery O2 Flow Rate FiO2 06/06/16 17:49 97 35 06/06/16 16:02 98 35 06/06/16 16:00 98.8 102 26 154/66 97 06/06/16 14:45 97 35 06/06/16 12:19 96 35 06/06/16 12:00 98.5 115 23 158/68 96 06/06/16 08:00 99.2 118 26 138/67 97 06/06/16 07:50 35 06/06/16 07:50 96 35 06/06/16 07:35 97 35 06/06/16 06:00 105 06/06/16 04:13 97 35 06/06/16 04:00 102 06/06/16 04:00 97.7 102 20 167/77 97 06/06/16 02:18 100 35 06/06/16 02:00 105 06/06/16 01:19 98 35 06/06/16 00:00 97.6 112 20 120/56 99 06/06/16 00:00 112 06/05/16 22:17 100 35 06/05/16 22:00 109 06/05/16 20:00 97.4 104 20 130/60 99 06/05/16 20:00 104 06/05/16 19:20 99 35 I/O 06/05/16 06/05/16 06/05/16 06/06/16 06/06/16 06/06/16 07:00 15:00 23:00 07:00 15:00 23:00 Intake Total 265 ml 205 ml 730 ml 655 ml 1000 ml Output Total 10 ml 10 ml 5 ml 10 ml 1810 ml Balance 255 ml 195 ml 725 ml 645 ml -810 ml Intake Oral 0 ml 0 ml 0 ml IV Total 265 ml 205 ml 530 ml 250 ml 175 ml Tube Feeding 200 ml 405 ml Autotransfusion 515 ml Tube Irrigant 310 ml Output Urine Total 10 ml 10 ml 5 ml 10 ml 10 ml Hemodialysis 1800 ml # Bowel Movements 0 0 0 0 0 Result Diagram: 06/06/1631206/06/16312 Objective Remarks GENERAL: SKIN: Warm and dry. HEAD: Atraumatic. Normocephalic. EYES: Pupils equal and round. No scleral icterus. No injection or drainage. ENT: No nasal bleeding or discharge. Mucous membranes pink and moist. NECK: Trachea midline. No JVD. CARDIOVASCULAR: Regular rate and rhythm. RESPIRATORY: No accessory muscle use. [id number] RONCHI to auscultation. Breath sounds equal bilaterally. GASTROINTESTINAL: Abdomen soft, non-tender, nondistended. Hepatic and splenic margins not palpable. MUSCULOSKELETAL: Extremities without clubbing, cyanosis, or edema. No obvious deformities. NEUROLOGICAL: Awake and alert. No obvious cranial nerve deficits. Motor grossly within normal limits. Five out of 5 muscle strength in the arms and legs. Normal speech. PSYCHIATRIC: Appropriate mood and affect; insight and judgment normal. Assessment and Plan Assessment and Plan RESPIRATORY FAILURE COPD CHF AFIB ESRD ON HEMODIALYSIS PLAN WEAN OFF VENT TOLERATED BRONCHODILATOR THERAPY Susie Richards MD Jun 06, 2016 18:20
[2016-06-06] MEDS: AZITHROMYCIN INJ 500 MG in SODIUM CHLOR 0.9% 250 ML INJ 250 ML IV SCH (18:35)
--- NOTE | 2016-06-06 19:02 | HHI.IDPN ---
Subjective Subjective Remarks delayed entry - pt was seen earlier today around 1700 Neutropenia resolved with neupogen remains on vent afebrile Antibiotics azithro azactam vancomycin Allergies: Coded Allergies: Sulfa (Verified Allergy, Severe, "difficulty breathing", 06/02/16) Penicillin (Verified Adverse Reaction, Severe, "acid taste in mouth, problems with vision", 06/02/16) DIFFICULTY BREATHING Objective . Vital Signs Date Time Temp Pulse Resp B/P Pulse Ox O2 Delivery O2 Flow Rate FiO2 06/06/16 17:49 97 35 06/06/16 16:02 98 35 06/06/16 16:00 98.8 102 26 154/66 97 06/06/16 14:45 97 35 06/06/16 12:19 96 35 06/06/16 12:00 98.5 115 23 158/68 96 06/06/16 08:00 99.2 118 26 138/67 97 06/06/16 07:50 35 06/06/16 07:50 96 35 06/06/16 07:35 97 35 06/06/16 06:00 105 06/06/16 04:13 97 35 06/06/16 04:00 102 06/06/16 04:00 97.7 102 20 167/77 97 06/06/16 02:18 100 35 06/06/16 02:00 105 06/06/16 01:19 98 35 06/06/16 00:00 97.6 112 20 120/56 99 06/06/16 00:00 112 06/05/16 22:17 100 35 06/05/16 22:00 109 06/05/16 20:00 97.4 104 20 130/60 99 06/05/16 20:00 104 06/05/16 19:20 99 35 06/05/16 06/05/16 06/06/16 15:00 23:00 07:00 Intake Total 205 ml 730 ml 655 ml Output Total 10 ml 5 ml 10 ml Balance 195 ml 725 ml 645 ml Intake Oral 0 ml 0 ml IV Total 205 ml 530 ml 250 ml Tube Feeding 200 ml 405 ml Output Urine Total 10 ml 5 ml 10 ml # Bowel Movements 0 0 0 . Laboratory Tests Test 06/05/16 06/05/16 06/06/16 06:18 19:21 03:13 White Blood Count 0.9 TH/MM3 2.6 TH/MM3 Red Blood Count 2.60 MIL/MM3 2.61 MIL/MM3 Hemoglobin 8.3 GM/DL 8.4 GM/DL Hematocrit 25.2 % 25.2 % Mean Corpuscular Volume 96.8 FL 96.6 FL Mean Corpuscular Hemoglobin 31.8 PG 32.3 PG Mean Corpuscular Hemoglobin 32.8 % 33.5 % Concent Red Cell Distribution Width 18.1 % 17.8 % Platelet Count 41 TH/MM3 39 TH/MM3 Mean Platelet Volume 10.0 FL 8.9 FL Neutrophils (%) (Auto) 88.2 % 94.6 % Lymphocytes (%) (Auto) 8.1 % 1.6 % Monocytes (%) (Auto) 3.4 % 3.2 % Eosinophils (%) (Auto) 0.0 % 0.0 % Basophils (%) (Auto) 0.3 % 0.6 % Neutrophils # (Auto) 0.8 TH/MM3 2.5 TH/MM3 Lymphocytes # (Auto) 0.1 TH/MM3 0.0 TH/MM3 Monocytes # (Auto) 0.0 TH/MM3 0.1 TH/MM3 Eosinophils # (Auto) 0.0 TH/MM3 0.0 TH/MM3 Basophils # (Auto) 0.0 TH/MM3 0.0 TH/MM3 CBC Comment AUTO DIFF AUTO DIFF Differential Total Cells 50 100 Counted Neutrophils % (Manual) 74 % 69 % Band Neutrophils % 12 % 27 % Lymphocytes % 8 % 1 % Monocytes % 4 % 3 % Neutrophils # (Manual) 0.8 TH/MM3 2.5 TH/MM3 Metamyelocytes 2 % Differential Comment FINAL DIFF FINAL DIFF MANUAL MANUAL Platelet Estimate LOW LOW Platelet Morphology Comment NORMAL NORMAL Ovalocytes 1+ 1+ Helmet Cells OCC OCC Acanthocytes OCC OCC Reticulocyte Count 0.6 % Absolute Reticulocyte Count 14.6 MIL/L Nucleated Red Blood Cells 1 /100 WBC Laboratory Tests Test 06/05/16 06/06/16 06:18 03:13 Sodium Level 142 MEQ/L 140 MEQ/L Potassium Level 4.9 MEQ/L 5.3 MEQ/L Chloride Level 100 MEQ/L 100 MEQ/L Carbon Dioxide Level 28.1 MEQ/L 26.0 MEQ/L Anion Gap 14 MEQ/L 14 MEQ/L Blood Urea Nitrogen 82 MG/DL 118 MG/DL Creatinine 4.33 MG/DL 5.40 MG/DL Estimat Glomerular Filtration 14 ML/MIN 11 ML/MIN Rate Random Glucose 79 MG/DL 172 MG/DL Calcium Level 7.8 MG/DL 7.6 MG/DL Phosphorus Level 5.2 MG/DL 7.0 MG/DL Magnesium Level 2.0 MG/DL 2.3 MG/DL Iron Level 16 MCG/DL Total Iron Binding Capacity 92 MCG/DL Percent Iron Saturation 17.3 % Ferritin 1061 NG/ML Total Bilirubin 0.5 MG/DL 0.4 MG/DL Aspartate Amino Transf 22 U/L 17 U/L (AST/SGOT) Alanine Aminotransferase 55 U/L 47 U/L (ALT/SGPT) Alkaline Phosphatase 74 U/L 76 U/L Lactate Dehydrogenase 186 U/L Total Protein 4.9 GM/DL 4.9 GM/DL Albumin 2.2 GM/DL 2.1 GM/DL Vitamin B12 Level 529 PG/ML Folate 6.4 NG/ML Microbiology Date/Time Procedure Status Source Growth 06/06/16 07:43 Gram Stain - Final Resulted Sputum Endotracheal 06/06/16 07:43 Sputum Culture Resulted Sputum Endotracheal Pending Imaging Last Impressions Chest X-Ray 06/06/16 0600 Signed Impressions: Service Date/Time: Monday, June 06, 2016 04:26 - CONCLUSION: 1. Persistent bibasilar effusion/atelectasis. 2. Stable bibasilar right hemithorax. Stable pleural-based calcifications, right greater than left. 3. Interval placement of a nasogastric tube which enters the stomach. Endotracheal tube is appropriately positioned above the jean. Aubrey Martinez MD Physical Exam CONSTITUTIONAL/GENERAL: This is a thin elderly male patient, sedated intubated on [facility] ventilationm + tremor TUBES/LINES/DRAINS: SKIN: No jaundice, rashes, or lesions. Ecchymoses on upper extremities. No wounds seen anteriorly. Skin temperature appropriate. Not diaphoretic. HEAD: Atraumatic. Normocephalic. EYES: Pupils equal and round and reactive. Extraocular motions intact. No scleral icterus. No injection or drainage. Fundi not examined. CARDIOVASCULAR: irregular rate and rhythm without murmurs, gallops, or rubs. No JVD. Peripheral pulses symmetric. AV fistula in place looks OK LUE RESPIRATORY/CHEST: Symmetric, unlabored respirations. Breath sounds equal bilaterally. clear to auscultation GASTROINTESTINAL: Abdomen soft, non-tender, nondistended. No hepato-splenomegaly , or palpable masses. No guarding. Bowel sounds present. GENITOURINARY: Without palpable bladder distension. MUSCULOSKELETAL: Extremities without clubbing, cyanosis, or edema. No joint tenderness or effusion noted. No calf tenderness. No mottling or clubbing. NEUROLOGICAL: Arousable Opens eyes to stimulation Follows commands. Moves all extremities. Assessment & Plan Remarks Recurrent PNA, - sputum G stain is noted; No GNBs, rare WBC Recent flu Acute VDRF - improving infiltrates and oxygenation Recent hospitalization Unexplained acquired neutropenia, thrombocytopenia ? medx - appreciated fine hairer input - cont azithro - cont azactam - fu sputum clx; will deescalate abx per clx report Discussed Condition With Daniela Barksdale MD Jun 06, 2016 19:02
[2016-06-06] MEDS: SODIUM CHLORIDE 0.9% IV SCH (20:02)
[2016-06-06] MEDS: AZTREONAM IV SCH (20:02)
[2016-06-07] VITALS (22 sets, daily range): BP systolic 103–152; BP diastolic 53–94; PULSE 101–113; RESP 20–30; TEMP 97.4–99.4; O2SAT 95–99
[2016-06-07] MEDS: METOCLOPRAMIDE HCL 10 MG/2 ML VIAL IV PUSH SCH ×3 (03:32→20:15)
[2016-06-07] MEDS: DOCUSATE SODIUM 100 MG/10 ML UDC G-TUBE SCH ×2 (03:32→15:24)
[2016-06-07] MEDS: CHLORHEXIDINE GLUCONATE 2 % 1 PACK (2 CLOTHS) TOP SCH (03:33)
[2016-06-07] MEDS: AZTREONAM IV SCH ×3 (03:33→20:16)
[2016-06-07] MEDS: SODIUM CHLORIDE 0.9% IV SCH ×3 (03:33→20:16)
[2016-06-07] MEDS: PROPOFOL 1000 MG/100 ML INJ 100 ML IV SCH ×2 (03:47→12:28)
[2016-06-07 04:26] LABS: AUTOMATED NEUTROPHIL # 4.8 TH/MM3 (1.8-7.7); BASOPHIL % 0.3 % (0.0-2.0); EOSINOPHIL # 0.1 TH/MM3 (0-0.4); HEMATOCRIT 23.7 % (39.0-51.0); LYMPHOCYTE # 0.1 TH/MM3 (1.0-4.8); MEAN CELL VOLUME 96.7 FL (80.0-100.0); MEAN CORPUSCULAR HGB CONC 33.1 % (32.0-36.0); MONO % 3.1 % (0.0-8.0); NEUT % 93.6 % (16.0-70.0); PLATELET COUNT 43 TH/MM3 (150-450); RED BLOOD COUNT 2.45 MIL/MM3 (4.50-5.90); WHITE BLOOD COUNT 5.1 TH/MM3 (4.0-11.0)
[2016-06-07 04:29] LABS: HEMO FLAGS AUTO DIFF
[2016-06-07 04:50] LABS: BICARBONATE 29.6 MEQ/L (21.0-32.0); CALCIUM-PROTEIN CORRECTED 8.4 MG/DL (8.5-10.1); MAGNESIUM 1.9 MG/DL (1.5-2.5); POTASSIUM 4.9 MEQ/L (3.5-5.1); TOTAL BILIRUBIN ADULT 0.4 MG/DL (0.2-1.0)
[2016-06-07] MEDS: INSULIN NovoLIN REGULAR SUPPLEMENTAL SCALE SQ SCH ×4 (06:08→20:18)
[2016-06-07 06:56] LABS: BANDS 33 % (0-6); CORRECTED NUCLEATED RBC 2 /100 WBC (0-0); METAMYELOCYTES 18 % (0-1); NEUTROPHIL # MANUAL DIFF 4.7 TH/MM3 (1.8-7.7); POLYS (SEG NEUTROPHILS) 42 % (16-70); TOXIC VACUOLATION PRESENT (NONE SEEN); WBC DIFF SAMPLE 100
[2016-06-07 06:57] LABS: ACANTHOCYTES OCC (NORMAL); OVALOCYTES 1+ (NORMAL); PLATELET ESTIMATE SMEAR LOW (NORMAL); PLATELET MORPHOLOGY ENLARGED (NORMAL); SCAN/DIFF FINAL DIFF MANUAL
[2016-06-07] MEDS: RESP: ALBUTEROL 2.5 MG/IPRATROPIUM 0.5 MG NEB (SCH) INH ×2 (08:02→12:17)
[2016-06-07] MEDS: NUTRISOURCE FIBER POWDER 1 PACK G-TUBE SCH ×3 (09:00→17:25)
[2016-06-07] MEDS: CHLORHEXIDINE 0.12% (ORAL KIT) 15 ML CUP MT SCH ×2 (09:02→20:00)
--- NOTE | 2016-06-07 09:02 | PD.ONC.PN ---
Subjective Subjective Remarks Remains intubated. No bleeding noted. Objective Data Date Time Temp Pulse Resp B/P Pulse Ox O2 Delivery O2 Flow Rate FiO2 06/07/16 08:03 95 35 06/07/16 06:00 105 06/07/16 04:30 97 35 06/07/16 04:00 97.4 109 20 103/53 97 06/07/16 04:00 109 06/07/16 02:00 109 06/07/16 00:01 97 35 06/07/16 00:00 97.6 111 21 134/54 97 06/07/16 00:00 111 06/06/16 22:00 106 06/06/16 20:00 98.4 98 21 99/50 98 06/06/16 20:00 98 06/06/16 19:25 97 35 06/06/16 17:49 97 35 06/06/16 16:02 98 35 06/06/16 16:00 98.8 102 26 154/66 97 06/06/16 14:45 97 35 06/06/16 12:19 96 35 06/06/16 12:00 98.5 115 23 158/68 96 06/07/16 06/07/16 06/07/16 07:00 15:00 23:00 Intake Total 754 ml Output Total 5 ml Balance 749 ml Result Diagram: 06/07/16 0304 06/07/16 0304 Laboratory Results Laboratory Tests Test 06/07/16 03:04 White Blood Count 5.1 TH/MM3 Red Blood Count 2.45 MIL/MM3 Hemoglobin 7.8 GM/DL Hematocrit 23.7 % Mean Corpuscular Volume 96.7 FL Mean Corpuscular Hemoglobin 32.0 PG Mean Corpuscular Hemoglobin 33.1 % Concent Red Cell Distribution Width 18.0 % Platelet Count 43 TH/MM3 Mean Platelet Volume 9.0 FL Neutrophils (%) (Auto) 93.6 % Lymphocytes (%) (Auto) 2.0 % Monocytes (%) (Auto) 3.1 % Eosinophils (%) (Auto) 1.0 % Basophils (%) (Auto) 0.3 % Neutrophils # (Auto) 4.8 TH/MM3 Lymphocytes # (Auto) 0.1 TH/MM3 Monocytes # (Auto) 0.2 TH/MM3 Eosinophils # (Auto) 0.1 TH/MM3 Basophils # (Auto) 0.0 TH/MM3 CBC Comment AUTO DIFF Differential Total Cells 100 Counted Neutrophils % (Manual) 42 % Band Neutrophils % 33 % Lymphocytes % 5 % Monocytes % 2 % Neutrophils # (Manual) 4.7 TH/MM3 Metamyelocytes 18 % Nucleated Red Blood Cells 2 /100 WBC Differential Comment FINAL DIFF MANUAL Toxic Vacuolation PRESENT Platelet Estimate LOW Platelet Morphology Comment ENLARGED Ovalocytes 1+ Acanthocytes OCC Sodium Level 142 MEQ/L Potassium Level 4.9 MEQ/L Chloride Level 100 MEQ/L Carbon Dioxide Level 29.6 MEQ/L Anion Gap 12 MEQ/L Blood Urea Nitrogen 82 MG/DL Creatinine 3.64 MG/DL Estimat Glomerular Filtration 17 ML/MIN Rate Random Glucose 159 MG/DL Calcium Level 6.9 MG/DL Protein Corrected Calcium 8.4 MG/DL Phosphorus Level 3.0 MG/DL Magnesium Level 1.9 MG/DL Total Bilirubin 0.4 MG/DL Aspartate Amino Transf 13 U/L (AST/SGOT) Alanine Aminotransferase 38 U/L (ALT/SGPT) Alkaline Phosphatase 78 U/L Total Protein 4.4 GM/DL Albumin 1.8 GM/DL Culture Results Microbiology Date/Time Procedure Status Source Growth 06/06/16 07:43 Gram Stain - Final Resulted Sputum Endotracheal 06/06/16 07:43 Sputum Culture Resulted Sputum Endotracheal Pending Administered Medications Medications (Trade) Dose Ordered Sig/Bharti Route PRN Reason Start Time Stop Time Status Last Admin Dose Admin IV Flush (NS Flush) 2 ml BID IV FLUSH 06/02/16 21:00 06/06/16 08:30 Pantoprazole Sodium (Protonix Inj) 40 mg DAILY IV 06/03/16 09:00 06/06/16 08:30 Docusate Sodium (Colace Liq) 100 mg Q12H G-TUBE 06/02/16 14:30 06/07/16 03:32 Chlorhexidine Gluconate 3 pack 3 pack Taper DAILY@04 TOP 06/03/16 04:00 05/30/17 03:59 06/07/16 03:33 Sodium Chloride 1,000 ml @ 0 mls/hr Q0M PRN IV For Prime & Rinse Back 06/02/16 15:36 06/06/16 11:28 Sodium Chloride (NS 1000 ml Inj) 1,000 ml @ 0 mls/hr Q0M PRN IV WITH DIALYSIS 06/02/16 15:36 06/06/16 11:28 Mannitol (Mannitol Inj) 12.5 gm UNSCH PRN IV WITH DIALYSIS 06/02/16 15:45 06/04/16 13:06 Albumin Human (Albumin 25% Inj) 25 gm UNSCH PRN IV WITH DIALYSIS 06/02/16 15:45 06/04/16 13:05 Epoetin Jose Antonio (Epogen Inj) 5,000 units UNSCH PRN IV WITH DIALYSIS 06/02/16 15:45 06/06/16 11:27 Gelatin (Gelfoam 12 Mm/7 Mm Top) 1 foam UNSCH PRN TOP SEE LABEL COMMENTS 06/02/16 15:45 06/06/16 11:28 Heparin Sodium (Porcine) (Heparin Inj) 5,000 units Q12HR SQ 06/02/16 21:00 Hold 06/03/16 07:56 Aspirin 81 mg 81 mg DAILY CHEW 06/03/16 09:00 Hold 06/03/16 07:55 Azithromycin/ Sodium Chloride (Zithromax Inj/ NS 250 ml Inj) 250 ml @ 250 mls/hr Q24H IV 06/02/16 18:00 06/06/16 18:35 Methylprednisolone Sodium Succinate (SoluMEDROL INJ) 40 mg DAILY IV PUSH 06/04/16 09:00 06/06/16 08:30 Chlorhexidine Gluconate 15 ml 15 ml BID@08,20 MT 06/03/16 20:00 06/06/16 20:02 Propofol (Diprivan 1000 Mg/100ml Inj) 100 ml @ 0 mls/hr TITRATE IV 06/03/16 19:00 06/07/16 03:47 Guar Gum (Nutrisource Fiber Powder) 1 pack TID G-TUBE 06/05/16 18:00 06/06/16 18:00 Labetalol HCl (Trandate Inj) 10 mg Q4H PRN IV PUSH SBP>160, DBP>90 06/06/16 10:00 06/06/16 15:47 Metoclopramide HCl 10 mg 10 mg Q8H IV PUSH 06/06/16 13:00 06/07/16 03:32 Aztreonam/Sodium Chloride (Azactam Inj/NS Inj) 50 ml @ 100 mls/hr Q8H IV 06/06/16 20:00 06/07/16 03:33 Metoprolol Tartrate (Lopressor Inj) 5 mg Q6H PRN IV PUSH HR >100 06/06/16 14:45 06/06/16 15:00 Objective Remarks GENERAL: On vent. Sedated but open eyes SKIN: Warm and dry. HEAD: Normocephalic. EYES: No scleral icterus. No injection or drainage. NECK: Supple, trachea midline. No JVD or lymphadenopathy. LYMPHATIC: No adenopathy. CARDIOVASCULAR: Regular rate and rhythm without murmurs. RESPIRATORY: Breath sounds equal bilaterally. No accessory muscle use. GASTROINTESTINAL: Abdomen soft, non-tender, nondistended. EXTREMITIES: No cyanosis, or edema. MUSCULOSKELETAL: Adequate muscle tone. NEUROLOGICAL: Sedated Assessment/Plan Problem List: (1) Pancytopenia Status: Acute Plan: -- Likely due to consumption from infection -- He has received Neupogenx2 days, neutropenia has resolved -- Underlying anemia due to chronic renal disease and sepsis, no bleeding noted. -- Platelet stable. -- Iron studies resulted; ferritin quite elevated, but this is an acute phase reactant. -- B12 and folate normal. -- CMV pending (2) Pneumonia Status: Acute Plan: -- On Azithromycin and Aztreonam -- CXR today shows persistent bibasilar effusion/ atelectasis. -- Sputum culture pending -- ID following Assessment 70 y/o male admitted for AMS with hypoxia during hemodialysis Plan 1. Monitor CBC 2. CMV pending. Problem Qualifiers (1) Pneumonia: Qualified Code: J18.9 - Pneumonia due to infectious organism, unspecified laterality, unspecified part of lung Chris Roberts MD Jun 07, 2016 09:02
[2016-06-07] MEDS: PANTOPRAZOLE SODIUM 40 MG VIAL IV SCH (09:03)
[2016-06-07] MEDS: methylPREDNISolone SOD SUCC 40 MG/1 ML VIAL IV PUSH SCH (09:03)
[2016-06-07] MEDS: SODIUM CHLORIDE 0.9% FLUSH 5 ML FLUSH IV FLUSH SCH ×2 (09:03→20:11)
[2016-06-07] MEDS: METOPROLOL TARTRATE 5 MG/5 ML VIAL IV PUSH PRN (09:35)
[2016-06-07] MEDS: LABETALOL HCL 100 MG/20 ML VIAL IV PUSH PRN (10:29)
[2016-06-07 12:01] LABS: BLOOD GAS BASE EXCESS 0.4 mmol/L (-2-2); BLOOD GAS CARBOXYHEMOGLOBIN 1.3 % (0-4); BLOOD GAS HCO3 27 mmol/L (22-26); BLOOD GAS METHEMOGLOBIN 1.2 % (0-2); BLOOD GAS O2 HGB SATURATION 92 % (90-100); BLOOD GAS OXYGEN CONTENT 13.5 Vol % (12.0-20.0); BLOOD GAS PCO2 70 mmHg (38-42); BLOOD GAS PO2 90 mmHg (61-120); BLOOD GAS TOTAL HGB 10.4 G/DL (12.0-16.0); TEMP CORR TO 98.6
[2016-06-07 12:02] LABS: CRITICAL VALUE YES; DRAW SITE RT BRACHIAL; FIO2 40 %; NUMBER OF ARTERIAL PUNCTURES 1; OXYGEN DEVICE BIPAP 14IPAP/5EPAP; STAT YES; ULNAR PULSE PRESENT
[2016-06-07 14:28] LABS: BLOOD GAS BASE EXCESS 0.8 mmol/L (-2-2); BLOOD GAS CARBOXYHEMOGLOBIN 1.9 % (0-4); BLOOD GAS HCO3 26 mmol/L (22-26); BLOOD GAS METHEMOGLOBIN 1.2 % (0-2); BLOOD GAS O2 HGB SATURATION 93 % (90-100); BLOOD GAS OXYGEN CONTENT 12.9 Vol % (12.0-20.0); BLOOD GAS PCO2 55 mmHg (38-42); BLOOD GAS PO2 96 mmHg (61-120); BLOOD GAS TOTAL HGB 9.7 G/DL (12.0-16.0); FIO2 35 %; OXYGEN DEVICE BIPAP; TEMP CORR TO 98.6; VENT SETTINGS IPAP 16/EPAP 5
[2016-06-07 14:29] LABS: CRITICAL VALUE YES; DRAW SITE RT RADIAL; NUMBER OF ARTERIAL PUNCTURES 1; STAT NO; ULNAR PULSE PRESENT
--- NOTE | 2016-06-07 14:51 | HHI.CCPN ---
Subjective Remarks/Hospital Course This 70 year-old man, multiple chronic medical conditions including end-stage renal disease on HD, A. fib, COPD, recent admission for COPD exacerbation with influenza A positive, discharge from [facility] yesterday to [facility]. He apparently presented to the [facility] nursing desk for dialysis, and then slumped over and was minimally responsive. EMS describes agonal, and affect show respirations requiring bag valve mask assist. In the ED, the patient was noted to be severely hypothermic 94 F, hypoxic and was intubated utilizing etomidate and rocuronium. Imaging and lab studies were performed, revealing a potassium level of 6.1. The patient received in ED 2 g of calcium chloride 2 doses, blood cultures were obtained. Critical care medicine was consult today for treatment and management of respiratory failure, encephalopathy and presumed sepsis. Subjective: 06/03: Afebrile. The patient was dialyzed last evening, 1.5 liters removed with initial potassium level 6.2., currently level 5.3. The patient is awake and alert, CPAP trials are in process, with plans to extubate today. Cultures are in process and the patient continues on empiric antibiotics. 06/04 overnight patient became restless in respiratory distress hypoxic requiring reintubation 06/05 A. fib with RVR during dialysis yesterday responded to Lopressor IV push 06/06 tolerating CPAP today 06/07 doing well during CPAP trial was extubated however requires BiPAP shortly after due to CO2 retention Objective Vital Signs Date Time Temp Pulse Resp B/P Pulse Ox O2 Delivery O2 Flow Rate FiO2 06/07/16 14:00 112 06/07/16 12:00 97.6 30 152/66 96 06/07/16 10:57 Bi-Pap 40 06/07/16 09:59 3 Intake and Output 06/06/16 06/06/16 06/07/16 08:00 16:00 00:00 Intake Total 655 ml 1000 ml 970 ml Output Total 10 ml 1810 ml 10 ml Balance 645 ml -810 ml 960 ml Result Diagram: 06/07/16 0304 06/07/16 0304 Other Results Laboratory Tests Test 06/07/16 06/07/16 11:55 14:11 Blood Gas Puncture Site RT BRACHIAL RT RADIAL Blood Gas Patient Temperature 98.6 98.6 Blood Gas HCO3 27 mmol/L 26 mmol/L (22-26) (22-26) Blood Gas Base Excess 0.4 mmol/L 0.8 mmol/L (-2-2) (-2-2) Blood Gas Oxygen Saturation 92 % (90-100) 93 % (90-100) Arterial Blood pH 7.22 7.31 (7.380-7.420) (7.380-7.420) Arterial Blood Partial 70 mmHg (38-42) 55 mmHg (38-42) Pressure CO2 Arterial Blood Partial 90 mmHg 96 mmHg Pressure O2 (61-120) (61-120) Arterial Blood Oxygen Content 13.5 Vol % 12.9 Vol % (12.0-20.0) (12.0-20.0) Arterial Blood 1.3 % (0-4) 1.9 % (0-4) Carboxyhemoglobin Arterial Blood Methemoglobin 1.2 % (0-2) 1.2 % (0-2) Blood Gas Hemoglobin 10.4 G/DL 9.7 G/DL (12.0-16.0) (12.0-16.0) Oxygen Delivery Device BIPAP BIPAP 14IPAP/5EPAP Blood Gas Inspired Oxygen 40 % 35 % Blood Gas Ventilator Setting IPAP 16/EPAP 5 Imaging Last Impressions Chest X-Ray 06/02/16 1139 Signed Impressions: Service Date/Time: Thursday, June 02, 2016 12:08 - CONCLUSION: 1. Endotracheal tube tip measures 6.8 cm from the jean. 2. Nasogastric tube tip terminates in the distal esophagus and should be advanced into the stomach. 3. Stable pleural calcification in the right hemithorax and stable airspace consolidation bilaterally with small pleural effusions. Chuck Cadet MD Objective Remarks GENERAL: Elderly gentleman, awake and alert ,intubated following my commands SKIN: Cool and dry. HEAD: Atraumatic. Normocephalic. EYES: Pupils equal and round. No scleral icterus. No injection or drainage. ENT: No nasal bleeding or discharge. Mucous membranes pink and moist. NECK: Trachea midline. No JVD. CARDIOVASCULAR: Normal rate, regular rhythm. RESPIRATORY: Clear to auscultation bilaterally.. Breath sounds equal bilaterally. GASTROINTESTINAL: Abdomen soft, non-tender, nondistended. No guarding. MUSCULOSKELETAL: Extremities without clubbing, cyanosis, or edema. No obvious deformities. Left upper arm AV fistula with good bruit and thrill NEUROLOGICAL: Awake and alert. RASS 0. Date of Insertion: Jun 02, 2016 A/P Assessment and Plan Plan by systems: Neurologic: Metabolic Encephalopathy Hypothermia-resolved Remains Normothermic-98F Ammonia level-26 Neurochecks per ICU protocol Tylenol 650 mg every 6 hours when necessary for pain Off Sedation Respiratory: COPD Exacerbation Acute hypoxic respiratory failure Maintain O2 sat greater than 90% Solu-Medrol 40 mg every 8 hours Reintubated June 03, 2016 CPAP trials again today with SBT parameters did well today Extubated Shortly after required BiPAP due to CO2 retention and respiratory acidosis Improving on BiPAP Pulmonary consult-Dr. Grigsby appreciate recommendations Duonebs q 6hrs scheduled, q 2 hrs PRN Cardiovascular: Hypercholesterolemia Hypertension Cardiomegaly H/O A. fib RVR H/O CHF BNP-341 Troponin-neg EKG-Atrial fibrillation Maintain MAP > 65mmHg, currently normotensive Continue aspirin 81 mg daily Continue amiodarone 200 mg every other day Head labetalol when necessary for blood pressure higher than 160 Lopressor IV push as needed for heart rate above 110 Renal: End-stage renal disease Nephrology following-Dr. Espinal Hemodialysis-Saturday Left upper arm AV graft-positive bruit and thrill Hemodialysis 06/02 -- Strict I/Os FEN/GI: Hyperkalemia Hiatal hernia Continue tube feeds Protonix-home medication IV fluids at KVO Heme/ID: Anemia of chronic disease History of multilobar pneumonia influenza A Recent diagnosis Multilobar PNA (Influenza A) discharged 05/31 Probable sepsis Pneumococcal, Legionella, influenza A and B cultures negative patient received Tamiflu 05/28 Urine and sputum cultures ID consult appreciated Endocrine: Thyromegaly TSH level, and T4 level Random cortisol All within normal limits -- SSI Prophylaxis: GI Prophylaxis Protonix 40 mg/daily (home medication) DVT Prophylaxis -- SCDs Heparin 5000 SQ BID Lines: Peripheral IVs 2. Central line if indicated Dispo: Level III Jerod Shi MD Jun 07, 2016 14:51
--- NOTE | 2016-06-07 16:57 | HHI.PR ---
Subjective Remarks Extubated now on o2 via mask Objective Vital Signs Date Time Temp Pulse Resp B/P Pulse Ox O2 Delivery O2 Flow Rate FiO2 06/07/16 16:45 98 35 06/07/16 16:00 105 06/07/16 16:00 97.8 105 25 123/61 98 06/07/16 14:00 112 06/07/16 12:00 97.6 111 30 152/66 96 06/07/16 12:00 111 06/07/16 10:57 Bi-Pap 40 06/07/16 10:55 96 40 06/07/16 10:00 107 06/07/16 09:59 95 Nasal Cannula 3 06/07/16 09:32 Nasal Cannula 40 06/07/16 08:03 95 35 06/07/16 08:00 99.4 113 22 114/54 98 06/07/16 08:00 113 06/07/16 08:00 35 06/07/16 06:00 105 06/07/16 04:30 97 35 06/07/16 04:00 97.4 109 20 103/53 97 06/07/16 04:00 109 06/07/16 02:00 109 06/07/16 00:01 97 35 06/07/16 00:00 97.6 111 21 134/54 97 06/07/16 00:00 111 06/06/16 22:00 106 06/06/16 20:00 98.4 98 21 99/50 98 06/06/16 20:00 98 06/06/16 19:25 97 35 06/06/16 17:49 97 35 I/O 06/06/16 06/06/16 06/06/16 06/07/16 06/07/16 06/07/16 07:00 15:00 23:00 07:00 15:00 23:00 Intake Total 655 ml 1000 ml 970 ml 754 ml 113 ml Output Total 10 ml 1810 ml 10 ml 5 ml 90 ml Balance 645 ml -810 ml 960 ml 749 ml 23 ml Intake Oral 0 ml 0 ml 0 ml IV Total 250 ml 175 ml 410 ml 230 ml 113 ml Tube Feeding 405 ml 500 ml 464 ml Autotransfusion 515 ml Tube Irrigant 310 ml Other 60 ml 60 ml Output Urine Total 10 ml 10 ml 10 ml 5 ml 90 ml Hemodialysis 1800 ml # Bowel Movements 0 0 0 0 0 Result Diagram: 06/07/1630306/07/16 030 Objective Remarks GENERAL: SKIN: Warm and dry. HEAD: Atraumatic. Normocephalic. EYES: Pupils equal and round. No scleral icterus. No injection or drainage. ENT: No nasal bleeding or discharge. Mucous membranes pink and moist. NECK: Trachea midline. No JVD. CARDIOVASCULAR: Regular rate and rhythm. RESPIRATORY: No accessory muscle use. [id number] RONCHI to auscultation. Breath sounds equal bilaterally. GASTROINTESTINAL: Abdomen soft, non-tender, nondistended. Hepatic and splenic margins not palpable. MUSCULOSKELETAL: Extremities without clubbing, cyanosis, or edema. No obvious deformities. NEUROLOGICAL: Awake and alert. No obvious cranial nerve deficits. Motor grossly within normal limits. Five out of 5 muscle strength in the arms and legs. Normal speech. PSYCHIATRIC: Appropriate mood and affect; insight and judgment normal. 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
[2016-06-07] MEDS: AZITHROMYCIN INJ 500 MG in SODIUM CHLOR 0.9% 250 ML INJ 250 ML IV SCH (17:25)
--- NOTE | 2016-06-07 17:43 | HHI.NPPN ---
Subjective History of Present Illness 70 year old male with COPD, ESRD, A fib Additional Remarks extubated Review of Systems General Constitutional: Fatigue Objective Data Data 06/06/16 06/07/16 19:00 07:00 Intake Total 1000 ml 1724 ml Output Total 1810 ml 15 ml Balance -810 ml 1709 ml Intake Oral 0 ml IV Total 175 ml 640 ml Tube Feeding 964 ml Autotransfusion 515 ml Tube Irrigant 310 ml Other 120 ml Output Urine Total 10 ml 15 ml Hemodialysis 1800 ml # Bowel Movements 0 0 Vital Signs Date Time Temp Pulse Resp B/P Pulse Ox O2 Delivery O2 Flow Rate FiO2 06/07/16 16:45 98 35 06/07/16 16:00 105 06/07/16 16:00 97.8 105 25 123/61 98 06/07/16 14:00 112 06/07/16 12:00 97.6 111 30 152/66 96 06/07/16 12:00 111 06/07/16 10:57 Bi-Pap 40 06/07/16 10:55 96 40 06/07/16 10:00 107 06/07/16 09:59 95 Nasal Cannula 3 06/07/16 09:32 Nasal Cannula 40 06/07/16 08:03 95 35 06/07/16 08:00 99.4 113 22 114/54 98 06/07/16 08:00 113 06/07/16 08:00 35 06/07/16 06:00 105 06/07/16 04:30 97 35 06/07/16 04:00 97.4 109 20 103/53 97 06/07/16 04:00 109 06/07/16 02:00 109 06/07/16 00:01 97 35 06/07/16 00:00 97.6 111 21 134/54 97 06/07/16 00:00 111 06/06/16 22:00 106 06/06/16 20:00 98.4 98 21 99/50 98 06/06/16 20:00 98 06/06/16 19:25 97 35 06/06/16 17:49 97 35 -: 06/07/16 0304 06/07/16 0304 Physical Exam General Appearance: Well Developed Neck Neck Exam: Neck Supple Pulmonary Resp Exam: Decreased Bases Cardiology CV Exam: Arrhythmia Gastrointestinal/Abdomen GI Exam: Soft, Non-Tender, Bowel Sounds Present Extremeties Extremities Exam: No Edema Assessment/Plan Problem List: (1) ESRD (end stage renal disease) Plan: Patient is better HR still high off vent (2) Atrial fibrillation with rapid ventricular response Plan: Patient heart rate is high (3) Pneumonia Plan: He is being treated with antibiotics pulmonary is following Zithromax/Azactam (4) Hyperkalemia Plan: hemodialysis Problem Qualifiers (1) Pneumonia: Qualified Code: J18.9 - Pneumonia due to infectious organism, unspecified laterality, unspecified part of lung Marta Rivera MD Jun 07, 2016 17:43
[2016-06-07] MEDS: ONDANSETRON HCL 4 MG/2 ML VIAL IV PRN (18:29)
[2016-06-07] MEDS: ACETAMINOPHEN 325 MG TAB PO PRN (21:28)
[2016-06-08] VITALS (15 sets, daily range): BP systolic 102–164; BP diastolic 56–78; PULSE 102–121; RESP 21–32; TEMP 97.8–98.7; O2SAT 93–99
[2016-06-08] MEDS: AZTREONAM IV SCH ×2 (03:02→12:05)
[2016-06-08] MEDS: SODIUM CHLORIDE 0.9% IV SCH ×2 (03:02→12:05)
[2016-06-08] MEDS: CHLORHEXIDINE GLUCONATE 2 % 1 PACK (2 CLOTHS) TOP SCH (03:03)
[2016-06-08] MEDS: DOCUSATE SODIUM 100 MG/10 ML UDC G-TUBE SCH ×2 (03:03→13:35)
[2016-06-08] MEDS: METOCLOPRAMIDE HCL 10 MG/2 ML VIAL IV PUSH SCH ×3 (03:04→19:25)
[2016-06-08 05:54] LABS: BLOOD GAS BASE EXCESS 0.9 mmol/L (-2-2); BLOOD GAS CARBOXYHEMOGLOBIN 1.3 % (0-4); BLOOD GAS HCO3 26 mmol/L (22-26); BLOOD GAS METHEMOGLOBIN 0.6 % (0-2); BLOOD GAS O2 HGB SATURATION 96 % (90-100); BLOOD GAS OXYGEN CONTENT 12.6 Vol % (12.0-20.0); BLOOD GAS PCO2 52 mmHg (38-42); BLOOD GAS PO2 112 mmHG (61-120); BLOOD GAS TOTAL HGB 9.2 G/DL (12.0-16.0); CRITICAL VALUE YES; OXYGEN DEVICE BiPAP; TEMP CORR TO 98.6
[2016-06-08 05:55] LABS: DRAW SITE RT FEMORAL; FIO2 35 %; NUMBER OF ARTERIAL PUNCTURES 1; STAT NO; VENT SETTINGS 15IPAP/5EPAP
[2016-06-08] MEDS: INSULIN NovoLIN REGULAR SUPPLEMENTAL SCALE SQ SCH ×4 (06:26→19:25)
[2016-06-08 07:27] LABS: AUTOMATED NEUTROPHIL # 13.3 TH/MM3 (1.8-7.7); BASOPHIL % 0.1 % (0.0-2.0); EOSINOPHIL % 0.1 % (0.0-4.0); HEMATOCRIT 29.5 % (39.0-51.0); LYMPH % 0.9 % (9.0-44.0); LYMPHOCYTE # 0.1 TH/MM3 (1.0-4.8); MEAN CELL VOLUME 98.1 FL (80.0-100.0); MEAN CORPUSCULAR HEMOGLOBIN 32.8 PG (27.0-34.0); MEAN CORPUSCULAR HGB CONC 33.5 % (32.0-36.0); MONO % 2.4 % (0.0-8.0); NEUT % 96.5 % (16.0-70.0); PLATELET COUNT 86 TH/MM3 (150-450); RED BLOOD COUNT 3.01 MIL/MM3 (4.50-5.90); WHITE BLOOD COUNT 13.8 TH/MM3 (4.0-11.0)
[2016-06-08 07:31] LABS: HEMO FLAGS AUTO DIFF
[2016-06-08 07:43] LABS: BICARBONATE 25.7 MEQ/L (21.0-32.0); CALCIUM-PROTEIN CORRECTED 8.4 MG/DL (8.5-10.1); MAGNESIUM 2.4 MG/DL (1.5-2.5); TOTAL BILIRUBIN ADULT 0.4 MG/DL (0.2-1.0)
[2016-06-08] MEDS: CHLORHEXIDINE 0.12% (ORAL KIT) 15 ML CUP MT SCH ×2 (08:00→19:26)
[2016-06-08] MEDS: EPOETIN ALFA 10,000 UNITS/ML VIAL IV PRN (08:16)
[2016-06-08] MEDS: SODIUM CHLOR 0.9% 1000 ML INJ 1,000 ML IV PRN (08:16)
[2016-06-08] MEDS: ALBUMIN HUMAN 25% 25 GM/100 ML BAGP IV PRN ×2 (08:16→08:38)
[2016-06-08 08:52] LABS: BANDS 30 % (0-6); METAMYELOCYTES 1 % (0-1); NEUTROPHIL # MANUAL DIFF 13.1 TH/MM3 (1.8-7.7); POLYS (SEG NEUTROPHILS) 64 % (16-70); WBC DIFF SAMPLE 100
[2016-06-08 08:53] LABS: ACANTHOCYTES OCC (NORMAL); HELMET CELLS OCC (NORMAL); KERATOCYTES OCC (NORMAL); OVALOCYTES 1+ (NORMAL)
[2016-06-08 08:54] LABS: PLATELET ESTIMATE SMEAR LOW (NORMAL); PLATELET MORPHOLOGY NORMAL (NORMAL); SCAN/DIFF FINAL DIFF MANUAL
[2016-06-08] MEDS: NUTRISOURCE FIBER POWDER 1 PACK G-TUBE SCH ×3 (09:00→16:54)
[2016-06-08] MEDS: AMIODARONE 200 MG TAB PO SCH (09:36)
[2016-06-08] MEDS: SODIUM CHLORIDE 0.9% FLUSH 5 ML FLUSH IV FLUSH SCH ×2 (09:36→19:25)
[2016-06-08] MEDS: PANTOPRAZOLE SODIUM 40 MG VIAL IV SCH (09:37)
[2016-06-08] MEDS: methylPREDNISolone SOD SUCC 40 MG/1 ML VIAL IV PUSH SCH (09:37)
[2016-06-08] MEDS: ONDANSETRON HCL 4 MG/2 ML VIAL IV PRN (09:46)
--- NOTE | 2016-06-08 10:58 | PD.ONC.PN ---
Subjective Subjective Remarks Afebrile overnight. patient extubated yesterday. On bipap since extubation. Very weak today. Receiving dialysis. Objective Data Date Time Temp Pulse Resp B/P Pulse Ox O2 Delivery O2 Flow Rate FiO2 06/08/16 10:00 111 06/08/16 08:44 96 35 06/08/16 08:00 98.7 109 24 102/66 96 06/08/16 08:00 109 06/08/16 07:00 94 Bi-Pap 35 06/08/16 06:00 105 06/08/16 04:00 96 35 06/08/16 04:00 97.8 102 21 120/56 93 06/08/16 04:00 102 06/08/16 02:00 102 06/08/16 01:17 95 35 06/08/16 00:00 108 06/08/16 00:00 97.9 107 25 142/60 93 06/07/16 23:41 95 35 06/07/16 22:00 103 06/07/16 20:00 104 06/07/16 20:00 97.9 104 25 125/94 99 06/07/16 19:30 96 Nasal Cannula 4.00 06/07/16 19:29 98 35 06/07/16 19:00 96 Bi-Pap 40 06/07/16 18:00 101 06/07/16 16:45 98 35 06/07/16 16:00 105 06/07/16 16:00 97.8 105 25 123/61 98 06/07/16 14:00 112 06/07/16 12:00 97.6 111 30 152/66 96 06/07/16 12:00 111 06/07/16 10:57 Bi-Pap 40 06/07/16 10:55 96 40 06/08/16 06/08/16 06/08/16 07:00 15:00 23:00 Intake Total 965 ml Output Total 50 ml 1500 ml Balance 915 ml -1500 ml Result Diagram: 06/08/1670406/08/16704 Laboratory Results Laboratory Tests Test 06/07/16 06/07/16 06/08/16 06/08/16 11:55 14:11 05:11 07:05 Blood Gas Puncture Site RT BRACHIAL RT RADIAL RT FEMORAL Blood Gas Patient Temperature 98.6 98.6 98.6 Blood Gas HCO3 27 mmol/L 26 mmol/L 26 mmol/L Blood Gas Base Excess 0.4 mmol/L 0.8 mmol/L 0.9 mmol/L Blood Gas Oxygen Saturation 92 % 93 % 96 % Arterial Blood pH 7.22 7.31 7.33 Arterial Blood Partial 70 mmHg 55 mmHg 52 mmHg Pressure CO2 Arterial Blood Partial 90 mmHg 96 mmHg 112 mmHG Pressure O2 Arterial Blood Oxygen Content 13.5 Vol % 12.9 Vol % 12.6 Vol % Arterial Blood 1.3 % 1.9 % 1.3 % Carboxyhemoglobin Arterial Blood Methemoglobin 1.2 % 1.2 % 0.6 % Blood Gas Hemoglobin 10.4 G/DL 9.7 G/DL 9.2 G/DL Oxygen Delivery Device BIPAP BIPAP BiPAP 14IPAP/5EPAP Blood Gas Inspired Oxygen 40 % 35 % 35 % Blood Gas Ventilator Setting IPAP 16/EPAP 5 15IPAP/5EPAP White Blood Count 13.8 TH/MM3 Red Blood Count 3.01 MIL/MM3 Hemoglobin 9.9 GM/DL Hematocrit 29.5 % Mean Corpuscular Volume 98.1 FL Mean Corpuscular Hemoglobin 32.8 PG Mean Corpuscular Hemoglobin 33.5 % Concent Red Cell Distribution Width 18.0 % Platelet Count 86 TH/MM3 Mean Platelet Volume 9.8 FL Neutrophils (%) (Auto) 96.5 % Lymphocytes (%) (Auto) 0.9 % Monocytes (%) (Auto) 2.4 % Eosinophils (%) (Auto) 0.1 % Basophils (%) (Auto) 0.1 % Neutrophils # (Auto) 13.3 TH/MM3 Lymphocytes # (Auto) 0.1 TH/MM3 Monocytes # (Auto) 0.3 TH/MM3 Eosinophils # (Auto) 0.0 TH/MM3 Basophils # (Auto) 0.0 TH/MM3 CBC Comment AUTO DIFF Differential Total Cells 100 Counted Neutrophils % (Manual) 64 % Band Neutrophils % 30 % Lymphocytes % 3 % Monocytes % 2 % Neutrophils # (Manual) 13.1 TH/MM3 Metamyelocytes 1 % Differential Comment FINAL DIFF MANUAL Platelet Estimate LOW Platelet Morphology Comment NORMAL Ovalocytes 1+ Helmet Cells OCC Acanthocytes OCC Keratocytes OCC Sodium Level 140 MEQ/L Potassium Level 6.0 MEQ/L Chloride Level 102 MEQ/L Carbon Dioxide Level 25.7 MEQ/L Anion Gap 12 MEQ/L Blood Urea Nitrogen 141 MG/DL Creatinine 4.89 MG/DL Estimat Glomerular Filtration 12 ML/MIN Rate Random Glucose 155 MG/DL Calcium Level 7.2 MG/DL Protein Corrected Calcium 8.4 MG/DL Phosphorus Level 4.6 MG/DL Magnesium Level 2.4 MG/DL Total Bilirubin 0.4 MG/DL Aspartate Amino Transf 13 U/L (AST/SGOT) Alanine Aminotransferase 37 U/L (ALT/SGPT) Alkaline Phosphatase 102 U/L Ammonia 21 MCMOL/L Total Protein 4.9 GM/DL Albumin 1.9 GM/DL Culture Results Microbiology Date/Time Procedure Status Source Growth 06/06/16 07:43 Gram Stain - Final Complete Sputum Endotracheal 06/06/16 07:43 Sputum Culture - Final Complete Sputum Endotracheal MODERATE GROWTH NORMAL RESPIRATORY PO Administered Medications Medications (Trade) Dose Ordered Sig/Bharti Route PRN Reason Start Time Stop Time Status Last Admin Dose Admin IV Flush (NS Flush) 2 ml BID IV FLUSH 06/02/16 21:00 06/08/16 09:36 Acetaminophen (Tylenol) 650 mg Q6H PRN PO PAIN 1-10 AND/OR FEVER >101F 06/02/16 14:30 06/07/16 21:28 Pantoprazole Sodium (Protonix Inj) 40 mg DAILY IV 06/03/16 09:00 06/08/16 09:37 Ondansetron HCl (Zofran Inj) 4 mg Q6H PRN IV NAUSEA OR VOMITING 06/02/16 14:30 06/08/16 09:46 Docusate Sodium (Colace Liq) 100 mg Q12H G-TUBE 06/02/16 14:30 06/08/16 03:03 Chlorhexidine Gluconate Taper DAILY@04 TOP 06/03/16 04:00 05/30/17 03:59 06/07/16 03:33 Sodium Chloride 1,000 ml @ 0 mls/hr Q0M PRN IV For Prime & Rinse Back 06/02/16 15:36 06/08/16 08:16 Sodium Chloride (NS 1000 ml Inj) 1,000 ml @ 0 mls/hr Q0M PRN IV WITH DIALYSIS 06/02/16 15:36 06/06/16 11:28 Mannitol (Mannitol Inj) 12.5 gm UNSCH PRN IV WITH DIALYSIS 06/02/16 15:45 06/04/16 13:06 Albumin Human (Albumin 25% Inj) 25 gm UNSCH PRN IV WITH DIALYSIS 06/02/16 15:45 06/08/16 08:38 Epoetin Jose Antonio (Epogen Inj) 5,000 units UNSCH PRN IV WITH DIALYSIS 06/02/16 15:45 06/08/16 08:16 Gelatin (Gelfoam 12 Mm/7 Mm Top) 1 foam UNSCH PRN TOP SEE LABEL COMMENTS 06/02/16 15:45 06/06/16 11:28 Heparin Sodium (Porcine) (Heparin Inj) 5,000 units Q12HR SQ 06/02/16 21:00 Hold 06/03/16 07:56 Aspirin 81 mg 81 mg DAILY CHEW 06/03/16 09:00 Hold 06/03/16 07:55 Azithromycin/ Sodium Chloride (Zithromax Inj/ NS 250 ml Inj) 250 ml @ 250 mls/hr Q24H IV 06/02/16 18:00 06/07/16 17:25 Methylprednisolone Sodium Succinate (SoluMEDROL INJ) 40 mg DAILY IV PUSH 06/04/16 09:00 06/08/16 09:37 Chlorhexidine Gluconate 15 ml 15 ml BID@08,20 MT 06/03/16 20:00 06/07/16 09:02 Propofol (Diprivan 1000 Mg/100ml Inj) 100 ml @ 0 mls/hr TITRATE IV 06/03/16 19:00 06/07/16 12:28 Guar Gum (Nutrisource Fiber Powder) 1 pack TID G-TUBE 06/05/16 18:00 06/08/16 09:00 Labetalol HCl (Trandate Inj) 10 mg Q4H PRN IV PUSH SBP>160, DBP>90 06/06/16 10:00 06/07/16 10:29 Metoclopramide HCl 10 mg 10 mg Q8H IV PUSH 06/06/16 13:00 06/08/16 03:04 Aztreonam/Sodium Chloride (Azactam Inj/NS Inj) 50 ml @ 100 mls/hr Q8H IV 06/06/16 20:00 06/08/16 03:02 Metoprolol Tartrate (Lopressor Inj) 5 mg Q6H PRN IV PUSH HR >100 06/06/16 14:45 3/9/17 09:35 Objective Remarks GENERAL: Middle aged male, chronically ill appearing, lying in bed on bipap, receiving dialysis. SKIN: Warm and dry. HEAD: Normocephalic. EYES: No injection or drainage. NECK: Supple, trachea midline. CARDIOVASCULAR: +S1/S2, tachy RESPIRATORY: anterior cullen with scattered rhonchi. on bipap GASTROINTESTINAL: Abdomen soft, non-tender, nondistended. EXTREMITIES: No cyanosis MUSCULOSKELETAL: Adequate muscle tone. NEUROLOGICAL: awake and alert, following commands. Assessment/Plan Problem List: (1) Pancytopenia Status: Acute Plan: --improved today. -- Likely due to consumption from infection -- s/p Neupogen x 2 days, neutropenia has resolved -- Underlying anemia due to chronic renal disease and sepsis, no bleeding noted. -- Platelet stable. -- Iron studies show elevated ferritin, but this is an acute phase reactant. -- B12 and folate normal. -- CMV less than 137. (2) Pneumonia Status: Acute Plan: -- On Azithromycin and Aztreonam -- CXR today shows persistent bibasilar effusion/ atelectasis. -- Sputum culture pending -- ID following Assessment 70 y/o male admitted for AMS with hypoxia during hemodialysis Plan 1. monitor CBC 2. no transfusion today. Attending Statement The exam, history, and the medical decision-making described in the above note were completed with the assistance of the mid-level provider. I reviewed and agree with the findings presented. I attest that I had a [id number] encounter with the patient on the same day, and personally performed and documented my assessment and findings in the medical record. Patient was extubated. Blood counts improving. No more neutropenia. Pancytopenia due to sepsis/myelosuppression which is resolving. Has baseline anemia due to ESRD, management per nephrology. Problem Qualifiers (1) Pneumonia: Qualified Code: J18.9 - Pneumonia due to infectious organism, unspecified laterality, unspecified part of lung Esme Root Jun 08, 2016 10:58 Chris Roberts MD Jun 08, 2016 15:18
[2016-06-08] MEDS: ACETAMINOPHEN 325 MG TAB PO PRN (12:05)
[2016-06-08] MEDS: METOPROLOL TARTRATE 5 MG/5 ML VIAL IV PUSH PRN ×2 (12:19→20:47)
[2016-06-08] MEDS: cefTRIAXone INJ 1,000 MG in SODIUM CHLORIDE 0.9% INJ 100 ML IV SCH (13:35)
--- NOTE | 2016-06-08 15:56 | HHI.NPPN ---
Subjective History of Present Illness 70 year old male with COPD, ESRD, A fib Additional Remarks extubated Review of Systems General Constitutional: Fatigue Objective Data Data 06/07/16 06/08/16 19:00 07:00 Intake Total 113 ml 1805 ml Output Total 90 ml 300 ml Balance 23 ml 1505 ml IV Total 113 ml 473 ml Tube Feeding 892 ml Other 440 ml Output Urine Total 90 ml 300 ml # Bowel Movements 0 0 Vital Signs Date Time Temp Pulse Resp B/P Pulse Ox O2 Delivery O2 Flow Rate FiO2 06/08/16 14:00 110 06/08/16 13:35 28 06/08/16 12:00 98.3 120 26 114/57 99 06/08/16 12:00 120 06/08/16 10:00 111 06/08/16 08:44 96 35 06/08/16 08:00 98.7 109 24 102/66 96 06/08/16 08:00 109 06/08/16 07:00 94 Bi-Pap 35 06/08/16 06:00 105 06/08/16 04:00 96 35 06/08/16 04:00 97.8 102 21 120/56 93 06/08/16 04:00 102 06/08/16 02:00 102 06/08/16 01:17 95 35 06/08/16 00:00 108 06/08/16 00:00 97.9 107 25 142/60 93 06/07/16 23:41 95 35 06/07/16 22:00 103 06/07/16 20:00 104 06/07/16 20:00 97.9 104 25 125/94 99 06/07/16 19:30 96 Nasal Cannula 4.00 06/07/16 19:29 98 35 06/07/16 19:00 96 Bi-Pap 40 06/07/16 18:00 101 06/07/16 16:45 98 35 06/07/16 16:00 105 06/07/16 16:00 97.8 105 25 123/61 98 -: 06/08/16 0705 06/08/16 0705 Physical Exam General Appearance: Well Developed Neck Neck Exam: Neck Supple Pulmonary Resp Exam: Decreased Bases Cardiology CV Exam: Arrhythmia Gastrointestinal/Abdomen GI Exam: Soft, Non-Tender, Bowel Sounds Present Extremeties Extremities Exam: No Edema Assessment/Plan Problem List: (1) ESRD (end stage renal disease) Plan: Patient is better HR still high Pneumonia HD UF 1.5 L doing poorly (2) Atrial fibrillation with rapid ventricular response Plan: Patient heart rate is high (3) Pneumonia Plan: He is being treated with antibiotics pulmonary is following Cefuroxime/Azactam (4) Hyperkalemia Plan: hemodialysis Problem Qualifiers (1) Pneumonia: Qualified Code: J18.9 - Pneumonia due to infectious organism, unspecified laterality, unspecified part of lung Marta Rivera MD Jun 08, 2016 15:55
--- NOTE | 2016-06-08 16:19 | HHI.PR ---
Subjective Remarks hard of hearing but is awake and alert having some abdominal discomfort at bedside- SN did manual disimpaction patient is too weak - needed to strain - on TF On HD Objective Vitals Vital Signs Date Time Temp Pulse Resp B/P Pulse Ox O2 Delivery O2 Flow Rate FiO2 06/08/16 14:00 110 06/08/16 13:35 28 06/08/16 12:00 98.3 120 26 114/57 99 06/08/16 12:00 120 06/08/16 10:00 111 06/08/16 08:44 96 35 06/08/16 08:00 98.7 109 24 102/66 96 06/08/16 08:00 109 06/08/16 07:00 94 Bi-Pap 35 06/08/16 06:00 105 06/08/16 04:00 96 35 06/08/16 04:00 97.8 102 21 120/56 93 06/08/16 04:00 102 06/08/16 02:00 102 06/08/16 01:17 95 35 06/08/16 00:00 108 06/08/16 00:00 97.9 107 25 142/60 93 06/07/16 23:41 95 35 06/07/16 22:00 103 06/07/16 20:00 104 06/07/16 20:00 97.9 104 25 125/94 99 06/07/16 19:30 96 Nasal Cannula 4.00 06/07/16 19:29 98 35 06/07/16 19:00 96 Bi-Pap 40 06/07/16 18:00 101 06/07/16 16:45 98 35 I/O 06/07/16 06/07/16 06/07/16 06/08/16 06/08/16 06/08/16 07:00 15:00 23:00 07:00 15:00 23:00 Intake Total 754 ml 113 ml 840 ml 965 ml 874 ml Output Total 5 ml 90 ml 250 ml 50 ml 1540 ml Balance 749 ml 23 ml 590 ml 915 ml -666 ml Intake Oral 0 ml IV Total 230 ml 113 ml 331 ml 142 ml 196 ml Tube Feeding 464 ml 309 ml 583 ml 578 ml Tube Irrigant 100 ml Other 60 ml 200 ml 240 ml Output Urine Total 5 ml 90 ml 250 ml 50 ml 40 ml Hemodialysis 1500 ml # Bowel Movements 0 0 0 0 1 Result Diagram: 06/08/1670406/08/16 07 Imaging Last Impressions Chest X-Ray 06/06/16 0600 Signed Impressions: Service Date/Time: Monday, June 06, 2016 04:26 - CONCLUSION: 1. Persistent bibasilar effusion/atelectasis. 2. Stable bibasilar right hemithorax. Stable pleural-based calcifications, right greater than left. 3. Interval placement of a nasogastric tube which enters the stomach. Endotracheal tube is appropriately positioned above the jean. Aubrey Martinez MD Objective Remarks hard of hearing but awake and alert, ff commands, mouth breathing NGT in place decrease breath sounds tachycardic abdomen- soft, distended good bowel sounds, mild tenderness extremities no edema Date of Insertion: Jun 02, 2016 A/P Assessment and Plan Neurologic: Metabolic Encephalopathy Hypothermia-resolved Neurochecks per ICU protocol Tylenol 650 mg every 6 hours when necessary for pain Off Sedation COPD Exacerbation Acute hypoxic respiratory failure Maintain O2 sat greater than 90%- mouth breathing Solu-Medrol 40 mg every 8 hours Reintubated June 03, 2016 CPAP trials - ABG with compensated respiratory acidosis Shortly after required BiPAP due to CO2 retention and respiratory acidosis Improving on BiPAP Dr. Richards appreciate recommendations Duonebs q 6hrs scheduled, q 2 hrs PRN Hypercholesterolemia Hypertension Cardiomegaly H/O A. fib RVR H/O CHF [id number] Troponin-neg EKG-Atrial fibrillation Maintain MAP > 65mmHg, currently normotensive Continue aspirin 81 mg daily Continue amiodarone 200 mg every other day Head labetalol when necessary for blood pressure higher than 160 Lopressor IV push as needed for heart rate above 110 End-stage renal disease Nephrology following-Dr. Espinal Hemodialysis-Saturday Left upper arm AV graft-positive bruit and thrill Hemodialysis 06/02 -- Strict I/Os Hyperkalemia Hiatal hernia Continue tube feeds Protonix-home medication IV [facility] at [facility] Anemia of chronic disease History of multilobar pneumonia influenza A Recent diagnosis Multilobar PNA (Influenza A) discharged 05/31 Probable sepsis Pneumococcal, Legionella, influenza A and B cultures negative patient received Tamiflu 05/28 Urine and sputum cultures ID consult appreciated Endocrine: Thyromegaly TSH level, and T4 level Random cortisol All within normal limits CONSTIPATION - manual disimpaction done by staff nurse- brown stools - patient very weak to even strain - bowel regimen - get a KUB -- SSI Prophylaxis: GI Prophylaxis Protonix 40 mg/daily (home medication) DVT Prophylaxis -- SCDs Heparin 5000 SQ BID Lines: Peripheral IVs 2. 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
--- NOTE | 2016-06-08 16:28 | HHI.PR ---
Subjective Remarks Extubated now on o2 via mask ON bipap as needed Objective Vital Signs Date Time Temp Pulse Resp B/P Pulse Ox O2 Delivery O2 Flow Rate FiO2 06/08/16 14:00 110 06/08/16 13:35 28 06/08/16 12:00 98.3 120 26 114/57 99 06/08/16 12:00 120 06/08/16 10:00 111 06/08/16 08:44 96 35 06/08/16 08:00 98.7 109 24 102/66 96 06/08/16 08:00 109 06/08/16 07:00 94 Bi-Pap 35 06/08/16 06:00 105 06/08/16 04:00 96 35 06/08/16 04:00 97.8 102 21 120/56 93 06/08/16 04:00 102 06/08/16 02:00 102 06/08/16 01:17 95 35 06/08/16 00:00 108 06/08/16 00:00 97.9 107 25 142/60 93 06/07/16 23:41 95 35 06/07/16 22:00 103 06/07/16 20:00 104 06/07/16 20:00 97.9 104 25 125/94 99 06/07/16 19:30 96 Nasal Cannula 4.00 06/07/16 19:29 98 35 06/07/16 19:00 96 Bi-Pap 40 06/07/16 18:00 101 06/07/16 16:45 98 35 I/O 06/07/16 06/07/16 06/07/16 06/08/16 06/08/16 06/08/16 07:00 15:00 23:00 07:00 15:00 23:00 Intake Total 754 ml 113 ml 840 ml 965 ml 874 ml Output Total 5 ml 90 ml 250 ml 50 ml 1540 ml Balance 749 ml 23 ml 590 ml 915 ml -666 ml Intake Oral 0 ml IV Total 230 ml 113 ml 331 ml 142 ml 196 ml Tube Feeding 464 ml 309 ml 583 ml 578 ml Tube Irrigant 100 ml Other 60 ml 200 ml 240 ml Output Urine Total 5 ml 90 ml 250 ml 50 ml 40 ml Hemodialysis 1500 ml # Bowel Movements 0 0 0 0 1 Result Diagram: 06/08/1670406/08/16704 Objective Remarks GENERAL: SKIN: Warm and dry. HEAD: Atraumatic. Normocephalic. EYES: Pupils equal and round. No scleral icterus. No injection or drainage. ENT: No nasal bleeding or discharge. Mucous membranes pink and moist. NECK: Trachea midline. No JVD. CARDIOVASCULAR: Regular rate and rhythm. RESPIRATORY: No accessory muscle use. [id number] RONCHI to auscultation. Breath sounds equal bilaterally. GASTROINTESTINAL: Abdomen soft, non-tender, nondistended. Hepatic and splenic margins not palpable. MUSCULOSKELETAL: Extremities without clubbing, cyanosis, or edema. No obvious deformities. NEUROLOGICAL: Awake and alert. No obvious cranial nerve deficits. Motor grossly within normal limits. Five out of 5 muscle strength in the arms and legs. Normal speech. PSYCHIATRIC: Appropriate mood and affect; insight and judgment normal. Assessment and Plan Assessment and Plan RESPIRATORY FAILURE COPD CHF AFIB ESRD ON HEMODIALYSIS PLAN o2 as needed , check ABG BRONCHODILATOR THERAPY increase activity Susie Richards MD Jun 08, 2016 16:28
[2016-06-08] MEDS: AZITHROMYCIN INJ 500 MG in SODIUM CHLOR 0.9% 250 ML INJ 250 ML IV SCH (16:53)
[2016-06-08] MEDS ORDERED: POLYETHYLENE GLYCOL 17 GM PKG OG ONE (17:15)
--- NOTE | 2016-06-08 18:11 | RADRPT ---
EXAM DATE/TIME: 06/08/2016 17:54 [place] COMPARISON: No previous studies available for comparison. INDICATIONS : Abdominal distention. MEDICAL HISTORY : Hypertension. Hypercholesterolemia. Chronic obstructive pulmonary disease. SURGICAL HISTORY : None. ENCOUNTER: Subsequent ACUITY: 1 day PAIN SCORE: Non-responsive. LOCATION: Abdominal FINDINGS: Moderate stool and mild distention seen throughout the colon. No small bowel distention demonstrated. There is no gastric distention. Nasogastric tube present. CONCLUSION: Considerable stool in the colon. Nonobstructive pattern. Chuck Warner MD on June 08, 2016 at 18:09 Board Certified Radiologist. This report was verified electronically.
--- NOTE | 2016-06-08 18:17 | PD.CONS ---
Consult Service Palliative Care . Consult Requested By Dr. Thomas . Primary Care Physician Chuck Kaiser MD Reason for Consultation a. To assist with evaluation and management of symptoms including: dyspnea, secretions, weakness. b. To assist medical decision maker(s) with: better understanding of current medical conditions; weighing benefits/burdens of medical treatment options; making medical treatment decisions. . HPI History of Present Illness Mr. Downey is a 70 year old male with past medical history of end-stage renal disease on dialysis, atrial fibrillation, COPD, hypertension, GERD and CHF. This is the patient's 4th acute-care hospitalization since May 2016. He was recently admitted 05/29/16 06/01/16 for COPD exacerbation and influenza A. He was discharged to [facility] for rehabilitation, however he returned to the hospital in less than 24 hours. Patient returned to [facility] emergency department on 06/02/16 from [facility] rehab with altered mental status and minimal response. Upon EMS arrival he was found with agonal breathing, required bag valve mask assist. Upon arrival to the emergency department the patient was hypothermic with a temperature 94, hypoxic he was emergently intubated. He was admitted to ICU with respiratory failure, renal failure, sepsis. Lab studies revealed potassium 6.1. Patient continued on dialysis. He was extubated on 06/07/16, however required BiPAP shortly after extubation. He has remained on BiPAP alternating with nasal cannula since that time. Medical team felt patient would need PEG tube placement for long-term care. Palliative care is consulted to assist with further clarification of treatment goals. Speaking with the patient he does not want peg tube does not want mechanical ventilation or cardiac resuscitation. He desires comfort measures with hospice support. Spoke with his friend, Ronald Da Silva via telephone who confirmed this is in keeping with his wishes and supports hospice decision. She is willing to serve as healthcare proxy decision maker should the patient was capacity. The patient has no family. Hospice consulted. . Past Family Social History Coded Allergies: Sulfa (Verified Allergy, Severe, "difficulty breathing", 06/02/16) Penicillin (Verified Adverse Reaction, Severe, "acid taste in mouth, problems with vision", 06/02/16) DIFFICULTY BREATHING Past Medical History End-stage renal disease on hemodialysis Saturday, AV fistula left upper extremity COPD A. fib CHF Acid reflux Hypertension History of lung biopsy Suprapubic catheter History of GI bleed . Past Surgical History Lung biopsy suprapubic catheter placement Reported Medications Reported Meds & Active Scripts Active Vistaril (Hydroxyzine Pamoate) 25 Mg Cap 25 Mg PO Q6H PRN Reported Renvela (Sevelamer Carbonate) 800 Mg Tab 800 Mg PO DAILY Pantoprazole (Pantoprazole Sodium) 40 Mg Tab 40 Mg PO DAILY Amiodarone (Amiodarone HCl) 200 Mg Tab 200 Mg PO EVERY OTHER DAY Diltiazem (Diltiazem HCl) 120 Mg Tab 240 Mg PO DIRECTED Aspirin 81 Mg Chew 81 Mg CHEW DAILY . Current Medications Medications (Trade) Dose Ordered Sig/Bharti Route Start Time Stop Time Status Last Admin (NS Flush) 2 ml UNSCH PRN IV FLUSH 06/02/16 14:30 (NS Flush) 2 ml BID IV FLUSH 06/02/16 21:00 06/08/16 09:36 (Tylenol) 650 mg Q6H PRN PO 06/02/16 14:30 06/08/16 12:05 (Protonix Inj) 40 mg DAILY IV 06/03/16 09:00 06/08/16 09:37 (Zofran Inj) 4 mg Q6H PRN IV 06/02/16 14:30 06/08/16 09:46 (Colace Liq) 100 mg Q12H G-TUBE 06/02/16 14:30 06/08/16 13:35 (Senokot) 17.2 mg Q12H PRN PO 06/02/16 14:30 06/08/16 12:06 Miscellaneous Information 1 Q361D XX 06/02/16 14:30 (Chlorhexidine 2% Cloth) Taper DAILY@04 TOP 06/03/16 04:00 05/30/17 03:59 06/07/16 03:33 (Chlorhexidine 2% Cloth) 3 pack UNSCH PRN TOP 06/02/16 14:30 Glucagon 1 mg 1 mg UNSCH PRN OTHER 06/02/16 14:30 (NS 1000 ml Inj) 1,000 ml @ 0 mls/hr Q0M PRN IV 06/02/16 15:36 06/08/16 08:16 Heparin Sodium (Porcine) 8000 units 8,000 units UNSCH PRN IVF 06/02/16 15:45 Sodium Chloride 1,000 ml @ 200 mls/hr Q5H PRN IV 06/02/16 15:36 (NS 1000 ml Inj) 1,000 ml @ 0 mls/hr Q0M PRN IV 06/02/16 15:36 06/06/16 11:28 (Mannitol Inj) 12.5 gm UNSCH PRN IV 06/02/16 15:45 06/04/16 13:06 (Albumin 25% Inj) 25 gm UNSCH PRN IV 06/02/16 15:45 06/08/16 08:38 (NS Flush) 5 ml UNSCH PRN IVF 06/02/16 15:45 (Zofran Inj) 4 mg UNSCH PRN IV 06/02/16 15:45 (Tylenol) 650 mg UNSCH PRN PO 06/02/16 15:45 (Benadryl) 25 mg UNSCH PRN PO 06/02/16 15:45 (Nitrostat Sl) 0.4 mg UNSCH PRN SL 06/02/16 15:45 (Catapres) 0.1 mg UNSCH PRN PO 06/02/16 15:45 (Epogen Inj) 5,000 units UNSCH PRN IV 06/02/16 15:45 06/08/16 08:16 (Gelfoam 12 Mm/7 Mm Top) 1 foam UNSCH PRN TOP 06/02/16 15:45 06/06/16 11:28 (Heparin Inj) 5,000 units Q12HR SQ 06/02/16 21:00 Hold 06/03/16 07:56 Aspirin 81 mg 81 mg DAILY CHEW 06/03/16 09:00 Hold 06/03/16 07:55 (Zithromax Inj/ NS 250 ml Inj) 250 ml @ 250 mls/hr Q24H IV 06/02/16 18:00 06/08/16 16:53 (SoluMEDROL INJ) 40 mg DAILY IV PUSH 06/04/16 09:00 06/08/16 09:37 Chlorhexidine Gluconate 15 ml 15 ml BID@08,20 MT 06/03/16 20:00 06/07/16 09:02 Propofol 100 ml @ 0 mls/hr TITRATE IV 06/03/16 19:00 06/07/16 12:28 (Levophed-Dextrose Drip) 250 ml @ 0 mls/hr TITRATE IV 06/03/16 19:45 (Brethine Inj) 1 mg UNSCH PRN SQ 06/03/16 19:45 (Nutrisource Fiber Powder) 1 pack TID G-TUBE 06/05/16 18:00 06/08/16 16:54 (Trandate Inj) 10 mg Q4H PRN IV PUSH 06/06/16 10:00 06/07/16 10:29 (Reglan Inj) 10 mg Q8H IV PUSH 06/06/16 13:00 06/08/16 12:05 Metoprolol Tartrate 5 mg 5 mg Q6H PRN IV PUSH 06/06/16 14:45 06/08/16 12:19 (Rocephin Inj/NS Inj) 100 ml @ 200 mls/hr Q24H IV 06/08/16 14:00 06/08/16 13:35 . Family History Siblings , uncertain causes. . Substance Use Tobacco: quit 1989 Alcohol: quit 1989 Prescription med abuse: none Illicits: none. . Psychosocial History . Lives alone. No known family per patient and friends report. Patient was in [facility] for one day prior to this admission. . Spiritual/Cultural Factors Sikh sergio. Living Will: Never completed Health Care Surrogate: Never completed Durable Power of Hi Teacher: Never completed Health Care Surrogate(s): No known family. Patient indicates I can call his friends Ronald and Ed. According to [place] statutes, health care proxy decision making falls to close friend. Ronald Da Silva is willing to serve as Health care proxy. Today's verbally stated goals: Patient does not want machines or tubes to artificially prolong his dying process. Elects NO CODE. Wants to be comfortable. Elects hospice. Family/friends goals: Supports patient decision and feels this is in keeping with his known wishes on prior conversations prior to this hospitalization. Elects hospice support and comfort measures. Confirms DNR. Ethical and Legal Issues No known family. Patient indicates I can call his friends Ronald and Ed. According to [place] stat[place]eno[place], health care proxy decision making falls to close friend. Rnoald Da Silva is willing to serve as Health care proxy. Physical Exam Vital Signs Date Time Temp Pulse Resp B/P Pulse Ox O2 Delivery O2 Flow Rate FiO2 06/08/16 14:00 110 06/08/16 13:35 28 06/08/16 12:00 98.3 120 26 114/57 99 06/08/16 12:00 120 06/08/16 10:00 111 06/08/16 08:44 96 35 06/08/16 08:00 98.7 109 24 102/66 96 06/08/16 08:00 109 06/08/16 07:00 94 Bi-Pap 35 06/08/16 06:00 105 06/08/16 04:00 96 35 06/08/16 04:00 97.8 102 21 120/56 93 06/08/16 04:00 102 06/08/16 02:00 102 06/08/16 01:17 95 35 06/08/16 00:00 108 06/08/16 00:00 97.9 107 25 142/60 93 06/07/16 23:41 95 35 06/07/16 22:00 103 06/07/16 20:00 104 06/07/16 20:00 97.9 104 25 125/94 99 06/07/16 19:30 96 Nasal Cannula 4.00 06/07/16 19:29 98 35 06/07/16 19:00 96 Bi-Pap 40 06/07/16 06/08/16 19:00 07:00 Intake Total 113 ml 1805 ml Output Total 90 ml 300 ml Balance 23 ml 1505 ml IV Total 113 ml 473 ml Tube Feeding 892 ml Other 440 ml Output Urine Total 90 ml 300 ml # Bowel Movements 0 0 Exam CONSTITUTIONAL/GENERAL: This is a critically ill, cachectic patient. TUBES/LINES/DRAINS:NC, Vas-cath, PIV right upper, PIV right forearm SKIN: No jaundice, rashes, or lesions. Ecchymoses on upper extremities. No wounds seen anteriorly. Skin temperature appropriate. Not diaphoretic. HEAD: Atraumatic. Normocephalic. EYES: Pupils equal and round and reactive. Extraocular motions intact. No scleral icterus. No injection or drainage. Fundi not examined. ENT: hard of hearing, wears hearing aids. NG tube clamped. NECK: Trachea midline. CARDIOVASCULAR: Regular rate and rhythm without murmurs, gallops, or rubs. No JVD. Peripheral pulses symmetric. RESPIRATORY/CHEST: labored respirations at rest. Bilateral diffuse course breath sounds. Using accessory muscles to breathe. GASTROINTESTINAL: Abdomen soft, non-tender, nondistended. No guarding. Bowel sounds present. GENITOURINARY: Without palpable bladder distension. catheter in place. MUSCULOSKELETAL: Extremities with edema. No mottling or clubbing. LYMPHATICS: No palpable cervical or supraclavicular adenopathy. NEUROLOGICAL: Awake and alert. Follows commands. Moves all extremities. PSYCHIATRIC: No obvious anxiety/depression. no apparent hallucinations or other psychotic thought process. . Diagnostic Tests Laboratory Laboratory Tests Test 06/05/16 06/06/16 06/06/16 06/07/16 19:21 03:13 04:38 03:04 Reticulocyte Count 0.6 % (0.4-3.0) Absolute Reticulocyte Count 14.6 MIL/L (20.0-150.0) Prothrombin Time 12.9 SEC (9.8-11.6) Prothromb Time International 1.2 RATIO Ratio Activated Partial 34.5 SEC Thromboplast Time (24.3-30.1) Fibrinogen 356 mg/dL (181-393) Cytomegalovirus DNA Quant <137 IU/mL (PCR) (Undetected) White Blood Count 2.6 TH/MM3 5.1 TH/MM3 (4.0-11.0) (4.0-11.0) Red Blood Count 2.61 MIL/MM3 2.45 MIL/MM3 (4.50-5.90) (4.50-5.90) Hemoglobin 8.4 GM/DL 7.8 GM/DL (13.0-17.0) (13.0-17.0) Hematocrit 25.2 % 23.7 % (39.0-51.0) (39.0-51.0) Mean Corpuscular Volume 96.6 FL 96.7 FL (80.0-100.0) (80.0-100.0) Mean Corpuscular Hemoglobin 32.3 PG 32.0 PG (27.0-34.0) (27.0-34.0) Mean Corpuscular Hemoglobin 33.5 % 33.1 % Concent (32.0-36.0) (32.0-36.0) Red Cell Distribution Width 17.8 % 18.0 % (11.6-17.2) (11.6-17.2) Platelet Count 39 TH/MM3 43 TH/MM3 (150-450) (150-450) Mean Platelet Volume 8.9 FL 9.0 FL (7.0-11.0) (7.0-11.0) Neutrophils (%) (Auto) 94.6 % 93.6 % (16.0-70.0) (16.0-70.0) Lymphocytes (%) (Auto) 1.6 % 2.0 % (9.0-44.0) (9.0-44.0) Monocytes (%) (Auto) 3.2 % (0.0-8.0) 3.1 % (0.0-8.0) Eosinophils (%) (Auto) 0.0 % (0.0-4.0) 1.0 % (0.0-4.0) Basophils (%) (Auto) 0.6 % (0.0-2.0) 0.3 % (0.0-2.0) Neutrophils # (Auto) 2.5 TH/MM3 4.8 TH/MM3 (1.8-7.7) (1.8-7.7) Lymphocytes # (Auto) 0.0 TH/MM3 0.1 TH/MM3 (1.0-4.8) (1.0-4.8) Monocytes # (Auto) 0.1 TH/MM3 0.2 TH/MM3 (0-0.9) (0-0.9) Eosinophils # (Auto) 0.0 TH/MM3 0.1 TH/MM3 (0-0.4) (0-0.4) Basophils # (Auto) 0.0 TH/MM3 0.0 TH/MM3 (0-0.2) (0-0.2) CBC Comment AUTO DIFF AUTO DIFF Differential Total Cells 100 100 Counted Neutrophils % (Manual) 69 % (16-70) 42 % (16-70) Band Neutrophils % 27 % (0-6) 33 % (0-6) Lymphocytes % 1 % (9-44) 5 % (9-44) Monocytes % 3 % (0-8) 2 % (0-8) Neutrophils # (Manual) 2.5 TH/MM3 4.7 TH/MM3 (1.8-7.7) (1.8-7.7) Nucleated Red Blood Cells 1 /100 WBC 2 /100 WBC (0-0) (0-0) Differential Comment FINAL DIFF FINAL DIFF MANUAL MANUAL Platelet Estimate LOW (NORMAL) LOW (NORMAL) Platelet Morphology Comment NORMAL ENLARGED (NORMAL) (NORMAL) Ovalocytes 1+ (NORMAL) 1+ (NORMAL) Helmet Cells OCC (NORMAL) Acanthocytes OCC (NORMAL) OCC (NORMAL) Sodium Level 140 MEQ/L 142 MEQ/L (136-145) (136-145) Potassium Level 5.3 MEQ/L 4.9 MEQ/L (3.5-5.1) (3.5-5.1) Chloride Level 100 MEQ/L 100 MEQ/L (98-107) (98-107) Carbon Dioxide Level 26.0 MEQ/L 29.6 MEQ/L (21.0-32.0) (21.0-32.0) Anion Gap 14 MEQ/L (5-15) 12 MEQ/L (5-15) Blood Urea Nitrogen 118 MG/DL 82 MG/DL (7-18) (7-18) Creatinine 5.40 MG/DL 3.64 MG/DL (0.60-1.30) (0.60-1.30) Estimat Glomerular Filtration 11 ML/MIN (>89) 17 ML/MIN (>89) Rate Random Glucose 172 MG/DL 159 MG/DL (74-106) (74-106) Calcium Level 7.6 MG/DL 6.9 MG/DL (8.5-10.1) (8.5-10.1) Phosphorus Level 7.0 MG/DL 3.0 MG/DL (2.5-4.9) (2.5-4.9) Magnesium Level 2.3 MG/DL 1.9 MG/DL (1.5-2.5) (1.5-2.5) Total Bilirubin 0.4 MG/DL 0.4 MG/DL (0.2-1.0) (0.2-1.0) Aspartate Amino Transf 17 U/L (15-37) 13 U/L (15-37) (AST/SGOT) Alanine Aminotransferase 47 U/L (12-78) 38 U/L (12-78) (ALT/SGPT) Alkaline Phosphatase 76 U/L (45-117) 78 U/L (45-117) Total Protein 4.9 GM/DL 4.4 GM/DL (6.4-8.2) (6.4-8.2) Albumin 2.1 GM/DL 1.8 GM/DL (3.4-5.0) (3.4-5.0) Blood Gas Puncture Site RT RADIAL Blood Gas Patient Temperature 98.6 Blood Gas HCO3 23 mmol/L (22-26) Blood Gas Base Excess -1.6 mmol/L (-2-2) Blood Gas Oxygen Saturation 95 % (90-100) Arterial Blood pH 7.39 (7.380-7.420) Arterial Blood Partial 38 mmHg (38-42) Pressure CO2 Arterial Blood Partial 104 mmHg Pressure O2 (61-120) Arterial Blood Oxygen Content 12.0 Vol % (12.0-20.0) Arterial Blood 1.4 % (0-4) Carboxyhemoglobin Arterial Blood Methemoglobin 1.1 % (0-2) Blood Gas Hemoglobin 8.8 G/DL (12.0-16.0) Oxygen Delivery Device VENTILATOR Blood Gas Ventilator Setting AC 600/20/5 PEEP Blood Gas Inspired Oxygen 35 % Metamyelocytes 18 % (0-1) Toxic Vacuolation PRESENT (NONE SEEN) Protein Corrected Calcium 8.4 MG/DL (8.5-10.1) Test 06/07/16 06/07/16 06/08/16 06/08/16 11:55 14:11 05:11 07:05 Blood Gas Puncture Site RT BRACHIAL RT RADIAL RT FEMORAL Blood Gas Patient Temperature 98.6 98.6 98.6 Blood Gas HCO3 27 mmol/L 26 mmol/L 26 mmol/L (22-26) (22-26) (22-26) Blood Gas Base Excess 0.4 mmol/L 0.8 mmol/L 0.9 mmol/L (-2-2) (-2-2) (-2-2) Blood Gas Oxygen Saturation 92 % (90-100) 93 % (90-100) 96 % (90-100) Arterial Blood pH 7.22 7.31 7.33 (7.380-7.420) (7.380-7.420) (7.380-7.420) Arterial Blood Partial 70 mmHg (38-42) 55 mmHg (38-42) 52 mmHg (38-42) Pressure CO2 Arterial Blood Partial 90 mmHg 96 mmHg 112 mmHG Pressure O2 (61-120) (61-120) (61-120) Arterial Blood Oxygen Content 13.5 Vol % 12.9 Vol % 12.6 Vol % (12.0-20.0) (12.0-20.0) (12.0-20.0) Arterial Blood 1.3 % (0-4) 1.9 % (0-4) 1.3 % (0-4) Carboxyhemoglobin Arterial Blood Methemoglobin 1.2 % (0-2) 1.2 % (0-2) 0.6 % (0-2) Blood Gas Hemoglobin 10.4 G/DL 9.7 G/DL 9.2 G/DL (12.0-16.0) (12.0-16.0) (12.0-16.0) Oxygen Delivery Device BIPAP BIPAP BiPAP 14IPAP/5EPAP Blood Gas Inspired Oxygen 40 % 35 % 35 % Blood Gas Ventilator Setting IPAP 16/EPAP 5 15IPAP/5EPAP White Blood Count 13.8 TH/MM3 (4.0-11.0) Red Blood Count 3.01 MIL/MM3 (4.50-5.90) Hemoglobin 9.9 GM/DL (13.0-17.0) Hematocrit 29.5 % (39.0-51.0) Mean Corpuscular Volume 98.1 FL (80.0-100.0) Mean Corpuscular Hemoglobin 32.8 PG (27.0-34.0) Mean Corpuscular Hemoglobin 33.5 % Concent (32.0-36.0) Red Cell Distribution Width 18.0 % (11.6-17.2) Platelet Count 86 TH/MM3 (150-450) Mean Platelet Volume 9.8 FL (7.0-11.0) Neutrophils (%) (Auto) 96.5 % (16.0-70.0) Lymphocytes (%) (Auto) 0.9 % (9.0-44.0) Monocytes (%) (Auto) 2.4 % (0.0-8.0) Eosinophils (%) (Auto) 0.1 % (0.0-4.0) Basophils (%) (Auto) 0.1 % (0.0-2.0) Neutrophils # (Auto) 13.3 TH/MM3 (1.8-7.7) Lymphocytes # (Auto) 0.1 TH/MM3 (1.0-4.8) Monocytes # (Auto) 0.3 TH/MM3 (0-0.9) Eosinophils # (Auto) 0.0 TH/MM3 (0-0.4) Basophils # (Auto) 0.0 TH/MM3 (0-0.2) CBC Comment AUTO DIFF Differential Total Cells 100 Counted Neutrophils % (Manual) 64 % (16-70) Band Neutrophils % 30 % (0-6) Lymphocytes % 3 % (9-44) Monocytes % 2 % (0-8) Neutrophils # (Manual) 13.1 TH/MM3 (1.8-7.7) Metamyelocytes 1 % (0-1) Differential Comment FINAL DIFF MANUAL Platelet Estimate LOW (NORMAL) Platelet Morphology Comment NORMAL (NORMAL) Ovalocytes 1+ (NORMAL) Helmet Cells OCC (NORMAL) Acanthocytes OCC (NORMAL) Keratocytes OCC (NORMAL) Sodium Level 140 MEQ/L (136-145) Potassium Level 6.0 MEQ/L (3.5-5.1) Chloride Level 102 MEQ/L (98-107) Carbon Dioxide Level 25.7 MEQ/L (21.0-32.0) Anion Gap 12 MEQ/L (5-15) Blood Urea Nitrogen 141 MG/DL (7-18) Creatinine 4.89 MG/DL (0.60-1.30) Estimat Glomerular Filtration 12 ML/MIN (>89) Rate Random Glucose 155 MG/DL (74-106) Calcium Level 7.2 MG/DL (8.5-10.1) Protein Corrected Calcium 8.4 MG/DL (8.5-10.1) Phosphorus Level 4.6 MG/DL (2.5-4.9) Magnesium Level 2.4 MG/DL (1.5-2.5) Total Bilirubin 0.4 MG/DL (0.2-1.0) Aspartate Amino Transf 13 U/L (15-37) (AST/SGOT) Alanine Aminotransferase 37 U/L (12-78) (ALT/SGPT) Alkaline Phosphatase 102 U/L (45-117) Ammonia 21 MCMOL/L (11-32) Total Protein 4.9 GM/DL (6.4-8.2) Albumin 1.9 GM/DL (3.4-5.0) Result Diagram: 06/08/16 0705 06/08/16 0705 Microbiology Microbiology Date/Time Procedure Status Source Growth 06/06/16 07:43 Gram Stain - Final Complete Sputum Endotracheal 06/06/16 07:43 Sputum Culture - Final Complete Sputum Endotracheal MODERATE GROWTH NORMAL RESPIRATORY PO Imaging Last Impressions Abdomen X-Ray 06/08/16 0000 Signed Impressions: Service Date/Time: Wednesday, June 08, 2016 17:54 - CONCLUSION: Considerable stool in the colon. Nonobstructive pattern. Chuck Warner MD Chest X-Ray 06/06/16 0600 Signed Impressions: Service Date/Time: Monday, June 06, 2016 04:26 - CONCLUSION: 1. Persistent bibasilar effusion/atelectasis. 2. Stable bibasilar right hemithorax. Stable pleural-based calcifications, right greater than left. 3. Interval placement of a nasogastric tube which enters the stomach. Endotracheal tube is appropriately positioned above the jean. Aubrey Martinez MD Patient/Family Conference Present at Family Conference: Met with patient and spoke with friend Ronald via telephone Family Conference Time (mins): 30 Family Conference Location: Bedside, Telephone Issues Discussed: * Palliative care role, purpose, approach * Additional medical, psychosocial, and spiritual history * Patients general health, functional status, and cognitive changes in the months leading up to the current hospitalization * Patient/family understanding of the current medical problems * Patient/family understanding of prognosis * Patients goals of care as best understood from advance directives and/or conversations and/or values * Current medical treatment options and benefits/burdens of those options * Likely scenarios comparing ongoing aggressive care with a transition to comfort measures only * Questions answered to the best of my ability * Palliative care contact information provided Assessment and Plan Disease Oriented Problem List: (1) Pancytopenia (2) Pneumonia (3) Atrial fibrillation with rapid ventricular response (4) ESRD (end stage renal disease) (5) Hyperkalemia (6) Lymphopenia (7) Respiratory failure (8) Influenza A (9) Dyspnea (10) Generalized weakness Symptom Scale: (1) Anxiety 0-10 Scale: Unable to quantify (2) Dyspnea 0-10 Scale: Unable to quantify (3) Pain 0-10 Scale: Unable to quantify (4) Weakness 0-10 Scale: Unable to quantify (5) Malnutrition 0-10 Scale: Unable to quantify Pertinent Non-Medical Issues Psychosocial: . Supported by his close friends, Zeina Da Silva. Spiritual: Sikh sergio. Legal:No known family. Patient indicates I can call his friends Ronald and Ed. According to [place] statutes, health care proxy decision making falls to close friend. Ronald Da Silva is willing to serve as Health care proxy. Ethical issues impacting care: no known concerns. . Important Contacts * Ronald and Ed Da Silva, friends/HCP: [phone] Prognosis Mr. Downey is a 70-year-old male with end-stage COPD, recurrent COPD exacerbation, recent flu, end-stage renal disease on dialysis. Prognosis is poor. Life expectancy than 6 months. Code Status: No Code Plan * No known family. Patient indicates I can call his friends Ronald and Ed. According to [place] statutes, health care proxy decision making falls to close friend. Ronald Da Silva is willing to serve as Health care proxy. * NO CODE per patient wishes * Spoke with a friend, Ronald via telephone and patient at bedside. Patient does not want peg tube, mechanical ventilation or cardiac resuscitation. Elects NO CODE. Wants to be kept comfortable. Desires hospice support. Conversation witnessed by nurseDolores. Hospice consulted. [facility] appropriate for management of dyspnea, anxiety and secretions. Was at [facility] for one day prior to this hospitalization. He is slightly lived alone. * Further comfort orders per hospice attending. * Palliative care will continue to follow throughout hospital course to assist with symptom management and clarification of treatment goals. . Thank you for the opportunity to participate in the care of Mr. Downey. Attestation To help prompt me to consider important information that might be impacting today's encounter and assessment, information from prior notes written by myself or my colleagues may have been "brought forward" into today's note. My signature on this note, however, is an attestation that I personally performed the exam, history, and/or decision-making noted today, and, unless otherwise indicated, the interactions with patient, family, and staff as well as the review of records all occurred today. I also attest that the listed assessment and stated plan reflect my best clinical judgment today based on the combination of historical information, prior notes, and today's exam/ interactions. When time spent is documented, it refers only to time spent today by the signer, or if indicated, combined time spent today by collaborating physician/nurse practitioner. . FANY COPPOLA Jun 08, 2016 18:17
[2016-06-09] VITALS (15 sets, daily range): BP systolic 134–149; BP diastolic 55–96; PULSE 96–121; RESP 26–30; TEMP 97.6–98.3; O2SAT 93–99
[2016-06-09] MEDS ORDERED: FUROSEMIDE 40 MG/4 ML VIAL IV PUSH ONE (01:45)
[2016-06-09] MEDS ORDERED: HYOSCYAMINE SOLN 0.125 MG/ML 15 ML BTL PO/SL PRN (01:45)
[2016-06-09] MEDS: METOPROLOL TARTRATE 5 MG/5 ML VIAL IV PUSH PRN ×2 (02:53→16:48)
[2016-06-09] MEDS: DOCUSATE SODIUM 100 MG/10 ML UDC G-TUBE SCH ×2 (02:53→14:08)
[2016-06-09] MEDS: CHLORHEXIDINE GLUCONATE 2 % 1 PACK (2 CLOTHS) TOP SCH (03:51)
[2016-06-09] MEDS: METOCLOPRAMIDE HCL 10 MG/2 ML VIAL IV PUSH SCH ×2 (03:52→13:00)
[2016-06-09] MEDS: INSULIN NovoLIN REGULAR SUPPLEMENTAL SCALE SQ SCH ×3 (05:44→16:00)
[2016-06-09] MEDS: PANTOPRAZOLE SODIUM 40 MG VIAL IV SCH (08:37)
[2016-06-09] MEDS: methylPREDNISolone SOD SUCC 40 MG/1 ML VIAL IV PUSH SCH (08:38)
[2016-06-09] MEDS: NUTRISOURCE FIBER POWDER 1 PACK G-TUBE SCH ×3 (08:38→17:00)
[2016-06-09] MEDS: SODIUM CHLORIDE 0.9% FLUSH 5 ML FLUSH IV FLUSH SCH (08:39)
[2016-06-09] MEDS: CHLORHEXIDINE 0.12% (ORAL KIT) 15 ML CUP MT SCH (08:39)
[2016-06-09 09:24] LABS: AUTOMATED NEUTROPHIL # 12.2 TH/MM3 (1.8-7.7); BASOPHIL % 0.3 % (0.0-2.0); EOSINOPHIL % 0.1 % (0.0-4.0); HEMATOCRIT 26.4 % (39.0-51.0); LYMPH % 0.8 % (9.0-44.0); LYMPHOCYTE # 0.1 TH/MM3 (1.0-4.8); MEAN CELL VOLUME 99.3 FL (80.0-100.0); MEAN CORPUSCULAR HEMOGLOBIN 31.7 PG (27.0-34.0); MONO % 3.7 % (0.0-8.0); NEUT % 95.1 % (16.0-70.0); PLATELET COUNT 119 TH/MM3 (150-450); RED BLOOD COUNT 2.66 MIL/MM3 (4.50-5.90); RED CELL DISTRIBUTION WIDTH 18.2 % (11.6-17.2); WHITE BLOOD COUNT 12.8 TH/MM3 (4.0-11.0)
[2016-06-09 09:27] LABS: HEMO FLAGS AUTO DIFF
--- NOTE | 2016-06-09 10:10 | PD.ONC.PN ---
Subjective Subjective Remarks Afebrile overnight. Patient remains on bipap. Per nurse, he is considering hospice and a consult to hospice has been placed. Objective Data Date Time Temp Pulse Resp B/P Pulse Ox O2 Delivery O2 Flow Rate FiO2 06/09/16 07:58 97 40 06/09/16 07:00 97 Bi-Pap 50 06/09/16 06:00 102 06/09/16 04:00 100 06/09/16 04:00 98.2 97 30 143/64 97 06/09/16 03:07 94 50 06/09/16 02:00 111 06/09/16 00:00 98.1 108 27 149/91 93 06/09/16 00:00 107 06/08/16 22:00 104 06/08/16 20:00 121 06/08/16 20:00 98.4 121 32 164/78 98 06/08/16 19:34 99 Nasal Cannula 4.00 06/08/16 19:00 98 Nasal Cannula 4.00 06/08/16 18:00 106 06/08/16 16:00 98.1 114 26 144/69 98 06/08/16 16:00 114 06/08/16 14:00 110 06/08/16 13:35 28 06/08/16 12:00 98.3 120 26 114/57 99 06/08/16 12:00 120 06/09/16 06/09/16 06/09/16 07:00 15:00 23:00 Intake Total 39 ml Output Total 25 ml Balance 14 ml Result Diagram: 06/09/16 0913 06/08/16 0705 Laboratory Results Laboratory Tests Test 06/09/16 09:13 White Blood Count 12.8 TH/MM3 Red Blood Count 2.66 MIL/MM3 Hemoglobin 8.5 GM/DL Hematocrit 26.4 % Mean Corpuscular Volume 99.3 FL Mean Corpuscular Hemoglobin 31.7 PG Mean Corpuscular Hemoglobin 32.0 % Concent Red Cell Distribution Width 18.2 % Platelet Count 119 TH/MM3 Mean Platelet Volume 9.0 FL Neutrophils (%) (Auto) 95.1 % Lymphocytes (%) (Auto) 0.8 % Monocytes (%) (Auto) 3.7 % Eosinophils (%) (Auto) 0.1 % Basophils (%) (Auto) 0.3 % Neutrophils # (Auto) 12.2 TH/MM3 Lymphocytes # (Auto) 0.1 TH/MM3 Monocytes # (Auto) 0.5 TH/MM3 Eosinophils # (Auto) 0.0 TH/MM3 Basophils # (Auto) 0.0 TH/MM3 CBC Comment AUTO DIFF Administered Medications Medications (Trade) Dose Ordered Sig/Bharti Route PRN Reason Start Time Stop Time Status Last Admin Dose Admin IV Flush (NS Flush) 2 ml UNSCH PRN IV FLUSH FLUSH AFTER USING IV ACCESS 06/02/16 14:30 06/09/16 02:53 IV Flush (NS Flush) 2 ml BID IV FLUSH 06/02/16 21:00 06/09/16 08:39 Acetaminophen (Tylenol) 650 mg Q6H PRN PO PAIN 1-10 AND/OR FEVER >101F 06/02/16 14:30 06/08/16 12:05 Pantoprazole Sodium (Protonix Inj) 40 mg DAILY IV 06/03/16 09:00 06/09/16 08:37 Ondansetron HCl (Zofran Inj) 4 mg Q6H PRN IV NAUSEA OR VOMITING 06/02/16 14:30 06/08/16 09:46 Docusate Sodium (Colace Liq) 100 mg Q12H G-TUBE 06/02/16 14:30 06/09/16 02:53 Sennosides (Senokot) 17.2 mg Q12H PRN PO CONSTIPATION 06/02/16 14:30 06/08/16 12:06 Chlorhexidine Gluconate Taper DAILY@04 TOP 06/03/16 04:00 05/30/17 03:59 06/07/16 03:33 Sodium Chloride 1,000 ml @ 0 mls/hr Q0M PRN IV For Prime & Rinse Back 06/02/16 15:36 06/08/16 08:16 Sodium Chloride (NS 1000 ml Inj) 1,000 ml @ 0 mls/hr Q0M PRN IV WITH DIALYSIS 06/02/16 15:36 06/06/16 11:28 Mannitol (Mannitol Inj) 12.5 gm UNSCH PRN IV WITH DIALYSIS 06/02/16 15:45 06/04/16 13:06 Albumin Human (Albumin 25% Inj) 25 gm UNSCH PRN IV WITH DIALYSIS 06/02/16 15:45 06/08/16 08:38 Epoetin Jose Antonio (Epogen Inj) 5,000 units UNSCH PRN IV WITH DIALYSIS 06/02/16 15:45 06/08/16 08:16 Gelatin (Gelfoam 12 Mm/7 Mm Top) 1 foam UNSCH PRN TOP SEE LABEL COMMENTS 06/02/16 15:45 06/06/16 11:28 Heparin Sodium (Porcine) (Heparin Inj) 5,000 units Q12HR SQ 06/02/16 21:00 Hold 06/03/16 07:56 Aspirin 81 mg 81 mg DAILY CHEW 06/03/16 09:00 Hold 06/03/16 07:55 Azithromycin/ Sodium Chloride (Zithromax Inj/ NS 250 ml Inj) 250 ml @ 250 mls/hr Q24H IV 06/02/16 18:00 06/08/16 16:53 Methylprednisolone Sodium Succinate (SoluMEDROL INJ) 40 mg DAILY IV PUSH 06/04/16 09:00 06/09/16 08:38 Chlorhexidine Gluconate 15 ml 15 ml BID@08,20 MT 06/03/16 20:00 06/09/16 08:39 Propofol (Diprivan 1000 Mg/100ml Inj) 100 ml @ 0 mls/hr TITRATE IV 06/03/16 19:00 06/07/16 12:28 Guar Gum (Nutrisource Fiber Powder) 1 pack TID G-TUBE 06/05/16 18:00 06/09/16 08:38 Labetalol HCl (Trandate Inj) 10 mg Q4H PRN IV PUSH SBP>160, DBP>90 06/06/16 10:00 06/07/16 10:29 Metoclopramide HCl (Reglan Inj) 10 mg Q8H IV PUSH 06/06/16 13:00 06/09/16 03:52 Metoprolol Tartrate 5 mg 5 mg Q6H PRN IV PUSH HR >100 06/06/16 14:45 06/09/16 02:53 Ceftriaxone Sodium/Sodium Chloride (Rocephin Inj/NS Inj) 100 ml @ 200 mls/hr Q24H IV 06/08/16 14:00 06/08/16 13:35 Hyoscyamine Sulfate (Levsin Liq) 0.125 mg Q4H PRN PO/SL oral secretions 06/09/16 01:45 06/09/16 03:07 Objective Remarks GENERAL: Weak, chronically ill male, supine in imc, on bipap SKIN: Warm and dry. HEAD: Normocephalic. EYES: No injection or drainage. NECK: Supple, trachea midline. CARDIOVASCULAR: +S1/S2, tachy RESPIRATORY: scattered rhonchi. on bipap GASTROINTESTINAL: Abdomen soft, non-tender, nondistended. EXTREMITIES: No cyanosis MUSCULOSKELETAL: deconditioned overall. Assessment/Plan Problem List: (1) Pancytopenia Status: Acute Plan: --improving -- Likely due to consumption from infection -- s/p Neupogen x 2 days, neutropenia has resolved -- Underlying anemia due to chronic renal disease and sepsis, no bleeding noted. -- Platelet stable. -- Iron studies show elevated ferritin, but this is an acute phase reactant. -- B12 and folate normal. -- CMV less than 137. (2) Pneumonia Status: Acute Plan: -- On Azithromycin and Rocephin -- CXR showed persistent bibasilar effusion/ atelectasis. -- Sputum culture pending -- ID following Assessment 70 y/o male admitted for AMS with hypoxia during hemodialysis Plan 1. monitor CBC 2. no transfusion today. Attending Statement The exam, history, and the medical decision-making described in the above note were completed with the assistance of the mid-level provider. I reviewed and agree with the findings presented. I attest that I had a [id number] encounter with the patient on the same day, and personally performed and documented my assessment and findings in the medical record. Pancytopenia due to sepsis/myelosuppression --WBC improved No blood products today poor prognosis palliative care/hospice Problem Qualifiers (1) Pneumonia: Qualified Code: J18.9 - Pneumonia due to infectious organism, unspecified laterality, unspecified part of lung Esme Root Jun 09, 2016 10:10 Wiley Hayes MD Jun 09, 2016 13:06
[2016-06-09 10:29] LABS: BANDS 14 % (0-6); CORRECTED NUCLEATED RBC 1 /100 WBC (0-0); NEUTROPHIL # MANUAL DIFF 12.5 TH/MM3 (1.8-7.7); POLYS (SEG NEUTROPHILS) 84 % (16-70); WBC DIFF SAMPLE 100
[2016-06-09 10:31] LABS: KERATOCYTES OCC (NORMAL)
[2016-06-09 10:32] LABS: OVALOCYTES 1+ (NORMAL); PLATELET ESTIMATE SMEAR LOW (NORMAL); PLATELET MORPHOLOGY NORMAL (NORMAL); SCAN/DIFF FINAL DIFF MANUAL
--- NOTE | 2016-06-09 11:55 | HHI.NPPN ---
Subjective History of Present Illness 70 year old male with COPD, ESRD, A fib Additional Remarks With facemask bipap, lethargic Review of Systems General Constitutional: Fatigue Objective Data Data 06/08/16 06/09/16 19:00 07:00 Intake Total 874 ml 316 ml Output Total 1540 ml 50 ml Balance -666 ml 266 ml IV Total 196 ml 316 ml Tube Feeding 578 ml Tube Irrigant 100 ml Output Urine Total 40 ml 50 ml Hemodialysis 1500 ml # Bowel Movements 1 2 Vital Signs Date Time Temp Pulse Resp B/P Pulse Ox O2 Delivery O2 Flow Rate FiO2 06/09/16 10:00 96 06/09/16 08:00 97.6 104 28 134/94 96 06/09/16 08:00 104 06/09/16 07:58 97 40 06/09/16 07:00 97 Bi-Pap 50 06/09/16 06:00 102 06/09/16 04:00 100 06/09/16 04:00 98.2 97 30 143/64 97 06/09/16 03:07 94 50 06/09/16 02:00 111 06/09/16 00:00 98.1 108 27 149/91 93 06/09/16 00:00 107 06/08/16 22:00 104 06/08/16 20:00 121 06/08/16 20:00 98.4 121 32 164/78 98 06/08/16 19:34 99 Nasal Cannula 4.00 06/08/16 19:00 98 Nasal Cannula 4.00 06/08/16 18:00 106 06/08/16 16:00 98.1 114 26 144/69 98 06/08/16 16:00 114 06/08/16 14:00 110 06/08/16 13:35 28 06/08/16 12:00 98.3 120 26 114/57 99 06/08/16 12:00 120 -: 06/09/16 0913 06/08/16 0705 Physical Exam General Appearance: Well Developed Neck Neck Exam: Neck Supple Pulmonary Resp Exam: Decreased Bases Cardiology CV Exam: Arrhythmia Gastrointestinal/Abdomen GI Exam: Soft, Non-Tender, Bowel Sounds Present Extremeties Extremities Exam: No Edema Assessment/Plan Problem List: (1) ESRD (end stage renal disease) Plan: HD done Saturday Electrolytes stable Plan next HD Saturday, continue MWF HD for now. Continue to follow with palliative care/ hospice evaluation (2) Atrial fibrillation with rapid ventricular response Plan: Patient heart rate is high (3) Pneumonia Plan: He is being treated with antibiotics pulmonary is following Cefuroxime/Azactam (4) Hyperkalemia Plan: hemodialysis done yesterday, will check potassium in AM. Problem Qualifiers (1) Pneumonia: Qualified Code: J18.9 - Pneumonia due to infectious organism, unspecified laterality, unspecified part of lung Alex Goff MD Jun 09, 2016 11:55
[2016-06-09] MEDS: cefTRIAXone INJ 1,000 MG in SODIUM CHLORIDE 0.9% INJ 100 ML IV SCH (14:00)
--- NOTE | 2016-06-09 14:02 | HHI.PR ---
Subjective Remarks patient on BiPAP 50% labored breathing Objective Vitals Vital Signs Date Time Temp Pulse Resp B/P Pulse Ox O2 Delivery O2 Flow Rate FiO2 06/09/16 12:03 99 40 06/09/16 12:00 98.3 112 26 143/55 94 06/09/16 12:00 103 06/09/16 10:00 96 06/09/16 08:00 97.6 104 28 134/94 96 06/09/16 08:00 104 06/09/16 07:58 97 40 06/09/16 07:00 97 Bi-Pap 50 06/09/16 06:00 102 06/09/16 04:00 100 06/09/16 04:00 98.2 97 30 143/64 97 06/09/16 03:07 94 50 06/09/16 02:00 111 06/09/16 00:00 98.1 108 27 149/91 93 06/09/16 00:00 107 06/08/16 22:00 104 06/08/16 20:00 121 06/08/16 20:00 98.4 121 32 164/78 98 06/08/16 19:34 99 Nasal Cannula 4.00 06/08/16 19:00 98 Nasal Cannula 4.00 06/08/16 18:00 106 06/08/16 16:00 98.1 114 26 144/69 98 06/08/16 16:00 114 06/08/16 14:00 110 I/O 06/08/16 06/08/16 06/08/16 06/09/16 06/09/16 06/09/16 07:00 15:00 23:00 07:00 15:00 23:00 Intake Total 965 ml 874 ml 277 ml 39 ml Output Total 50 ml 1540 ml 25 ml 25 ml Balance 915 ml -666 ml 252 ml 14 ml IV Total 142 ml 196 ml 277 ml 39 ml Tube Feeding 583 ml 578 ml Tube Irrigant 100 ml Other 240 ml Output Urine Total 50 ml 40 ml 25 ml 25 ml Hemodialysis 1500 ml # Bowel Movements 0 1 1 1 Result Diagram: 06/09/16 0913 06/08/16 0705 Imaging Last Impressions Abdomen X-Ray 06/08/16 0000 Signed Impressions: Service Date/Time: Wednesday, June 08, 2016 17:54 - CONCLUSION: Considerable stool in the colon. Nonobstructive pattern. Chuck Warner MD Chest X-Ray 06/06/16 0600 Signed Impressions: Service Date/Time: Monday, June 06, 2016 04:26 - CONCLUSION: 1. Persistent bibasilar effusion/atelectasis. 2. Stable bibasilar right hemithorax. Stable pleural-based calcifications, right greater than left. 3. Interval placement of a nasogastric tube which enters the stomach. Endotracheal tube is appropriately positioned above the jean. Aubrey Martinez MD Objective Remarks hard of hearing, lethargic decrease breath sounds tachycardic abdomen- soft, distended good bowel sounds, soft extremities no edema Date of Insertion: Jun 02, 2016 A/P Assessment and Plan Neurologic: Metabolic Encephalopathy Hypothermia-resolved Neurochecks per ICU protocol Tylenol 650 mg every 6 hours when necessary for pain Off Sedation COPD Exacerbation Acute hypoxic respiratory failure- on BiPaP Maintain O2 sat greater than 90%- mouth breathing Solu-Medrol 40 mg every 8 hours Reintubated June 03, 2016 CPAP trials - ABG with compensated respiratory acidosis Shortly after required BiPAP due to CO2 retention and respiratory acidosis Improving on BiPAP Dr. Richards appreciate recommendations Duonebs q 6hrs scheduled, q 2 hrs PRN Hypercholesterolemia Hypertension Cardiomegaly H/O A. fib RVR H/O CHF BNP-341 Troponin-neg EKG-Atrial fibrillation Maintain MAP > 65mmHg, currently normotensive Continue aspirin 81 mg daily Continue amiodarone 200 mg every other day Head labetalol when necessary for blood pressure higher than 160 Lopressor IV push as needed for heart rate above 110 End-stage renal disease Nephrology following-Dr. Espinal on HD Hemodialysis-Saturday Left upper arm AV graft-positive bruit and thrill Hemodialysis 06/02 -- Strict I/Os Hyperkalemia Hiatal hernia Continue tube feeds Protonix-home medication IV fluids at O Anemia of chronic disease History of multilobar pneumonia influenza A Recent diagnosis Multilobar PNA (Influenza A) discharged 05/31 Probable sepsis Pneumococcal, Legionella, influenza A and B cultures negative patient received Tamiflu 05/28 Urine and sputum cultures ID consult appreciated Endocrine: Thyromegaly TSH level, and T4 level Random cortisol All within normal limits CONSTIPATION - manual disimpaction done by staff nurse- brown stools - patient very weak to even strain - bowel regimen - get a KUB -- SSI Prophylaxis: GI Prophylaxis Protonix 40 mg/daily (home medication) DVT Prophylaxis -- SCDs Heparin 5000 SQ BID Lines: Peripheral IVs 2. Central line if indicated will write for comfort meds met with Hospice today patient - discharge and transfer to Hospice care center this pm Tima Thomas MD Jun 09, 2016 14:02
--- NOTE | 2016-06-09 14:07 | HHI.DS ---
Discharge Summary Admission Date Jun 02, 2016 at 14:04 Discharge Date: Jun 09, 2016 Admitting Diagnosis respiratory failure (1) Chronic obstructive pulmonary disease ICD Code: J44.9 Diagnosis: Principal (2) Respiratory failure ICD Code: J96.90 Diagnosis: Principal Procedures none Brief History - From Admission This 70 year-old man, multiple chronic medical conditions including end-stage renal disease on HD, A. fib, COPD, recent admission for COPD exacerbation with influenza A positive, discharge from [facility] yesterday to [facility]. He apparently presented to the [facility] nursing desk for dialysis, and then slumped over and was minimally responsive. EMS describes agonal, and affect show respirations requiring bag valve mask assist. In the ED, the patient was noted to be severely hypothermic 94 F, hypoxic and was intubated utilizing etomidate and rocuronium. Imaging and lab studies were performed, revealing a potassium level of 6.1. The patient received in ED 2 g of calcium chloride 2 doses, blood cultures were obtained. CBC/BMP: 06/09/16 0913 06/08/16 0705 Significant Findings Laboratory Tests Test 06/07/16 06/07/16 06/07/16 06/08/16 03:04 11:55 14:11 05:11 Red Blood Count 2.45 MIL/MM3 (4.50-5.90) Hemoglobin 7.8 GM/DL (13.0-17.0) Hematocrit 23.7 % (39.0-51.0) Red Cell Distribution Width 18.0 % (11.6-17.2) Platelet Count 43 TH/MM3 (150-450) Neutrophils (%) (Auto) 93.6 % (16.0-70.0) Lymphocytes (%) (Auto) 2.0 % (9.0-44.0) Lymphocytes # (Auto) 0.1 TH/MM3 (1.0-4.8) Band Neutrophils % 33 % (0-6) Lymphocytes % 5 % (9-44) Metamyelocytes 18 % (0-1) Nucleated Red Blood Cells 2 /100 WBC (0-0) Toxic Vacuolation PRESENT (NONE SEEN) Platelet Estimate LOW (NORMAL) Platelet Morphology Comment ENLARGED (NORMAL) Ovalocytes 1+ (NORMAL) Blood Urea Nitrogen 82 MG/DL (7-18) Creatinine 3.64 MG/DL (0.60-1.30) Estimat Glomerular Filtration 17 ML/MIN (>89) Rate Random Glucose 159 MG/DL (74-106) Calcium Level 6.9 MG/DL (8.5-10.1) Protein Corrected Calcium 8.4 MG/DL (8.5-10.1) Aspartate Amino Transf 13 U/L (15-37) (AST/SGOT) Total Protein 4.4 GM/DL (6.4-8.2) Albumin 1.8 GM/DL (3.4-5.0) Blood Gas HCO3 27 mmol/L (22-26) Arterial Blood pH 7.22 7.31 7.33 (7.380-7.420) (7.380-7.420) (7.380-7.420) Arterial Blood Partial 70 mmHg (38-42) 55 mmHg (38-42) 52 mmHg (38-42) Pressure CO2 Blood Gas Hemoglobin 10.4 G/DL 9.7 G/DL 9.2 G/DL (12.0-16.0) (12.0-16.0) (12.0-16.0) Test 06/08/16 06/09/16 07:05 09:13 White Blood Count 13.8 TH/MM3 12.8 TH/MM3 (4.0-11.0) (4.0-11.0) Red Blood Count 3.01 MIL/MM3 2.66 MIL/MM3 (4.50-5.90) (4.50-5.90) Hemoglobin 9.9 GM/DL 8.5 GM/DL (13.0-17.0) (13.0-17.0) Hematocrit 29.5 % 26.4 % (39.0-51.0) (39.0-51.0) Red Cell Distribution Width 18.0 % 18.2 % (11.6-17.2) (11.6-17.2) Platelet Count 86 TH/MM3 119 TH/MM3 (150-450) (150-450) Neutrophils (%) (Auto) 96.5 % 95.1 % (16.0-70.0) (16.0-70.0) Lymphocytes (%) (Auto) 0.9 % 0.8 % (9.0-44.0) (9.0-44.0) Neutrophils # (Auto) 13.3 TH/MM3 12.2 TH/MM3 (1.8-7.7) (1.8-7.7) Lymphocytes # (Auto) 0.1 TH/MM3 0.1 TH/MM3 (1.0-4.8) (1.0-4.8) Band Neutrophils % 30 % (0-6) 14 % (0-6) Lymphocytes % 3 % (9-44) Neutrophils # (Manual) 13.1 TH/MM3 12.5 TH/MM3 (1.8-7.7) (1.8-7.7) Platelet Estimate LOW (NORMAL) LOW (NORMAL) Ovalocytes 1+ (NORMAL) 1+ (NORMAL) Potassium Level 6.0 MEQ/L (3.5-5.1) Blood Urea Nitrogen 141 MG/DL (7-18) Creatinine 4.89 MG/DL (0.60-1.30) Estimat Glomerular Filtration 12 ML/MIN (>89) Rate Random Glucose 155 MG/DL (74-106) Calcium Level 7.2 MG/DL (8.5-10.1) Protein Corrected Calcium 8.4 MG/DL (8.5-10.1) Aspartate Amino Transf 13 U/L (15-37) (AST/SGOT) Total Protein 4.9 GM/DL (6.4-8.2) Albumin 1.9 GM/DL (3.4-5.0) Neutrophils % (Manual) 84 % (16-70) Nucleated Red Blood Cells 1 /100 WBC (0-0) PE at Discharge hard of hearing, lethargic decrease breath sounds tachycardic abdomen- soft, distended good bowel sounds, soft extremities no edema Pt update on day of discharge patient on BiPAP drowsy Hospital Course Metabolic Encephalopathy Hypothermia-resolved Neurochecks per ICU protocol Tylenol 650 mg every 6 hours when necessary for pain Off Sedation COPD Exacerbation Acute hypoxic respiratory failure- on BiPaP Maintain O2 sat greater than 90%- mouth breathing Solu-Medrol 40 mg every 8 hours Reintubated June 03, 2016 CPAP trials - ABG with compensated respiratory acidosis Shortly after required BiPAP due to CO2 retention and respiratory acidosis Improving on BiPAP Dr. Richards appreciate recommendations Duonebs q 6hrs scheduled, q 2 hrs PRN Hypercholesterolemia Hypertension Cardiomegaly H/O A. fib RVR H/O CHF BNP-341 Troponin-neg EKG-Atrial fibrillation Maintain MAP > 65mmHg, currently normotensive Continue aspirin 81 mg daily Continue amiodarone 200 mg every other day Head labetalol when necessary for blood pressure higher than 160 Lopressor IV push as needed for heart rate above 110 End-stage renal disease Nephrology following-Dr. Espinal on HD Hemodialysis-Saturday Left upper arm AV graft-positive bruit and thrill Hemodialysis 06/02 -- Strict I/Os Hyperkalemia Hiatal hernia Continue tube feeds Protonix-home medication IV fluids at [facility] Anemia of chronic disease History of multilobar pneumonia influenza A Recent diagnosis Multilobar PNA (Influenza A) discharged 05/31 Probable sepsis Pneumococcal, Legionella, influenza A and B cultures negative patient received Tamiflu 05/28 Urine and sputum cultures ID consult appreciated Endocrine: Thyromegaly TSH level, and T4 level Random cortisol All within normal limits CONSTIPATION - manual disimpaction done by staff nurseTamara aly stools - patient very weak to even strain - bowel regimen - get a KUB -- SSI Prophylaxis: GI Prophylaxis Protonix 40 mg/daily (home medication) DVT Prophylaxis -- SCDs Heparin 5000 SQ BID Lines: Peripheral IVs 2. Central line if indicated will write for comfort meds met with Hospice today patient - discharge and transfer to Hospice care center this pm Pt Condition on Discharge: Guarded Discharge Disposition: Hospice/Med Facility Discharge Time: <= 30 minutes Discharge Instructions DIET: Follow Instructions for: Nothing By Mouth Activities you can perform: Continue Bedrest Tima Thomas MD Jun 09, 2016 14:07 Endocrine: Thyromegaly TSH level, and T4 level Random cortisol All within normal limits CONSTIPATION - manual disimpaction done by staff nurse- brown stools - patient very weak to even strain - bowel regimen - get a KUB -- SSI Prophylaxis: GI Prophylaxis Protonix 40 mg/daily (home medication) DVT Prophylaxis -- SCDs Heparin 5000 SQ BID Lines: Peripheral IVs 2. Central line if indicated will write for comfort meds met with Hospice today patient - discharge and transfer to Hospice care center this pm Pt Condition on Discharge: Guarded Discharge Disposition: Hospice/Med Facility Discharge Time: <= 30 minutes Discharge Instructions DIET: Follow Instructions for: Nothing By Mouth Activities you can perform: Continue Bedrest Tima Thomas MD Jun 09, 2016 14:07
[2016-06-09] MEDS ORDERED: LORazepam 2 MG/ML VIAL IV PUSH PRN (15:00)
[2016-06-09] MEDS ORDERED: MORPHINE SULFATE 4 MG/ML INJ IV PUSH PRN (15:00)
[2016-06-09] MEDS: AZITHROMYCIN INJ 500 MG in SODIUM CHLOR 0.9% 250 ML INJ 250 ML IV SCH (17:01)
== END 2016-06-09 18:50 | disposition expired | DRG 870 ==
LOC: NEPE 11:24 → NEDA 14:04 → HIMW 16:40
PROVIDERS: ADMIT Internal Medicine; ATTEND Internal Medicine
PROC: 5A1955Z Respiratory Ventilation, Greater than 96 Consecutive Hours (ICD-10-PCS; principal; 2016-06-02)
PROC: 0BH17EZ Insertion of Endotracheal Airway into Trachea, Via Natural or Artificial Opening (ICD-10-PCS; 2016-06-02)
PROC: 5A1D60Z (ICD-10-PCS; 2016-06-02)
PROC: 0BH17EZ Insertion of Endotracheal Airway into Trachea, Via Natural or Artificial Opening (ICD-10-PCS; 2016-06-03)
DX: A41.9 Sepsis, unspecified organism (principal); J96.01 Acute respiratory failure with hypoxia; D65 Disseminated intravascular coagulation [defibrination syndrome]; G93.41 Metabolic encephalopathy; Z51.5 Encounter for palliative care; I13.2 Hypertensive heart and chronic kidney disease with heart failure and with stage 5 chronic kidney disease, or end stage renal disease; J18.9 Pneumonia, unspecified organism; D61.818 Other pancytopenia; J44.0 Chronic obstructive pulmonary disease with (acute) lower respiratory infection; N18.6 End stage renal disease; J44.1 Chronic obstructive pulmonary disease with (acute) exacerbation; Z68.1 Body mass index [BMI] 19.9 or less, adult; E46 Unspecified protein-calorie malnutrition; J98.11 Atelectasis; E87.2 Acidosis; I50.9 Heart failure, unspecified; I48.2 Chronic atrial fibrillation; E87.5 Hyperkalemia; K44.9 Diaphragmatic hernia without obstruction or gangrene; K21.9 Gastro-esophageal reflux disease without esophagitis; I44.7 Left bundle-branch block, unspecified; R68.0 Hypothermia, not associated with low environmental temperature; E78.00 Pure hypercholesterolemia, unspecified; D63.1 Anemia in chronic kidney disease; M10.9 Gout, unspecified; E21.3 Hyperparathyroidism, unspecified; H91.90 Unspecified hearing loss, unspecified ear; E01.0 Iodine-deficiency related diffuse (endemic) goiter; K59.00 Constipation, unspecified; F41.9 Anxiety disorder, unspecified; Z66 Do not resuscitate; Z86.718 Personal history of other venous thrombosis and embolism; Z87.01 Personal history of pneumonia (recurrent); Z87.74 Personal history of (corrected) congenital malformations of heart and circulatory system; Z87.891 Personal history of nicotine dependence; Z88.0 Allergy status to penicillin; Z88.2 Allergy status to sulfonamides; Z99.2 Dependence on renal dialysis
CPT/HCPCS: 31500; 36600; 51702; 71010; 74000; 76937; 80048; 80053; 82140; 82533; 82550; 82607; 82728; 82746; 82805; 82948; 83540; 83550; 83605; 83615; 83735; 83880; 84100; 84132; 84145; 84155; 84439; 84443; 84484; 85007; 85025; 85027; 85044; 85384; 85610; 85730; 86703; 87040; 87070; 87086; 87205; 87449; 87497; 87641; 87804; 90935; 93005; 93306; 94002; 94003; 94150; 94640; 94664; 96365; 96366; 96374; 96375; C9113; J0456; J0610; J0692; J0696; J1442; J1644; J1940; J2060; J2150; J2405; J2765; J2920; J3370; J7030; J7040; J7050; P9047; Q4081